=== PATIENT | male | born 1950 | race Caucasian/White ===

== ENCOUNTER 2018-05-16 15:40 | Observation (INO) | payer MEDICARE, OTHER ==
[~2018-05-16] VITALS: Ht 182.9 cm; Wt 114.8 kg
[~2018-05-16 15:40] MED LIST: ASP81CT PO; ATEN50TA PO; ATOR40TA70 PO; BENA1TAB3; BNZ20T; CARV12.53 PO; CLOP75TA69 PO; FENO145T2 PO; GLIP10TA13 PO; IBP200T; INSU100V6 SQ; LOSA100T7 PO; MTF500T; POTA10TA36 PO; PRV20T PO; SILD50TA PO; TADA2.5T PO; TAMS0.4C98 PO; TORS20TA3 PO
[2018-05-16] MEDS ORDERED: DILTIAZEM 25 MG/5 ML INJ (CARDIZEM) VIAL ONE (15:54)
[2018-05-16] MEDS ORDERED: DILTIAZEM 25 MG/5 ML INJ (CARDIZEM) VIAL IVP ONE (16:00)
[2018-05-16] MEDS ORDERED: meTOprolol 5 MG/5 ML (LOPRESSOR) VIAL ONE (16:03)
--- NOTE | 2018-05-16 16:35 | NUR ---
DR HALL HERE TO SEE PT
--- NOTE | 2018-05-16 16:39 | ED Cardiac General ---
History of Present Illness General Chief Complaint: Cardiac/General Problems Stated Complaint: ABNORMAL HEART RHYTHM Source: patient Exam Limitations: no limitations History of Present Illness Date Seen by Provider: May 16, 2018 Time Seen by Provider: 15:30 Initial Comments The patient is a 68-year-old white male who reports that when he awakened this morning he had the sense of pounding in his chest. He thought he would wait it out. After a bit he decided that he needed to go fever [facility]. This did not go well. He then confided in his friend Curry Bardales as to what was going on and Curry brought him here. 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er.prt, 10 MEQ PO DAILY, (Reported) Sildenafil Citrate 50 Mg Tablet, 50 MG PO PRN, (Reported) Tamsulosin HCl 0.4 Mg Cap, 0.4 MG PO DAILY, (Reported) Torsemide 20 Mg Tablet, 20 MG PO BID, (Reported) Patient Home Medication List Home Medication List Reviewed: Yes Review of Systems Review of Systems Constitutional: see HPI EENTM: No Symptoms Reported Respiratory: SOA With Exertion Cardiovascular: Irregular Heart Rate, Palpitations Gastrointestinal: No Symptoms Reported Genitourinary: No Symptoms Reported Musculoskeletal: no symptoms reported Skin: no symptoms reported Psychiatric/Neurological: No Symptoms Reported Endocrine: No Symptoms Reported Hematologic/Lymphatic: No Symptoms Reported Past Knbxfcj-Flwktc-Fcagzb Hx Patient Social History Recent Foreign Travel: No Contact w/Someone Who Travel: No Past Medical History Reproductive Disorders: No Physical Exam Vital Signs Capillary Refill : Height, Weight, BMI Height: 6'0.00" Weight: 265lbs. 0.0oz. 120.267277rh; 35.9 BMI Method: General Appearance: No Apparent Distress, WD/WN HEENT: Normal ENT Inspection Neck: Full Range of Motion, Normal Inspection, Non Tender Respiratory: Chest Non Tender, Lungs Clear, Normal Breath Sounds, No Accessory Muscle Use, No Respiratory Distress Cardiovascular: Irregularly Irregular Gastrointestinal: Normal Bowel Sounds, No Organomegaly, No Pulsatile Mass, Non Tender Extremity: Normal Capillary Refill, Normal Inspection Neurologic/Psychiatric: Alert, Oriented x3, Normal Mood/Affect Skin: Normal Color Progress/Results/Core Measures Results/Orders My Orders Orders - LONDON GORDILLO MD Diltiazem Injection (Cardizem Injection) (05/16/18 16:00) Diltiazem Injection (Cardizem Injection) (05/16/18 15:54) Metoprolol Tartrate Injection (Lopressor (05/16/18 16:03) Medications Given in ED Current Medications Medications Dose Ordered Sig/Eriberto Route Start Time Stop Time Status Last Admin Dose Admin Diltiazem HCl 10 mg ONCE ONCE IVP 05/16/18 16:00 05/16/18 16:01 DC 05/16/18 16:02 10 MG Metoprolol Tartrate 5 mg STK-MED ONCE .ROUTE 05/16/18 16:03 05/16/18 16:08 DC 05/16/18 16:10 5 MG Departure Communication (Admissions) The patient was seen by Dr. Medina in the ER at approximately 1630. The patient will be admitted to stepdown Impression Primary Impression: atrial fibrillation with rapid ventricular response Disposition: ADMITTED INPATIENT Condition: Stable/Unchanged Admissions Decision to Admit Reason: Admit from ER (General) Decision to Admit/Date: May 16, 2018 Time/Decision to Admit Time: 16:40 Departure-Patient Inst. Referrals: LISA GAITAN MD FACP FAC CCDS (PCP/Family) Primary Care Physician LONDON GORDILLO MD May 16, 2018 16:38
--- NOTE | 2018-05-16 16:43 | NUR ---
SEE LIST FOR CURRENT MEDS
--- NOTE | 2018-05-16 16:44 | Consultation-Cardiology ---
HPI-Cardiology Cardiology Consultation Date of Consultation 05/16/18 Date of Admission Time Seen by Provider: 16:38 Indication: atrial flutter HPI 68 years old gentleman with history of coronary artery disease, hypertension and hyperlipidemia. Woke up this morning feeling tired, did not feel himself. Had some irregular heartbeat. Came into the emergency room for evaluation noted to be in atrial flutter with borderline tachycardia. Denied any chest pain. Denied any syncope or near syncopal episode, is complaining of generalized fatigue and loss of energy. Given IV Lopressor with appropriate improvement of his heart rate, currently his heart rate is in the 70s. Feeling better. Still in flutter. Home Medications & Allergies Allergies: Coded Allergies: VIV Inhibitors (Verified Allergy, Unknown, 09/11/17) Home Medication List Reviewed: Yes [facility]-[place] Hx Patient Social History Marital Status: Employed/Student: employed Alcohol Use: Rarely Uses Recreational Drug Use: No Smoking Status: Never a Smoker Recent Foreign Travel: No Recent Hopitalizations: No Past Medical History Past medical history as described below Family Medical History Family Medical Hx Noncontributory. His current condition Review of Systems Constitutional: see HPI, malaise, weakness EENTM: see HPI, no symptoms reported Respiratory: see HPI; No cough, No dyspnea on exertion, No hemoptysis, No orthopnea, No phlegm, No short of breath, No stridor, No wheezing, No other Cardiovascular: see HPI; No chest pain, No edema, No Hx of Intervention; palpitations; No syncope, No vascular heart diseas, No other Gastrointestinal: no symptoms reported, see HPI Genitourinary: no symptoms reported, see HPI Musculoskeletal: no symptoms reported, see HPI Skin: no symptoms reported, see HPI Psychiatric/Neurological: No Symptoms Reported, See HPI Reviewed Test Results Reviewed Test Results Lab Labs are pending Physical Exam Vital Signs Capillary Refill : Less Than 3 Seconds Height, Weight, BMI Height: 6'0.00" Weight: 265lbs. 0.0oz. 120.721233xm; 35.9 BMI Method: General Appearance: No Apparent Distress, WD/WN Eyes: Bilateral Eye Normal Inspection, Bilateral Eye PERRL, Bilateral Eye EOMI HEENT: PERRL/EOMI, TMs Normal, Normal ENT Inspection, Pharynx Normal Neck: Full Range of Motion, Normal Inspection, Non Tender, Supple, Carotid Bruit Respiratory: Chest Non Tender, Lungs Clear, Normal Breath Sounds, No Accessory Muscle Use, No Respiratory Distress Cardiovascular: No Edema, No Gallop, No JVD, No Murmur, Normal Peripheral Pulses, Irregularly Irregular Gastrointestinal: Normal Bowel Sounds, No Organomegaly, No Pulsatile Mass, Non Tender, Soft Back: Normal Inspection, No CVA Tenderness, No Vertebral Tenderness Extremity: Normal Capillary Refill, Normal Inspection, Normal Range of Motion, Non Tender, No Calf Tenderness, No Pedal Edema Neurologic/Psychiatric: Alert, Oriented x3, No Motor/Sensory Deficits, Normal Mood/Affect Skin: Normal Color, Warm/Dry Lymphatic: No Adenopathy A/P-Cardiology Admission Diagnosis Atrial flutter Palpitation Coronary artery disease Hypertension Hyperlipidemia Assessment/Plan Atrial flutter, new onset, palpitation, I will start her on IV Lopressor and monitor tolerance and response, may consider electrical cardioversion if he does not convert on his own. Increased risk of stroke, was started on Eliquis today. Coronary artery disease, last cardiac catheterization done by Dr. Huston in September 2017 showing moderate disease, had a patent stent noted to have bare-metal stent in the proximal and mid left circumflex artery, ejection fraction was normal. History of sick sinus syndrome with bradycardia after the use of beta blockers. Improved after reducing the dose of beta blockers Hypertension, monitor blood pressure Hyperlipidemia, hypertriglyceridemia, followed by Dr. Fox Diabetes mellitus, followed and managed by primary care physician History of chronic venous insufficiency with lower extremity swelling Peripheral neuropathy probably secondary to diabetes. Normal NICK in February 2015 Mild carotid stenosis by ultrasound in September 2014 History of intolerance to VIV inhibitor due to cough Increased risk of sleep apnea, consider sleep study as an outpatient Obesity, discussed weight loss. CUAUHTEMOC HALL MD May 16, 2018 16:44
[2018-05-16] MEDS ORDERED: APIXABAN 5 MG (ELIQUIS) TABLET PO ONE (16:45)
--- OUTSIDE RECORDS SUMMARY | 2018-05-16 17:04 | XMS REPORT | Continuity of Care Document ---
Author Author [facility] Organization [facility] Address Unknown Phone Unavailable Allergies Active Description Code Type Severity Reaction Onset Reported/Identified Relationship to Patient Clinical Status Yes NO KNOWN DRUG ALLERGIES UNKNOWN NO KNOWN DRUG ALLERG Yes No Known Drug Allergies [id number] Drug Allergy Unknown N/A 08/12/2009 Yes VIV Inhibitors [id number] Drug Allergy Unknown N/A 09/11/2017 Medications There is no data. Problems Date Dx Coded Attending Type Code Diagnosis Diagnosed By 08/13/2009 Ot 250.00 08/13/2009 Ot 272.0 08/13/2009 Ot 272.1 08/13/2009 Ot 401.9 08/13/2009 Ot 413.9 08/13/2009 Ot 414.01 08/13/2009 Ot V15.82 09/19/2011 Ot 250.00 09/19/2011 Ot 272.4 09/19/2011 Ot 401.9 09/19/2011 Ot 414.01 09/19/2011 Ot 607.84 09/19/2011 Ot 785.1 09/19/2011 Ot 786.09 09/19/2011 Ot V45.82 09/19/2011 Ot V58.66 09/19/2011 Ot V58.69 09/07/2014 ARNIE HAMEED FACC, LISA FACP CCDS Ot 250.00 09/07/2014 ARNIE HAMEED FACC, LISA FACP CCDS Ot 272.4 09/07/2014 ARNIE HAMEED FACC, LISA FACP CCDS Ot 401.9 09/07/2014 ARNIE HAMEED FACC, LISA FACP CCDS Ot 414.00 09/07/2014 ARNIE HAMEED FACC, LISA FACP CCDS Ot 427.89 02/23/2015 ARNIE HAMEED FACC, ALI FACP CCDS Ot 250.00 02/23/2015 ARNIE HAMEED FACC, LISA FACP CCDS Ot 272.4 02/23/2015 ARNIE HAMEED FACC, LISA FACP CCDS Ot 401.9 02/23/2015 ARNIE MD FACC, ALI FACP CCDS Ot 414.00 02/23/2015 ARNIE HAMEED FACC, ALI FACP CCDS Ot 427.89 03/11/2015 ARNIE HAMEED FACC, ALI FACP CCDS Ot E11.9 03/11/2015 [facility] FACC, ALI FACP CCDS Ot E66.9 03/11/2015 ARNIE FACC, ALI FACP CCDS Ot E78.5 03/11/2015 ARNIE MD FACC, ALI FACP CCDS Ot I10 03/11/2015 [facility] FACC, ALI FACP CCDS Ot I25.10 03/11/2015 ARNIE MD FAC, ALI FACP CCDS Ot I65.29 03/11/2015 ARNIE MD FAC, ALI FACP CCDS Ot M79.604 03/11/2015 [facility] FAC, ALI FACP CCDS Ot N52.9 05/05/2015 ARNIE HAMEED FAC, ALI FACP CCDS Ot E11.9 05/05/2015 ARNIE HAMEED FAC, ALI FACP CCDS Ot E66.9 05/05/2015 ARNIE MD [facility], ALI FACP CCDS Ot E78.5 05/05/2015 ARNIE HAMEED [facility], ALI FACP CCDS Ot I10 05/05/2015 ARNIE HAMEED FAC, ALI FACP CCDS Ot I25.10 05/05/2015 [facility] FAC, ALI FACP CCDS Ot M79.604 05/05/2015 RANIE HAMEED FACC, ALI FACP CCDS Ot N52.9 05/26/2015 ARNIE HAMEED FAC, ALI FACP CCDS Ot E11.9 05/26/2015 ARNIE MD FACC, ALI FACP CCDS Ot E66.9 05/26/2015 ARNIE HAMEED FAC, ALI FACP CCDS Ot E78.5 05/26/2015 ARNIE HAMEED FAC, ALI FACP CCDS Ot I10 05/26/2015 ARNIE HAMEED FACC, ALI FACP CCDS Ot I25.10 05/26/2015 ARNIE HAMEED FACC, ALI FACP CCDS Ot M79.604 05/26/2015 ARNIE HAMEED FACC, ALI FACP CCDS Ot N52.9 08/07/2017 Fox, [place] W 250.80 DIABETES MELLITUS WITH OTHER SPECIFIED MANIFESTATIONS, TYPE II OR UNSPECIFIED TYPE, NOT STATED UNCONTROLLED 08/07/2017 Fox, [place] W 428.0 CONGESTIVE HEART FAILURE, UNSPECIFIED 08/07/2017 Fox, [place] W 709.2 SCAR CONDITIONS AND FIBROSIS OF SKIN 08/07/2017 Fox, [place] W E11.65 TYPE 2 DIABETES MELLITUS WITH HYPERGLYCEMIA 08/07/2017 Fox, [place] W I50.9 HEART FAILURE, UNSPECIFIED 08/07/2017 Fox, [place] W L90.5 SCAR CONDITIONS AND FIBROSIS OF SKIN 08/07/2017 Fox, [place] W 250.80 DIABETES MELLITUS WITH OTHER SPECIFIED MANIFESTATIONS, TYPE II OR UNSPECIFIED TYPE, NOT STATED UNCONTROLLED 08/07/2017 Fox, [place] W 428.0 CONGESTIVE HEART FAILURE, UNSPECIFIED 08/07/2017 Fox, [place] W 709.2 SCAR CONDITIONS AND FIBROSIS OF SKIN 08/07/2017 Fox, [place] W E11.65 TYPE 2 DIABETES MELLITUS WITH HYPERGLYCEMIA 08/07/2017 Fox, [place] W I50.9 HEART FAILURE, UNSPECIFIED 08/07/2017 Fox, [place] W L90.5 SCAR CONDITIONS AND FIBROSIS OF SKIN 08/07/2017 Fox, [place] W 250.80 DIABETES MELLITUS WITH OTHER SPECIFIED MANIFESTATIONS, TYPE II OR UNSPECIFIED TYPE, NOT STATED UNCONTROLLED 08/07/2017 Fox, [place] W 428.0 CONGESTIVE HEART FAILURE, UNSPECIFIED 08/07/2017 Fox, [place] W 709.2 SCAR CONDITIONS AND FIBROSIS OF SKIN 08/07/2017 Fox, [place] W E11.65 TYPE 2 DIABETES MELLITUS WITH HYPERGLYCEMIA 08/07/2017 Fox, [place] W I50.9 HEART FAILURE, UNSPECIFIED 08/07/2017 Fox, [place] W L90.5 SCAR CONDITIONS AND FIBROSIS OF SKIN 08/14/2017 Fox, [place] A 250.80 DIABETES MELLITUS WITH OTHER SPECIFIED MANIFESTATIONS, TYPE II OR UNSPECIFIED TYPE, NOT STATED UNCONTROLLED 08/14/2017 Ruddy, [place] A E11.65 TYPE 2 DIABETES MELLITUS WITH HYPERGLYCEMIA 08/14/2017 Fox, [place] A 250.80 DIABETES MELLITUS WITH OTHER SPECIFIED MANIFESTATIONS, TYPE II OR UNSPECIFIED TYPE, NOT STATED UNCONTROLLED 08/14/2017 Fox, [place] W 272.4 OTHER AND UNSPECIFIED HYPERLIPIDEMIA 08/14/2017 Fox, [place] W 401.9 UNSPECIFIED ESSENTIAL HYPERTENSION 08/14/2017 Fox, [place] A E11.65 TYPE 2 DIABETES MELLITUS WITH HYPERGLYCEMIA 08/14/2017 Fox, [place] W E78.5 HYPERLIPIDEMIA, UNSPECIFIED 08/14/2017 Fox, [place] W I10 ESSENTIAL (PRIMARY) HYPERTENSION 08/14/2017 Fox, [place] W 250.80 DIABETES MELLITUS WITH OTHER SPECIFIED MANIFESTATIONS, TYPE II OR UNSPECIFIED TYPE, NOT STATED UNCONTROLLED 08/14/2017 Fox, [place] W 272.4 OTHER AND UNSPECIFIED HYPERLIPIDEMIA 08/14/2017 Fox, [place] W 401.9 UNSPECIFIED ESSENTIAL HYPERTENSION 08/14/2017 Fox, [place] W 428.0 CONGESTIVE HEART FAILURE, UNSPECIFIED 08/14/2017 Fox, [place] W E11.65 TYPE 2 DIABETES MELLITUS WITH HYPERGLYCEMIA 08/14/2017 Fox, [place] W E78.5 HYPERLIPIDEMIA, UNSPECIFIED 08/14/2017 Fox, [place] W I10 ESSENTIAL (PRIMARY) HYPERTENSION 08/14/2017 Fox, [place] W I50.9 HEART FAILURE, UNSPECIFIED 08/14/2017 Fox, [place] W 250.80 DIABETES MELLITUS WITH OTHER SPECIFIED MANIFESTATIONS, TYPE II OR UNSPECIFIED TYPE, NOT STATED UNCONTROLLED 08/14/2017 Fox, [place] W 272.4 OTHER AND UNSPECIFIED HYPERLIPIDEMIA 08/14/2017 Fox, [place] W 401.9 UNSPECIFIED ESSENTIAL HYPERTENSION 08/14/2017 Fox, [place] W 428.0 CONGESTIVE HEART FAILURE, UNSPECIFIED 08/14/2017 Fox, [place] W E11.65 TYPE 2 DIABETES MELLITUS WITH HYPERGLYCEMIA 08/14/2017 Fox, [place] W E78.5 HYPERLIPIDEMIA, UNSPECIFIED 08/14/2017 Fox, [place] W I10 ESSENTIAL (PRIMARY) HYPERTENSION 08/14/2017 Fox, [place] W I50.9 HEART FAILURE, UNSPECIFIED 09/06/2017 ARNIE HAMEED FACC, ALI FACP CCDS Ot 250.00 DIAB MEGAN WO COMPL, TYPE II OR UNSPEC TY 09/06/2017 ARNIE BEACHC, ALI FACP CCDS Ot 272.4 HYPERLIPIDEMIA NEC/NOS 09/06/2017 ARNIE HAMEED FACC, ALI FACP CCDS Ot 401.9 HYPERTENSION NOS 09/06/2017 ARNIE HAMEED FACC, ALI FACP CCDS Ot 414.00 CORON ATHEROSCLER NOS TYPE VESSEL, NATIV 09/06/2017 ARNIE HAMEED FACC, ALI FACP CCDS Ot 427.89 CARDIAC DYSRHYTHMIAS NEC 09/06/2017 ARNIE HAMEED FACC, ALI FACP CCDS Ot E11.9 TYPE 2 DIABETES MELLITUS WITHOUT COMPLIC 09/06/2017 ARNIE BEACHC, ALI FACP CCDS Ot E66.9 OBESITY, UNSPECIFIED 09/06/2017 ARNIE BEACHC, ALI FACP CCDS Ot E78.5 HYPERLIPIDEMIA, UNSPECIFIED 09/06/2017 ARNIE HAMEED FACC, ALI FACP CCDS Ot I10 ESSENTIAL (PRIMARY) HYPERTENSION 09/06/2017 ARNIE BEACHC, ALI FACP CCDS Ot I25.10 ATHSCL HEART DISEASE OF [place] CORONARY 09/06/2017 ARNIE BEACHC, ALI FACP CCDS Ot M79.604 PAIN IN RIGHT LEG 09/06/2017 ARNIE HAMEED FACC, ALI FACP CCDS Ot N52.9 MALE ERECTILE DYSFUNCTION, UNSPECIFIED 09/06/2017 ARNIE HAMEED FACC, ALI FACP CCDS Ot E11.9 TYPE 2 DIABETES MELLITUS WITHOUT COMPLIC 09/06/2017 ARNIE HAMEED FACC, ALI FACP CCDS Ot E66.9 OBESITY, UNSPECIFIED 09/06/2017 ARNIE BEACHC, ALI FACP CCDS Ot E78.5 HYPERLIPIDEMIA, UNSPECIFIED 09/06/2017 ARNIE BEACHC, ALI FACP CCDS Ot I10 ESSENTIAL (PRIMARY) HYPERTENSION 09/06/2017 ARNIE BEACHC, ALI FACP CCDS Ot I25.10 ATHSCL HEART DISEASE OF [place] CORONARY 09/06/2017 ARNIE BEACHC, ALI FACP CCDS Ot M79.604 PAIN IN RIGHT LEG 09/06/2017 ARNIE BEACHC, ALI FACP CCDS Ot N52.9 MALE ERECTILE DYSFUNCTION, UNSPECIFIED 09/10/2017 ARNIE BEACHC, ALI FACP CCDS Ot 250.00 DIAB MEGAN WO COMPL, TYPE II OR UNSPEC TY 09/10/2017 ARNIE HAMEED FACC, ALI FACP CCDS Ot 272.4 HYPERLIPIDEMIA NEC/NOS 09/10/2017 ARNIE HAMEED FACC, ALI FACP CCDS Ot 401.9 HYPERTENSION NOS 09/10/2017 ARNIE HAMEED FACC, ALI FACP CCDS Ot 414.00 CORON ATHEROSCLER NOS TYPE VESSEL, NATIV 09/10/2017 ARNIE HAMEED FACC, ALI FACP CCDS Ot 427.89 CARDIAC DYSRHYTHMIAS NEC 09/10/2017 ARNIE HAMEED FACC, ALI FACP CCDS Ot E11.9 TYPE 2 DIABETES MELLITUS WITHOUT COMPLIC 09/10/2017 ARNIE HAMEED FACC, ALI FACP CCDS Ot E66.9 OBESITY, UNSPECIFIED 09/10/2017 ARNIE HAMEED FACC, ALI FACP CCDS Ot E78.5 HYPERLIPIDEMIA, UNSPECIFIED 09/10/2017 ARNIE HAMEED FACC, ALI FACP CCDS Ot I10 ESSENTIAL (PRIMARY) HYPERTENSION 09/10/2017 ARNIE BEACHC, ALI FACP CCDS Ot I25.10 ATHSCL HEART DISEASE OF [place] CORONARY 09/10/2017 ARNIE BEACHC, ALI FACP CCDS Ot M79.604 PAIN IN RIGHT LEG 09/10/2017 ARNIE HAMEED FACC, ALI FACP CCDS Ot N52.9 MALE ERECTILE DYSFUNCTION, UNSPECIFIED 09/10/2017 ARNIE HAMEED FACC, ALI FACP CCDS Ot E11.9 TYPE 2 DIABETES MELLITUS WITHOUT COMPLIC 09/10/2017 ARNIE BEACHC, ALI FACP CCDS Ot E66.9 OBESITY, UNSPECIFIED 09/10/2017 ARNIE BEACHC, ALI FACP CCDS Ot E78.5 HYPERLIPIDEMIA, UNSPECIFIED 09/10/2017 ARNIE BEACHC, ALI FACP CCDS Ot I10 ESSENTIAL (PRIMARY) HYPERTENSION 09/10/2017 ARNIE BEACHC, ALI FACP CCDS Ot I25.10 ATHSCL HEART DISEASE OF [place] CORONARY 09/10/2017 ARNIE BEACHC, ALI FACP CCDS Ot M79.604 PAIN IN RIGHT LEG 09/10/2017 ARNIE BEACHC, ALI FACP CCDS Ot N52.9 MALE ERECTILE DYSFUNCTION, UNSPECIFIED 09/11/2017 ARNIE BEACHC, ALI FACP CCDS Ot E11.42 TYPE 2 DIABETES MELLITUS WITH DIABETIC P 09/11/2017 ARNIE HAMEED FACC, ALI FACP CCDS Ot E66.9 OBESITY, UNSPECIFIED 09/11/2017 ARNIE HAMEED FACC, ALI FACP CCDS Ot E78.5 HYPERLIPIDEMIA, UNSPECIFIED 09/11/2017 ARNIE HAMEED FACC, ALI FACP CCDS Ot I10 ESSENTIAL (PRIMARY) HYPERTENSION 09/11/2017 ARNIE HAMEED FACC, ALI FACP CCDS Ot I25.10 ATHSCL HEART DISEASE OF [place] CORONARY 09/11/2017 ARNIE HAMEED FACC, ALI FACP CCDS Ot Z68.35 BODY MASS INDEX (BMI) 35.0-35.9, ADULT 09/11/2017 ARNIE HAMEED FACC, ALI FACP CCDS Ot Z79.4 RESIDENTIAL (CURRENT) USE OF INSULIN 09/11/2017 ARNIE HAMEED FACC, ALI FACP CCDS Ot Z79.82 RESIDENTIAL (CURRENT) USE OF ASPIRIN 09/11/2017 ARNIE HAMEED FACC, ALI FACP CCDS Ot Z79.899 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 (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 THERAPY 09/11/2017 ARNIE HAMEED FACC, ALI FACP CCDS Ot Z95.5 PRESENCE OF CORONARY ANGIOPLASTY IMPLANT 09/12/2017 ARNIE BEACHC, ALI FACP CCDS Ot E11.42 TYPE 2 DIABETES MELLITUS WITH DIABETIC P 09/12/2017 ARNIE HAMEED FACC, ALI FACP CCDS Ot E66.9 OBESITY, UNSPECIFIED 09/12/2017 ARNIE HAMEED FACC, ALI FACP CCDS Ot E78.5 HYPERLIPIDEMIA, UNSPECIFIED 09/12/2017 ARNIE HAMEED FACC, ALI FACP CCDS Ot I10 ESSENTIAL (PRIMARY) HYPERTENSION 09/12/2017 ARNIE HAMEED FACC, ALI FACP CCDS Ot I25.10 ATHSCL HEART DISEASE OF [place] CORONARY 09/12/2017 ARNIE HAMEED FACC, ALI FACP CCDS Ot Z68.35 BODY MASS INDEX (BMI) 35.0-35.9, ADULT 09/12/2017 ARNIE HAMEED FACC, ALI FACP CCDS Ot Z79.4 RESIDENTIAL (CURRENT) USE OF INSULIN 09/12/2017 ARNIE HAMEED FACC, ALI FACP CCDS Ot Z79.82 RESIDENTIAL (CURRENT) USE OF ASPIRIN 09/12/2017 ARNIE HAMEED FACC, ALI FACP CCDS Ot Z79.899 OTHER RESIDENTIAL (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 THERAPY 09/12/2017 ARNIE HAMEED [facility], [facility] CCDS Ot Z95.5 PRESENCE OF CORONARY ANGIOPLASTY IMPLANT 01/10/2018 Ruddy, [place] W 250.00 DIABETES MELLITUS WITHOUT MENTION OF COMPLICATION, TYPE II OR UNSPECIFIED TYPE, NOT STATED UNCONTROLLED 01/10/2018 Fox, [place] W E11.9 TYPE 2 DIABETES MELLITUS WITHOUT COMPLICATIONS 01/10/2018 Fox, [place] W 250.00 DIABETES MELLITUS WITHOUT MENTION OF COMPLICATION, TYPE II OR UNSPECIFIED TYPE, NOT STATED UNCONTROLLED 01/10/2018 Fox, [place] W E11.9 TYPE 2 DIABETES MELLITUS WITHOUT COMPLICATIONS 01/10/2018 Fox, [place] W 250.00 DIABETES MELLITUS WITHOUT MENTION OF COMPLICATION, TYPE II OR UNSPECIFIED TYPE, NOT STATED UNCONTROLLED 01/10/2018 Fox, [place] W E11.9 TYPE 2 DIABETES MELLITUS WITHOUT COMPLICATIONS 04/30/2018 Fox, [place] W 250.00 DIABETES MELLITUS WITHOUT MENTION OF COMPLICATION, TYPE II OR UNSPECIFIED TYPE, NOT STATED UNCONTROLLED 04/30/2018 Fox, [place] W E11.9 TYPE 2 DIABETES MELLITUS WITHOUT COMPLICATIONS 04/30/2018 Fox, [place] W 250.00 DIABETES MELLITUS WITHOUT MENTION OF COMPLICATION, TYPE II OR UNSPECIFIED TYPE, NOT STATED UNCONTROLLED 04/30/2018 Fox, [place] W E11.9 TYPE 2 DIABETES MELLITUS WITHOUT COMPLICATIONS Procedures There is no data. Results Test Result Range Lipid Panel - 04/12/16 15:05 C/HDL 3.6 3.7-6.7 Cholesterol 127 mg/dL 100-240 HDL 35 mg/dL 30-85 LDL-Calculated 69 mg/dL 0-100 Trig 113 mg/dL 35-160 VLDL 23 mg/dL 0-42 Hemoglobin A1C - 08/09/16 11:00 % A1C 7.40 % 5.40-6.60 AvGlu 185 mg/dL 70-110 Microalb/Creat - 01/17/17 08:55 Microalb >500.0 mg/L 0.0-20.0 UMicroalb/UCreat 318.19 mg/g 0.00-100.00 Urine Creatinine 157.1 mg/dl 0.0-50.0 BNP - 04/13/17 13:26 BNP 97.60 pg/ml 0.00-100.00 BNP - 08/07/17 16:49 BNP 122.90 pg/ml 0.00-100.00 Hemoglobin A1C - 08/14/17 14:30 Lipid Panel - 08/14/17 14:30 Automated blood complete blood count (hemogram) panel - 09/11/17 07:22 Blood leukocytes automated count (number/volume) 9.3 10*3/uL 4.3-11.0 Blood erythrocytes automated count (number/volume) 5.01 10*6/uL 4.35-5.85 Venous blood hemoglobin measurement (mass/volume) 14.5 g/dL 13.3-17.7 Blood hematocrit (volume fraction) 43 % 40-54 Automated erythrocyte mean corpuscular volume 86 [foz_us] 80-99 Automated erythrocyte mean corpuscular hemoglobin (mass per erythrocyte) 29 pg 25-34 Automated erythrocyte mean corpuscular hemoglobin concentration measurement ( mass/volume) 34 g/dL 32-36 Automated erythrocyte distribution width ratio 13.4 % 10.0-14.5 Automated blood platelet count (count/volume) 139 10*3/uL 130-400 Automated blood platelet mean volume measurement 12.9 [foz_us] 7.4-10.4 PT panel in platelet poor plasma by coagulation assay - 09/11/17 07:22 Prothrombin time (PT) in platelet poor plasma by coagulation assay 13.5 s 12.2-14.7 INR in platelet poor plasma or blood by coagulation assay 1.0 0.8-1.4 Activated partial thromboplastin time (aPTT) in platelet poor plasma bycoagulation assay - 09/11/17 07:22 Activated partial thromboplastin time (aPTT) in platelet poor plasma bycoagulation assay 34 s 24-35 Comprehensive metabolic panel - 09/11/17 07:22 Serum or plasma sodium measurement (moles/volume) 140 mmol/L 135-145 Serum or plasma potassium measurement (moles/volume) 4.5 mmol/L 3.6-5.0 Serum or plasma chloride measurement (moles/volume) 106 mmol/L 98-107 Carbon dioxide 23 mmol/L 21-32 Serum or plasma anion gap determination (moles/volume) 11 mmol/L 5-14 Serum or plasma urea nitrogen measurement (mass/volume) 24 mg/dL 7-18 Serum or plasma creatinine measurement (mass/volume) 1.15 mg/dL 0.60-1.30 Serum or plasma urea nitrogen/creatinine mass ratio 21 NRG Serum or plasma creatinine measurement with calculation of estimated glomerular filtration rate > NRG Serum or plasma glucose measurement (mass/volume) 207 mg/dL 70-105 Serum or plasma calcium measurement (mass/volume) 9.3 mg/dL 8.5-10.1 Serum or plasma total bilirubin measurement (mass/volume) 0.5 mg/dL 0.1-1.0 Serum or plasma alkaline phosphatase measurement (enzymatic activity/volume) 69 U/L 40-136 Serum or plasma aspartate aminotransferase measurement (enzymatic activity/ volume) 19 U/L 5-34 Serum or plasma alanine aminotransferase measurement (enzymatic activity/volume ) 17 U/L 0-55 Serum or plasma protein measurement (mass/volume) 6.9 g/dL 6.4-8.2 Serum or plasma albumin measurement (mass/volume) 3.8 g/dL 3.2-4.5 Lipid 1996 panel - 09/11/17 07:22 Serum or plasma triglyceride measurement (mass/volume) 305 mg/dL <150 Serum or plasma cholesterol measurement (mass/volume) 148 mg/dL < 200 Serum or plasma cholesterol in HDL measurement (mass/volume) 29 mg/ dL 40-60 Cholesterol in LDL [mass/volume] in serum or plasma by direct assay 61 mg/dL 1-129 Serum or plasma cholesterol in VLDL measurement (mass/volume) 61 mg/ dL 5-40 Methicillin resistant Staphylococcus aureus (MRSA) screening culture - 07:22 Methicillin resistant Staphylococcus aureus (MRSA) screening culture NEG NRG BMP - 01/10/18 08:00 Anion Gap 17 6-14 BUN 25 mg/dL 5-25 Calcium 9.4 mg/dL 8.3-10.4 Chloride 105 mmol/L 95-114 CO2 23 mEq/L 22-33 Creat 1.22 mg/dL 0.50-1.50 eGFR 59 mL/min/1.73m2 >59 Glucose 198 mg/dL 70-110 Osmo 298 280-295 Potassium 4.7 mmol/L 3.5-5.3 Sodium 140 mmol/L 134-148 Hemoglobin A1C - 04/30/18 14:30 % A1C 10.70 % 5.40-6.60 AvGlu 305 mg/dL 70-110 Encounters ACCT No. Visit Date/Time Discharge Status Pt. Type Provider Facility Loc./Unit Complaint [id number] 09/11/2017 07:07:00 09/11/2017 12:10:00 DIS Outpatient ARNIE HAMEED FACC, ALI FACP CCDS [facility] CATH CHF,CAD,HTN [id number] 03/09/2015 07:15:00 03/09/2015 23:59:59 CLS Outpatient ARNIE HAMEED FACC, ALI FACP CCDS [facility] CARD CAD [id number] 02/23/2015 08:53:00 02/23/2015 23:59:59 CLS Outpatient ARNIE HAMEED FACC, ALI FACP CCDS [facility] RAD CAD,CAROTID ARTERY NARROWING,BILATERAL LEG PAIN [id number] 08/19/2014 09:37:00 08/19/2014 23:59:59 CLS Outpatient ARNIE HAMEED FACC, ALI FACP CCDS [facility] RAD CAD,HTN, BRADYCARDIA [id number] 05/16/2018 16:59:00 ACT Inpatient MARIXA HAMEED, AMARJIT Curry [facility] ICU AFIB WITH RVR/DIABETES [id number] 08/19/2014 09:35:00 Document Registration [id number] 08/12/2009 09:26:00 Document Registration [id number] 04/30/2018 21:38:00 04/30/2018 23:59:00 DIS Outpatient Serena Fox [id number] 01/10/2018 09:47:00 01/10/2018 23:59:00 DIS Outpatient Serena Fox [id number] 08/14/2017 14:30:00 08/14/2017 23:59:00 DIS Outpatient Serena Fox [id number] 08/07/2017 19:22:00 08/07/2017 23:59:00 DIS Outpatient Serena Fox [id number] 05/02/2017 00:00:00 05/02/2017 23:59:00 DIS Outpatient Serena Fox [id number] 04/17/2017 12:57:00 04/17/2017 23:59:00 DIS Outpatient Serena Fox [id number] 04/13/2017 13:25:00 04/13/2017 23:59:00 DIS Outpatient Serena Fox [id number] 01/17/2017 09:06:00 01/17/2017 23:59:00 DIS Outpatient Serena Fox [id number] 08/09/2016 12:37:00 08/09/2016 23:59:00 DIS Outpatient Serena Fox [id number] 04/12/2016 14:58:00 04/12/2016 23:59:00 DIS Outpatient Serena Fox
[2018-05-16] MEDS ORDERED: inSUlin DETERMIR 1 UNIT/0.01 ML (LEVEMIR) CHARGE PER UNIT SQ SCH (17:15)
[2018-05-16] MEDS ORDERED: CATHETER FLUSH 10 ML SYR IV PRN (17:30)
[2018-05-16 17:37] VITALS: BP 155/98
[2018-05-16 17:45] VITALS: BP 146/94
[2018-05-16 18:00] VITALS: BP 135/75
[2018-05-16] MEDS ORDERED: FLU QUADRIvalent (5+ YOA) 2018-2019 (AFLURIA) 0.5 ML IM ONE (18:00)
[2018-05-16] MEDS: meTOprolol 5 MG/5 ML (LOPRESSOR) VIAL IV SCH ×2 (18:47→22:01)
[2018-05-16 21:00] VITALS: BP 160/97
[2018-05-16] MEDS: inSUlin ASPART (NovoLOG) 1 UNIT/0.01 ML (CHARGE PER UNIT) SC SCH (21:44)
[2018-05-16] MEDS: APIXABAN 5 MG (ELIQUIS) TABLET PO SCH (21:44)
[2018-05-16 22:00] VITALS: BP 134/100
[2018-05-16] MEDS: CATHETER FLUSH 10 ML SYR IV SCH (22:01)
[2018-05-17] VITALS: BP 168/97
--- NOTE | 2018-05-17 00:30 | NUR ---
PT HAS CONVERTED TO SR
[2018-05-17 04:00] VITALS: BP 136/74
[2018-05-17 04:31] LABS: HEMOGLOBIN 13.8 G/DL (13.3-17.7); MEAN PLATELET VOLUME 12.8 FL (7.4-10.4); RED BLOOD COUNT 4.89 10^6/uL (4.35-5.85); RED CELL DISTRIBUTION WIDTH 14.4 % (10.0-14.5); WHITE BLOOD COUNT 9.6 10^3/uL (4.3-11.0)
[2018-05-17 05:14] LABS: ALBUMIN 3.3 GM/DL (3.2-4.5); BILIRUBIN,TOTAL 0.4 MG/DL (0.1-1.0); CALCIUM 8.6 MG/DL (8.5-10.1); CREATININE SERUM 1.23 MG/DL (0.60-1.30); POTASSIUM 3.7 MMOL/L (3.6-5.0); TOTAL PROTEIN 5.9 GM/DL (6.4-8.2)
[2018-05-17] MEDS: meTOprolol 5 MG/5 ML (LOPRESSOR) VIAL IV SCH (05:57)
[2018-05-17] MEDS: CATHETER FLUSH 10 ML SYR IV SCH (05:57)
[2018-05-17] MEDS: inSUlin ASPART (NovoLOG) 1 UNIT/0.01 ML (CHARGE PER UNIT) SC SCH ×2 (05:58→10:57)
[2018-05-17] MEDS: APIXABAN 5 MG (ELIQUIS) TABLET PO SCH (07:28)
--- NOTE | 2018-05-17 07:55 | Short Stay Summary-Hospitalist ---
History of Present Illness HPI/Chief Complaint Pt is a 68yoCM with a PMH of CAD s/p stenting, IDDMII, HTN who presented to the ER due to elevated heart rate. He states he woke up yesterday and was dizzy and sluggish and didn't feel like doing anything which is abnormal. He called a friend who recommended he be seen in by his doctor so he saw his PCP Dr Fox at 230pm yesterday where he was found to have a heart rate in the 140s that was irregular. He was sent to the ER for evaluation. On arrival in the ER he was found to be in a-fib with RVR. He was given IV cardizem which slowed his rate significantly to the 70s. Around 0020 this morning he converted to sinus rhythm. He has no complaints today and states that he feels well. Source: patient Exam Limitations: no limitations Date Seen 05/17/18 Time Seen by a Provider: 07:50 Attending Physician Amarjit Menezes MD PCP Serena Fox MD Referring Physician Date of Admission May 16, 2018 at 16:59 Home Medications & Allergies Home Medications Reviewed patient Home Medication Reconciliation performed by pharmacy medication reconciliations technician plant and maintenance and/or nursing. Patients Allergies have been reviewed. Allergies Allergies Coded Allergies VIV Inhibitors (Verified Allergy, Unknown, 09/11/17) Past Ovruyco-Vplehg-Udpqif Hx Past Med/Social Hx: Reviewed Nursing Past Med/Soc Hx Patient Social History Marrital Status: Employed/Student: employed Alcohol Use: Rarely Uses Recreational Drug Use: No Smoking Status: Never a Smoker Recent Foreign Travel: No Contact w/other who traveled: No Recent Hopitalizations: No Recent Infectious Disease Expo: No Past Medical History Surgeries: Coronary Stent Cardiac: Coronary Artery Disease, Hypertension Reproductive: No Endocrine: Diabetes, Insulin dep History of Blood Disorders: No Family History Reviewed Nursing Family Hx No Pertinent Family Hx Review of Systems Constitutional: see HPI, malaise EENTM: No blurred vision, No double vision, No nose congestion, No throat pain Respiratory: No cough, No dyspnea on exertion, No short of breath Cardiovascular: No chest pain, No edema; palpitations Gastrointestinal: No abdominal pain, No constipation, No diarrhea, No nausea, No vomiting Genitourinary: No dysuria, No frequency Musculoskeletal: No joint pain, No muscle pain Skin: No lesions, No rash Psychiatric/Neurological: Denies Headache, Denies Numbness, Denies Tingling Physical Exam Physical Exam Vital Signs Vital Signs - First Documented 05/16/18 05/16/18 15:45 17:26 Temp 97.9 Pulse 147 Resp 20 B/P (MAP) 137/87 (104) Pulse Ox 98 O2 Delivery Room Air Capillary Refill : Less Than 3 Seconds Height, Weight, BMI Height: 6'0" Weight: 253lbs. 0.0oz. 114.199163fw; 35.9 BMI Method:Stated General Appearance: No Apparent Distress, WD/WN, Obese HEENT: PERRL/EOMI, Moist Mucous Membranes; No Scleral Icterus (L), No Scleral Icterus (R) Neck: Non Tender, Supple Respiratory: Lungs Clear, No Respiratory Distress Cardiovascular: Regular Rate, Rhythm, No Murmur Gastrointestinal: Normal Bowel Sounds, Non Tender, Soft Extremity: Normal Capillary Refill, No Calf Tenderness; No Pedal Edema, No Swelling Neurologic/Psychiatric: Alert, Oriented x3, Normal Mood/Affect Skin: Normal Color, Warm/Dry Results Results/Procedures Labs Patient resulted labs reviewed. Short Stay Diagnosis Discharge Diagnosis-Short Stay Admission Diagnosis Atrial fibrillation with RVR Final Discharge Diagnosis New onset atrial fibrillation with RVR Conclusion Plan a fib with RVR New onset Cardiology consulted, appreciate recs Converted on his own at 0020 this AM Will start on Eliquis- coupon provided Continue home BP meds for rate control Will need to follow up with Dr Huston and Dr Portillo as an outpatient as previously was intolerant to beta blockers due to bradycardia Clinical Quality Measures AMI/AHF: ASA po Prior to arrival: No DVT/VTE Risk/Contraindication: Risk Factor Score Per Nursin RFS Level Per Nursing on Admit: 3=High AMARJIT MENEZES MD May 17, 2018 07:55
[2018-05-17 08:00] VITALS: BP 153/93
--- NOTE | 2018-05-17 08:01 | Discharge Inst-Simple/Standard ---
Discharge Inst-Standard Discharge Medications New, Converted or Re-Newed RX: Transmitted to Pharmacy Patient Instructions/Follow Up Plan of Care/Instructions/FU: Please continue to take your medication as written. Please follow up with Dr Huston in [address] Fox in 1 week to follow up this hospital stay. Activity as Tolerated: Yes Discharge Diet: Cardiac Diet Return to The Hospital For: Chest pain, shortness of breath, heart racing, if you feel you are getting worse. Planned Outpatient Orders/Ref. Pneu Vac Indicated: Yes AMARJIT CALVIN MD May 17, 2018 08:01
[2018-05-17] MEDS ORDERED: APIX5TAB PO (08:10)
--- NOTE | 2018-05-17 08:12 | Cardiology Progress Note ---
Subjective Date Seen by Provider: May 17, 2018 Time Seen by Provider: 08:10 Subjective/Events-last exam patient is back to sinus rhythm, has been doing well. Denied any chest pain. Review of Systems General: No Chills, No Night Sweats, No Fatigue, No Malaise, No Appetite, No Other HEENT: No Head Aches, No Visual Changes, No Eye Pain, No Ear Pain, No Dysphasia , No Sinus Congestion, No Post Nasal Drip, No Sore Throat, No Other Pulmonary: No Dyspnea, No Cough, No Pleuritic Chest Pain, No Other Cardiovascular: No: Chest Pain, Palpitations, Orthopnea, Paroxysmal Noc. Dyspnea, Edema, Lt Headedness, Other Objective-Cardiology Exam Last Set of Vital Signs Vital Signs 05/17/18 05/17/18 04:00 07:08 Temp 98.2 Pulse 67 Resp 25 B/P (MAP) 136/74 (94) Pulse Ox 96 O2 Delivery Room Air Capillary Refill : Less Than 3 Seconds I&O Intake and Output 05/17/18 00:00 Intake Total 500 ml Balance 500 ml Intake Oral 500 ml # Voids 2 Daily Weight Change No General: Alert, Oriented X3, Cooperative HEENT: Atraumatic, PERRLA Neck: Supple, No JVD, No Thyromegaly Lungs: Clear to Auscultation, Normal Air Movement Heart: Regular Rate, Normal S1, Normal S2, No Murmurs Abdomen: Normal Bowel Sounds, Soft, No Tenderness, No Hepatosplenomegaly, No Masses Extremities: No Clubbing, No Cyanosis, No Edema, Normal Pulses, No Tenderness/ Swelling Skin: No Rashes, No Breakdown, No Significant Lesion Neuro: Normal Gait, Normal Speech, Strength at 5/5 X4 Ext, Normal Tone, Sensation Intact Psych/Mental Status: Mental Status NL, Mood NL Results Lab Laboratory Tests 05/17/18 04:01 A/P-Cardiology Admission Diagnosis Atrial flutter Palpitation Coronary artery disease Hypertension Hyperlipidemia Assessment/Plan Paroxysmal atrial flutter, back to sinus rhythm. Maintained on Eliquis, I recommend evaluation by Dr. Portillo as an outpatient. Coronary artery disease, last cardiac catheterization done by Dr. Huston in September 2017 showing moderate disease, had a patent stent noted to have bare-metal stent in the proximal and mid left circumflex artery, ejection fraction was normal. History of sick sinus syndrome with bradycardia after the use of beta blockers. Improved after reducing the dose of beta blockers Hypertension, monitor blood pressure Hyperlipidemia, hypertriglyceridemia, followed by Dr. Fox Diabetes mellitus, followed and managed by primary care physician History of chronic venous insufficiency with lower extremity swelling Peripheral neuropathy probably secondary to diabetes. Normal NICK in February 2015 Mild carotid stenosis by ultrasound in September 2014 History of intolerance to VIV inhibitor due to cough Increased risk of sleep apnea, consider sleep study as an outpatient Obesity, discussed weight loss. Discussed with patient in length management plan recommended stopping Plavix and starting Eliquis, continue on aspirin, recommended EP evaluation with Dr. Portillo, may benefit from flutter ablation, need sleep study as an outpatient Clinical Quality Measures AMI/AHF: ASA po Prior to arrival: No DVT/VTE Risk/Contraindication: Risk Factor Score Per Nursin RFS Level Per Nursing on Admit: 3=High CUAUHTEMOC HALL MD May 17, 2018 08:12
== END 2018-05-17 10:17 | disposition home or self-care (01) ==
LOC: EDUNIT# 15:40 → ER 15:42 → UNDOADMOB 16:59 → ICU 16:59 → UNDODISOB 05-17 11:25
PROVIDERS: ADMIT Family Medicine; ATTEND Family Medicine
DX: I48.91 Unspecified atrial fibrillation (principal); I48.92 Unspecified atrial flutter; I25.10 Atherosclerotic heart disease of native coronary artery without angina pectoris; Z95.5 Presence of coronary angioplasty implant and graft; I49.5 Sick sinus syndrome; I10 Essential (primary) hypertension; E78.5 Hyperlipidemia, unspecified; E78.1 Pure hyperglyceridemia; E11.9 Type 2 diabetes mellitus without complications; G62.9 Polyneuropathy, unspecified; I65.29 Occlusion and stenosis of unspecified carotid artery; E66.9 Obesity, unspecified; Z79.01 Long term (current) use of anticoagulants; Z79.4 Long term (current) use of insulin; Z79.899 Other long term (current) drug therapy; Z88.8 Allergy status to other drugs, medicaments and biological substances; Z68.34 Body mass index [BMI] 34.0-34.9, adult
CPT/HCPCS: 36415; 80053; 80061; 82962; 84443; 85027; 93005; 96374; 96375

== ENCOUNTER 2018-07-16 19:30 | Outpatient (CLI) | payer MEDICARE, OTHER ==
[~2018-07-16 19:30] MED LIST changes: +APIX5TAB PO
== END 2018-07-17 05:06 | disposition home or self-care (01) ==
LOC: SLEEP 19:30
PROVIDERS: ATTEND Nurse Practitioner Family
DX: G47.10 Hypersomnia, unspecified (principal); G47.50 Parasomnia, unspecified; I48.0 Paroxysmal atrial fibrillation
CPT/HCPCS: 95811

== ENCOUNTER 2018-12-19 15:59 | Emergency (ER) | payer MEDICARE, OTHER ==
[~2018-12-19] VITALS: Ht 182.9 cm; Wt 113.4 kg
--- NOTE | 2018-12-19 17:16 | Diagnostic Imaging Report ---
INDICATION: Diabetic foot ulcer on the third toe. COMPARISON: None available. TECHNIQUE: 3 views of the left third toe were obtained. FINDINGS: There appears to be a dermal ulcer on the dorsal aspect of the third toe at the level of the PIP joint. No underlying osseous erosions or cortical indistinctness. Increased density and disorganization within the midfoot is most compatible with neuropathic arthropathy. Moderate degenerative changes at the first MTP. IMPRESSION: 1. No radiographic confirmation of osteomyelitis in the third toe. 2. 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 Dictated by: Dictated on workstation # [id number]
[2018-12-19 17:36] LABS: BASOPHILS % (AUTO) 0 % (0-10); EOSINOPHILS % (AUTO) 4 % (0-10); HEMATOCRIT 45 % (40-54); LYMPHOCYTES % (AUTO) 15 % (12-44); MEAN CORPUSCULAR HEMOGLOBIN 28 PG (25-34); MEAN CORPUSCULAR HGB CONC 33 G/DL (32-36); MEAN CORPUSCULAR VOLUME 86 FL (80-99); MEAN PLATELET VOLUME 12.8 FL (7.4-10.4); MONOCYTES % (AUTO) 9 % (0-12); NEUTROPHILS # (AUTO) 6.5 X 10^3 (1.8-7.8); NEUTROPHILS % (AUTO) 73 % (42-75); PLATELET COUNT 126 10^3/uL (130-400); RED CELL DISTRIBUTION WIDTH 14.1 % (10.0-14.5); WHITE BLOOD COUNT 8.9 10^3/uL (4.3-11.0)
[2018-12-19 17:37] LABS: EOSINOPHILS # (AUTO) 0.3 10^3/uL (0.0-0.3); LYMPHOCYTES # (AUTO) 1.3 X 10^3 (1.0-4.0); MONOCYTES # (AUTO) 0.8 X 10^3 (0.0-1.0)
[2018-12-19 17:53] LABS: INR 1.1 (0.8-1.4); PROTHROMBIN TIME PATIENT 14.3 SEC (12.2-14.7)
[2018-12-19 17:59] LABS: ALANINE AMINOTRANSFERASE 18 U/L (0-55); ALBUMIN 3.4 GM/DL (3.2-4.5); ALKALINE PHOSPHATASE 81 U/L (40-136); BILIRUBIN,TOTAL 0.4 MG/DL (0.1-1.0); BUN/CREATININE RATIO 12; CALCIUM 9.4 MG/DL (8.5-10.1); CARBON DIOXIDE 26 MMOL/L (21-32); CHLORIDE 104 MMOL/L (98-107); CREATININE SERUM 1.15 MG/DL (0.60-1.30); GFR ESTIMATED > 60; GLUCOSE 225 MG/DL (70-105); POTASSIUM 4.1 MMOL/L (3.6-5.0); SODIUM 139 MMOL/L (135-145); TOTAL PROTEIN 6.7 GM/DL (6.4-8.2)
[2018-12-19] MEDS ORDERED: cloNIDine 0.2 MG (CATAPRES) TAB PO ONE (18:30)
--- NOTE | 2018-12-19 19:00 | NUR ---
ASSUMED CARE OF THIS PATIENT FROM DAMON RN AT THIS TIME. INTRODUCTIONS MADE TO PATIENT. NEED DENIED AT THIS TIME, CALL LIGHT IN REACH, WILL CONTINUE TO MONITOR.
[2018-12-19] MEDS ORDERED: FUROSEMIDE 20 MG (LASIX) TAB ONE (19:13)
[2018-12-19] MEDS ORDERED: FUROSEMIDE 40 MG (LASIX) TAB PO ONE (19:15)
[2018-12-19] MEDS ORDERED: LEVOFLOXACIN 750 MG TAB (LEVAQUIN) PO ONE (20:00)
[2018-12-19] MEDS ORDERED: LEVO750T9 PO (20:27)
--- NOTE | 2018-12-19 20:28 | ED Lower Extremity ---
General Chief Complaint: Lower Extremity Stated Complaint: SWOLLEN FOOT Nursing Triage Note: PT VERBALIZED DIABETIC WOUND TO FOOT. STATES CUT TOES NAILS TOO SHORT. SWELLING AND REDNESS NOTED ON LEFT FOOT. Nursing Sepsis Screen: No Definite Risk Source: patient Exam Limitations: no limitations History of Present Illness Date Seen by Provider: Dec 19, 2018 Time Seen by Provider: 16:22 Allergies and Home Medications Allergies Coded Allergies: VIV Inhibitors (Verified Allergy, Unknown, 09/11/17) Home Medications Apixaban 5 Mg Tablet, 5 MG PO BID Prescribed by: AMARJIT CALVIN on 05/17/18 0810 Aspirin 81 Mg Chew, 81 MG PO DAILY, (Reported) Atorvastatin Calcium 40 Mg Tablet, 40 MG PO DAILY, (Reported) Carvedilol 12.5 Mg Tablet, 12.5 MG PO BID, (Reported) Glipizide 10 Mg Tablet, 10 MG PO DAILY, (Reported) Insulin Glargine,Hum.rec.anlog 100 Unit/1 Ml Vial, 70 UNIT SQ DAILY @ 1700 , (Reported) Potassium Chloride 10 Meq Tab.er.prt, 10 MEQ PO DAILY, (Reported) Sildenafil Citrate 50 Mg Tablet, 50 MG PO PRN, (Reported) Tamsulosin HCl 0.4 Mg Cap, 0.4 MG PO DAILY, (Reported) Torsemide 20 Mg Tablet, 20 MG PO BID, (Reported) Past Jkfznme-Eqjjyi-Vskgad Hx Patient Social History Recent Foreign Travel: No Contact w/Someone Who Travel: No Recent Infectious Disease Expo: No Recent Hopitalizations: No Past Medical History Surgeries: Yes (REMOVAL OF UVULA) Coronary Stent Respiratory: No Cardiac: Yes Coronary Artery Disease, Hypertension Neurological: No Reproductive Disorders: No Gastrointestinal: No Musculoskeletal: No Diabetes, Insulin dep Cancer: No Psychosocial: No Blood Disorders: No Family Medical History No Pertinent Family Hx Physical Exam Vital Signs Vital Signs - First Documented 12/19/18 17:00 Temp 96.2 Pulse 64 Resp 18 B/P (MAP) 218/11 (79) Pulse Ox 95 O2 Delivery Room Air Capillary Refill : Less Than 3 Seconds Height, Weight, BMI Height: 6'0" Weight: 250lbs. 0.0oz. [id number]; 35.9 BMI Method:Stated Progress/Results/Core Measures Results/Orders Lab Results Laboratory Tests Test 12/19/18 17:25 Range/Units White Blood Count 8.9 4.3-11.0 10^3/uL Red Blood Count 5.28 4.35-5.85 10^6/uL Hemoglobin 15.0 13.3-17.7 G/DL Hematocrit 45 40-54 % Mean Corpuscular Volume 86 80-99 FL Mean Corpuscular Hemoglobin 28 25-34 PG Mean Corpuscular Hemoglobin Concent 33 32-36 G/DL Red Cell Distribution Width 14.1 10.0-14.5 % Platelet Count 126 L 130-400 10^3/uL Mean Platelet Volume 12.8 H 7.4-10.4 FL Neutrophils (%) (Auto) 73 42-75 % Lymphocytes (%) (Auto) 15 12-44 % Monocytes (%) (Auto) 9 0-12 % Eosinophils (%) (Auto) 4 0-10 % Basophils (%) (Auto) 0 0-10 % Neutrophils # (Auto) 6.5 1.8-7.8 X 10^3 Lymphocytes # (Auto) 1.3 1.0-4.0 X 10^3 Monocytes # (Auto) 0.8 0.0-1.0 X 10^3 Eosinophils # (Auto) 0.3 0.0-0.3 10^3/uL Basophils # (Auto) 0.0 0.0-0.1 10^3/uL Prothrombin Time 14.3 12.2-14.7 SEC INR Comment 1.1 0.8-1.4 Activated Partial Thromboplast Time 38 H 24-35 SEC Sodium Level 139 135-145 MMOL/L Potassium Level 4.1 3.6-5.0 MMOL/L Chloride Level 104 98-107 MMOL/L Carbon Dioxide Level 26 21-32 MMOL/L Anion Gap 9 5-14 MMOL/L Blood Urea Nitrogen 14 7-18 MG/DL Creatinine 1.15 0.60-1.30 MG/DL Estimat Glomerular Filtration Rate > 60 BUN/Creatinine Ratio 12 Glucose Level 225 H 70-105 MG/DL Lactic Acid Level 1.39 0.50-2.00 MMOL/L Calcium Level 9.4 8.5-10.1 MG/DL Corrected Calcium 9.9 8.5-10.1 MG/DL Total Bilirubin 0.4 0.1-1.0 MG/DL Aspartate Amino Transf (AST/SGOT) 14 5-34 U/L Alanine Aminotransferase (ALT/SGPT) 18 0-55 U/L Alkaline Phosphatase 81 40-136 U/L B-Type Natriuretic Peptide 229.7 H <100.0 PG/ML Total Protein 6.7 6.4-8.2 GM/DL Albumin 3.4 3.2-4.5 GM/DL My Orders Orders - HEIDE PIÑA Cbc With Automated Diff (12/19/18 16:20) Comprehensive Metabolic Panel (12/19/18 16:20) Blood Culture (12/19/18 16:20) Protime With Inr (12/19/18 16:20) Partial Thromboplastin Time (12/19/18 16:20) Ed Iv/Invasive Line Start (12/19/18 16:20) Vital Signs Adult Sepsis Patie Q15M (12/19/18 16:20) O2 (12/19/18 16:20) Remove Rings In Anticipation O (12/19/18 16:20) Wound Culture (12/19/18 16:20) Lactic Acid Analyzer (12/19/18 16:20) Toe(S) (12/19/18 16:21) BNP (12/19/18 18:26) Clonidine Tablet (Catapres Tablet) (12/19/18 18:30) Furosemide Tablet (Lasix Tablet) (12/19/18 19:15) Furosemide Tablet (Lasix Tablet) (12/19/18 19:13) General/Regular (12/19/18 Dinner) Levofloxacin Tablet (Levaquin Tablet) (12/19/18 20:00) Medications Given in ED Current Medications Medications Dose Ordered Sig/Eriberto Route Start Time Stop Time Status Last Admin Dose Admin Clonidine HCl 0.2 mg ONCE ONCE PO 12/19/18 18:30 12/19/18 18:31 DC 12/19/18 18:38 0.2 MG Furosemide 40 mg ONCE ONCE PO 12/19/18 19:15 12/19/18 19:16 DC 12/19/18 19:21 40 MG Vital Signs/I&O 12/19/18 17:00 Temp 96.2 Pulse 64 Resp 18 B/P (MAP) 218/11 (79) Pulse Ox 95 O2 Delivery Room Air Blood Pressure Mean: 79 Departure Impression Primary Impression: Diabetic ulcer of toe Additional Impressions: Labile hypertension Mild congestive heart failure Disposition: 01 HOME, SELF-CARE Condition: Stable/Unchanged Departure-Patient Inst. Decision time for Depature: 20:26 Referrals: CHELSY SMITH MD, WEN-CHOU MD (PCP/Family) Primary Care Physician Patient Instructions: Diabetic Foot Ulcer (DC), High Blood Pressure (DC) Add. Discharge Instructions: Call tomorrow morning to schedule an appointment with Dr. Smith wound care. Take antibiotics as directed. Keep an eye on your blood pressure and follow-up with your primary care provider within 1 week for recheck. Return back to the emergency room for worsening symptoms, worsening signs of infection such as increased redness, swelling, drainage, pain. Resume your home medications as previously prescribed. All discharge instructions reviewed with patient and/or family. Voiced understanding. Scripts Levofloxacin (Levaquin) 750 Mg Tablet 750 MG PO DAILY for 6 Days, #6 TAB Prov: HEIDE PIÑA 12/19/18 HEIDE PIÑA Dec 19, 2018 20:28
[2018-12-19 20:38] VITALS: BP 125/81
== END 2018-12-19 20:38 | disposition home or self-care (01) ==
LOC: EDUNIT# 15:59 → ER 16:00
DX: E11.621 Type 2 diabetes mellitus with foot ulcer (principal); L97.529 Non-pressure chronic ulcer of other part of left foot with unspecified severity; I11.0 Hypertensive heart disease with heart failure; I50.9 Heart failure, unspecified; I25.10 Atherosclerotic heart disease of native coronary artery without angina pectoris; Z88.8 Allergy status to other drugs, medicaments and biological substances; Z79.82 Long term (current) use of aspirin; Z79.4 Long term (current) use of insulin; Z95.5 Presence of coronary angioplasty implant and graft
CPT/HCPCS: 36415; 73660; 80053; 83605; 83880; 85025; 85610; 85730; 87040; 87070; 87205

== ENCOUNTER → 2018-12-25 | Outpatient (CLI) | payer MEDICARE, OTHER ==
[~2018-12-25] MED LIST changes: +LEVO750T9 PO
[2018-12-25 08:53] LABS: HEMOGLOBIN 15.1 G/DL (13.3-17.7); MEAN PLATELET VOLUME 12.5 FL (7.4-10.4); RED CELL DISTRIBUTION WIDTH 13.6 % (10.0-14.5); WHITE BLOOD COUNT 8.7 10^3/uL (4.3-11.0)
[2018-12-25 09:10] LABS: ALBUMIN 3.4 GM/DL (3.2-4.5); BILIRUBIN,TOTAL 0.5 MG/DL (0.1-1.0); CALCIUM 8.9 MG/DL (8.5-10.1); CREATININE SERUM 1.38 MG/DL (0.60-1.30); POTASSIUM 4.1 MMOL/L (3.6-5.0); TOTAL PROTEIN 6.6 GM/DL (6.4-8.2)
== END ==
LOC: LAB 08:37
PROVIDERS: ATTEND Family Medicine
DX: I50.9 Heart failure, unspecified (principal); L03.032 Cellulitis of left toe
CPT/HCPCS: 36415; 80053; 83880; 85027

== ENCOUNTER → 2018-12-26 | Outpatient (CLI) | payer MEDICARE, OTHER ==
--- NOTE | 2018-12-26 11:03 | Diagnostic Imaging Report ---
PROCEDURE: MR imaging left lower extremity without contrast. TECHNIQUE: Multiplanar, multisequence non contrast enhanced MR imaging of the left lower extremity was accomplished. INDICATION: Dermal ulcers on the dorsal aspect of the second and third toes. COMPARISON: Left toe radiographs from 12/19/2018. FINDINGS: Ulceration is present on the distal aspect of the third toe. There is underlying T1 hypointense marrow replacement and edema throughout the entire third distal phalanx confirming osteomyelitis. The middle pharynx of the third toe does not have features of osteomyelitis. No osteomyelitis is present within the second toe. The remainder of the digits are also free of osteomyelitis. No changes of osteomyelitis within the visualized metatarsals. Mild degenerative arthritis of the first MTP. No loculated fluid collection to indicate drainable abscess. Mild fatty atrophy of the intrinsic musculature of the foot is compatible with denervation injury associated with long-standing diabetes. Subcutaneous edema and/or cellulitis is present in the dorsal aspect of the foot. IMPRESSION: 1. MRI confirms osteomyelitis of the third distal phalanx. 2. No osteomyelitis within the second toe or elsewhere within the visualized forefoot. Dictated by: Dictated on workstation # [id number]
== END ==
LOC: RAD 08:15
PROVIDERS: ATTEND Family Medicine
DX: M86.8X7 Other osteomyelitis, ankle and foot (principal)

== ENCOUNTER → 2018-12-30 | Outpatient (CLI) | payer MEDICARE | LOC: LAB 09:00 → EDSTATUS 01-02 11:10 | PROVIDERS: ATTEND Surgery | DX: E11.621 Type 2 diabetes mellitus with foot ulcer (principal); E11.42 Type 2 diabetes mellitus with diabetic polyneuropathy; L97.522 Non-pressure chronic ulcer of other part of left foot with fat layer exposed; I50.9 Heart failure, unspecified; I89.0 Lymphedema, not elsewhere classified | CPT/HCPCS: 36415; 83036 ==

== ENCOUNTER → 2018-12-30 | Outpatient (CLI) | payer MEDICARE, OTHER | LOC: WOUNDCARE 08:02 | PROVIDERS: ATTEND Surgery | DX: L97.522 Non-pressure chronic ulcer of other part of left foot with fat layer exposed (principal); E11.621 Type 2 diabetes mellitus with foot ulcer; E11.42 Type 2 diabetes mellitus with diabetic polyneuropathy; I89.0 Lymphedema, not elsewhere classified; I25.10 Atherosclerotic heart disease of native coronary artery without angina pectoris; I11.0 Hypertensive heart disease with heart failure | CPT/HCPCS: 11042; 87070; 87077; 87205 ==

== ENCOUNTER → 2019-01-06 | Outpatient (CLI) | payer MEDICARE | LOC: WOUNDCARE 09:26 | PROVIDERS: ATTEND Surgery | DX: L97.524 Non-pressure chronic ulcer of other part of left foot with necrosis of bone (principal); M86.472 Chronic osteomyelitis with draining sinus, left ankle and foot; E11.621 Type 2 diabetes mellitus with foot ulcer; E11.42 Type 2 diabetes mellitus with diabetic polyneuropathy; I50.9 Heart failure, unspecified; I89.0 Lymphedema, not elsewhere classified; E11.52 Type 2 diabetes mellitus with diabetic peripheral angiopathy with gangrene; I96 Gangrene, not elsewhere classified | CPT/HCPCS: 11044 ==

== ENCOUNTER → 2019-01-14 | Outpatient (CLI) | payer MEDICARE | LOC: WOUNDCARE 13:16 | PROVIDERS: ATTEND Surgery | DX: E11.621 Type 2 diabetes mellitus with foot ulcer (principal); E11.42 Type 2 diabetes mellitus with diabetic polyneuropathy; E11.52 Type 2 diabetes mellitus with diabetic peripheral angiopathy with gangrene; I50.9 Heart failure, unspecified; I89.0 Lymphedema, not elsewhere classified; M86.472 Chronic osteomyelitis with draining sinus, left ankle and foot; L97.524 Non-pressure chronic ulcer of other part of left foot with necrosis of bone; I96 Gangrene, not elsewhere classified | CPT/HCPCS: 11042 ==

== ENCOUNTER → 2019-01-20 | Outpatient (CLI) | payer MEDICARE | LOC: WOUNDCARE 09:20 | PROVIDERS: ATTEND Surgery | DX: M86.472 Chronic osteomyelitis with draining sinus, left ankle and foot (principal); E11.621 Type 2 diabetes mellitus with foot ulcer; E11.42 Type 2 diabetes mellitus with diabetic polyneuropathy; L97.522 Non-pressure chronic ulcer of other part of left foot with fat layer exposed; I50.9 Heart failure, unspecified; I89.0 Lymphedema, not elsewhere classified; E11.52 Type 2 diabetes mellitus with diabetic peripheral angiopathy with gangrene; I96 Gangrene, not elsewhere classified | CPT/HCPCS: 11042 ==

== ENCOUNTER → 2019-01-27 | Outpatient (CLI) | payer MEDICARE | LOC: WOUNDCARE 09:15 | PROVIDERS: ATTEND Surgery | DX: E11.621 Type 2 diabetes mellitus with foot ulcer (principal); E11.42 Type 2 diabetes mellitus with diabetic polyneuropathy; E11.52 Type 2 diabetes mellitus with diabetic peripheral angiopathy with gangrene; L97.522 Non-pressure chronic ulcer of other part of left foot with fat layer exposed; I96 Gangrene, not elsewhere classified; I89.0 Lymphedema, not elsewhere classified; M86.472 Chronic osteomyelitis with draining sinus, left ankle and foot; I50.9 Heart failure, unspecified | CPT/HCPCS: 11042 ==

== ENCOUNTER → 2019-02-03 | Outpatient (CLI) | payer MEDICARE | LOC: WOUNDCARE 09:24 | PROVIDERS: ATTEND Surgery | DX: M86.472 Chronic osteomyelitis with draining sinus, left ankle and foot (principal); E11.621 Type 2 diabetes mellitus with foot ulcer; E11.42 Type 2 diabetes mellitus with diabetic polyneuropathy; L97.522 Non-pressure chronic ulcer of other part of left foot with fat layer exposed; I50.9 Heart failure, unspecified; E11.52 Type 2 diabetes mellitus with diabetic peripheral angiopathy with gangrene | CPT/HCPCS: 11042 ==

== ENCOUNTER → 2019-02-10 | Outpatient (CLI) | payer MEDICARE | LOC: WOUNDCARE 09:20 | PROVIDERS: ATTEND Surgery | DX: E11.621 Type 2 diabetes mellitus with foot ulcer (principal); E11.42 Type 2 diabetes mellitus with diabetic polyneuropathy; E11.52 Type 2 diabetes mellitus with diabetic peripheral angiopathy with gangrene; L97.522 Non-pressure chronic ulcer of other part of left foot with fat layer exposed; M86.472 Chronic osteomyelitis with draining sinus, left ankle and foot; I50.9 Heart failure, unspecified; I96 Gangrene, not elsewhere classified | CPT/HCPCS: 11042 ==

== ENCOUNTER → 2019-02-17 | Outpatient (CLI) | payer MEDICARE | LOC: WOUNDCARE 09:08 | PROVIDERS: ATTEND Surgery | DX: E11.621 Type 2 diabetes mellitus with foot ulcer (principal); E11.42 Type 2 diabetes mellitus with diabetic polyneuropathy; E11.52 Type 2 diabetes mellitus with diabetic peripheral angiopathy with gangrene; I96 Gangrene, not elsewhere classified; L97.522 Non-pressure chronic ulcer of other part of left foot with fat layer exposed; I50.9 Heart failure, unspecified; M86.472 Chronic osteomyelitis with draining sinus, left ankle and foot | CPT/HCPCS: 11042 ==

== ENCOUNTER → 2019-02-24 | Outpatient (CLI) | payer MEDICARE | LOC: WOUNDCARE 09:17 | PROVIDERS: ATTEND Surgery | DX: E11.621 Type 2 diabetes mellitus with foot ulcer (principal); E11.52 Type 2 diabetes mellitus with diabetic peripheral angiopathy with gangrene; E11.42 Type 2 diabetes mellitus with diabetic polyneuropathy; L97.522 Non-pressure chronic ulcer of other part of left foot with fat layer exposed; M86.472 Chronic osteomyelitis with draining sinus, left ankle and foot; I50.9 Heart failure, unspecified; I96 Gangrene, not elsewhere classified | CPT/HCPCS: 11042 ==

== ENCOUNTER → 2019-03-03 | Outpatient (CLI) | payer MEDICARE | LOC: WOUNDCARE 09:10 | PROVIDERS: ATTEND Surgery | DX: E11.621 Type 2 diabetes mellitus with foot ulcer (principal); E11.52 Type 2 diabetes mellitus with diabetic peripheral angiopathy with gangrene; E11.42 Type 2 diabetes mellitus with diabetic polyneuropathy; I50.9 Heart failure, unspecified; L97.522 Non-pressure chronic ulcer of other part of left foot with fat layer exposed; I96 Gangrene, not elsewhere classified; M86.472 Chronic osteomyelitis with draining sinus, left ankle and foot | CPT/HCPCS: 11042 ==

== ENCOUNTER → 2019-03-10 | Outpatient (CLI) | payer MEDICARE ==
--- NOTE | 2019-03-10 18:24 | Diagnostic Imaging Report ---
INDICATION: Chronic infection and draining sinus tract. COMPARISON: 12/19/2018. FINDINGS: Degenerative changes across the tarsometatarsal joints, stable. Plantar calcaneal spurring, stable. No radiopaque foreign body. There appears to be a lucency and destructive changes to the distal phalanx of the 3rd toe as well as some overlying soft tissue irregularity. IMPRESSION: Suspicion for destructive changes owing to osteomyelitis distal phalanx 3rd toe, chronic midfoot degenerative changes, no radiopaque foreign body. Dictated by: Dictated on workstation # [id number]
== END ==
LOC: RAD 10:45
PROVIDERS: ATTEND Surgery
DX: M19.072 Primary osteoarthritis, left ankle and foot (principal); M86.472 Chronic osteomyelitis with draining sinus, left ankle and foot; E11.621 Type 2 diabetes mellitus with foot ulcer; E11.42 Type 2 diabetes mellitus with diabetic polyneuropathy; L97.522 Non-pressure chronic ulcer of other part of left foot with fat layer exposed
CPT/HCPCS: 73630

== ENCOUNTER → 2019-03-10 | Outpatient (CLI) | payer MEDICARE ==
[~2019-03-10] MED LIST changes: +ASPI-983 PO; +DOXY100C42 PO; +DULA1.5P2 SQ; +FURO20TA4 PO; +INSU100I34 SQ; +LINE600T15 PO; +METR-145 PO
== END ==
LOC: WOUNDCARE 09:10
PROVIDERS: ATTEND Surgery
DX: E11.621 Type 2 diabetes mellitus with foot ulcer (principal); E11.42 Type 2 diabetes mellitus with diabetic polyneuropathy; E11.52 Type 2 diabetes mellitus with diabetic peripheral angiopathy with gangrene; I96 Gangrene, not elsewhere classified; L97.522 Non-pressure chronic ulcer of other part of left foot with fat layer exposed; M86.472 Chronic osteomyelitis with draining sinus, left ankle and foot
CPT/HCPCS: 11042

== ENCOUNTER → 2019-03-17 | Outpatient (CLI) | payer MEDICARE ==
[~2019-03-17] MED LIST changes: -ASPI-983 PO; -DOXY100C42 PO; -DULA1.5P2 SQ; -FURO20TA4 PO; -INSU100I34 SQ; -LINE600T15 PO; -METR-145 PO
== END ==
LOC: WOUNDCARE 09:20
PROVIDERS: ATTEND Surgery
DX: L97.524 Non-pressure chronic ulcer of other part of left foot with necrosis of bone (principal); M86.472 Chronic osteomyelitis with draining sinus, left ankle and foot; E11.621 Type 2 diabetes mellitus with foot ulcer; E11.42 Type 2 diabetes mellitus with diabetic polyneuropathy; E11.52 Type 2 diabetes mellitus with diabetic peripheral angiopathy with gangrene
CPT/HCPCS: 11044

== ENCOUNTER → 2019-03-24 | Outpatient (CLI) | payer MEDICARE ==
[~2019-03-24] MED LIST changes: +ASPI-983 PO; +DOXY100C42 PO; +DULA1.5P2 SQ; +FURO20TA4 PO; +INSU100I34 SQ; +LINE600T15 PO; +METR-145 PO
== END ==
LOC: WOUNDCARE 09:21
PROVIDERS: ATTEND Surgery
DX: E11.621 Type 2 diabetes mellitus with foot ulcer (principal); E11.42 Type 2 diabetes mellitus with diabetic polyneuropathy; E11.52 Type 2 diabetes mellitus with diabetic peripheral angiopathy with gangrene; I96 Gangrene, not elsewhere classified; L97.524 Non-pressure chronic ulcer of other part of left foot with necrosis of bone; M86.472 Chronic osteomyelitis with draining sinus, left ankle and foot
CPT/HCPCS: 11044; 87070; 87077; 87186; 87205

== ENCOUNTER 2019-11-18 06:34 | Outpatient (RCR) | payer MEDICARE ==
[~2019-11-18] VITALS: Ht 182 cm; Wt 118.0 kg
[~2019-11-18 06:34] MED LIST changes: +ACHD5005 PO; +INSU100I14 SQ; +LINE600T12 PO; -LINE600T15 PO; +LNZ600T PO; -TAMS0.4C98 PO; +TMSL.4C PO
[2019-11-19] MEDS ORDERED: WARF-48 PO (13:52)
[2019-11-19] MEDS ORDERED: GLIP10TA13 PO (13:52)
== END 2019-11-19 14:58 | disposition home or self-care (01) ==
LOC: PREOP 06:34
PROVIDERS: ATTEND Specialist
DX: Z01.812 Encounter for preprocedural laboratory examination (principal); H26.9 Unspecified cataract; Z20.828 Contact with and (suspected) exposure to other viral communicable diseases
CPT/HCPCS: 87635

== ENCOUNTER 2019-11-21 08:16 | Day surgery (SDC) | payer MEDICARE, OTHER ==
[~2019-11-21] VITALS: Ht 182 cm; Wt 118.0 kg
[~2019-11-21 08:16] MED LIST changes: +WARF-48 PO
[2019-11-21] MEDS ORDERED: TETRACAINE 0.5% OPHTH SOLN 4 ML BTL (SINGLE DOSE ONLY) OU PRN (08:45)
[2019-11-21] MEDS ORDERED: TIMOLOL MALEATE 0.5% 5 ML (TIMOPTIC) BTL OU PRN (08:45)
[2019-11-21] MEDS ORDERED: POVIDONE (BETADINE) OPHTH SOLN 5% 30 ML OP ONE (08:45)
[2019-11-21] MEDS ORDERED: LIDOCAINE PF 1% 2 ML VIAL IR PRN (08:45)
[2019-11-21] MEDS ORDERED: MOXIFLOXACIN OPHTH SOLN 5 MG/ML 0.3 ML SYRINGE OP ONE (08:45)
[2019-11-21] MEDS ORDERED: CYCLOPENTOLATE 1% (CYCLOGYL) 2 ML DROPS OP SCH (08:45)
[2019-11-21] MEDS ORDERED: PHENYLEPHRINE 10% OPHTH (NEO-SYN) 5 ML BTL OU SCH (08:45)
[2019-11-21 09:10] VITALS: BP 122/88
--- NOTE | 2019-11-21 09:10 | NUR ---
CATARACT SURGERY CANCELED DUE TO PATIENT EATING A DONUT AT APPROX 0700 AND BLOOD SUGAR 488.
[2019-11-21] MEDS ORDERED: acetaZOLAMIDE ER 500 MG CAP (DIAMOX SEQUELS) PO ONE (10:00)
--- OUTSIDE RECORDS SUMMARY | 2019-11-21 12:26 | XMS REPORT | Encounter Summary ---
Author Author [facility] Organization [facility] Address Unknown Phone Unavailable Care Team Providers Care Business Development Specialist Name Role Phone PCP Unavailable Encounter Details Care Team Description Date Type Department Aileen Rosenberg RN 07/02/2015 Telephone [facility] [address] [place] [address] Social History Date Tobacco Use Types Packs/Day Years Used Former Smoker Smokeless Tobacco: Never Used Drinks/Week oz/Week Comments Alcohol Use social Yes Sex Assigned at Date Recorded Not on file Industry Job Start Date Occupation Not on file Not on file Not on file Travel End Travel History Travel Start No recent travel history available. documented as of this encounter Miscellaneous Notes * Telephone Encounter - Aileen Rosenberg RN - 07/02/2015 2:45 PM [employer] Reached pt - confirmed that Dr Hallman did want him to take the 70 units of Lant us in the morning, pt confirmed that is what he has been doing and will continue . [employer] documented in this encounter Plan of Treatment Not on filedocumented as of this encounter Visit Diagnoses Not on filedocumented in this encounter
--- OUTSIDE RECORDS SUMMARY | 2019-11-21 12:26 | XMS REPORT | Encounter Summary ---
Author Author [facility] Organization [facility] Address Unknown Phone Unavailable Care Team Providers Care Special Education Math Teacher Name Role Phone Serena Fox PCP Reason for Visit * Reason Comments Other Encounter Details Care Team Description Date [place] [address] [place] [address] Other 01/03/2016 [facility] [address] [place], [place] [id number] Social History Date Tobacco Use Types Packs/Day Years Used Former Smoker Smokeless Tobacco: Never Used Drinks/Week oz/Week Comments Alcohol Use social Yes Sex Assigned at Date Recorded Not on file Industry Job Start Date Occupation Not on file Not on file Not on file Travel End Travel History Travel Start No recent travel history available. documented as of this encounter Plan of Treatment Not on filedocumented as of this encounter Visit Diagnoses Diagnosis Type 2 diabetes mellitus, uncontrolled (HCC) Type II or unspecified type diabetes me llitus without mention of complication, uncontrolled documented in this encounter
--- OUTSIDE RECORDS SUMMARY | 2019-11-21 12:26 | XMS REPORT | Encounter Summary ---
Author Author [facility] Organization [facility] Address Unknown Phone Unavailable Care Team Providers Care Option Trader Name Role Phone Serena Fox PCP Encounter Details Care Team Description Date Type Department Aileen Rosenberg RN 07/09/2015 Orders Only [facility] [address] [place] [address] Social History Date Tobacco Use Types Packs/Day [...]
--- OUTSIDE RECORDS SUMMARY | 2019-11-21 12:26 | XMS REPORT | Encounter Summary ---
Author Author [facility] Organization [facility] Address Unknown Phone Unavailable Care Team Providers Care Assistant Professor Surgical Technology Name Role Phone Serena Fox PCP Reason for Visit * Reason Comments Diabetes Mellitus Encounter Details Care Team Description Date [place] [address] [place] [address] Type 2 diabetes mellitus, uncontrolled ( HCC) (Primary Dx); Diabetic peripheral neuropathy (HCC); Background diabetic retinopathy (HCC); Dyslipidemia; Essential hypertension 09/03/2015 [facility] Visit [facility] [address] [place], [place] [id number] Social History Date Tobacco Use Types Packs/Day Years Used Former Smoker Smokeless Tobacco: Never Used Drinks/Week oz/Week Comments Alcohol Use social Yes Sex Assigned at Date Recorded Not on file Industry Job Start Date Occupation Not on file Not on file Not on file Travel End Travel History Travel Start No recent travel history available. documented as of this encounter Last Filed Vital Signs Reading Time Taken Comments Vital Sign 126/60 09/03/2015 3:47 PM CDT Blood Pressure 72 09/03/2015 3:47 PM CDT Pulse - - Temperature - - Respiratory Rate - - Oxygen Saturation - - Inhaled Oxygen Concentration 115.2 kg (254 lb) 09/03/2015 3:47 PM CDT Weight 182.9 cm (6') 09/03/2015 3:47 PM CDT Height 34.45 09/03/2015 3:47 PM CDT Body Mass Index documented in this encounter Progress Notes * Nacho Hallman MD - 09/03/2015 6:25 PM CDT DM Follow-up Note: Assessment/Plan: Problem List Items Addressed This Visit Background diabetic retinopathy Relevant Medications NOVOLOG FLEXPEN 100 unit/mL pen Diabetic peripheral neuropathy Relevant Medications NOVOLOG FLEXPEN 100 unit/mL pen Other Relevant Orders POCT glycosylated hemoglobin (Hb A1C) Type 2 diabetes mellitus, uncontrolled - Primary Relevant Medications metFORMIN (GLUCOPHAGE) tablet NOVOLOG FLEXPEN 100 unit/mL pen ULTICARE 32 gauge x " Ndle Other Relevant Orders POCT glycosylated hemoglobin (Hb A1C) type 2 diabetes with sugars that show no change compared with the previous visit . Unfortunately, even with the very specific instructions I gave him, his sugar s do not seem to be any better and I'm still confused on exactly what he is massiel messer. To simplify matters, I want him to stop all of his oral medications except metfo rmin, which I will increase to 1000 mg twice daily. I will have him continue Lantus 70 units every morning. I will have him start NovoLog 15 units before each meal. I gave him written dir ections that he should increase the dose by 3 units every 2-3 days until his blo od sugars were generally between 75 and 150 mg/dL. I again encouraged him to check blood sugars before meals and at bedtime 7 days weekly. He is reminded of the 4 major variables that affect glucose levels (food , stress, activity, meds) and is encouraged to reflect on how these factors have affected their sugars. He can then use that knowledge to modify diet, activity and meds to improve suga rs in the future. After explaining all that, I reminded him that his NovoLog dose ultimately will need to be adjusted based on his meal size but also in the amount of upcoming ac tivity he anticipates. He understands this. Continue Lyrica for treatment of neuropathy. I just recall that he is now also taking amitriptyline for testicular painthi s is being prescribed by his primary care physician. He should continue his atorvastatin for treatment of dyslipidemia. This also be ing followed by his primary care physician. Fortunately his blood pressure is well-controlledcontinue losartan as is. Follow up appointment in 3 months. HISTORY: Chris Hoffman is here for follow-up of type 2 diabetes. His last appointment w as 2 months ago. At that time he was taking a massive medications including met formin, FARXIGA and Xigduo, among other things. I gave him specific instruction s on how to make sure that he wasn't getting too much FARXIGA or metformin. He did bring his glucose meter/log for review. The data shows that sugars are ge nerally ranged between 445949 mg/dL with no hypoglycemia. He's been frustrat ed as he had a good glucose meter but his insurance was not paying for the strip s. He then got a cheap [employer] glucose meter and since then his blood sugars of been running much higher, as just mentioned above. He is not sure exactly what medicines he is taking but he indicates that he is d oing my told him to do last time. He really can't annunciate what that is, ruano sharath. He continues to have neuropathy in the lower legs although it's involving his th ighs less in his lower legs more. Lantus 70 AM Compliance with diet has been fair. Compliance with regular activity has been fair. Last eye exam was: 07/2015 and this revealed mild background diabetic retinopathy . Dental exams: 6mo Active Ambulatory Problems Diagnosis Date Noted Type 2 diabetes mellitus, uncontrolled 06/29/2015 Diabetic peripheral neuropathy 06/29/2015 Essential hypertension 06/29/2015 Dyslipidemia 06/29/2015 Coronary artery disease without angina pectoris 06/29/2015 Overactive bladder 06/29/2015 Erectile dysfunction 06/29/2015 Background diabetic retinopathy 09/03/2015 Resolved Ambulatory Problems Diagnosis Date Noted No Resolved Ambulatory Problems No Additional Past Medical History Current Outpatient Prescriptions Medication Sig Dispense Refill amitriptyline (ELAVIL) 25 MG tablet 0 amLODIPine (NORVASC) 10 MG tablet Take 10 mg by mouth daily. aspirin 81 MG EC tablet Take 81 mg by mouth daily. atorvastatin (LIPITOR) 40 MG tablet Take 40 mg by mouth daily. insulin glargine (LANTUS) 100 unit/mL (3 mL) pen inject 70 units under the s kin every morning as directed 1 mL 0 losartan (COZAAR) 100 MG tablet Take 100 mg by mouth daily. metFORMIN (GLUCOPHAGE) 1000 MG tablet Take 1 tablet (1,000 mg total) by mout h 2 (two) times a day with meals. 180 tablet 1 MICROLET LANCET 11 pregabalin (LYRICA) 50 MG capsule Take 1 capsule 2 x per day for a week. If leg pain not improved then increase to 3 x per day 90 capsule 5 tamsulosin (FLOMAX) 0.4 mg Cp24 Take 0.4 mg by mouth daily. [DISCONTINUED] metFORMIN (GLUCOPHAGE) 500 MG tablet Take 500 mg by mouth 2 ( two) times a day with meals. NOVOLOG FLEXPEN 100 unit/mL pen Inject 25 Units under the skin 3 (three) rupal es a day with meals. 23 Pre-filled Pen Syringe 1 ULTICARE 32 gauge x 5/32" Ndle by Miscellaneous route 4 (four) times a day. 400 each 3 No current facility-administered medications for this visit. Family History Problem Relation Age of Onset Diabetes Mother History Social History Marital Status: Spouse Name: N/A Number of Children: N/A Years of Education: N/A Occupational History Not on file. Social History Main Topics Smoking status: Former Smoker Smokeless tobacco: Never Used Alcohol Use: Yes Comment: social Drug Use: No Sexual Activity: Not on file Other Topics Concern Not on file Social History Narrative ROS: I completed a 10 point ROS and could find nothing remarkable except as note d here or above. Filed Vitals: 09/03/15 1547 BP: 126/60 Pulse: 72 Body mass index is 34.44 kg/(m^2)., Filed Vitals: 09/03/15 1547 Weight: 115.214 kg (254 lb) HEENT: Pupils round and symmetrical; hearing intact; voice unremarkable; thyoid normal and without palpable nodules. No palpable adenopathy in the anterior neck . CV: RRR, no murmers; ankle edema- 0+. Lungs: CTA bilat Extremities: no clubbing or cyanosis. Feet show no calluses, lesions or deformi ties. Neuro: cranial nerves intact; no tremor of hands; Diabetic Foot Exam: Detailed exam visual inspection no visual defects, sensory testing monofilament 8/8 sites intact and pulse assessment dorsalis pedis pulses diminished 1+ and po sterior tibialis pulse diminished 1+ Lab Results Component Value Date HGBA1C 8.1 09/03/2015 Lab Results Component Value Date MICROALBUR 18.10 06/29/2015 No results found for: CREATININE Lab Results Component Value Date CALCIUM 9.2 06/29/2015 No results found for: CHOL No results found for: HDL No results found for: LDLCHOL No results found for: TRIG Lab Results Component Value Date TSH 3.38 06/29/2015 Office Visit on 09/03/2015 Component Date Value Hemoglobin A1C 09/03/2015 8.1 Appointment on 06/29/2015 Component Date Value WBC 06/29/2015 10.75 RBC 06/29/2015 5.58 Hemoglobin 06/29/2015 16.1 Hematocrit 06/29/2015 47 MCV 06/29/2015 85 MCH 06/29/2015 29 MCHC 06/29/2015 34 RDW 06/29/2015 13.3 Platelet Count 06/29/2015 158 MPV 06/29/2015 13.3* Nucleated RBCs 06/29/2015 0 Sodium 06/29/2015 141 Potassium 06/29/2015 4.5 Chloride 06/29/2015 106 Carbon Dioxide 06/29/2015 24 Anion Gap 06/29/2015 11 Calcium 06/29/2015 9.2 Glucose 06/29/2015 184* Protein Total Serum 06/29/2015 6.9 Albumin 06/29/2015 4.2 Alkaline Phosphatase 06/29/2015 63 Alanine Aminotransferase 06/29/2015 32 Aspartate Aminotransfera* 06/29/2015 25 Bilirubin Total 06/29/2015 0.5 Blood Urea Nitrogen 06/29/2015 23 Creatinine 06/29/2015 1.2 GFR Male AA 06/29/2015 74 GFR Male Non-AA 06/29/2015 61 Thyroid Stimulating Horm* 06/29/2015 3.38 T4 Free 06/29/2015 0.8 Creatinine Urine Random 06/29/2015 106.8 Microalbumin mg/dl 06/29/2015 18.10 Microalbumin/Creatinine * 06/29/2015 169.48* VITAMIN B12 06/29/2015 420 Nacho Hallman MD 09/03/2015 6:25 PM documented in this encounter Plan of Treatment Not on filedocumented as of this encounter Procedures Comments Procedure Name Priority Date/Time Associated Diag nosis POCT GLYCOSYLATED Routine 09/03/2015 Type 2 diabe meryl mellitus, HEMOGLOBIN (HGB A1C) 3:55 PM CDT uncontrolled (HC C) Diabetic peripheral neuropathy (HCC) documented in this encounter Results * POCT glycosylated hemoglobin (Hb A1C) (09/03/2015 3:55 PM CDT) Hemoglobin A1C 8.1 % Specimen Blood documented in this encounter Visit Diagnoses Diagnosis Type 2 diabetes mellitus, uncontrolled (HCC) Type II or unspecified type diabetes me llitus without mention of complication, uncontrolled Diabetic peripheral neuropathy (HCC) Type II or unspecified type diabetes me llitus with neurological manifestations, not stated as uncontrolled Background diabetic retinopathy (HCC) Dyslipidemia Other and unspecified hyperlipidemia Essential hypertension Unspecified essential hypertension documented in this encounter
--- OUTSIDE RECORDS SUMMARY | 2019-11-21 12:26 | XMS REPORT | Clinical Summary ---
Author Author [facility] Organization [facility] Address Unknown Phone Unavailable Care Team Providers Care Portable Sawyer Name Role Phone Ruddy Gómezu PCP Allergies No Known Allergies Medications End Date Status Medication Sig Dispensed Refills Start Date Active aspirin 81 MG EC tablet Take 81 mg by 0 mouth daily. Active amLODIPine (NORVASC) 10 Take 10 mg by 0 MG tablet mouth daily. Active atorvastatin (LIPITOR) 40 Take 40 mg by 0 MG tablet mouth daily. Active losartan (COZAAR) 100 MG Take 100 mg 0 tablet by mouth daily. Active tamsulosin (FLOMAX) 0.4 Take 0.4 mg 0 mg Cp24 by mouth daily. Active pregabalin (LYRICA) 50 MG Take 1 90 capsule 5 capsuleIndications: capsule 2 x 6 diabetic peripheral per day for a neuropathy week. If leg pain not improved then increase to 3 x per day Active insulin glargine (LANTUS) inject 70 1 mL 0 100 unit/mL (3 mL) pen units under 6 the skin every morning as directed Active MICROLET LANCET 11 6 Active amitriptyline (ELAVIL) 25 0 MG tablet 6 Active metFORMIN (GLUCOPHAGE) Take 1 tablet 180 tablet 1 0 1000 MG (1,000 mg 6 tabletIndications: Type 2 total) by diabetes mellitus, mouth 2 (two) uncontrolled (HCC) times a day with meals. Active NOVOLOG FLEXPEN 100 Inject 25 23 1 unit/mL penIndications: Units under Pre-filled 6 Type 2 diabetes mellitus, the skin 3 Pen Syringe uncontrolled (HCC) (three) times a day with meals. Active Problems Problem Noted Date Background diabetic retinopathy 09/03/2015 Type 2 diabetes mellitus, uncontrolled 06/29/2015 Overview: Dx 2010 Diabetic peripheral neuropathy 06/29/2015 Essential hypertension 06/29/2015 Dyslipidemia 06/29/2015 Coronary artery disease without angina pectoris 06/14 Overactive bladder 06/29/2015 Erectile dysfunction 06/29/2015 Family History Medical History Relation Name Comments Diabetes Mother Relation Name Status Comments Father Mother Alive Social History Date Tobacco Use Types Packs/Day Years Used Former Smoker Smokeless Tobacco: Never Used Drinks/Week oz/Week Comments Alcohol Use social Yes Sex Assigned at Date Recorded Not on file Industry Job Start Date Occupation Not on file Not on file Not on file Travel End Travel History Travel Start No recent travel history available. Last Filed Vital Signs Reading Time Taken [...] 09/03/2015 3:47 PM CDT Body Mass Index Plan of Treatment Health Maintenance Due Date Last Done Comments Td # 1950 Zoster Vaccine# (1 of 2) 2001 AAA 2016 Fall Risk Assessment # 2016 Influenza Vaccine (#1) 2020 Results Not on filefrom Last 3 Months Insurance Type Payer Benefit Subscriber ID Effective Phone Address Plan / Dates Group BLUE [employer]OSS BLUE [facility] OUT OF xxxxxxxxxxxx [id number] AREA [facility] BLUE PPO Chris Hoffman Personal/F Self 1950 [id number] [place] (Home) [place] [id number] Advance Directives For more information, please contact: [phone] 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
--- OUTSIDE RECORDS SUMMARY | 2019-11-21 12:26 | XMS REPORT | Encounter Summary ---
Author Author [facility] Organization [facility] Address Unknown Phone Unavailable Care Team Providers Care Chief Enterprise Architect Name Role Phone Darci FoxnDanitza PCP Reason for Visit * Reason Comments Medication Refill Encounter Details Care Team Description Date Type Department Maribel Patricia explosives mixer operator Refill 09/21/2015 Refill [facility] [address] [place] [address] Social History Date Tobacco Use Types Packs/Day [...] encounter Miscellaneous Notes * Telephone Encounter - Maribel Patricia RN - 09/21/2015 9:05 AM CDT Called, said his BG has been high since taking novolog (in the lower 200s), said he thinks the novolog is causing BG to be high and would like to stop taking it. Explained to him purpose of novolog vs. long acting insulin. Reviewed instru ctions for dosing Lantus and novolog from 09/06 office visit. Encouraged him to continue with this plan, check BG before meals and in the evening and send BG lo g to us at the end of the week. He expressed understanding. documented in this encounter Plan of Treatment Not on filedocumented as of this encounter Visit Diagnoses Not on filedocumented in this encounter
--- OUTSIDE RECORDS SUMMARY | 2019-11-21 12:26 | XMS REPORT | Encounter Summary ---
Author Author [facility] Organization [facility] Address Unknown Phone Unavailable Care Team Providers Care Cable Machine Operator Name Role Phone Serena Fox PCP Reason for Visit * Reason Comments Other Encounter Details Care Team Description Date [place] [address] [place] [address] Other 01/31/2016 [facility] [address] [place], [place] [phone] Social History Date Tobacco Use Types Packs/Day [...] as of this encounter Visit Diagnoses Diagnosis Diabetic peripheral neuropathy (HCC) Type II or unspecified type diabetes me llitus with neurological manifestations, not stated as uncontrolled documented in this encounter
--- OUTSIDE RECORDS SUMMARY | 2019-11-21 12:26 | XMS REPORT | Encounter Summary ---
Author Author [facility] Organization [facility] Address Unknown Phone Unavailable Care Team Providers Care Ceramics Instructor Name Role Phone Serena Fox PCP Encounter Details Care Team Description Date [place] [address] [place] [address] 07/07/2015 Documentation [facility] [address] [place], [place] [id number] Social History Date Tobacco Use Types Packs/Day [...]
--- OUTSIDE RECORDS SUMMARY | 2019-11-21 12:27 | XMS REPORT | Encounter Summary ---
Author Author [facility] Organization [facility] Address Unknown Phone Unavailable Care Team Providers Care Header Setup Operator Name Role Phone PCP Unavailable Encounter Details Care Team Description Date [place] [address] [place], [place] [address] Type 2 diabetes mellitus, uncontrolled ( HCC) (Primary Dx) 06/29/2015 Lab [facility] [address] [place] [address] Social History Date Tobacco Use Types Packs/Day [...] Procedure Name Priority Date/Time Associated Diag nosis MICROALBUMIN RANDOM Routine 06/29/2015 Type 2 moon betes mellitus, 2:15 PM MOLDER FEEDER uncontrolled (HCC) VITAMIN B12 Routine 06/29/2015 Type 2 diabetes mellitus, 2:15 PM MOLDER FEEDER uncontrolled (HCC) THYROID STIMULATING Routine 06/29/2015 Type 2 moon betes mellitus, HORMONE 2:15 PM MOLDER FEEDER uncontrolled (HCC) T4 FREE Routine 06/29/2015 Type 2 diabetes mellitus, 2:15 PM MOLDER FEEDER uncontrolled (HCC) COMPREHENSIVE METABOLIC Routine 06/29/2015 Type 2 diabetes mellitus, PANEL 2:15 PM MOLDER FEEDER uncontrolled (HCC) COMPLETE BLOOD COUNT Routine 06/29/2015 Type 2 di abetes mellitus, 2:15 PM MOLDER FEEDER uncontrolled (HCC) documented in this encounter Results * Vitamin B12 (06/29/2015 2:15 PM MOLDER FEEDER) VITAMIN B12 420 239 - 931 pg/mL [facility] Specimen Blood Performing Organization Address [facility] one Number [address] [address] LABORATORIES * Microalbumin Random (06/29/2015 2:15 PM MOLDER FEEDER) Creatinine 106.8 mg/dL [facility] Urine Random [facility] Microalbumin 18.10 mg/dL [facility] mg/dl [facility] Microalbumin/Cr 169.48 (H) 0.00 - 30.00 ug/mg [facility] eatinine Ratio [facility] Specimen Urine Performing Organization Address [facility] one Number [address] [address] LABORATORIES * T4 Free (06/29/2015 2:15 PM MOLDER FEEDER) T4 Free 0.8 0.8 - 2.2 ng/dL [facility] Specimen Performing Organization Address [facility] one Number [address] [address] LABORATORIES * Thyroid Stimulating Hormone (06/29/2015 2:15 PM MOLDER FEEDER) Pathologist [facility] Thyroid 3.38 0.47 - 4.68 uIU/mL [facility] Stimulating [facility] Hormone [facility] Specimen Blood Performing Organization Address [facility] one Number [address] [address] LABORATORIES * Comprehensive Metabolic Panel (06/29/2015 2:15 PM MOLDER FEEDER) Pathologist [facility] Sodium 141 133 - 147 MEQ/L [facility] Potassium 4.5 3.5 - 5.3 MEQ/L [facility] Chloride 106 96 - 112 MEQ/L [facility] Carbon Dioxide 24 20 - 32 MEQ/L [facility] Anion Gap 11 5 - 17 [facility] Calcium 9.2 8.4 - 10.5 mg/dL [facility] Glucose 184 (H) 70 - 100 mg/dL [facility] Protein Total 6.9 6.0 - 8.2 g/dL [facility] Serum [facility] Albumin 4.2 3.5 - 5.0 g/dL [facility] Alkaline 63 42 - 140 IU/L [facility] Phosphatase [facility] Alanine 32 13 - 69 IU/L [facility] Aminotransferas [facility] e LABORATORIES Aspartate 25 15 - 46 IU/L [facility] Bilirubin Total 0.5 0.2 - 1.3 mg/dL [facility] Blood Urea 23 7 - 26 mg/dL [facility] Nitrogen [facility] Creatinine 1.2 0.6 - 1.3 mg/dL [facility] eGFR Male AA 74 60 - 200 [facility] Comment: REGIONAL Chronic Kidney Disease less LABORATORIES than 60 mL/min/1.73 sq.m Kidney failure less than 15 mL/min/1.73 sq.m eGFR Male 61 60 - 200 [facility] Non-AA Comment: REGIONAL Chronic Kidney Disease less LABORATORIES than 60 mL/min/1.73 sq.m Kidney failure less than 15 mL/min/1.73 sq.m Specimen Blood Performing Organization Address City/State/Zipcode Ph one Number [place] [id number] [place] [address] LABORATORIES * Complete Blood Count (06/29/2015 2:15 PM MOLDER FEEDER) WBC 10.75 4.00 - 11.00 TH/uL [facility] RBC 5.58 4.31 - 5.84 MIL/uL [facility] Hemoglobin 16.1 13.0 - 17.0 g/dL [facility] Hematocrit 47 40 - 50 % [facility] MCV 85 80 - 99 fL [facility] MCH 29 27 - 34 pg [facility] MCHC 34 32 - 36 % [facility] RDW 13.3 9.0 - 14.5 % [facility] LAB[facility]IES Platelet Count 158 140 - 400 TH/uL [facility] MPV 13.3 (H) 9.4 - 12.[address] [facility] Nucleated RBCs 0 0 - 0 /100 [facility] Specimen Blood Performing Organization Address City/State/Zipcode Ph one Number [place] [phone] [place] [address] LABORATORIES documented in this encounter Visit Diagnoses Diagnosis Type 2 diabetes mellitus, uncontrolled (HCC) Type II or unspecified type diabetes me llitus without mention of complication, uncontrolled documented in this encounter
--- OUTSIDE RECORDS SUMMARY | 2019-11-21 12:27 | XMS REPORT | Encounter Summary ---
Author Author [facility] Organization [facility] Address Unknown Phone Unavailable Care Team Providers Care Staff Development Educator Name Role Phone PCP Unavailable Reason for Visit * Reason Comments Diabetes Mellitus Establish Care Encounter Details Care Team Description [place] [address] [place], [place] [id number] Type 2 diabetes mellitus, uncontrolled ( HCC) (Primary Dx); Diabetic peripheral neuropathy (HCC); Essential hypertension; Dyslipidemia; Coronary artery disease involving [place] coronary artery without angina pectoris; Overactive bladder; Erectile dysfunction, unspecified erectile dysfunction type 06/29/2015 Initial consult [facility] [address] [place], [place] [id number] Social History Date Tobacco Use Types Packs/Day [...] Signs Reading Time Taken Comments Vital Sign 150/80 06/29/2015 1:07 PM SOLE TRIMMER Blood Pressure 80 06/29/2015 1:07 PM SOLE TRIMMER Pulse - - Temperature - - Respiratory Rate - - Oxygen Saturation - - Inhaled Oxygen Concentration 114.8 kg (253 lb) 06/29/2015 1:07 PM SOLE TRIMMER Weight 182.9 cm (6') 06/29/2015 1:07 PM SOLE TRIMMER Height 34.31 06/29/2015 1:07 PM SOLE TRIMMER Body Mass Index documented in this encounter Progress Notes * Nacho Hallman MD - 06/29/2015 5:29 PM SOLE TRIMMER DM consultation: Assessment/Plan: Problem List Items Addressed This Visit Coronary artery disease without angina pectoris Relevant Medications glipiZIDE (GLUCOTROL) 10 MG tablet Diabetic peripheral neuropathy Relevant Medications insulin glargine (LANTUS) 100 unit/mL (3 mL) pen glipiZIDE (GLUCOTROL) 10 MG tablet Dyslipidemia Erectile dysfunction Essential hypertension Overactive bladder Type 2 diabetes mellitus, uncontrolled - Primary Relevant Orders Complete Blood Count Comprehensive Metabolic Panel Thyroid Stimulating Hormone T4 Free Microalbumin Random Vitamin B12 Type 2 diabetes mellitus with suboptimal control despite very high-dose insulin and multiple oral medications. Because of his high A1c values over the past yea r, he clearly has significant insulin deficiency and resistance. I had a long discussion with him about the numerous potential complications robi caldwell can occur when blood sugars are chronically elevated. I also explained that t he risk of these complications can be greatly minimize by keeping blood sugars a s close to normal as possible. He clearly has huge knowledge gaps and would luis efit tremendously from diabetes education. Unfortunately, he is not interested in education as he is not willing to change his dietary practices much. Further more, [place] and so he is not very interested in SimuForm 3 times for education. I did have a long discussion with him explaining the basic concepts of insulin d eficiency and insulin resistance. I explained how chronic hyperglycemia is detr imental and can cause innumerable consequences. Both dietary prudence and regular exercise/activity are the cornerstones of good diabetes management. He is encouraged to minimize restaurant and processed food s, and is also encouraged to increase activity as much as possible. I recommended that he check blood sugars before meals and at bedtime daily, at l east 2 days every week. He is encouraged to reflect on each blood sugar reading to learn how his previous diet, activity and medication(s) have affected blood sugars. He can then use this knowledge to improve glucose control in the future . Therapeutically, his situation is kind of a mess as he is taking Farxiga, Xigduo and metformin, along with glipizide and Lantus. I wrote down directions that I want him to take no more than 10 mg of Farxiga da sheela. At the same time his metformin dose should be thousand milligrams twice da sheela. He will use his current prescriptions to work out the math and make sure candice mathews is getting appropriate doses of both of these medicines. I want him to discontinue glipizide as this is almost certainly ineffective. I want him to change his Lantus to 70 units nightly although he should divide dose into 235 unit injections. I prefer that he is injecting his abdomen rath er than his legs as the former site will offer more stable insulin absorption da y in and day out. I warned him of potential and unknown side effects of SGLT inhibitors. For now I will have him continue with this medication until I get more glucose data and can make a better decision on how to improve his control. He is reminded to sheri messer his meter with him to all subsequent appointments. His neuropathy is not well-controlled so I recommend that he increase Lyrica to 50 mg twice a day for a week. If he still having pain in his legs he can then i ncrease the dose to 50 mg 3 times daily. I do not have a good sense for why he is having pain in his legs but not in his feet. At his next appointment we need to reassess whether or not he needs neurological consultation. I will have him get baseline labs today to assess her renal function, thyroid an d urine microalbumin. We will need to check his lipids when he is fasting in future. He is reminded of the importance of a dilated eye exam annually in order to chec k for diabetic retinal damage. Follow up appointment in 2-3 months. An hour was spent with the patient and more than half the time was spent educati ng him in counseling him on how to improve blood sugars. HISTORY: Chris Hoffman is here for consultation regarding type 2 diabetes mellitus. He got my name from a friend of a friend. He has been managed by his primary care physician in [facility]. He estimates that he's had diabetes for roughly 5 years. Over the past 3-4 months he has developed moderate pain from his waist down to his ankles bilaterally. He tried gabapentin but it caused some type of neurological side effect. Since he stopped gabapentin he has been taking Lyrica 50 mg once daily and has not noticed any benefit. He still has moderate pain in his legs but not in his feet. He also went through a brief period of time where he had significant tenderness in his genitals although that has subsided. Aside from peripheral neuropathy, he also has erectile dysfunction. He has not had an eye exam in years. His A1c measured 11% last July at which point he sta rted taking Lantus. In December his A1c was down to 8.7%. His diet then deterior ated considerably so his A1c was back to 10% in March. At that point his doc tor had him add both Farxiga and Xigduo, along with metformin and glipizide and Lantus. As of 2 weeks ago, his A1c was down to 8%. He has also noticed that he has lost weight over the last few months for reasons he cannot explain. He kno ws that his diet is not healthy. He is not interested in diabetic education. Candice mathews recalls that he was treated with Actos in the past and does not recall why conrado t medication was stopped. His not recall having any adverse effects from that m edicine. He did not bring his glucose meter/log for review. He only checks blood sugars in the mornings and lately he is seen nothing but blood sugars between 80 and 12 0 mg/dL. He was surprised that he ate a cinnamon roll last night and this morni ng his blood sugar was still only 110 mg/dL. About 5 months ago his doctor had him add Lantus 40 units twice daily. Recently he cut the evening dose down to 3 0 units as he started feeling like his sugars were getting too low, although he never really checked them when he was symptomatic. He has been compliant with his medication regimen. He has not been having any side effects from his medications. Lantus 40-0-0-30 Compliance with diet has been poor. Compliance with regular activity has been fair. Last eye exam was: yrs ago Dental exams: 6mo Active Ambulatory Problems Diagnosis Date Noted Type 2 diabetes mellitus, uncontrolled 06/29/2015 Diabetic peripheral neuropathy 06/29/2015 Essential hypertension 06/29/2015 Dyslipidemia 06/29/2015 Coronary artery disease without angina pectoris 06/29/2015 Overactive bladder 06/29/2015 Erectile dysfunction 06/29/2015 Resolved Ambulatory Problems Diagnosis Date Noted No Resolved Ambulatory Problems No Additional Past Medical History Current Outpatient Prescriptions Medication Sig Dispense Refill amLODIPine (NORVASC) 10 MG tablet Take 10 mg by mouth daily. aspirin 81 MG EC tablet Take 81 mg by mouth daily. atorvastatin (LIPITOR) 40 MG tablet Take 40 mg by mouth daily. dapagliflozin 5 mg Tab Take 5 mg by mouth daily. dapagliflozin-metformin 10-1,000 mg TBph Take by mouth daily. glipiZIDE (GLUCOTROL) 10 MG tablet Take 10 mg by mouth 2 (two) times a day b efore breakfast and dinner. insulin glargine (LANTUS) 100 unit/mL (3 mL) pen Inject under the skin daily . losartan (COZAAR) 100 MG tablet Take 100 mg by mouth daily. metFORMIN (GLUCOPHAGE) 500 MG tablet Take 500 mg by mouth 2 (two) times a da y with meals. pregabalin (LYRICA) 50 MG capsule Take 50 mg by mouth 3 (three) times a day. tamsulosin (FLOMAX) 0.4 mg Cp24 Take 0.4 mg by mouth daily. No current facility-administered medications for this visit. [...] Concern Not on file Social History Narrative No narrative on file ROS: I completed a 10 point ROS and could find nothing remarkable except as note d here or above. Filed Vitals: 06/29/15 1307 BP: 150/80 Pulse: 80 Body mass index is 34.31 kg/(m^2)., Filed Vitals: 06/29/15 1307 Weight: 114.76 kg (253 lb) HEENT: Pupils round and symmetrical; hearing intact; voice unremarkable; thyoid normal and without palpable nodules. No palpable adenopathy in the anterior neck . CV: RRR, no murmers; pedal pulses diminished; ankle edema- 0+. Lungs: CTA bilat Extremities: no clubbing or cyanosis. Feet show no calluses, lesions or deformi ties. Neuro: cranial nerves intact; no tremor of hands; monofilament sense in the toes is normal Nacho Hallman MD 06/29/2015 5:29 PM TRIMMER documented in this encounter Plan of Treatment Not on filedocumented as of this encounter Results * Vitamin B12 (06/29/2015 2:15 PM SOLE TRIMMER) VITAMIN B12 420 239 - 931 pg/mL [facility] Specimen Blood Performing Organization Address [facility] one Number [address] [address] LABORATORIES * Microalbumin Random (06/29/2015 2:15 PM SOLE TRIMMER) Creatinine 106.8 mg/dL [facility] Urine Random [facility] Microalbumin 18.10 mg/dL [facility] mg/dl [facility] Microalbumin/Cr 169.48 (H) 0.00 - 30.00 ug/mg [facility] eatinine Ratio [facility] Specimen Urine Performing Organization Address [facility] one Number [address] [address] LABORATORIES * T4 Free (06/29/2015 2:15 PM SOLE TRIMMER) T4 Free 0.8 0.8 - 2.2 ng/dL [facility] Specimen Performing Organization Address [facility] one Number [address] [address] LABORATORIES * Thyroid Stimulating Hormone (06/29/2015 2:15 PM SOLE TRIMMER) Thyroid 3.38 0.47 - 4.68 uIU/mL [facility] Stimulating [facility] Hormone [facility] Specimen Blood Performing Organization Address [facility] one Number [address] [address] LABORATORIES * Comprehensive Metabolic Panel (06/29/2015 2:15 PM SOLE TRIMMER) Sodium 141 133 - 147 MEQ/L [facility] Potassium 4.5 3.5 - 5.3 MEQ/L [facility] Chloride 106 96 - 112 MEQ/L [facility] Carbon Dioxide 24 20 - 32 MEQ/L [facility] Anion Gap 11 5 - 17 [facility] Calcium 9.2 8.4 - 10.5 mg/dL [facility] Glucose 184 (H) 70 - 100 mg/dL [facility] Protein Total 6.9 6.0 - 8.2 g/dL [facility] Serum [facility] Albumin 4.2 3.5 - 5.0 g/dL [facility] Alkaline 63 42 - 140 IU/L [facility] Phosphatase [facility] Alanine 32 13 - 69 IU/L [facility] Aminotransferas [facility] e LABORATORIES Aspartate 25 15 - 46 IU/L [facility] Aminotransferas [facility] e [facility] Bilirubin Total 0.5 0.2 - 1.3 mg/dL [facility] Blood Urea 23 7 - 26 mg/dL [facility] Nitrogen [facility] Creatinine 1.2 0.6 - 1.3 mg/dL [facility] eGFR Male AA 74 60 - 200 [facility] Comment: REGIONAL Chronic Kidney Disease less LABORATORIES than 60 mL/min/1.73 sq.m Kidney failure less than 15 mL/min/1.73 sq.m eGFR Male 61 60 - 200 [facility] Non-AA Comment: REGIONAL Chronic Kidney Disease less LABORATORIES than 60 mL/min/1.73 sq.m Kidney failure less than 15 mL/min/1.73 sq.m Specimen Blood Performing Organization Address City/State/Zipcode Ph one Number [address] [address] LABORATORIES * Complete Blood Count (06/29/2015 2:15 PM SOLE TRIMMER) WBC 10.75 4.00 - 11.00 TH/uL [facility] RBC 5.58 4.31 - 5.84 MIL/uL [facility] Hemoglobin 16.1 13.0 - 17.0 g/dL [facility] Hematocrit 47 40 - 50 % [facility] MCV 85 80 - 99 fL [facility] MCH 29 27 - 34 pg [facility] MCHC 34 32 - 36 % [facility] RDW 13.3 9.0 - 14.5 % [facility] Platelet Count 158 140 - 400 TH/uL [facility] MPV 13.3 (H) 9.4 - 12.3 fL [facility] Nucleated RBCs 0 0 - 0 /100 [facility] Specimen Blood Performing Organization Address City/State/Zipcode Ph one Number [place] [id number] [place] [address] LABORATORIES documented in this encounter Visit Diagnoses Diagnosis Type 2 diabetes mellitus, uncontrolled (HCC) Type II or unspecified type diabetes me llitus without mention of complication, uncontrolled Diabetic peripheral neuropathy (HCC) Type II or unspecified type diabetes me llitus with neurological manifestations, not stated as uncontrolled Essential hypertension Unspecified essential hypertension Dyslipidemia Other and unspecified hyperlipidemia Coronary artery disease involving nativ e coronary artery without angina pectoris Overactive bladder Hypertonicity of bladder Erectile dysfunction, unspecified erect ile dysfunction type documented in this encounter
--- OUTSIDE RECORDS SUMMARY | 2019-11-21 12:27 | XMS REPORT | Encounter Summary ---
Author Author [facility] Organization [facility] Address Unknown Phone Unavailable Care Team Providers Care Cutter Grind Tool Technician Name Role Phone PCP Unavailable Reason for Visit * Reason Comments Medication Refill Encounter Details Care Team Description Date Type Department Aileen Rosenberg RN Medication Refill 06/30/2015 Refill [facility] [address] [facility] [address] [place], [place] [address] Social History Date Tobacco Use Types Packs/Day [...] Telephone Encounter - Aileen Rosenberg RN - 06/30/2015 10:42 AM MEDICAL DOCTOR MD Pt confused about Lantus. He thought you told him to take 70 units all at once i n the morning. (your notes mentioned taking 35 units BID) Please advise CAL DOCTOR MD documented in this encounter Plan of Treatment Not on filedocumented as of this encounter Visit Diagnoses Diagnosis Diabetic peripheral neuropathy (HCC) Type II or unspecified type diabetes me llitus with neurological manifestations, not stated as uncontrolled documented in this encounter
--- OUTSIDE RECORDS SUMMARY | 2019-11-21 12:29 | XMS REPORT | Continuity of Care Document ---
Author Organization Unknown Address Unknown Phone Unavailable Allergies Active Description Code Type Severity Reaction Onset Reported/Identified Relationship to Patient Clinical Status Yes NO KNOWN DRUG ALLERGIES UNKNOWN NO KNOWN DRUG ALLERG Yes NO KNOWN DRUG ALLERGIES UNKNOWN UNKNOWN Yes VIV Inhibitors [id number] Dr ava Allergy Unknown N/A 09/11/2017 Yes No Known Drug Allergies [id number] Drug Allergy Unknown N/A 11/19/2019 Medications There is no data. Problems Date [...] 09/19/2011 Ot V58.66 09/19/2011 Ot V58.69 09/07/2014 LISA GAITAN MD, FACC FACP CCDS Ot 250.00 09/07/2014 ARNIE HAMEED FACC, LISA FACP CCDS Ot 272.4 09/07/2014 ARNIE HAMEED FACC, LISA FACP CCDS Ot 401.9 09/07/2014 ARNIE HAMEED FACC, LISA FACP CCDS Ot 414.00 09/07/2014 ARNIE HAMEED FACC, LISA FACP CCDS Ot 427.89 02/23/2015 ARNIE HAMEED FACC, LISA FACP CCDS Ot 250.00 02/23/2015 ARNIE HAMEED FACC, LISA FACP CCDS Ot 272.4 02/23/2015 LISA GAITAN MD, FACC FACP CCDS Ot 401.9 02/23/2015 ARNIE MD FACC, ALI FACP CCDS Ot 414.00 02/23/2015 ARNIE HAMEED FACC, ALI FACP CCDS Ot 427.89 03/11/2015 ARNIE HAMEED FACC, ALI FACP CCDS Ot E11.9 03/11/2015 ARNIE HAMEED FACC, ALI FACP CCDS Ot E66.9 03/11/2015 ARNIE HAMEED FACC, ALI FACP CCDS Ot E78.5 03/11/2015 ARNIE HAMEED FACC, ALI FACP CCDS Ot I10 03/11/2015 ARNIE HAMEED FACC, ALI FACP CCDS Ot I25.10 03/11/2015 ARNIE HAMEED FACC, ALI FACP CCDS Ot I65.29 03/11/2015 ARNIE HAMEED FACC, ALI FACP CCDS Ot M79.604 03/11/2015 ARNIE HAMEED FACC, ALI FACP CCDS Ot N52.9 05/05/2015 ARNIE HAMEED FACC, ALI FACP CCDS Ot E11.9 05/05/2015 ARNIE HAMEED FACC, ALI FACP CCDS Ot E66.9 05/05/2015 ARNIE HAMEED FACC, ALI FACP CCDS Ot E78.5 05/05/2015 ARNIE HAMEED FACC, ALI FACP CCDS Ot I10 05/05/2015 ARNIE HAMEED FACC, ALI FACP CCDS Ot I25.10 05/05/2015 ARNIE HAMEED FACC, ALI FACP CCDS Ot M79.604 05/05/2015 ARNIE HAMEED FACC, ALI FACP CCDS Ot N52.9 05/26/2015 ARNIE HAMEED FACC, ALI FACP CCDS Ot E11.9 05/26/2015 ARNIE HAMEED FACC, ALI FACP CCDS Ot E66.9 05/26/2015 ARNIE HAMEED FACC, ALI FACP CCDS Ot E78.5 05/26/2015 ARNIE HAMEED FACC, ALI FACP CCDS Ot I10 05/26/2015 ARNIE HAMEED FACC, ALI FACP CCDS Ot I25.10 05/26/2015 ARNIE HAMEED FACC, ALI FACP CCDS Ot M79.604 05/26/2015 ARNIE HAMEED FACC, ALI FACP CCDS Ot N52.9 01/23/2017 A 250.80 ZELDA BETES MELLITUS WITH OTHER SPECIFIED MANIFESTATIONS, TYPE II OR UNSPECIFIED TYPE, NOT STATED UNCONTROLLED 01/23/2017 W 272.4 OTHE R AND UNSPECIFIED HYPERLIPIDEMIA 01/23/2017 W 401.9 UNSP ECIFIED ESSENTIAL HYPERTENSION 01/23/2017 A E11.65 TYP E 2 DIABETES MELLITUS WITH HYPERGLYCEMIA 01/23/2017 W E78.5 HYPE RLIPIDEMIA, UNSPECIFIED 01/23/2017 W I10 ESSENT IAL (PRIMARY) HYPERTENSION 04/13/2017 W 401.9 UNSP ECIFIED ESSENTIAL HYPERTENSION 04/13/2017 W 428.0 RUDDY ESTIVE HEART FAILURE, UNSPECIFIED 04/13/2017 W 782.3 EDEMA 04/13/2017 W I10 ESSENT IAL (PRIMARY) HYPERTENSION 04/13/2017 W I50.9 HEAR T FAILURE, UNSPECIFIED 04/13/2017 W R60.0 LOCA LIZED EDEMA 04/19/2017 W 250.00 ZELDA BETES MELLITUS WITHOUT MENTION OF COMPLICATION, TYPE II OR UNSPECIFIED TYPE, NOT STATED UNCONTROLLED 04/19/2017 W 401.9 UNSP ECIFIED ESSENTIAL HYPERTENSION 04/19/2017 W 428.0 RUDDY ESTIVE HEART FAILURE, UNSPECIFIED 04/19/2017 W E11.9 TYPE 2 DIABETES MELLITUS WITHOUT COMPLICATIONS 04/19/2017 W I10 ESSENT IAL (PRIMARY) HYPERTENSION 04/19/2017 W I50.9 HEAR T FAILURE, UNSPECIFIED 08/07/2017 Kennedy, ShawneeCallieCheri W 250.80 DIABETES MELLITUS WITH OTHER SPECIFIED MANIFESTATIONS, TYPE II OR UNSPECIFIED TYPE, NOT STATED UNCONTROLLED 08/07/2017 Kennedy, Dominic W 428.0 CONGESTIVE HEART FAILURE, UNSPECIFIED 08/07/2017 Kennedy, Shawnee-Cheri W 709.2 SCAR CONDITIONS AND FIBROSIS OF SKIN 08/07/2017 Kennedy, Gómezu W E11.65 TYPE 2 DIABETES MELLITUS WITH HYPERGLYCEMIA 08/07/2017 Marcia, Dominic W I50.9 HEART FAILURE, UNSPECIFIED 08/07/2017 Kennedy, Gómezu W L90.5 SCAR CONDITIONS AND FIBROSIS OF SKIN 08/07/2017 Kennedy, Shawnee-Cheri W 250.80 DIABETES MELLITUS WITH OTHER SPECIFIED MANIFESTATIONS, TYPE II OR UNSPECIFIED TYPE, NOT STATED UNCONTROLLED 08/07/2017 Marcia, Shawnee-Cheri W 428.0 CONGESTIVE HEART FAILURE, UNSPECIFIED 08/07/2017 Kennedy, BriseidaCheri W 709.2 SCAR CONDITIONS AND FIBROSIS OF SKIN 08/07/2017, Dominic W E11.65 TYPE 2 DIABETES MELLITUS WITH HYPERGLYCEMIA 08/07/2017 Kennedy, BriseidaCheri W I50.9 HEART FAILURE, UNSPECIFIED 08/07/2017 Kennedy, Shawnee-Cheri W L90.5 SCAR CONDITIONS AND FIBROSIS OF SKIN 08/07/2017 W 250.80 ZELDA BETES MELLITUS WITH OTHER SPECIFIED MANIFESTATIONS, TYPE II OR UNSPECIFIED TYPE, NOT STATED UNCONTROLLED 08/07/2017 W 428.0 RUDDY ESTIVE HEART FAILURE, UNSPECIFIED 08/07/2017 W 709.2 SCAR CONDITIONS AND FIBROSIS OF SKIN 08/07/2017 W E11.65 TYP E 2 DIABETES MELLITUS WITH HYPERGLYCEMIA 08/07/2017 W I50.9 HEAR T FAILURE, UNSPECIFIED 08/07/2017 W L90.5 SCAR CONDITIONS AND FIBROSIS OF SKIN 08/07/2017 Kennedy, Dominic W 250.80 DIABETES MELLITUS WITH OTHER SPECIFIED MANIFESTATIONS, TYPE II OR UNSPECIFIED TYPE, NOT STATED UNCONTROLLED 08/07/2017 Kennedy, Dominic W 428.0 CONGESTIVE HEART FAILURE, UNSPECIFIED 08/07/2017 Kennedy, BriseiadCheri W 709.2 SCAR CONDITIONS AND FIBROSIS OF SKIN 08/07/2017 Kennedy, Dominic W E11.65 TYPE 2 DIABETES MELLITUS WITH HYPERGLYCEMIA 08/07/2017 Kennedy, Dominic W I50.9 HEART FAILURE, UNSPECIFIED 08/07/2017 Kennedy, Dominic W L90.5 SCAR CONDITIONS AND FIBROSIS OF SKIN 08/14/2017 Shawnee Kennedy-Cheri A 250.80 DIABETES MELLITUS WITH OTHER SPECIFIED MANIFESTATIONS, TYPE II OR UNSPECIFIED TYPE, NOT STATED UNCONTROLLED 08/14/2017 Marcia, Shawnee-Cheri A E11.65 TYPE 2 DIABETES MELLITUS WITH HYPERGLYCEMIA 08/14/2017 Kennedy, Shawnee-Cheri A 250.80 DIABETES MELLITUS WITH OTHER SPECIFIED MANIFESTATIONS, TYPE II OR UNSPECIFIED TYPE, NOT STATED UNCONTROLLED 08/14/2017 Dominic Kennedy W 272.4 OTHER AND UNSPECIFIED HYPERLIPIDEMIA 08/14/2017 Marcia, Shawnee-Cheri W 401.9 UNSPECIFIED ESSENTIAL HYPERTENSION 08/14/2017 Kennedy, Shawnee-Cheri A E11.65 TYPE 2 DIABETES MELLITUS WITH HYPERGLYCEMIA 08/14/2017 Kennedy, Shawnee-Cheri W E78.5 HYPERLIPIDEMIA, UNSPECIFIED 08/14/2017 Kennedy, Shawnee-Cheri W I10 ESSENTIAL (PRIMARY) HYPERTENSION 08/14/2017 Kennedy, Shawnee-Cheri W 250.80 DIABETES MELLITUS WITH OTHER SPECIFIED MANIFESTATIONS, TYPE II OR UNSPECIFIED TYPE, NOT STATED UNCONTROLLED 08/14/2017 Kennedy, Shawnee-Cheri W 272.4 OTHER AND UNSPECIFIED HYPERLIPIDEMIA 08/14/2017 Kennedy, Shawnee-Cheri W 401.9 UNSPECIFIED ESSENTIAL HYPERTENSION 08/14/2017 Kennedy, Shawnee-Cheri W 428.0 CONGESTIVE HEART FAILURE, UNSPECIFIED 08/14/2017 Kennedy, Shawnee-Cheri W E11.65 TYPE 2 DIABETES MELLITUS WITH HYPERGLYCEMIA 08/14/2017 Kennedy, Shawnee-Cheri W E78.5 HYPERLIPIDEMIA, UNSPECIFIED 08/14/2017 Kennedy, Shawnee-Cheri W I10 ESSENTIAL (PRIMARY) HYPERTENSION 08/14/2017 Kennedy, Shawnee-Cheri W I50.9 HEART FAILURE, UNSPECIFIED 08/14/2017 W 250.80 ZELDA BETES MELLITUS WITH OTHER SPECIFIED MANIFESTATIONS, TYPE II OR UNSPECIFIED TYPE, NOT STATED UNCONTROLLED 08/14/2017 W 428.0 RUDDY ESTIVE HEART FAILURE, UNSPECIFIED 08/14/2017 W E11.65 TYP E 2 DIABETES MELLITUS WITH HYPERGLYCEMIA 08/14/2017 W I50.9 HEAR T FAILURE, UNSPECIFIED 08/14/2017 Kennedy, Shawnee-Cheri W 250.80 DIABETES MELLITUS WITH OTHER SPECIFIED MANIFESTATIONS, TYPE II OR UNSPECIFIED TYPE, NOT STATED UNCONTROLLED 08/14/2017 Kennedy, Shawnee-Cheri W 272.4 OTHER AND UNSPECIFIED HYPERLIPIDEMIA 08/14/2017 Kennedy, Shawnee-Cheri W 401.9 UNSPECIFIED ESSENTIAL HYPERTENSION 08/14/2017 Kennedy, Shawnee-Cheri W 428.0 CONGESTIVE HEART FAILURE, UNSPECIFIED 08/14/2017 Kennedy, Shawnee-Cheri W E11.65 TYPE 2 DIABETES MELLITUS WITH HYPERGLYCEMIA 08/14/2017 Kennedy, Shawnee-Cheri W E78.5 HYPERLIPIDEMIA, UNSPECIFIED 08/14/2017 Kennedy, Shawnee-Cheri W I10 ESSENTIAL (PRIMARY) HYPERTENSION 08/14/2017 Kennedy, Shawnee-Cheri W I50.9 HEART FAILURE, UNSPECIFIED 09/06/2017 ARNIE HAMEED FACC, ALI FACP CCDS Ot 250.00 DIAB MEGAN WO COMPL, TYPE II OR UNSPEC TY 09/06/2017 ARNIE HAMEED FACC, ALI FACP CCDS [...] CCDS Ot E66.9 OBESITY, UNSPECIFIED 09/06/2017 ARNIE HAMEED FACC, ALI FACP CCDS Ot E78.5 HYPERLIPIDEMIA, UNSPECIFIED 09/06/2017 ARNIE HAMEED FACC, ALI FACP CCDS Ot I10 ESSENTIAL (PRIMARY) HYPERTENSION 09/06/2017 ARNIE BEACHC, ALI FACP CCDS Ot I25.10 ATHSCL HEART DISEASE OF [place] CORONARY 09/06/2017 ARNIE HAMEED FACC, ALI FACP CCDS Ot M79.604 PAIN IN [...] Ot I10 ESSENTIAL (PRIMARY) HYPERTENSION 09/06/2017 ARNIE HAMEED FACC, ALI FACP CCDS Ot I25.10 ATHSCL HEART DISEASE OF [place] CORONARY 09/06/2017 ARNIE HAMEED FACC, ALI FACP CCDS Ot M79.604 PAIN IN [...] CCDS Ot I25.10 ATHSCL HEART DISEASE OF [place] CORONARY 09/10/2017 ARNIE HAMEED FACC, ALI FACP CCDS Ot M79.604 PAIN IN [...] Ot I10 ESSENTIAL (PRIMARY) HYPERTENSION 09/10/2017 ARNIE HAMEED FACC, ALI FACP CCDS Ot I25.10 ATHSCL HEART DISEASE OF [place] CORONARY 09/10/2017 ARNIE HAMEED FACC, ALI FACP CCDS Ot M79.604 PAIN IN [...] CCDS Ot I25.10 ATHSCL HEART DISEASE OF [place] CORONARY 09/11/2017 ARNIE HAMEED FACC, ALI FACP CCDS Ot Z68.35 BODY MASS INDEX (BMI) 35.0-35.9, ADULT 09/11/2017 ARNIE HAMEED FACC, ALI FACP CCDS Ot Z79.4 CENTERLESS GRINDER (CURRENT) USE OF INSULIN 09/11/2017 ARNIE HAMEED FACC, ALI FACP CCDS Ot Z79.82 CARE HOME (CURRENT) USE OF ASPIRIN 09/11/2017 ARNIE HAMEED FACC, ALI FACP CCDS Ot Z79.899 OTHER CARE HOME (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 THERAPY 09/11/2017 ARNIE HAMEED FACC, ALI FACP CCDS Ot Z95.5 PRESENCE OF CORONARY ANGIOPLASTY IMPLANT 09/12/2017 ARNIE HAMEED FACC, ALI FACP CCDS Ot E11.42 TYPE 2 DIABETES MELLITUS WITH DIABETIC P 09/12/2017 ARNIE BEACHC, ALI FACP CCDS Ot E66.9 OBESITY, UNSPECIFIED 09/12/2017 ARNIE HAMEED FACC, ALI FACP CCDS Ot E78.5 HYPERLIPIDEMIA, UNSPECIFIED 09/12/2017 ARNIE BEACHC, ALI FACP CCDS Ot I10 ESSENTIAL (PRIMARY) HYPERTENSION 09/12/2017 ARNIE BEACHC, ALI FACP CCDS Ot I25.10 ATHSCL HEART DISEASE OF [place] CORONARY 09/12/2017 ARNIE HAMEED FACC, ALI FACP CCDS Ot Z68.35 BODY MASS INDEX (BMI) 35.0-35.9, ADULT 09/12/2017 ARNIE BEACHC, ALI FACP CCDS Ot Z79.4 CENTERLESS GRINDER (CURRENT) USE OF INSULIN 09/12/2017 ARNIE BEACHC, ALI FACP CCDS Ot Z79.82 CARE HOME (CURRENT) USE OF ASPIRIN 09/12/2017 ARNIE BEACHC, ALI FACP CCDS Ot Z79.899 OTHER CENTERLESS GRINDER (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 THERAPY 09/12/2017 ARNIE HAMEED FACC, LISA NEWTON CCDS Ot Z95.5 PRESENCE OF CORONARY ANGIOPLASTY IMPLANT 09/25/2017 W 893.0 OPEN WOUND OF TOE(S), WITHOUT MENTION OF COMPLICATION 09/25/2017 W S91.204A U NSP OPN WND RIGHT LESSER TOE(S) W DAMAGE TO NAIL, INIT 10/24/2017 W 486 PNEUMO ALEXI, ORGANISM UNSPECIFIED 10/24/2017 W J18.9 PNEU MONIA, UNSPECIFIED ORGANISM 11/06/2017 W 112.0 CAND IDIASIS OF MOUTH 11/06/2017 W 462 ACUTE PHARYNGITIS 11/06/2017 W B37.0 CAND IDAL STOMATITIS 11/06/2017 W J02.9 ACUT E PHARYNGITIS, UNSPECIFIED 01/10/2018 Marcia Dominic W 250.00 DIABETES MELLITUS WITHOUT MENTION OF COMPLICATION, TYPE II OR UNSPECIFIED TYPE, NOT STATED UNCONTROLLED 01/10/2018 Marcia BriseidaCheri W E11.9 TYPE 2 DIABETES MELLITUS WITHOUT COMPLICATIONS 01/10/2018 Marcia BriseidaCheri W 250.00 DIABETES MELLITUS WITHOUT MENTION OF COMPLICATION, TYPE II OR UNSPECIFIED TYPE, NOT STATED UNCONTROLLED 01/10/2018 Marcia BriseidaCheri W E11.9 TYPE 2 DIABETES MELLITUS WITHOUT COMPLICATIONS 01/10/2018 W 250.00 ZELDA BETES MELLITUS WITHOUT MENTION OF COMPLICATION, TYPE II OR UNSPECIFIED TYPE, NOT STATED UNCONTROLLED 01/10/2018 W E11.9 TYPE 2 DIABETES MELLITUS WITHOUT COMPLICATIONS 01/10/2018 Marcia BriseidaCheri W 250.00 DIABETES MELLITUS WITHOUT MENTION OF COMPLICATION, TYPE II OR UNSPECIFIED TYPE, NOT STATED UNCONTROLLED 01/10/2018 Marcia BriseidaCheri W E11.9 TYPE 2 DIABETES MELLITUS WITHOUT COMPLICATIONS 01/18/2018 W 250.80 ZELDA BETES MELLITUS WITH OTHER SPECIFIED MANIFESTATIONS, TYPE II OR UNSPECIFIED TYPE, NOT STATED UNCONTROLLED 01/18/2018 W 728.87 MUS LAM WEAKNESS (GENERALIZED) 01/18/2018 W E11.65 TYP E 2 DIABETES MELLITUS WITH HYPERGLYCEMIA 01/18/2018 W M62.81 MUS LAM WEAKNESS (GENERALIZED) 04/30/2018 Marcia Gómezu W 250.00 DIABETES MELLITUS WITHOUT MENTION OF COMPLICATION, TYPE II OR UNSPECIFIED TYPE, NOT STATED UNCONTROLLED 04/30/2018 Dominic Kennedy W E11.9 TYPE 2 DIABETES MELLITUS WITHOUT COMPLICATIONS 04/30/2018 W 250.00 ZELDA BETES MELLITUS WITHOUT MENTION OF COMPLICATION, TYPE II OR UNSPECIFIED TYPE, NOT STATED UNCONTROLLED 04/30/2018 W E11.9 TYPE 2 DIABETES MELLITUS WITHOUT COMPLICATIONS 04/30/2018 Dominic Kennedy W 250.00 DIABETES MELLITUS WITHOUT MENTION OF COMPLICATION, TYPE II OR UNSPECIFIED TYPE, NOT STATED UNCONTROLLED 04/30/2018 Dominic Kennedy W E11.9 TYPE 2 DIABETES MELLITUS WITHOUT COMPLICATIONS 05/16/2018 A 427.31 ATR IAL FIBRILLATION 05/16/2018 A I48.91 UNS PECIFIED ATRIAL FIBRILLATION 05/17/2018 AMARJIT CALVIN MD, Ot E11. 9 TYPE 2 DIABETES MELLITUS WITHOUT COMPLIC 05/17/2018 AMARJIT CALVIN MD, Ot E66. 9 OBESITY, UNSPECIFIED 05/17/2018 AMARJIT CALVIN MD, Ot E78. 1 PURE HYPERGLYCERIDEMIA 05/17/2018 AMARJIT CALVIN MD, Ot E78. 5 HYPERLIPIDEMIA, UNSPECIFIED 05/17/2018 AMARJIT CALVIN MD, Ot G62. 9 POLYNEUROPATHY, UNSPECIFIED 05/17/2018 AMARJIT CALVIN MD, Ot I10 ESSENTIAL (PRIMARY) HYPERTENSION 05/17/2018 AMARJIT CALVIN MD, Ot I25. 10 ATHSCL HEART DISEASE OF [place] CORONARY 05/17/2018 AMARJIT CALVIN MD, Ot I48. 91 UNSPECIFIED ATRIAL FIBRILLATION 05/17/2018 AMARJIT CALVIN MD, Ot I48. 92 UNSPECIFIED ATRIAL FLUTTER 05/17/2018 AMARJIT CALVIN MD, Ot I49. 5 SICK SINUS SYNDROME 05/17/2018 AMARJIT CALVIN MD, Ot I65. 29 OCCLUSION AND STENOSIS OF UNSPECIFIED CA 05/17/2018 AMARJIT CALVIN MD, Ot Z68. 34 BODY MASS INDEX (BMI) 34.0-34.9, ADULT 05/17/2018 AMARJIT CALVIN MD, Ot Z79. 01 CENTERLESS GRINDER (CURRENT) USE OF ANTICOAGULANT 05/17/2018 AMARJIT CALVIN MD, Ot Z79. 4 CARE HOME (CURRENT) USE OF INSULIN 05/17/2018 AMARJIT CALVIN MD, Ot Z79.899 OTHER CARE HOME (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 THERAPY 05/17/2018 AMARJIT CALVIN MD Ot Z88. 8 ALLERGY STATUS TO [facility] DRUG/MEDS/BIOL SUB 05/17/2018 AMARJIT CALVIN MD Ot Z95. 5 PRESENCE OF CORONARY ANGIOPLASTY IMPLANT 05/24/2018 A 427.31 ATR IAL FIBRILLATION 05/24/2018 A I48.0 PARO XYSMAL ATRIAL FIBRILLATION 06/14/2018 CHERY LINDER APRN Ot G47.10 HYPERSOMNIA, UNSPECIFIED 07/12/2018 CHERY LINDER APRN Ot G47.10 HYPERSOMNIA, UNSPECIFIED 07/12/2018 ARNIE HAMEED FACC, LISA FACP CCDS Ot 250.00 DIAB MEGAN WO COMPL, TYPE II OR UNSPEC TY 07/12/2018 ARNIE HAMEED FACC, ALI FACP CCDS Ot 272.4 HYPERLIPIDEMIA NEC/NOS 07/12/2018 ARNIE HAMEED FACC, ALI FACP CCDS Ot 401.9 HYPERTENSION NOS 07/12/2018 ARNIE HAMEED FACC, ALI FACP CCDS Ot 414.00 CORON ATHEROSCLER NOS TYPE VESSEL, NATIV 07/12/2018 ARNIE HAMEED FACC, ALI FACP CCDS Ot 427.89 CARDIAC DYSRHYTHMIAS NEC 07/12/2018 ARNIE HAMEED FACC, LISA FACP CCDS Ot E11.9 TYPE 2 DIABETES MELLITUS WITHOUT COMPLIC 07/12/2018 ARNIE HAMEED FACC, ALI FACP CCDS Ot E66.9 OBESITY, UNSPECIFIED 07/12/2018 ARNIE HAMEED FACC, ALI FACP CCDS Ot E78.5 HYPERLIPIDEMIA, UNSPECIFIED 07/12/2018 ARNIE HAMEED FACC, ALI FACP CCDS Ot I10 ESSENTIAL (PRIMARY) HYPERTENSION 07/12/2018 ARNIE HAMEED FACC, ALI FACP CCDS Ot I25.10 ATHSCL HEART DISEASE OF [place] CORONARY 07/12/2018 ARNIE HAMEED FACC, ALI FACP CCDS Ot M79.604 PAIN IN RIGHT LEG 07/12/2018 ARNIE HAMEED FACC, ALI FACP CCDS Ot N52.9 MALE ERECTILE DYSFUNCTION, UNSPECIFIED 07/12/2018 ARNIE HAMEED FACC, ALI FACP CCDS Ot E11.9 TYPE 2 DIABETES MELLITUS WITHOUT COMPLIC 07/12/2018 ARNIE HAMEED FACC, ALI FACP CCDS Ot E66.9 OBESITY, UNSPECIFIED 07/12/[address] [facility] CCDS Ot E78.5 HYPERLIPIDEMIA, UNSPECIFIED 07/12/[address] [facility], [facility] FACP CCDS Ot I10 ESSENTIAL (PRIMARY) HYPERTENSION 07/12/[address] [facility], [facility] CCDS Ot I25.10 ATHSCL HEART DISEASE OF [place] CORONARY 07/12/[address] [facility], [facility] FACP CCDS Ot M79.604 PAIN IN RIGHT LEG 07/12/[address] [facility], [facility] FACP CCDS Ot N52.9 MALE ERECTILE DYSFUNCTION, UNSPECIFIED 07/12/2018 KAILASH, CHERY E VIRTUAL OFFICE ASSISTANT Ot G47.10 HYPERSOMNIA, UNSPECIFIED 07/16/2018 KAILASH, CHERY E VIRTUAL OFFICE ASSISTANT Ot G47.10 HYPERSOMNIA, UNSPECIFIED 07/16/2018 KAILASH, CHERY E VIRTUAL OFFICE ASSISTANT Ot G47.10 HYPERSOMNIA, UNSPECIFIED 07/16/2018 KAILASH, CHERY E VIRTUAL OFFICE ASSISTANT Ot G47.10 HYPERSOMNIA, UNSPECIFIED 07/17/2018 KAILASH, CHERY E VIRTUAL OFFICE ASSISTANT Ot G47.10 HYPERSOMNIA, UNSPECIFIED 07/17/2018 KAILASH, CHERY E VIRTUAL OFFICE ASSISTANT Ot G47.50 PARASOMNIA, UNSPECIFIED 07/17/2018 KAILASH, CHERY E VIRTUAL OFFICE ASSISTANT Ot I48.0 PAROXYSMAL ATRIAL FIBRILLATION 08/06/2018 Marcia ShawneeDalton W 250.00 DIABETES MELLITUS WITHOUT MENTION OF COMPLICATION, TYPE II OR UNSPECIFIED TYPE, NOT STATED UNCONTROLLED 08/06/2018 Dominic Kennedy W 272.4 OTHER AND UNSPECIFIED HYPERLIPIDEMIA 08/06/2018 Dominic Kennedy W E11.9 TYPE 2 DIABETES MELLITUS WITHOUT COMPLICATIONS 08/06/2018 Dominic Kennedy W E78.5 HYPERLIPIDEMIA, UNSPECIFIED 08/06/2018 W 250.00 ZELDA BETES MELLITUS WITHOUT MENTION OF COMPLICATION, TYPE II OR UNSPECIFIED TYPE, NOT STATED UNCONTROLLED 08/06/2018 W 272.4 OTHE R AND UNSPECIFIED HYPERLIPIDEMIA 08/06/2018 W E11.9 TYPE 2 DIABETES MELLITUS WITHOUT COMPLICATIONS 08/06/2018 W E78.5 HYPE RLIPIDEMIA, UNSPECIFIED 08/06/2018 Dominic Kennedy W 250.00 DIABETES MELLITUS WITHOUT MENTION OF COMPLICATION, TYPE II OR UNSPECIFIED TYPE, NOT STATED UNCONTROLLED 08/06/2018 Dominic Kennedy W 272.4 OTHER AND UNSPECIFIED HYPERLIPIDEMIA 08/06/2018 Dominic Kennedy W E11.9 TYPE 2 DIABETES MELLITUS WITHOUT COMPLICATIONS 08/06/2018 Dominic Kennedy W E78.5 HYPERLIPIDEMIA, UNSPECIFIED 11/08/2018 W 250.00 ZELDA BETES MELLITUS WITHOUT MENTION OF COMPLICATION, TYPE II OR UNSPECIFIED TYPE, NOT STATED UNCONTROLLED 11/08/2018 W 272.4 OTHE R AND UNSPECIFIED HYPERLIPIDEMIA 11/08/2018 W E11.9 TYPE 2 DIABETES MELLITUS WITHOUT COMPLICATIONS 11/08/2018 W E78.5 HYPE RLIPIDEMIA, UNSPECIFIED 11/13/2018 W 250.80 ZELDA BETES MELLITUS WITH OTHER SPECIFIED MANIFESTATIONS, TYPE II OR UNSPECIFIED TYPE, NOT STATED UNCONTROLLED 11/13/2018 W E11.65 TYP E 2 DIABETES MELLITUS WITH HYPERGLYCEMIA 11/13/2018 W V15.81 PER ARABELLA HISTORY OF NONCOMPLIANCE WITH MEDICAL TREATMENT, PRESENTING HAZARDS TO HEALTH 11/13/2018 W Z91.19 PAT IENT'S NONCOMPLIANCE WITH OTHER MEDICAL TREATMENT AND REGIMEN 12/19/2018 ARNIE HAMEED FACC, LISA FACP CCDS Ot 250.00 DIAB MEGAN WO COMPL, TYPE II OR UNSPEC TY 12/19/2018 ARNIE HAMEED FACC, ALI FACP CCDS Ot 272.4 HYPERLIPIDEMIA NEC/NOS 12/19/2018 ARNIE HAMEED FACC, ALI FACP CCDS Ot 401.9 HYPERTENSION NOS 12/19/2018 ARNIE HAMEED FACC, ALI FACP CCDS Ot 414.00 CORON ATHEROSCLER NOS TYPE VESSEL, NATIV 12/19/2018 ARNIE HAMEED FACC, ALI FACP CCDS Ot 427.89 CARDIAC DYSRHYTHMIAS NEC 12/19/2018 ARNIE HAMEED FACC, ALI FACP CCDS Ot E11.9 TYPE 2 DIABETES MELLITUS WITHOUT COMPLIC 12/19/2018 ARNIE HAMEED FACC, ALI FACP CCDS Ot E66.9 OBESITY, UNSPECIFIED 12/19/2018 ARNIE HAMEED FACC, ALI FACP CCDS Ot E78.5 HYPERLIPIDEMIA, UNSPECIFIED 12/19/2018 ARNIE HAMEED FACC, ALI FACP CCDS Ot I10 ESSENTIAL (PRIMARY) HYPERTENSION 12/19/2018 ARNIE HAMEED FACC, ALI FACP CCDS Ot I25.10 ATHSCL HEART DISEASE OF [place] CORONARY 12/19/[address] [facility], ALI FACP CCDS Ot M79.604 PAIN IN RIGHT LEG 12/19/2018 ARNIE HAMEED FAC, ALI FACP CCDS Ot N52.9 MALE ERECTILE DYSFUNCTION, UNSPECIFIED 12/19/2018 ARNEI HAMEED FACC, ALI FACP CCDS Ot E11.9 TYPE 2 DIABETES MELLITUS WITHOUT COMPLIC 12/19/2018 ARNIE HAMEED FAC, ALI FACP CCDS Ot E66.9 OBESITY, UNSPECIFIED 12/19/2018 ARNIE MD FACC, ALI FACP CCDS Ot E78.5 HYPERLIPIDEMIA, UNSPECIFIED 12/19/2018 ARNIE MD FAC, ALI FACP CCDS Ot I10 ESSENTIAL (PRIMARY) HYPERTENSION 12/19/[address] [facility], ALI FACP CCDS Ot I25.10 ATHSCL HEART DISEASE OF [place] CORONARY 12/19/[address] [facility], ALI FACP CCDS Ot M79.604 PAIN IN RIGHT LEG 12/19/[address] [facility], ALI FACP CCDS Ot N52.9 MALE ERECTILE DYSFUNCTION, UNSPECIFIED 12/23/2018 HEIDE PIÑA Ot E11.621 TYPE 2 DIABETES MELLITUS WITH FOOT ULCER 12/23/2018 HEIDE PIÑA Ot I11.0 HYPERTENSIVE HEART DISEASE WITH HEART FA 12/23/2018 HEIDE [place]ÑA Ot I25.10 ATHSCL HEART DISEASE OF [place] CORONARY 12/23/2018 HEIDE [place]ÑA Ot I50.9 HEART FAILURE, UNSPECIFIED 12/23/2018 HEIDE [place]ÑA Ot L97.529 NON-PRESSURE CHRONIC ULCER OTH PRT LEFT 12/23/2018 HEIDE PIÑA Ot Z79.4 CENTERLESS GRINDER (CURRENT) USE OF INSULIN 12/23/2018 MAHIN PIÑAIS Ot Z79.82 CARE HOME (CURRENT) USE OF ASPIRIN 12/23/2018 HEIDE PIÑA Ot Z88.8 ALLERGY STATUS TO OT DRUG/MEDS/BIOL SUB 12/23/2018 HEIDE PIÑA Ot Z95.5 PRESENCE OF CORONARY ANGIOPLASTY IMPLANT 12/24/2018 Dominic Kennedy W 681.10 CELLULITIS AND ABSCESS OF TOE, UNSPECIFIED 12/24/2018 Dominic Kennedy W L03.032 CELLULITIS OF LEFT TOE 12/24/2018, [place] W 681.10 CELLULITIS AND ABSCESS OF TOE, UNSPECIFIED 12/24/2018, [place] W L03.032 CELLULITIS OF LEFT TOE 12/24/2018, [place] W 681.10 CELLULITIS AND ABSCESS OF TOE, UNSPECIFIED 12/24/2018, [place] W L03.032 CELLULITIS OF LEFT TOE 12/24/2018, [place] W 250.60 DIABETES MELLITUS WITH NEUROLOGICAL MANIFESTATIONS, TYPE II OR UNSPECIFIED TYPE, NOT STATED UNCONTROLLED 12/24/2018, [place] W 681.10 CELLULITIS AND ABSCESS OF TOE, UNSPECIFIED 12/24/2018, [place] W E11.40 TYPE 2 DIABETES MELLITUS WITH DIABETIC NEUROPATHY, UNSPECIFIED 12/24/2018, [place] W L03.032 CELLULITIS OF LEFT TOE 12/24/2018, [place] W 250.60 DIABETES MELLITUS WITH NEUROLOGICAL MANIFESTATIONS, TYPE II OR UNSPECIFIED TYPE, NOT STATED UNCONTROLLED 12/24/2018, [place] W 681.10 CELLULITIS AND ABSCESS OF TOE, UNSPECIFIED 12/24/2018, [place] W E11.40 TYPE 2 DIABETES MELLITUS WITH DIABETIC NEUROPATHY, UNSPECIFIED 12/24/2018, [place] W L03.032 CELLULITIS OF LEFT TOE 12/24/2018, [place] W 250.60 DIABETES MELLITUS WITH NEUROLOGICAL MANIFESTATIONS, TYPE II OR UNSPECIFIED TYPE, NOT STATED UNCONTROLLED 12/24/2018, Dominic W 681.10 CELLULITIS AND ABSCESS OF TOE, UNSPECIFIED 12/24/2018, [place] W E11.40 TYPE 2 DIABETES MELLITUS WITH DIABETIC NEUROPATHY, UNSPECIFIED 12/24/2018 Kennedy, Dominic W L03.032 CELLULITIS OF LEFT TOE 12/27/2018 DOMINIC KENNEDY MD Ot I50.9 HEART FAILURE, UNSPECIFIED 12/27/2018 DOMINIC KENNEDY MD Ot L03.0 32 CELLULITIS OF LEFT TOE 01/02/2019 Marcia, Dominic W 730.07 ACUTE OSTEOMYELITIS INVOLVING ANKLE AND FOOT 01/02/2019 Marcia, [place] W M86.172 OTHER ACUTE OSTEOMYELITIS, LEFT ANKLE AND FOOT 01/02/2019 Kennedy, [place] W 730.07 ACUTE OSTEOMYELITIS INVOLVING ANKLE AND FOOT 01/02/2019 Kennedy, [place] W M86.172 OTHER ACUTE OSTEOMYELITIS, LEFT ANKLE AND FOOT 01/02/2019, [place] W 730.07 ACUTE OSTEOMYELITIS INVOLVING ANKLE AND FOOT 01/02/2019 Kennedy, [place] W M86.172 OTHER ACUTE OSTEOMYELITIS, LEFT ANKLE AND FOOT 01/02/2019 Kennedy, [place] W 250.80 DIABETES MELLITUS WITH OTHER SPECIFIED MANIFESTATIONS, TYPE II OR UNSPECIFIED TYPE, NOT STATED UNCONTROLLED 01/02/2019 Kennedy, [place] W 730.07 ACUTE OSTEOMYELITIS INVOLVING ANKLE AND FOOT 01/02/2019 Kennedy, [place] W E11.65 TYPE 2 DIABETES MELLITUS WITH HYPERGLYCEMIA 01/02/2019 Kennedy, [place] W M86.172 OTHER ACUTE OSTEOMYELITIS, LEFT ANKLE AND FOOT 01/02/2019 Kennedy, [place] W 250.80 DIABETES MELLITUS WITH OTHER SPECIFIED MANIFESTATIONS, TYPE II OR UNSPECIFIED TYPE, NOT STATED UNCONTROLLED 01/02/2019 Kennedy, [place] W 730.07 ACUTE OSTEOMYELITIS INVOLVING ANKLE AND FOOT 01/02/2019 Kennedy, [place] W E11.65 TYPE 2 DIABETES MELLITUS WITH HYPERGLYCEMIA 01/02/2019 Kennedy, [place] W M86.172 OTHER ACUTE OSTEOMYELITIS, LEFT ANKLE AND FOOT 01/02/2019 Kennedy, [place] W 250.80 DIABETES MELLITUS WITH OTHER SPECIFIED MANIFESTATIONS, TYPE II OR UNSPECIFIED TYPE, NOT STATED UNCONTROLLED 01/02/2019 Kennedy, [place] W 730.07 ACUTE OSTEOMYELITIS INVOLVING ANKLE AND FOOT 01/02/2019 Kennedy, [place] W E11.65 TYPE 2 DIABETES MELLITUS WITH HYPERGLYCEMIA 01/02/2019 [facility], [place] W M86.172 OTHER ACUTE OSTEOMYELITIS, LEFT ANKLE AND FOOT 01/05/2019 CHELSY SELBY MD, Ot E11.42 TYPE 2 DIABETES MELLITUS WITH DIABETIC P 01/05/2019 CHELSY SELBY MD, Ot E11.621 TYPE 2 DIABETES MELLITUS WITH FOOT ULCER 01/05/2019 CHELSY SELBY MD, Ot I11 .0 HYPERTENSIVE HEART DISEASE WITH HEART FA 01/05/2019 CHELSY SELBY MD, Ot I25.10 ATHSCL HEART DISEASE OF [place] CORONARY 01/05/2019 CHELSY SELBY MD, Ot I89 .0 LYMPHEDEMA, NOT ELSEWHERE CLASSIFIED 01/05/2019 CHELSY SELBY MD, Ot L97.522 NON-PRS CHRONIC ULCER OTH PRT LEFT FOOT 01/06/2019 CHELSY SELBY MD, Ot E11.42 TYPE 2 DIABETES MELLITUS WITH DIABETIC P 01/06/2019 CHELSY SELBY MD, Ot E11.621 TYPE 2 DIABETES MELLITUS WITH FOOT ULCER 01/06/2019 CHELSY SELBY MD, Ot I50 .9 HEART FAILURE, UNSPECIFIED 01/06/2019 CHELSY SELBY MD, Ot I89 .0 LYMPHEDEMA, NOT ELSEWHERE CLASSIFIED 01/06/2019 CHELSY SELBY MD, Ot L97.522 NON-PRS CHRONIC ULCER OTH PRT LEFT FOOT 01/08/2019 CHELSY SELBY MD, Ot E11.42 TYPE 2 DIABETES MELLITUS WITH DIABETIC P 01/08/2019 CHELSY SELBY MD, Ot 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 PERIPHERAL AN 01/08/2019 CHELSY SELBY MD, Ot E11.621 TYPE 2 DIABETES MELLITUS WITH FOOT ULCER 01/08/2019 CHELSY SELBY MD, Ot I50 .9 HEART FAILURE, UNSPECIFIED 01/08/2019 CHELSY SELBY MD, Ot I89 .0 LYMPHEDEMA, NOT ELSEWHERE CLASSIFIED 01/08/2019 CHELSY SELBY MD, Ot I96 GANGRENE, NOT ELSEWHERE CLASSIFIED 01/08/2019 CHELSY SELBY MD, Ot L97.524 NON-PRS CHRONIC ULCER OTH PRT LEFT FOOT 01/08/2019 CHELSY SELBY MD Ot M86.472 CHRONIC OSTEOMYELITIS W DRAINING SINUS, 01/16/2019 DOMINIC KENNEDY MD Ot I50.9 HEART FAILURE, UNSPECIFIED 01/16/2019 DOMINIC KENNEDY MD Ot L03.0 32 CELLULITIS OF LEFT TOE 01/16/2019 DOMINIC KENNEDY MD Ot M86.8 X7 OTHER OSTEOMYELITIS, ANKLE AND FOOT 01/22/2019 CHELSY SELBY MD, Ot E11.42 TYPE 2 DIABETES MELLITUS WITH DIABETIC P 01/22/2019 CHELSY SELBY MD Ot 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 PERIPHERAL AN 01/22/2019 CHELSY SELBY MD, Ot E11.621 TYPE 2 DIABETES MELLITUS WITH FOOT ULCER 01/22/2019 CHELSY SELBY MD Ot I50 .9 HEART FAILURE, UNSPECIFIED 01/22/2019 CHELSY SELBY MD Ot I89 .0 LYMPHEDEMA, NOT ELSEWHERE CLASSIFIED 01/22/2019 CHELSY SELBY MD Ot I96 GANGRENE, NOT ELSEWHERE CLASSIFIED 01/22/2019 CHELSY SELBY MD, Ot L97.522 NON-PRS CHRONIC ULCER OTH PRT LEFT FOOT 01/22/2019 CHELSY SELBY MD, Ot M86.472 CHRONIC OSTEOMYELITIS W DRAINING SINUS, 01/29/2019 CHELSY SELBY MD Ot E11.42 TYPE 2 DIABETES MELLITUS WITH DIABETIC P 01/29/2019 CHELSY SELBY MD Ot 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 PERIPHERAL AN 01/29/2019 CHELSY SELBY MD, Ot E11.621 TYPE 2 DIABETES MELLITUS WITH FOOT ULCER 01/29/2019 CHELSY SELBY MD, Ot I50 .9 HEART FAILURE, UNSPECIFIED 01/29/2019 CHELYS SELBY MD Ot I89 .0 LYMPHEDEMA, NOT ELSEWHERE CLASSIFIED 01/29/2019 CHELSY SELBY MD Ot I96 GANGRENE, NOT ELSEWHERE CLASSIFIED 01/29/2019 CHELSY SELBY MD, Ot L97.522 NON-PRS CHRONIC ULCER OTH PRT LEFT FOOT 01/29/2019 CHELSY SELBY MD, Ot M86.472 CHRONIC OSTEOMYELITIS W DRAINING SINUS, 01/29/2019 CHELSY SELBY MD Ot E11.42 TYPE 2 DIABETES MELLITUS WITH DIABETIC P 01/29/2019 CHELSY SELBY MD Ot E11.621 TYPE 2 DIABETES MELLITUS WITH FOOT ULCER 01/29/2019 CHELSY SELBY MD Ot I11 .0 HYPERTENSIVE HEART DISEASE WITH HEART FA 01/29/2019 CHELSY SELBY MD Ot I25.10 ATHSCL HEART DISEASE OF [place] CORONARY 01/29/2019 CHELSY SELBY MD Ot I89 .0 LYMPHEDEMA, NOT ELSEWHERE CLASSIFIED 01/29/2019 CHELSY SELBY MD, Ot L97.522 NON-PRS CHRONIC ULCER OTH PRT LEFT FOOT 01/30/2019 CHELSY SELBY MD Ot E11.42 TYPE 2 DIABETES MELLITUS WITH DIABETIC P 01/30/2019 CHELSY SELBY MD Ot 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 PERIPHERAL AN 01/30/2019 CHELSY SELBY MD Ot E11.621 TYPE 2 DIABETES MELLITUS WITH FOOT ULCER 01/30/2019 CHELSY SELBY MD Ot I50 .9 HEART FAILURE, UNSPECIFIED 01/30/2019 CHELSY SELBY MD Ot I89 .0 LYMPHEDEMA, NOT ELSEWHERE CLASSIFIED 01/30/2019 CHELSY SELBY MD Ot I96 [place]ANGR[place], NOT ELSEWHERE CLASSIFIED 01/30/2019 CHELSY SELBY MD Ot L97.524 NON-PRS CHRONIC ULCER OTH PRT LEFT FOOT 01/30/2019 CHELSY SELBY MD, Ot M86.472 CHRONIC OSTEOMYELITIS W DRAINING SINUS, 02/03/2019 CHELSY SELBY MD Ot E11.42 TYPE 2 DIABETES MELLITUS WITH DIABETIC P 02/03/2019 CHELSY SELBY MD Ot E11.621 TYPE 2 DIABETES MELLITUS WITH FOOT ULCER 02/03/2019 CHELSY SELYB MD Ot I11 .0 HYPERTENSIVE HEART DISEASE WITH HEART FA 02/03/2019 CHELSY SELBY MD Ot I25.10 ATHSCL HEART DISEASE OF [place] CORONARY 02/03/2019 CHELSY SELBY MD Ot I89 .0 LYMPHEDEMA, NOT ELSEWHERE CLASSIFIED 02/03/2019 CHELSY SELBY MD Ot L97.522 NON-PRS CHRONIC ULCER OTH PRT LEFT FOOT 02/06/2019 CHELSY SELBY MD Ot E11.42 TYPE 2 DIABETES MELLITUS WITH DIABETIC P 02/06/2019 CHELSY SELBY MD Ot 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 PERIPHERAL AN 02/06/2019 CHELSY SELBY MD Ot E11.621 TYPE 2 DIABETES MELLITUS WITH FOOT ULCER 02/06/2019 CHELSY SELBY MD Ot I50 .9 HEART FAILURE, UNSPECIFIED 02/06/2019 CHELSY SELBY MD Ot I89 .0 LYMPHEDEMA, NOT ELSEWHERE CLASSIFIED 02/06/2019 CHELSY SELBY MD Ot I96 [place]GR[place], NOT ELSEWHERE CLASSIFIED 02/06/2019 CHELSY SELBY MD Ot L97.524 NON-PRS CHRONIC ULCER OTH PRT LEFT FOOT 02/06/2019 CHELSY SELBY MD Ot M86.472 CHRONIC OSTEOMYELITIS W DRAINING SINUS, 02/09/2019 CHELSY SELBY MD Ot E11.42 TYPE 2 DIABETES MELLITUS WITH DIABETIC P 02/09/2019 CHELSY SELBY MD Ot 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 PERIPHERAL AN 02/09/2019 CHELSY SELBY MD Ot E11.621 TYPE 2 DIABETES MELLITUS WITH FOOT ULCER 02/09/2019 CHELSY SELBY MD Ot I50 .9 HEART FAILURE, UNSPECIFIED 02/09/2019 CHELSY SELBY MD Ot L97.522 NON-PRS CHRONIC ULCER OTH PRT LEFT FOOT 02/09/2019 CHELSY SELBY MD, Ot M86.472 CHRONIC OSTEOMYELITIS W DRAINING SINUS, 02/12/2019 CHELSY SELBY MD Ot E11.42 TYPE 2 DIABETES MELLITUS WITH DIABETIC P 02/12/2019 CHELSY SELBY MD Ot 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 PERIPHERAL AN 02/12/2019 CHELSY SELBY MD, Ot E11.621 TYPE 2 DIABETES MELLITUS WITH FOOT ULCER 02/12/2019 CHELSY SELBY MD, Ot I50 .9 HEART FAILURE, UNSPECIFIED 02/12/2019 CHELSY SELBY MD Ot I96 [place], NOT ELSEWHERE CLASSIFIED 02/12/2019 CHELSY SELBY MD Ot L97.522 NON-PRS CHRONIC ULCER OTH PRT LEFT FOOT 02/12/2019 CHELSY SELBY MD, Ot M86.472 CHRONIC OSTEOMYELITIS W DRAINING SINUS, 02/13/2019 CHELSY SELBY MD Ot E11.42 TYPE 2 DIABETES MELLITUS WITH DIABETIC P 02/13/2019 CHELSY SELBY MD Ot 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 PERIPHERAL AN 02/13/2019 CHELSY SELBY MD Ot E11.621 TYPE 2 DIABETES MELLITUS WITH FOOT ULCER 02/13/2019 CHELSY SELBY MD Ot I50 .9 HEART FAILURE, UNSPECIFIED 02/13/2019 CHELSY SELBY MD Ot I89 .0 LYMPHEDEMA, NOT ELSEWHERE CLASSIFIED 02/13/2019 CHELSY SELBY MD Ot I96 [place], NOT ELSEWHERE CLASSIFIED 02/13/2019 CHELSY SELBY MD Ot L97.522 NON-PRS CHRONIC ULCER OTH PRT LEFT FOOT 02/13/2019 CHELSY SELBY MD, Ot M86.472 CHRONIC OSTEOMYELITIS W DRAINING SINUS, 02/14/2019 CHELSY SELBY MD Ot E11.42 TYPE 2 DIABETES MELLITUS WITH DIABETIC P 02/14/2019 CHELSY SELBY MD Ot 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 PERIPHERAL AN 02/14/2019 CHELSY SELBY MD Ot E11.621 TYPE 2 DIABETES MELLITUS WITH FOOT ULCER 02/14/2019 CHELSY SELBY MD Ot I50 .9 HEART FAILURE, UNSPECIFIED 02/14/2019 CHELSY SELBY MD Ot I89 .0 LYMPHEDEMA, NOT ELSEWHERE CLASSIFIED 02/14/2019 CHELSY SELBY MD Ot I96 [place], NOT ELSEWHERE CLASSIFIED 02/14/2019 CHELSY SELBY MD Ot L97.524 NON-PRS CHRONIC ULCER OTH PRT LEFT FOOT 02/14/2019 CHELSY SELBY MD Ot M86.472 CHRONIC OSTEOMYELITIS W DRAINING SINUS, 02/21/2019 CHELSY SELBY MD Ot E11.42 TYPE 2 DIABETES MELLITUS WITH DIABETIC P 02/21/2019 CHELSY SELBY MD Ot 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 PERIPHERAL AN 02/21/2019 CHELSY SELBY MD, Ot E11.621 TYPE 2 DIABETES MELLITUS WITH FOOT ULCER 02/21/2019 CHELSY SELBY MD, Ot I50 .9 HEART FAILURE, UNSPECIFIED 02/21/2019 CHELSY SELBY MD Ot I96 [place], NOT ELSEWHERE CLASSIFIED 02/21/2019 CHELSY SELBY MD Ot L97.522 NON-PRS CHRONIC ULCER OTH PRT LEFT FOOT 02/21/2019 CHELSY SELBY MD Ot M86.472 CHRONIC OSTEOMYELITIS W DRAINING SINUS, 02/21/2019 CHELSY SELBY MD Ot E11.42 TYPE 2 DIABETES MELLITUS WITH DIABETIC P 02/21/2019 CHELSY SELBY MD Ot 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 PERIPHERAL AN 02/21/2019 CHELSY SELBY MD Ot E11.621 TYPE 2 DIABETES MELLITUS WITH FOOT ULCER 02/21/2019 CHELSY SELBY MD Ot I50 .9 HEART FAILURE, UNSPECIFIED 02/21/2019 CHELSY SELBY MD Ot I89 .0 LYMPHEDEMA, NOT ELSEWHERE CLASSIFIED 02/21/2019 CHELSY SELBY MD Ot I96 [place], NOT ELSEWHERE CLASSIFIED 02/21/2019 CHELSY SELBY MD Ot L97.522 NON-PRS CHRONIC ULCER OTH PRT LEFT FOOT 02/21/2019 CHELSY SELBY MD, Ot M86.472 CHRONIC OSTEOMYELITIS W DRAINING SINUS, 02/26/2019 CHELSY SELBY MD Ot E11.42 TYPE 2 DIABETES MELLITUS WITH DIABETIC P 02/26/2019 CHELSY SELBY MD Ot 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 PERIPHERAL AN 02/26/2019 CHELSY SELBY MD Ot E11.621 TYPE 2 DIABETES MELLITUS WITH FOOT ULCER 02/26/2019 CHELSY SELBY MD Ot I50 .9 HEART FAILURE, UNSPECIFIED 02/26/2019 CHELSY SELBY MD Ot I96 [place], NOT ELSEWHERE CLASSIFIED 02/26/2019 CHELSY SELBY MD Ot L97.522 NON-PRS CHRONIC ULCER OTH PRT LEFT FOOT 02/26/2019 CHELSY SELBY MD Ot M86.472 CHRONIC OSTEOMYELITIS W DRAINING SINUS, 03/05/2019 CHELSY SELBY MD Ot E11.42 TYPE 2 DIABETES MELLITUS WITH DIABETIC P 03/05/2019 CHELSY SELBY MD Ot 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 PERIPHERAL AN 03/05/2019 CHELSY SELBY MD, Ot E11.621 TYPE 2 DIABETES MELLITUS WITH FOOT ULCER 03/05/2019 CHELSY SELBY MD, Ot I50 .9 HEART FAILURE, UNSPECIFIED 03/05/2019 CHELSY SELBY MD Ot I96 [place], NOT ELSEWHERE CLASSIFIED 03/05/2019 CHELSY SELBY MD Ot L97.522 NON-PRS CHRONIC ULCER OTH PRT LEFT FOOT 03/05/2019 CHELSY SELBY MD, Ot M86.472 CHRONIC OSTEOMYELITIS W DRAINING SINUS, 03/10/2019 CHELSY SELBY MD Ot E11.42 TYPE 2 DIABETES MELLITUS WITH DIABETIC P 03/10/2019 CHELSY SELBY MD Ot 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 PERIPHERAL AN 03/10/2019 CHELSY SELBY MD Ot E11.621 TYPE 2 DIABETES MELLITUS WITH FOOT ULCER 03/10/2019 CHELSY SELBY MD Ot I50 .9 HEART FAILURE, UNSPECIFIED 03/10/2019 CHELSY SELBY MD Ot I96 [place], NOT ELSEWHERE CLASSIFIED 03/10/2019 CHELSY SELBY MD Ot L97.522 NON-PRS CHRONIC ULCER OTH PRT LEFT FOOT 03/10/2019 CHELSY SELBY MD Ot M86.472 CHRONIC OSTEOMYELITIS W DRAINING SINUS, 03/11/2019 CHELSY SELBY MD Ot E11.42 TYPE 2 DIABETES MELLITUS WITH DIABETIC P 03/11/2019 CHELSY SELBY MD Ot 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 PERIPHERAL AN 03/11/2019 CHELSY SELBY MD Ot E11.621 TYPE 2 DIABETES MELLITUS WITH FOOT ULCER 03/11/2019 CHELSY SELBY MD, Ot I50 .9 HEART FAILURE, UNSPECIFIED 03/11/2019 CHELSY SELBY MD Ot I96 [place], NOT ELSEWHERE CLASSIFIED 03/11/2019 CHELSY SELBY MD Ot L97.522 NON-PRS CHRONIC ULCER OTH PRT LEFT FOOT 03/11/2019 CHELSY SELBY MD, Ot M86.472 CHRONIC OSTEOMYELITIS W DRAINING SINUS, 03/12/2019 CHELSY SELBY MD Ot E11.42 TYPE 2 DIABETES MELLITUS WITH DIABETIC P 03/12/2019 CHELSY SELBY MD, Ot E11.621 TYPE 2 DIABETES MELLITUS WITH FOOT ULCER 03/12/2019 CHELSY SELBY MD, Ot L97.522 NON-PRS CHRONIC ULCER OTH PRT LEFT FOOT 03/12/2019 CHELSY SELBY MD, Ot M19.072 PRIMARY OSTEOARTHRITIS, LEFT ANKLE AND F 03/12/2019 CHELSY SELBY MD, Ot M86.472 CHRONIC OSTEOMYELITIS W DRAINING SINUS, 03/18/2019 CHELSY SELBY MD Ot E11.42 TYPE 2 DIABETES MELLITUS WITH DIABETIC P 03/18/2019 CHELSY SELBY MD Ot 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 PERIPHERAL AN 03/18/2019 CHELSY SELBY MD, Ot E11.621 TYPE 2 DIABETES MELLITUS WITH FOOT ULCER 03/18/2019 CHELSY SELBY MD, Ot I50 .9 HEART FAILURE, UNSPECIFIED 03/18/2019 CHELSY SELBY MD, Ot I96 [place], NOT ELSEWHERE CLASSIFIED 03/18/2019 CHELSY SELBY MD Ot L97.522 NON-PRS CHRONIC ULCER OTH PRT LEFT FOOT 03/18/2019 CHELSY SELBY MD, Ot M86.472 CHRONIC OSTEOMYELITIS W DRAINING SINUS, 03/19/2019 CHELSY SELBY MD Ot E11.42 TYPE 2 DIABETES MELLITUS WITH DIABETIC P 03/19/2019 CHELSY SELBY MD Ot 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 PERIPHERAL AN 03/19/2019 CHELSY SELBY MD, Ot E11.621 TYPE 2 DIABETES MELLITUS WITH FOOT ULCER 03/19/2019 CHELSY SELBY MD, Ot L97.524 NON-PRS CHRONIC ULCER OTH PRT LEFT FOOT 03/19/2019 CHELSY SELBY MD, Ot M86.472 CHRONIC OSTEOMYELITIS W DRAINING SINUS, 03/26/2019 CHELSY SELBY MD Ot E11.42 TYPE 2 DIABETES MELLITUS WITH DIABETIC P 03/26/2019 CHELSY SELBY MD, Ot 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 PERIPHERAL AN 03/26/2019 CHELSY SELBY MD, Ot E11.621 TYPE 2 DIABETES MELLITUS WITH FOOT ULCER 03/26/2019 CHELSY SELBY MD, Ot I50 .9 HEART FAILURE, UNSPECIFIED 03/26/2019 CHELSY SELBY MD Ot I96 [place], NOT ELSEWHERE CLASSIFIED 03/26/2019 CHELSY SELBY MD, Ot L97.522 NON-PRS CHRONIC ULCER OTH PRT LEFT FOOT 03/26/2019 CHELSY SELBY MD, Ot M86.472 CHRONIC OSTEOMYELITIS W DRAINING SINUS, 03/27/2019 LEOLA BENAVIDES MD, Ot 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 69 TYPE 2 DIABETES MELLITUS WITH OTHER SPEC 03/27/2019 LEOLA BENAVIDES MD, Ot E66. 9 OBESITY, UNSPECIFIED 03/27/2019 LEOLA BENAVIDES MD Ot I10 ESSENTIAL (PRIMARY) HYPERTENSION 03/27/2019 LEOLA BENAVIDES MD, Ot I25. 10 ATHSCL HEART DISEASE OF [place] CORONARY 03/27/2019 LEOLA BENAVIDES MD, Ot L97.526 NON-PRS CHR ULC OTH PRT L FOOT WITH BNE 03/27/2019 LEOLA BENAVIDES MD, Ot M86. 9 OSTEOMYELITIS, UNSPECIFIED 03/27/2019 LEOLA BENAVIDES MD Ot Z68. 36 BODY MASS INDEX (BMI) 36.0-36.9, ADULT 03/27/2019 LEOLA BENAVIDES MD, Ot Z79. 01 CARE HOME (CURRENT) USE OF ANTICOAGULANT 03/27/2019 LEOLA BENAVIDES MD, Ot Z79. 4 CENTERLESS GRINDER (CURRENT) USE OF INSULIN 03/27/2019 LEOLA BENAVIDES MD, Ot Z95. 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 69 TYPE 2 DIABETES MELLITUS WITH OTHER SPEC 03/27/2019 LEOLA BENAVIDES MD Ot E66. 9 OBESITY, UNSPECIFIED 03/27/2019 LEOLA BENAVIDES MD Ot I10 ESSENTIAL (PRIMARY) HYPERTENSION 03/27/2019 LEOLA BENAVIDES MD Ot I25. 10 ATHSCL HEART DISEASE OF [place] CORONARY 03/27/2019 LEOLA BENAVIDES MD, Ot L97.526 NON-PRS [facility] OT PRT L FOOT WITH BNE 03/27/2019 LEOLA BENAVIDES MD, Ot M86. 9 OSTEOMYELITIS, UNSPECIFIED 03/27/2019 LEOLA BENAVIDES MD, Ot Z68. 36 BODY MASS INDEX (BMI) 36.0-36.9, ADULT 03/27/2019 LEOLA BENAVIDES MD, Ot Z79. 01 CENTERLESS GRINDER (CURRENT) USE OF ANTICOAGULANT 03/27/2019 LEOLA BENAVIDES MD, Ot Z79. 4 CARE HOME (CURRENT) USE OF INSULIN 03/27/2019 LEOLA BENAVIDES MD Ot Z95. 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 69 TYPE 2 DIABETES MELLITUS WITH OTHER SPEC 03/28/2019 LEOLA BENAVIDES MD, Ot E66. 9 OBESITY, UNSPECIFIED 03/28/2019 LEOLA BENAVIDES MD Ot I10 ESSENTIAL (PRIMARY) HYPERTENSION 03/28/2019 LEOLA BENAVIDES MD, Ot I25. 10 ATHSCL HEART DISEASE OF [place] CORONARY 03/28/2019 LEOLA BENAVIDES MD, Ot L97.526 NON-PRS [facility] OT PRT L FOOT WITH BNE 03/28/2019 LEOLA BENAVIDES MD, Ot M86. 9 OSTEOMYELITIS, UNSPECIFIED 03/28/2019 LEOLA BENAVIDES MD, Ot Z68. 36 BODY MASS INDEX (BMI) 36.0-36.9, ADULT 03/28/2019 LEOLA BENAVIDES MD, Ot Z79. 01 CENTERLESS GRINDER (CURRENT) USE OF ANTICOAGULANT 03/28/2019 LEOLA BENAVIDES MD, Ot Z79. 4 CARE HOME (CURRENT) USE OF INSULIN 03/28/2019 LEOLA BENAVIDES MD Ot Z95. 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 69 TYPE 2 DIABETES MELLITUS WITH OTHER SPEC 03/29/2019 LEOLA BENAVIDES MD, Ot E66. 9 OBESITY, UNSPECIFIED 03/29/2019 LEOLA BENAVIDES MD, Ot I10 ESSENTIAL (PRIMARY) HYPERTENSION 03/29/2019 LEOLA BENAVIDES MD, Ot I25. 10 ATHSCL HEART DISEASE OF [place] CORONARY 03/29/2019 LEOLA BENAVIDES MD, Ot L97.526 NON-PRS [facility] OT PRT L FOOT WITH BNE 03/29/2019 LEOLA BENAVIDES MD, Ot M86. 9 OSTEOMYELITIS, UNSPECIFIED 03/29/2019 LEOLA BENAVIDES MD Ot Z68. 36 BODY MASS INDEX (BMI) 36.0-36.9, ADULT 03/29/2019 LEOLA BENAVIDES MD Ot Z79. 01 CENTERLESS GRINDER (CURRENT) USE OF ANTICOAGULANT 03/29/2019 LEOLA BENAVIDES MD Ot Z79. 4 CARE HOME (CURRENT) USE OF INSULIN 03/29/2019 LEOLA BENAVIDES MD Ot Z95. 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 40 TYPE 2 DIABETES MELLITUS WITH DIABETIC N 03/29/2019 LEOLA BENAVIDES MD, Ot E11.621 TYPE 2 DIABETES MELLITUS WITH FOOT ULCER 03/29/2019 LEOLA BENAVIDES MD, Ot E11. 69 TYPE 2 DIABETES MELLITUS WITH OTHER SPEC 03/29/2019 LEOLA BENAVIDES MD, Ot E66. 9 OBESITY, UNSPECIFIED 03/29/2019 LEOLA BENAVIDES MD Ot E78. 5 HYPERLIPIDEMIA, UNSPECIFIED 03/29/2019 LEOLA BENAVIDES MD Ot I10 ESSENTIAL (PRIMARY) HYPERTENSION 03/29/2019 LEOLA BENAVIDES MD, Ot I25. 10 ATHSCL HEART DISEASE OF [place] CORONARY 03/29/2019 LEOLA BENAVIDES MD, Ot I48. 0 PAROXYSMAL ATRIAL FIBRILLATION 03/29/2019 LEOLA BENAVIDES MD, Ot L03.116 CELLULITIS OF LEFT LOWER LIMB 03/29/2019 LEOLA BENAVIDES MD, Ot L97.526 NON-PRS [facility] OTH PRT L FOOT WITH BNE 03/29/2019 LEOLA BENAVIDES MD, Ot M86. 9 OSTEOMYELITIS, UNSPECIFIED 03/29/2019 LEOLA BENAVIDES MD, Ot N40. 0 BENIGN PROSTATIC HYPERPLASIA WITHOUT LOW 03/29/2019 LEOLA BENAVIDES MD, Ot Z68. 36 BODY MASS INDEX (BMI) 36.0-36.9, ADULT 03/29/2019 LEOLA BENAVIDES MD, Ot Z79. 01 CENTERLESS GRINDER (CURRENT) USE OF ANTICOAGULANT 03/29/2019 LEOLA BENAVIDES MD, Ot Z79. 4 CENTERLESS GRINDER (CURRENT) USE OF INSULIN 03/29/2019 LEOLA BENAVIDES MD, Ot Z95. 5 PRESENCE OF CORONARY ANGIOPLASTY IMPLANT 04/03/2019 CHELSY SELBY MD, Ot E11.42 TYPE 2 DIABETES MELLITUS WITH DIABETIC P 04/03/2019 CHELSY SELBY MD, Ot E11.621 TYPE 2 DIABETES MELLITUS WITH FOOT ULCER 04/03/2019 CHELSY SELBY MD, Ot L97.522 NON-PRS CHRONIC ULCER OTH PRT LEFT FOOT 04/03/2019 CHELSY SELBY MD, Ot M19.072 PRIMARY OSTEOARTHRITIS, LEFT ANKLE AND F 04/03/2019 CHELSY SELBY MD, Ot M86.472 CHRONIC OSTEOMYELITIS W DRAINING SINUS, 04/03/2019 CHELSY SELBY MD, Ot E11.42 TYPE 2 DIABETES MELLITUS WITH DIABETIC P 04/03/2019 HCELSY SELBY MD, Ot 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 PERIPHERAL AN 04/03/2019 CHELSY SELBY MD, Ot E11.621 TYPE 2 DIABETES MELLITUS WITH FOOT ULCER 04/03/2019 CHELSY SELBY MD, Ot I96 GANGR[place], NOT ELSEWHERE CLASSIFIED 04/03/2019 CHELSY SELBY MD, Ot L97.522 NON-PRS CHRONIC ULCER OTH PRT LEFT FOOT 04/03/2019 CHELSY SELBY MD, Ot M86.472 CHRONIC OSTEOMYELITIS W DRAINING SINUS, 04/08/2019 CHELSY SELBY MD, Ot E11.42 TYPE 2 DIABETES MELLITUS WITH DIABETIC P 04/08/2019 CHELSY SELBY MD, Ot 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 PERIPHERAL AN 04/08/2019 CHELSY SELBY MD, Ot E11.621 TYPE 2 DIABETES MELLITUS WITH FOOT ULCER 04/08/2019 CHELSY SELBY MD, Ot L97.524 NON-PRS CHRONIC ULCER OTH PRT LEFT FOOT 04/08/2019 CHELSY SELBY MD, Ot M86.472 CHRONIC OSTEOMYELITIS W DRAINING SINUS, Procedures Code Description Performed By Per formed On [id number] DE TACHMENT AT LEFT 3RD TOE, COMPLETE, OP 03/28/2019 Results Test Result Range Lipid Panel - [...] 08/14/17 14:30 Automated blood complete blood count (he mogram) panel - 09/11/17 07:22 Blood leukocytes automated count (number/volume) 9.3 10*3/uL 4.3-11.0 Blood erythrocytes automated count (number/volume) 5.01 10*6/uL 4.35-5.85 Venous blood hemoglobin measurement (mass/volume) 14.5 g/dL 13.3-17.7 Blood hematocrit (volume fraction) 43 % 40-54 Automated erythrocyte mean corpuscular volume 86 [ foz_us] 80-99 Automated erythrocyte mean corpuscular h emoglobin (mass per erythrocyte) 29 pg 25-34 Automated erythrocyte mean corpuscular h emoglobin concentration measurement (mass/volume) 34 g/dL 32-36 Automated erythrocyte distribution width ratio 13. 4 % 10.0- 14.5 Automated blood platelet count (count/volume) 139 10*3/uL 130-400 Automated blood platelet mean volume measurement 12.9 [foz_us] 7.4-10.4 PT panel in platelet poor plasma by coag ulation assay - 09/11/17 07:22 Prothrombin time (PT) in platelet poor plasma by coagu lation assay 13.5 s 12.2-14.7 INR in platelet poor plasma or blood by coagulation as say 1.0 0.8-1.4 Activated partial thromboplastin time (a PTT) in platelet poor plasma bycoagulation assay - 09/11/17 07:22 Activated partial thromboplastin time (a PTT) in platelet poor plasma bycoagulation assay 34 s 24-35 Comprehensive metabolic panel - 09/11/17 07:22 Serum or plasma sodium measurement (moles/volume) 140 mmol/L 135-145 Serum or plasma potassium measurement (moles/volume) 4.5 mmol/L 3.6-5.0 Serum or plasma chloride measurement (moles/volume) 106 mmol/L 98-107 Carbon dioxide 23 mmol/L 21-32 Serum or plasma anion gap determination (moles/volume) 11 mmol/L 5-14 Serum or plasma urea nitrogen measurement (mass/volume ) 24 mg/dL 7-18 Serum or plasma creatinine measurement (mass/volume) 1.15 mg/dL 0.60-1.30 Serum or plasma urea nitrogen/creatinine mass ratio 21 NRG Serum or plasma creatinine measurement w ith calculation of estimated glomerular filtration rate > NRG Serum or plasma glucose measurement (mass/volume) 207 mg/dL 70-105 Serum or plasma calcium measurement (mass/volume) 9.3 mg/dL 8.5-10.1 Serum or plasma total bilirubin measurement (mass/volu me) 0.5 mg/dL 0.1-1.0 Serum or plasma alkaline phosphatase nicole surement (enzymatic activity/volume) 69 U/L 40-136 Serum or plasma aspartate aminotransfera se measurement (enzymatic activity/volume) 19 U/L 5-34 Serum or plasma alanine aminotransferase measurement (enzymatic activity/volume) 17 U/L 0-55 Serum or plasma protein measurement (mass/volume) 6.9 g/dL 6.4-8.2 Serum or plasma albumin measurement (mass/volume) 3.8 g/dL 3.2-4.5 Lipid 1996 panel - 09/11/17 07:22 Serum or plasma triglyceride measurement (mass/volume) 305 mg/dL <150 Serum or plasma cholesterol measurement (mass/volume) 148 mg/dL < 200 Serum or plasma cholesterol in HDL measurement (mass/v olume) 29 mg/dL 40-60 Cholesterol in LDL [mass/volume] in serum or plasma by direct assay 61 mg/dL 1-129 Serum or plasma cholesterol in VLDL measurement (mass/ volume) 61 mg/dL 5-40 Methicillin resistant Staphylococcus aur eus (MRSA) screening culture - 09/11/17 07:22 Methicillin resistant Staphylococcus aureus (MRSA) scr eening culture NEG NRG BMP - 01/10/18 08:00 [...] 10.70 % 5.40-6.60 AvGlu 305 mg/dL 70-110 Capillary blood glucose measurement by g lucometer (mass/volume) - 05/16/18 21:42 Capillary blood glucose measurement by glucometer (mas s/volume) 171 mg/dL 70-110 Automated blood complete blood count (he mogram) panel - 05/17/18 04:01 Blood leukocytes automated count (number/volume) 9.6 10*3/uL 4.3-11.0 Blood erythrocytes automated count (number/volume) 4.89 10*6/uL 4.35-5.85 Venous blood hemoglobin measurement (mass/volume) 13.8 g/dL 13.3-17.7 Blood hematocrit (volume fraction) 42 % 40-54 Automated erythrocyte mean corpuscular volume 86 [ foz_us] 80-99 Automated erythrocyte mean corpuscular h emoglobin (mass per erythrocyte) 28 pg 25-34 Automated erythrocyte mean corpuscular h emoglobin concentration measurement (mass/volume) 33 g/dL 32-36 Automated erythrocyte distribution width ratio 14. 4 % 10.0- 14.5 Automated blood platelet count (count/volume) 129 10*3/uL 130-400 Automated blood platelet mean volume measurement 12.8 [foz_us] 7.4-10.4 Comprehensive metabolic panel - 05/17/18 04:01 Serum or plasma sodium measurement (moles/volume) 140 mmol/L 135-145 Serum or plasma potassium measurement (moles/volume) 3.7 mmol/L 3.6-5.0 Serum or plasma chloride measurement (moles/volume) 109 mmol/L 98-107 Carbon dioxide 22 mmol/L 21-32 Serum or plasma anion gap determination (moles/volume) 9 mmol/L 5-14 Serum or plasma urea nitrogen measurement (mass/volume ) 26 mg/dL 7-18 Serum or plasma creatinine measurement (mass/volume) 1.23 mg/dL 0.60-1.30 Serum or plasma urea nitrogen/creatinine mass ratio 21 NRG Serum or plasma creatinine measurement w ith calculation of estimated glomerular filtration rate 59 NRG Serum or plasma glucose measurement (mass/volume) 137 mg/dL 70-105 Serum or plasma calcium measurement (mass/volume) 8.6 mg/dL 8.5-10.1 Serum or plasma total bilirubin measurement (mass/volu me) 0.4 mg/dL 0.1-1.0 Serum or plasma alkaline phosphatase nicole surement (enzymatic activity/volume) 59 U/L 40-136 Serum or plasma aspartate aminotransfera se measurement (enzymatic activity/volume) 18 U/L 5-34 Serum or plasma alanine aminotransferase measurement (enzymatic activity/volume) 15 U/L 0-55 Serum or plasma protein measurement (mass/volume) 5.9 g/dL 6.4-8.2 Serum or plasma albumin measurement (mass/volume) 3.3 g/dL 3.2-4.5 CALCIUM CORRECTED 9.2 mg/dL 8.5-10.1 Lipid 1996 panel - 05/17/18 04:01 Serum or plasma triglyceride measurement (mass/volume) 215 mg/dL <150 Serum or plasma cholesterol measurement (mass/volume) 139 mg/dL < 200 Serum or plasma cholesterol in HDL measurement (mass/v olume) 26 mg/dL 40-60 Cholesterol in LDL [mass/volume] in serum or plasma by direct assay 75 mg/dL 1-129 Serum or plasma cholesterol in VLDL measurement (mass/ volume) 43 mg/dL 5-40 THYROID STIMULATING HORMONE - 05/17/18 0 4:01 THYROID STIMULATING HORMONE 2.39 u[iU]/mL 0.35-4.94 Lipid Panel - 08/06/18 08:40 C/HDL 4.4 3.7-6.7 Cholesterol 158 mg/dL 100-240 HDL 36 mg/dL 30-85 LDL-Calculated 93 mg/dL 0-100 Trig 146 mg/dL 35-160 VLDL 29 mg/dL 0-42 Hemoglobin A1C - 11/08/18 08:30 % A1C 11.20 % 5.40-6.60 AvGlu 322 mg/dL 70-110 Complete blood count (CBC) with automate d white blood cell (WBC) differential - 12/19/18 17:25 Blood leukocytes automated count (number/volume) 8.9 10*3/uL 4.3-11.0 Blood erythrocytes automated count (number/volume) 5.28 10*6/uL 4.35-5.85 Venous blood hemoglobin measurement (mass/volume) 15.0 g/dL 13.3-17.7 Blood hematocrit (volume fraction) 45 % 40-54 Automated erythrocyte mean corpuscular volume 86 [ foz_us] 80-99 Automated erythrocyte mean corpuscular h emoglobin (mass per erythrocyte) 28 pg 25-34 Automated erythrocyte mean corpuscular h emoglobin concentration measurement (mass/volume) 33 g/dL 32-36 Automated erythrocyte distribution width ratio 14. 1 % 10.0- 14.5 Automated blood platelet count (count/volume) 126 10*3/uL 130-400 Automated blood platelet mean volume measurement 12.8 [foz_us] 7.4-10.4 Automated blood neutrophils/100 leukocytes 73 % 42-75 Automated blood lymphocytes/100 leukocytes 15 % 12-44 Blood monocytes/100 leukocytes 9 % 0-12 Automated blood eosinophils/100 leukocytes 4 % 0-10 Automated blood basophils/100 leukocytes 0 % 0-10 Blood neutrophils automated count (number/volume) 6.5 10*3 1.8-7.8 Blood lymphocytes automated count (number/volume) 1.3 10*3 1.0-4.0 Blood monocytes automated count (number/volume) 0. 8 10*3 0.0-1.0 Automated eosinophil count 0.3 10*3/uL 0 .0-0.3 Automated blood basophil count (count/volume) 0.0 10*3/uL 0.0-0.1 Blood lactic acid measurement (moles/vol ume) - 12/19/18 17:25 Blood lactic acid measurement (moles/volume) 1.39 mmol/L 0.50-2.00 PT panel in platelet poor plasma by coag ulation assay - 12/19/18 17:25 Prothrombin time (PT) in platelet poor plasma by coagu lation assay 14.3 s 12.2-14.7 INR in platelet poor plasma or blood by coagulation as say 1.1 0.8-1.4 Activated partial thromboplastin time (a PTT) in platelet poor plasma bycoagulation assay - 12/19/18 17:25 Activated partial thromboplastin time (a PTT) in platelet poor plasma bycoagulation assay 38 s 24-35 Comprehensive metabolic panel - 12/19/18 17:25 Serum or plasma sodium measurement (moles/volume) 139 mmol/L 135-145 Serum or plasma potassium measurement (moles/volume) 4.1 mmol/L 3.6-5.0 Serum or plasma chloride measurement (moles/volume) 104 mmol/L 98-107 Carbon dioxide 26 mmol/L 21-32 Serum or plasma anion gap determination (moles/volume) 9 mmol/L 5-14 Serum or plasma urea nitrogen measurement (mass/volume ) 14 mg/dL 7-18 Serum or plasma creatinine measurement (mass/volume) 1.15 mg/dL 0.60-1.30 Serum or plasma urea nitrogen/creatinine mass ratio 12 NRG Serum or plasma creatinine measurement w ith calculation of estimated glomerular filtration rate > NRG Serum or plasma glucose measurement (mass/volume) 225 mg/dL 70-105 Serum or plasma calcium measurement (mass/volume) 9.4 mg/dL 8.5-10.1 Serum or plasma total bilirubin measurement (mass/volu me) 0.4 mg/dL 0.1-1.0 Serum or plasma alkaline phosphatase nicole surement (enzymatic activity/volume) 81 U/L 40-136 Serum or plasma aspartate aminotransfera se measurement (enzymatic activity/volume) 14 U/L 5-34 Serum or plasma alanine aminotransferase measurement (enzymatic activity/volume) 18 U/L 0-55 Serum or plasma protein measurement (mass/volume) 6.7 g/dL 6.4-8.2 Serum or plasma albumin measurement (mass/volume) 3.4 g/dL 3.2-4.5 CALCIUM CORRECTED 9.9 mg/dL 8.5-10.1 Serum or plasma lithium measurement (mol es/volume) - 12/19/18 17:25 BNP PT 229.7 pg/mL <100.0 Bacterial blood culture - 12/19/18 17:25 Bacterial blood culture NG NRG Gram stain microscopy - 12/19/18 17:46 Gram stain microscopy NO BACTERIA SEEN NRG Bacteria identification in wound by cult ure - 12/19/18 17:46 Bacteria identification in wound by culture [id number] NRG FREE TEXT EXTERNAL NO BETA STREP, STAPH AUREUS, OR NRG QUANTITY OF GROWTH SMALL AMOUNT NRG FREE TEXT ENTRY 2 PSEUDOMONAS ISOLATED NRG FREE TEXT ENTRY 3 NO SUSCEPTIBILITY PERFORMED NRG Bacterial blood culture - 12/19/18 17:50 Bacterial blood culture NG NRG Automated blood complete blood count (he mogram) panel - 12/25/18 08:50 Blood leukocytes automated count (number/volume) 8.7 10*3/uL 4.3-11.0 Blood erythrocytes automated count (number/volume) 5.28 10*6/uL 4.35-5.85 Venous blood hemoglobin measurement (mass/volume) 15.1 g/dL 13.3-17.7 Blood hematocrit (volume fraction) 45 % 40-54 Automated erythrocyte mean corpuscular volume 86 [ foz_us] 80-99 Automated erythrocyte mean corpuscular h emoglobin (mass per erythrocyte) 29 pg 25-34 Automated erythrocyte mean corpuscular h emoglobin concentration measurement (mass/volume) 33 g/dL 32-36 Automated erythrocyte distribution width ratio 13. 6 % 10.0- 14.5 Automated blood platelet count (count/volume) 131 10*3/uL 130-400 Automated blood platelet mean volume measurement 12.5 [foz_us] 7.4-10.4 Comprehensive metabolic panel - 12/25/18 08:50 Serum or plasma sodium measurement (moles/volume) 137 mmol/L 135-145 Serum or plasma potassium measurement (moles/volume) 4.1 mmol/L 3.6-5.0 Serum or plasma chloride measurement (moles/volume) 102 mmol/L 98-107 Carbon dioxide 26 mmol/L 21-32 Serum or plasma anion gap determination (moles/volume) 9 mmol/L 5-14 Serum or plasma urea nitrogen measurement (mass/volume ) 24 mg/dL 7-18 Serum or plasma creatinine measurement (mass/volume) 1.38 mg/dL 0.60-1.30 Serum or plasma urea nitrogen/creatinine mass ratio 17 NRG Serum or plasma creatinine measurement w ith calculation of estimated glomerular filtration rate 51 NRG Serum or plasma glucose measurement (mass/volume) 266 mg/dL 70-105 Serum or plasma calcium measurement (mass/volume) 8.9 mg/dL 8.5-10.1 Serum or plasma total bilirubin measurement (mass/volu me) 0.5 mg/dL 0.1-1.0 Serum or plasma alkaline phosphatase nicole surement (enzymatic activity/volume) 73 U/L 40-136 Serum or plasma aspartate aminotransfera se measurement (enzymatic activity/volume) 14 U/L 5-34 Serum or plasma alanine aminotransferase measurement (enzymatic activity/volume) 12 U/L 0-55 Serum or plasma protein measurement (mass/volume) 6.6 g/dL 6.4-8.2 Serum or plasma albumin measurement (mass/volume) 3.4 g/dL 3.2-4.5 CALCIUM CORRECTED 9.4 mg/dL 8.5-10.1 Serum or plasma lithium measurement (mol es/volume) - 12/25/18 08:50 BNP PT 198.0 pg/mL <100.0 Gram stain microscopy - 12/30/18 09:31 Gram stain microscopy Few Gram positive cocci NRG Bacteria identification in wound by cult ure - 12/30/18 09:31 Bacteria identification in wound by culture [id number] NRG FREE TEXT EXTERNAL SUSCEPTIBILITIES REPORTED 13:05 NRG QUANTITY OF GROWTH FEW NRG FREE TEXT ENTRY 2 NO BETA STREP, STAPH AUREUS, OR NRG FREE TEXT ENTRY 3 PSEUDOMONAS ISOLATED NRG Dirithromycin susceptibility test by dis k diffusion - 12/30/18 09:31 Oxacillin susceptibility test by minimum inhibitory co ncentration <= NRG Clindamycin susceptibility test by minimum inhibitory concentration <= NRG Erythromycin susceptibility test by minimum inhibitory concentration <= NRG Vancomycin susceptibility test by minimum inhibitory c oncentration 1 NRG Levofloxacin susceptibility test by minimum inhibitory concentration <= NRG Rifampin susceptibility test by minimum inhibitory con centration <= NRG Cefazolin susceptibility test by minimum inhibitory co ncentration <= NRG Linezolid susceptibility test by minimum inhibitory co ncentration <= NRG Moxifloxacin susceptibility test by minimum inhibitory concentration S NRG Minocycline susc EZIO <= NRG Dirithromycin susceptibility test by dis k diffusion - 12/30/18 09:31 Oxacillin susceptibility test by minimum inhibitory co ncentration <= NRG Clindamycin susceptibility test by minimum inhibitory concentration R NRG Erythromycin susceptibility test by minimum inhibitory concentration > NRG Vancomycin susceptibility test by minimum inhibitory c oncentration 1 NRG Levofloxacin susceptibility test by minimum inhibitory concentration > NRG Rifampin susceptibility test by minimum inhibitory con centration <= NRG Cefazolin susceptibility test by minimum inhibitory co ncentration <= NRG Linezolid susceptibility test by minimum inhibitory co ncentration 2 NRG Moxifloxacin susceptibility test by minimum inhibitory concentration 2 NRG Minocycline susc EZIO <= NRG Hemoglobin A1c measurement - 12/30/18 10 :15 Blood hemoglobin A1C measurement (mass/volume) 10. 7 % 4.0- 5.6 MEAN BLOOD GLUCOSE 260 % <=126 Gram stain microscopy - 03/24/19 10:31 Gram stain microscopy No bacteria seen NRG Bacteria identification in wound by cult ure - 03/24/19 10:31 Bacteria identification in wound by culture [id number] NRG FREE TEXT EXTERNAL METHICILLIN-RESISTANT STAPH AUR EUS NRG QUANTITY OF GROWTH Moderate NRG MRSA AGAR SUSCEPTIBILITY REPORTED 03/26/19 12:15 NRG FREE TEXT ENTRY 2 CLINDAMYICN RESISTANT WITHOUT IN DUCTION NRG CALL POSITIVES (F1 HELP) CALLED TO [facility]/WOUND CARE 03/26/19 12:[address] NRG PBP2 RESISTANT ORGANISM/CONTACT PRECAUTIONS NRG Dirithromycin susceptibility test by dis k diffusion - 03/24/19 10:31 Oxacillin susceptibility test by minimum inhibitory co ncentration > NRG Clindamycin susceptibility test by minimum inhibitory concentration > NRG Erythromycin susceptibility test by minimum inhibitory concentration > NRG Trimethoprim/sulfamethoxazole susceptibi lity test by minimum inhibitoryconcentration > NRG Vancomycin susceptibility test by minimum inhibitory c oncentration 1 NRG Levofloxacin susceptibility test by minimum inhibitory concentration > NRG Rifampin susceptibility test by minimum inhibitory con centration <= NRG Cefazolin susceptibility test by minimum inhibitory co ncentration > NRG Linezolid susceptibility test by minimum inhibitory co ncentration 2 NRG Penicillin G susceptibility test by minimum inhibitory concentration > NRG Moxifloxacin susceptibility test by minimum inhibitory concentration 2 NRG Minocycline susc EZIO > NRG Complete blood count (CBC) with automate d white blood cell (WBC) differential - 03/26/19 14:30 Blood leukocytes automated count (number/volume) 12.7 10*3/uL 4.3-11.0 Blood erythrocytes automated count (number/volume) 5.24 10*6/uL 4.35-5.85 Venous blood hemoglobin measurement (mass/volume) 14.7 g/dL 13.3-17.7 Blood hematocrit (volume fraction) 45 % 40-54 Automated erythrocyte mean corpuscular volume 85 [ foz_us] 80-99 Automated erythrocyte mean corpuscular h emoglobin (mass per erythrocyte) 28 pg 25-34 Automated erythrocyte mean corpuscular h emoglobin concentration measurement (mass/volume) 33 g/dL 32-36 Automated erythrocyte distribution width ratio 14. 1 % 10.0- 14.5 Automated blood platelet count (count/volume) 151 10*3/uL 130-400 Automated blood platelet mean volume measurement 12.3 [foz_us] 7.4-10.4 Automated blood neutrophils/100 leukocytes 82 % 42-75 Automated blood lymphocytes/100 leukocytes 8 % 12-44 Blood monocytes/100 leukocytes 9 % 0-12 Automated blood eosinophils/100 leukocytes 0 % 0-10 Automated blood basophils/100 leukocytes 0 % 0-10 Blood neutrophils automated count (number/volume) 10.5 10*3 1.8-7.8 Blood lymphocytes automated count (number/volume) 1.1 10*3 1.0-4.0 Blood monocytes automated count (number/volume) 1. 1 10*3 0.0-1.0 Automated eosinophil count 0.0 10*3/uL 0 .0-0.3 Automated blood basophil count (count/volume) 0.0 10*3/uL 0.0-0.1 Comprehensive metabolic panel - 03/26/19 14:30 Serum or plasma sodium measurement (moles/volume) 133 mmol/L 135-145 Serum or plasma potassium measurement (moles/volume) 4.2 mmol/L 3.6-5.0 Serum or plasma chloride measurement (moles/volume) 100 mmol/L 98-107 Carbon dioxide 26 mmol/L 21-32 Serum or plasma anion gap determination (moles/volume) 7 mmol/L 5-14 Serum or plasma urea nitrogen measurement (mass/volume ) 16 mg/dL 7-18 Serum or plasma creatinine measurement (mass/volume) 1.40 mg/dL 0.60-1.30 Serum or plasma urea nitrogen/creatinine mass ratio 11 NRG Serum or plasma creatinine measurement w ith calculation of estimated glomerular filtration rate 51 NRG Serum or plasma glucose measurement (mass/volume) 276 mg/dL 70-105 Serum or plasma calcium measurement (mass/volume) 8.7 mg/dL 8.5-10.1 Serum or plasma total bilirubin measurement (mass/volu me) 0.7 mg/dL 0.1-1.0 Serum or plasma alkaline phosphatase nicole surement (enzymatic activity/volume) 59 U/L 40-136 Serum or plasma aspartate aminotransfera se measurement (enzymatic activity/volume) 15 U/L 5-34 Serum or plasma alanine aminotransferase measurement (enzymatic activity/volume) 14 U/L 0-55 Serum or plasma protein measurement (mass/volume) 6.5 g/dL 6.4-8.2 Serum or plasma albumin measurement (mass/volume) 3.2 g/dL 3.2-4.5 CALCIUM CORRECTED 9.3 mg/dL 8.5-10.1 Serum or plasma C reactive protein measu rement (mass/volume) - 03/26/19 14:30 Serum or plasma C reactive protein measurement (mass/v olume) 5.71 mg/dL 0.00-0.50 PT panel in platelet poor plasma by coag ulation assay - 03/26/19 14:30 Prothrombin time (PT) in platelet poor plasma by coagu lation assay 16.7 s 12.2-14.7 INR in platelet poor plasma or blood by coagulation as say 1.3 0.8-1.4 Activated partial thromboplastin time (a PTT) in platelet poor plasma bycoagulation assay - 03/26/19 14:30 Activated partial thromboplastin time (a PTT) in platelet poor plasma bycoagulation assay 38 s 24-35 Blood lactic acid measurement (moles/vol ume) - 03/26/19 14:30 Blood lactic acid measurement (moles/volume) 1.18 mmol/L 0.50-2.00 Bacterial blood culture - 03/26/19 14:30 Bacterial blood culture NG NRG Bacterial blood culture - 03/26/19 15:13 Bacterial blood culture NG NRG Capillary blood glucose measurement by g lucometer (mass/volume) - 03/26/19 18:57 Capillary blood glucose measurement by glucometer (mas s/volume) 234 mg/dL 70-110 Capillary blood glucose measurement by g lucometer (mass/volume) - 03/26/19 20:26 Capillary blood glucose measurement by glucometer (mas s/volume) 269 mg/dL 70-110 Complete blood count (CBC) with automate d white blood cell (WBC) differential - 03/27/19 05:26 Blood leukocytes automated count (number/volume) 13.3 10*3/uL 4.3-11.0 Blood erythrocytes automated count (number/volume) 4.64 10*6/uL 4.35-5.85 Venous blood hemoglobin measurement (mass/volume) 13.2 g/dL 13.3-17.7 Blood hematocrit (volume fraction) 40 % 40-54 Automated erythrocyte mean corpuscular volume 86 [ foz_us] 80-99 Automated erythrocyte mean corpuscular h emoglobin (mass per erythrocyte) 28 pg 25-34 Automated erythrocyte mean corpuscular h emoglobin concentration measurement (mass/volume) 33 g/dL 32-36 Automated erythrocyte distribution width ratio 14. 7 % 10.0- 14.5 Automated blood platelet count (count/volume) 134 10*3/uL 130-400 Automated blood platelet mean volume measurement 12.8 [foz_us] 7.4-10.4 Automated blood neutrophils/100 leukocytes 80 % 42-75 Automated blood lymphocytes/100 leukocytes 9 % 12-44 Blood monocytes/100 leukocytes 11 % 0-12 Automated blood eosinophils/100 leukocytes 1 % 0-10 Automated blood basophils/100 leukocytes 0 % 0-10 Blood neutrophils automated count (number/volume) 10.7 10*3 1.8-7.8 Blood lymphocytes automated count (number/volume) 1.1 10*3 1.0-4.0 Blood monocytes automated count (number/volume) 1. 4 10*3 0.0-1.0 Automated eosinophil count 0.1 10*3/uL 0 .0-0.3 Automated blood basophil count (count/volume) 0.0 10*3/uL 0.0-0.1 Whole blood basic metabolic panel - 03/14 08/30 05:26 Serum or plasma sodium measurement (moles/volume) 138 mmol/L 135-145 Serum or plasma potassium measurement (moles/volume) 3.7 mmol/L 3.6-5.0 Serum or plasma chloride measurement (moles/volume) 107 mmol/L 98-107 Carbon dioxide 22 mmol/L 21-32 Serum or plasma anion gap determination (moles/volume) 9 mmol/L 5-14 Serum or plasma urea nitrogen measurement (mass/volume ) 17 mg/dL 7-18 Serum or plasma creatinine measurement (mass/volume) 1.20 mg/dL 0.60-1.30 Serum or plasma urea nitrogen/creatinine mass ratio 14 NRG Serum or plasma creatinine measurement w ith calculation of estimated glomerular filtration rate 60 NRG Serum or plasma glucose measurement (mass/volume) 152 mg/dL 70-105 Serum or plasma calcium measurement (mass/volume) 8.2 mg/dL 8.5-10.1 Magnesium - 03/27/19 05:26 Magnesium 1.8 mg/dL 1.6-2.4 Capillary blood glucose measurement by g lucometer (mass/volume) - 03/27/19 06:05 Capillary blood glucose measurement by glucometer (mas s/volume) 130 mg/dL 70-110 Capillary blood glucose measurement by g lucometer (mass/volume) - 03/27/19 11:39 Capillary blood glucose measurement by glucometer (mas s/volume) 175 mg/dL 70-110 Vancomycin trough - 03/27/19 13:59 Vancomycin trough 13.4 ug/mL 10.0-20.0 Capillary blood glucose measurement by g lucometer (mass/volume) - 03/27/19 16:06 Capillary blood glucose measurement by glucometer (mas s/volume) 205 mg/dL 70-110 Capillary blood glucose measurement by g lucometer (mass/volume) - 03/27/19 20:52 Capillary blood glucose measurement by glucometer (mas s/volume) 184 mg/dL 70-110 Capillary blood glucose measurement by g lucometer (mass/volume) - 03/28/19 06:07 Capillary blood glucose measurement by glucometer (mas s/volume) 80 mg/dL 70-110 Complete blood count (CBC) with automate d white blood cell (WBC) differential - 03/28/19 06:52 Blood leukocytes automated count (number/volume) 12.2 10*3/uL 4.3-11.0 Blood erythrocytes automated count (number/volume) 4.69 10*6/uL 4.35-5.85 Venous blood hemoglobin measurement (mass/volume) 13.2 g/dL 13.3-17.7 Blood hematocrit (volume fraction) 41 % 40-54 Automated erythrocyte mean corpuscular volume 87 [ foz_us] 80-99 Automated erythrocyte mean corpuscular h emoglobin (mass per erythrocyte) 28 pg 25-34 Automated erythrocyte mean corpuscular h emoglobin concentration measurement (mass/volume) 32 g/dL 32-36 Automated erythrocyte distribution width ratio 14. 6 % 10.0- 14.5 Automated blood platelet count (count/volume) 135 10*3/uL 130-400 Automated blood platelet mean volume measurement 12.8 [foz_us] 7.4-10.4 Automated blood neutrophils/100 leukocytes 77 % 42-75 Automated blood lymphocytes/100 leukocytes 10 % 12-44 Blood monocytes/100 leukocytes 11 % 0-12 Automated blood eosinophils/100 leukocytes 1 % 0-10 Automated blood basophils/100 leukocytes 0 % 0-10 Blood neutrophils automated count (number/volume) 9.4 10*3 1.8-7.8 Blood lymphocytes automated count (number/volume) 1.3 10*3 1.0-4.0 Blood monocytes automated count (number/volume) 1. 3 10*3 0.0-1.0 Automated eosinophil count 0.2 10*3/uL 0 .0-0.3 Automated blood basophil count (count/volume) 0.0 10*3/uL 0.0-0.1 Whole blood basic metabolic panel - 03/14 09/29 06:52 Serum or plasma sodium measurement (moles/volume) 140 mmol/L 135-145 Serum or plasma potassium measurement (moles/volume) 3.5 mmol/L 3.6-5.0 Serum or plasma chloride measurement (moles/volume) 107 mmol/L 98-107 Carbon dioxide 24 mmol/L 21-32 Serum or plasma anion gap determination (moles/volume) 9 mmol/L 5-14 Serum or plasma urea nitrogen measurement (mass/volume ) 14 mg/dL 7-18 Serum or plasma creatinine measurement (mass/volume) 1.24 mg/dL 0.60-1.30 Serum or plasma urea nitrogen/creatinine mass ratio 11 NRG Serum or plasma creatinine measurement w ith calculation of estimated glomerular filtration rate 58 NRG Serum or plasma glucose measurement (mass/volume) 81 mg/dL 70-105 Serum or plasma calcium measurement (mass/volume) 8.3 mg/dL 8.5-10.1 Methicillin resistant Staphylococcus aur eus (MRSA) screening culture - 03/28/19 10:45 MRSA SCREEN RESULT MRSA ISOLATED NRG Bacteria identification in isolate by an aerobe culture - 03/28/19 11:30 Bacteria identification in isolate by anaerobe culture NOANA NRG Gram stain microscopy - 03/28/19 11:30 Gram stain microscopy MODERATE GRAM POSITIVE COCCI IN CLUSTERS NRG Bacteria identification in wound by cult ure - 03/28/19 11:30 Bacteria identification in wound by culture [id number] NRG FREE TEXT EXTERNAL SUSCEPTIBILITY REPORTED 9, 1418 NRG QUANTITY OF GROWTH Moderate Growth NRG MRSA AGAR CLINDAMYCIN RESISTANT WITH OUT INDUCTION NRG CALL POSITIVES (F1 HELP) MRSA PREVIOUSLY REP ORTED 03-29-19,KD NRG PBP2 RESISTANT ORGANISM/CONTACT PRECAUTIONS NRG Dirithromycin susceptibility test by dis k diffusion - 03/28/19 11:30 Oxacillin susceptibility test by minimum inhibitory co ncentration > NRG Clindamycin susceptibility test by minimum inhibitory concentration > NRG Erythromycin susceptibility test by minimum inhibitory concentration > NRG Trimethoprim/sulfamethoxazole susceptibi lity test by minimum inhibitoryconcentration > NRG Vancomycin susceptibility test by minimum inhibitory c oncentration 1 NRG Levofloxacin susceptibility test by minimum inhibitory concentration 4 NRG Rifampin susceptibility test by minimum inhibitory con centration <= NRG Cefazolin susceptibility test by minimum inhibitory co ncentration > NRG Linezolid susceptibility test by minimum inhibitory co ncentration <= NRG Penicillin G susceptibility test by minimum inhibitory concentration > NRG Moxifloxacin susceptibility test by minimum inhibitory concentration 2 NRG [place]cline [facility] [place] > NRG Capillary blood glucose measurement by g lucometer (mass/volume) - 03/28/19 15:41 Capillary blood glucose measurement by glucometer (mas s/volume) 202 mg/dL 70-110 Capillary blood glucose measurement by g lucometer (mass/volume) - 03/28/19 20:46 Capillary blood glucose measurement by glucometer (mas s/volume) 213 mg/dL 70-110 Complete blood count (CBC) with automate d white blood cell (WBC) differential - 03/29/19 05:40 Blood leukocytes automated count (number/volume) 9.3 10*3/uL 4.3-11.0 Blood erythrocytes automated count (number/volume) 4.50 10*6/uL 4.35-5.85 Venous blood hemoglobin measurement (mass/volume) 12.5 g/dL 13.3-17.7 Blood hematocrit (volume fraction) 39 % 40-54 Automated erythrocyte mean corpuscular volume 86 [ foz_us] 80-99 Automated erythrocyte mean corpuscular h emoglobin (mass per erythrocyte) 28 pg 25-34 Automated erythrocyte mean corpuscular h emoglobin concentration measurement (mass/volume) 32 g/dL 32-36 Automated erythrocyte distribution width ratio 14. 7 % 10.0- 14.5 Automated blood platelet count (count/volume) 149 10*3/uL 130-400 Automated blood platelet mean volume measurement 12.3 [foz_us] 7.4-10.4 Automated blood neutrophils/100 leukocytes 68 % 42-75 Automated blood lymphocytes/100 leukocytes 16 % 12-44 Blood monocytes/100 leukocytes 12 % 0-12 Automated blood eosinophils/100 leukocytes 3 % 0-10 Automated blood basophils/100 leukocytes 0 % 0-10 Blood neutrophils automated count (number/volume) 6.3 10*3 1.8-7.8 Blood lymphocytes automated count (number/volume) 1.5 10*3 1.0-4.0 Blood monocytes automated count (number/volume) 1. 1 10*3 0.0-1.0 Automated eosinophil count 0.3 10*3/uL 0 .0-0.3 Automated blood basophil count (count/volume) 0.0 10*3/uL 0.0-0.1 Whole blood basic metabolic panel - 03/14 10/30 05:40 Serum or plasma sodium measurement (moles/volume) 139 mmol/L 135-145 Serum or plasma potassium measurement (moles/volume) 3.5 mmol/L 3.6-5.0 Serum or plasma chloride measurement (moles/volume) 107 mmol/L 98-107 Carbon dioxide 22 mmol/L 21-32 Serum or plasma anion gap determination (moles/volume) 10 mmol/L 5-14 Serum or plasma urea nitrogen measurement (mass/volume ) 12 mg/dL 7-18 Serum or plasma creatinine measurement (mass/volume) 1.03 mg/dL 0.60-1.30 Serum or plasma urea nitrogen/creatinine mass ratio 12 NRG Serum or plasma creatinine measurement w ith calculation of estimated glomerular filtration rate > NRG Serum or plasma glucose measurement (mass/volume) 83 mg/dL 70-105 Serum or plasma calcium measurement (mass/volume) 8.1 mg/dL 8.5-10.1 Capillary blood glucose measurement by g lucometer (mass/volume) - 03/29/19 05:41 Capillary blood glucose measurement by glucometer (mas s/volume) 81 mg/dL 70-110 Capillary blood glucose measurement by g lucometer (mass/volume) - 03/29/19 11:12 Capillary blood glucose measurement by glucometer (mas s/volume) 162 mg/dL 70-110 Lipid Panel - 04/15/19 10:10 C/HDL 5.0 3.7-6.7 Cholesterol 154 mg/dL 100-240 HDL 31 mg/dL 30-85 LDL-Calculated 79 mg/dL 0-100 Trig 222 mg/dL 35-160 VLDL 44 mg/dL 0-42 PSA Yearly Screen - 08/19/19 08:52 PSA TOTAL 1.7 ng/mL 0.0-4.0 Coronavirus SARS-CoV-2 SO 2019 - 0 08:20 Coronavirus Ab [Units/volume] in Serum Negative Negative Capillary blood glucose measurement by g lucometer (mass/volume) - 11/21/19 08:55 Capillary blood glucose measurement by glucometer (mas s/volume) 488 mg/dL 70-110 Encounters ACCT No. Visit Date/Time Discharge Status Pt. Type Provider Facility Loc./Unit Complaint [id number] 09/16/2019 15:03:00 09/16/2019 23:59 :00 DIS Outpatient BLU MILLAN [id number] 08/19/2019 13:09:00 08/19/2019 23:59 :00 DIS Outpatient BLU MILLAN [id number] 08/19/2019 10:04:00 08/19/2019 23:59 :00 DIS Outpatient BLU MILLAN [id number] 04/22/2019 14:35:00 04/22/2019 23:59 :00 DIS Outpatient BLU MILLAN [id number] 04/15/2019 14:37:00 04/15/2019 23:59: 00 DIS Outpatient BLU MILLAN [id number] 04/15/2019 11:48:00 04/15/2019 23:59: 00 DIS Outpatient BLU MILLAN [id number] 03/17/2019 12:51:00 03/17/2019 23:59: 00 DIS Outpatient BLU MILLAN [id number] 01/02/2019 08:14:00 01/02/2019 23:59: 00 DIS Outpatient Shawnee KennedyDanitza [id number] 12/24/2018 08:27:00 12/24/2018 23:59: 00 DIS Outpatient KennedyShawneeDanitza [id number] 11/08/2018 11:58:00 11/08/2018 23:59: 00 DIS Outpatient Kennedy, ShawneeDanitza [id number] 08/06/2018 11:49:00 08/06/2018 23:59: 00 DIS Outpatient Kennedy, ShawneeDanitza [id number] 04/30/2018 21:38:00 04/30/2018 23:59: 00 DIS Outpatient Kennedy, ShawneeDanitza [id number] 01/10/2018 09:47:00 01/10/2018 23:59: 00 DIS Outpatient Kennedy, ShawneeDanitza [id number] 08/14/2017 14:30:00 08/14/2017 23:59: 00 DIS Outpatient Kennedy, ShawneeDanitza [id number] 08/07/2017 19:22:00 08/07/2017 23:59: 00 DIS Outpatient Kennedy, ShawneeDanitza [id number] 05/02/2017 00:00:00 05/02/2017 23:59: 00 DIS Outpatient Kennedy, ShawneeDanitza [id number] 04/17/2017 12:57:00 04/17/2017 23:59: 00 DIS Outpatient Kennedy, Dominic [id number] 04/13/2017 13:25:00 04/13/2017 23:59: 00 DIS Outpatient Dominic Kennedy [id number] 01/17/2017 09:06:00 01/17/2017 23:59: 00 DIS Outpatient Dominic Kennedy [id number] 08/09/2016 12:37:00 08/09/2016 23:59: 00 DIS Outpatient Dominic Kennedy [id number] 04/12/2016 14:58:00 04/12/2016 23:59: 00 DIS Outpatient Dominic Kennedy [id number] 11/13/2018 08:04:00 Document Registration [id number] 11/08/2018 08:08:00 Document Registration [id number] 08/06/2018 08:16:00 Document Registration [id number] 05/24/2018 10:30:00 Document Registration [id number] 05/16/2018 14:54:00 Document Registration [id number] 04/30/2018 14:07:00 Document Registration [id number] 01/18/2018 09:43:00 Document Registration [id number] 01/10/2018 08:08:00 Document Registration [id number] 11/06/2017 11:11:00 Document Registration [id number] 10/24/2017 14:41:00 Document Registration [id number] 09/25/2017 14:51:00 Document Registration [id number] 08/14/2017 09:34:00 Document Registration [id number] 08/07/2017 16:01:00 Document Registration [id number] 04/19/2017 08:56:00 Document Registration [id number] 04/13/2017 08:48:00 Document Registration [id number] 01/23/2017 08:21:00 Document Registration [id number] 11/18/2019 06:34:00 14:58:00 DIS Outpatient BON HAMEED, ANJANA Kang [facility] PREOP CATARACT LEFT EYE [id number] 03/26/2019 16:16:00 13:45:00 DIS Outpatient MAKAYLA HAMEED, LEOLA Lee [facility] 4TH OSTEOMYELITIS L FOOT, C ELLULITIS L FOOT [id number] 03/24/2019 09:21:00 019 23:59:59 CLS Outpatient CHELSY SELBY MD [facility] WOUNDCARE [id number] 03/17/2019 09:20:00 23:59:59 CLS Outpatient CHELSY SELBY MD [facility] WOUNDCARE [id number] 03/10/2019 10:45:00 23:59:59 CLS Outpatient CHELSY SELBY MD [facility] RAD CHRONIC OSTEOMYELITIS [id number] 03/10/2019 09:10:00 23:59:59 CLS Outpatient CHELSY SELBY MD [facility] WOUNDCARE [id number] 03/03/2019 09:10:00 23:59:59 CLS Outpatient CHELSY SELBY MD [facility] WOUNDCARE [id number] 02/24/2019 09:17:00 23:59:59 CLS Outpatient CHELSY SELBY MD [facility] WOUNDCARE [id number] 02/17/2019 09:08:00 23:59:59 CLS Outpatient CHELSY SELBY MD [facility] WOUNDCARE [id number] 02/10/2019 09:20:00 23:59:59 CLS Outpatient CHELSY SELBY MD [facility] WOUNDCARE [id number] 02/03/2019 09:24:00 23:59:59 CLS Outpatient CHELSY SELBY MD [facility] WOUNDCARE [id number] 02/03/2019 08:57:00 23:59:59 CLS Preadmit MARCIA HAMEED, DOMINIC so[facility]t [facility] DSME TYPE 2 DIABETES [id number] 01/27/2019 09:15:00 23:59:59 CLS Outpatient CHELSY SELBY MD [facility] WOUNDCARE [id number] 01/20/2019 09:20:00 23:59:59 CLS Outpatient CHELSY SELBY MD [facility] WOUNDCARE [id number] 01/14/2019 13:16:00 23:59:59 CLS Outpatient CHELSY SELBY MD [facility] WOUNDCARE [id number] 01/06/2019 09:26:00 23:59:59 CLS Outpatient CHELSY SELBY MD [facility] WOUNDCARE [id number] 12/30/2018 09:00:00 23:59:59 CLS Outpatient CHELSY SELBY MD [facility] LAB [id number] 12/30/2018 08:02:00 23:59:59 CLS Outpatient CHELSY SELBY MD [facility] WOUNDCARE [id number] 12/26/2018 08:15:00 23:59:59 CLS Outpatient DOMINIC KENNEDY MD [facility] RAD OSTEOMYELITIS [id number] 12/25/2018 08:37:00 23:59:59 CLS Outpatient DOMINIC KENNEDY MD [facility] LAB ROUTINE LABS [id number] 12/19/2018 16:00:00 20:38:00 DIS Outpatient HEIDE PIÑA a [facility] ER SWOLLEN FOOT [id number] 07/16/2018 19:30:00 05:06:00 DIS Outpatient CHERY LINDER APRN [facility] SLEEP HYPERSOMNIA,PAF,PARASOMNIA,SUSPECTED SLEEP APNEA [id number] 05/16/2018 16:59:00 11:25:00 DIS Inpatient AMARJIT CALVIN MD [facility] ICU AFIB WITH RVR/DIABETES [id number] 09/11/2017 07:07:00 12:10:00 DIS Outpatient ARNIE HAMEED FACC, LISA [place]P CC DS [facility] CATH CHF,CAD,HTN [id number] 03/09/2015 07:15:00 23:59:59 CLS Outpatient ARNIE HAMEED FACC, LISA [place] CC DS [facility] CARD CAD [id number] 02/23/2015 08:53:00 23:59:59 CLS Outpatient ARNIE HAMEED FACC, LISA [place]P CC DS [facility] RAD CAD,CAROTID ARTERY NARROWING,BILATERAL LEG PAIN [id number] 08/19/2014 09:37:00 23:59:59 CLS Outpatient ARNIE HAMEED FACC, LISA [place] CC DS [facility] RAD CAD,HTN,BRA DYCARDIA [id number] 11/28/2019 11:15:00 P EN Preadmit ANJANA CROCKETT MD [facility] CATARACT RIGHT EYE [id number] 11/21/2019 11:00:00 P EN PreadANJANA Lemus MD [facility] CATARACT LEFT EYE [id number] 08/19/2014 09:35:00 Document Registration [id number] 08/12/2009 09:26:00 Document Registration
== END 2019-11-21 09:10 | disposition home or self-care (01) ==
LOC: SDC 08:16
PROVIDERS: ATTEND Specialist
DX: H25.12 Age-related nuclear cataract, left eye (principal); E11.9 Type 2 diabetes mellitus without complications; Z95.5 Presence of coronary angioplasty implant and graft; Z79.82 Long term (current) use of aspirin; Z79.84 Long term (current) use of oral hypoglycemic drugs; Z79.01 Long term (current) use of anticoagulants; Z79.899 Other long term (current) drug therapy; Z53.09 Procedure and treatment not carried out because of other contraindication
CPT/HCPCS: 82962

== ENCOUNTER 2019-11-25 05:47 | Outpatient (CLI) | payer MEDICARE, OTHER | END 2019-11-25 11:05 | disposition home or self-care (01) | LOC: PREOP 05:47 | PROVIDERS: ATTEND Specialist | DX: Z01.812 Encounter for preprocedural laboratory examination (principal); H26.9 Unspecified cataract; Z20.828 Contact with and (suspected) exposure to other viral communicable diseases | CPT/HCPCS: 87635 ==

== ENCOUNTER 2019-11-28 08:40 | Day surgery (SDC) | payer MEDICARE, OTHER ==
[~2019-11-28] VITALS: Ht 182.9 cm; Wt 118.2 kg
[2019-11-28] MEDS: TETRACAINE 0.5% OPHTH SOLN 4 ML BTL (SINGLE DOSE ONLY) OU PRN ×4 (08:57→09:15)
[2019-11-28] MEDS ORDERED: MOXIFLOXACIN OPHTH SOLN 5 MG/ML 0.3 ML SYRINGE OP ONE (09:00)
[2019-11-28] MEDS ORDERED: TIMOLOL MALEATE 0.5% 5 ML (TIMOPTIC) BTL OU PRN (09:00)
[2019-11-28] MEDS ORDERED: LIDOCAINE PF 1% 2 ML VIAL IR PRN (09:00)
[2019-11-28] MEDS ORDERED: POVIDONE (BETADINE) OPHTH SOLN 5% 30 ML OP ONE (09:00)
[2019-11-28] MEDS: PHENYLEPHRINE 10% OPHTH (NEO-SYN) 5 ML BTL OU SCH ×3 (09:05→09:15)
[2019-11-28] MEDS: CYCLOPENTOLATE 1% (CYCLOGYL) 2 ML DROPS OP SCH ×3 (09:05→09:15)
[2019-11-28 09:07] VITALS: BP 153/91
[2019-11-28] MEDS ORDERED: MIDAZOLAM 2 MG/2 ML (VERSED) VIAL ONE (09:37)
--- NOTE | 2019-11-28 09:54 | Ophthalmologist Pre-Op Note ---
Pre-Operative Progress Note H&P Reviewed The H&P was reviewed, patient examined and no changes noted. Date H&P Reviewed: Nov 28, 2019 Time H&P Reviewed: 09:53 Pre-Op Dx Cataract, Left Eye ANJANA CROCKETT MD Nov 28, 2019 09:54
--- NOTE | 2019-11-28 10:23 | Ophthalmology Operative Report ---
Cataract removal/placement IOL PREOPERATIVE DIAGNOSIS: Cataract Left Eye POSTOPERATIVE DIAGNOSIS: Cataract Left Eye PROCEDURE: Cataract removal and placement of posterior chamber implant, left eye SURGEON: Aníbal Crockett ANESTHESIA: Topical with sedation COMPLICATIONS: None ESTIMATED BLOOD LOSS: Minimal DESCRIPTION OF PROCEDURE: After proper informed consent was obtained, the patient, a 69 male, was taken to the Operating Room and the left eye was anesthetized with tetracaine. The left eye was then prepped and draped in the usual manner. A wire lid speculum was placed. A paracentesis was made at the left hand position. Preservative free lidocaine was injected into the anterior chamber followed by viscoelastic. A clear corneal incision was made in the temporal position. A capsulorrhexis was preformed and the central nuclear and cortical material were removed. The posterior capsule was polished and an Roque 22.0 AU00T0 was placed into the capsular bag. The residual viscoelastic was aspirated and balanced saline solution was injected into the anterior chamber. Moxifloxacin was injected into the anterior chamber. The wound was checked and found to be water tight. The patient tolerated the procedure well without complications. ANÍBAL CROCKETT MD Nov 28, 2019 10:22
[2019-11-28 10:27] VITALS: BP 113/97
[2019-11-28] MEDS ORDERED: acetaZOLAMIDE ER 500 MG CAP (DIAMOX SEQUELS) PO ONE (10:30)
== END 2019-11-28 10:28 | disposition home or self-care (01) ==
LOC: SDC 08:40
PROVIDERS: ATTEND Specialist
DX: E11.36 Type 2 diabetes mellitus with diabetic cataract (principal); H25.12 Age-related nuclear cataract, left eye; Z95.5 Presence of coronary angioplasty implant and graft; Z79.82 Long term (current) use of aspirin; Z79.899 Other long term (current) drug therapy; Z79.84 Long term (current) use of oral hypoglycemic drugs; Z79.01 Long term (current) use of anticoagulants
CPT/HCPCS: 66984; V2632

== ENCOUNTER 2019-12-02 05:45 | Outpatient (RCR) | payer MEDICARE, OTHER ==
--- NOTE | 2019-12-02 07:16 | Anesthesia-General Post-Op ---
MAC Significant Intra-Op Events Notes addendum 11-28-19 1030 Patient Condition Mental Status/LOC: Same as Preop Cardiovascular: Satisfactory Nausea/Vomiting: Absent Respiratory: Satisfactory Pain: Controlled Complications: Absent Post Op Complications Complications None Follow Up Care/Instructions Patient Instructions None needed. Anesthesiology Discharge Order Discharge Order Patient is doing well, no complaints, stable vital signs, no apparent adverse anesthesia problems. No complications reported per nursing. TARIK MASSEY CRNA Dec 02, 2019 07:16
== END 2019-12-02 13:35 | disposition home or self-care (01) ==
LOC: PREOP 05:45
PROVIDERS: ATTEND Specialist
DX: Z01.818 Encounter for other preprocedural examination (principal); Z01.812 Encounter for preprocedural laboratory examination; Z20.828 Contact with and (suspected) exposure to other viral communicable diseases
CPT/HCPCS: 87635

== ENCOUNTER 2019-12-05 08:30 | Day surgery (SDC) | payer MEDICARE, OTHER ==
[~2019-12-05] VITALS: Ht 182.9 cm; Wt 118.2 kg
[2019-12-05 09:15] VITALS: BP 183/93
[2019-12-05] MEDS: TETRACAINE 0.5% OPHTH SOLN 4 ML BTL (SINGLE DOSE ONLY) OU PRN ×4 (09:26→09:53)
[2019-12-05] MEDS ORDERED: MOXIFLOXACIN OPHTH SOLN 5 MG/ML 0.3 ML SYRINGE OP ONE (09:30)
[2019-12-05] MEDS ORDERED: POVIDONE (BETADINE) OPHTH SOLN 5% 30 ML OP ONE (09:30)
[2019-12-05] MEDS ORDERED: TIMOLOL MALEATE 0.5% 5 ML (TIMOPTIC) BTL OU PRN (09:30)
[2019-12-05] MEDS ORDERED: LIDOCAINE PF 1% 2 ML VIAL IR PRN (09:30)
[2019-12-05] MEDS: CYCLOPENTOLATE 1% (CYCLOGYL) 2 ML DROPS OP SCH ×3 (09:37→09:53)
[2019-12-05] MEDS: PHENYLEPHRINE 10% OPHTH (NEO-SYN) 5 ML BTL OU SCH ×3 (09:37→09:53)
[2019-12-05] MEDS ORDERED: MIDAZOLAM 2 MG/2 ML (VERSED) VIAL ONE (10:15)
--- NOTE | 2019-12-05 10:15 | Ophthalmologist Pre-Op Note ---
Pre-Operative Progress Note H&P Reviewed The H&P was reviewed, patient examined and no changes noted. Date H&P Reviewed: Dec 05, 2019 Time H&P Reviewed: 10:11 Pre-Op Dx Cataract, Right Eye ANJANA CROCKETT MD Dec 05, 2019 10:15
--- NOTE | 2019-12-05 10:38 | Ophthalmology Operative Report ---
Cataract removal/placement IOL PREOPERATIVE DIAGNOSIS: Cataract Right Eye POSTOPERATIVE DIAGNOSIS: Cataract Right Eye PROCEDURE: Cataract removal and placement of posterior chamber implant, right eye SURGEON: Aníbal Crockett ANESTHESIA: Topical with sedation COMPLICATIONS: None ESTIMATED BLOOD LOSS: Minimal DESCRIPTION OF PROCEDURE: After proper informed consent was obtained, the patient, a 69 male, was taken to the Operating Room and the right eye was anesthetized with tetracaine. The right eye was then prepped and draped in the usual manner. A wire lid speculum was placed. A paracentesis was made at the left hand position. Preservative free lidocaine was injected into the anterior chamber followed by viscoelastic. A clear corneal incision was made in the temporal position. A capsulorrhexis was preformed and the central nuclear and cortical material were removed. The posterior capsule was polished and Roque 21.0 AU00T0 IOL was placed into the capsular bag. The residual viscoelastic was aspirated and balanced saline solution was injected into the anterior chamber. Moxifloxacin was injected into the anterior chamber. The wound was checked and found to be water tight. The patient tolerated the procedure well without complications. ANÍBAL CROCKETT MD Dec 05, 2019 10:38
[2019-12-05 10:45] VITALS: BP 140/55
--- OUTSIDE RECORDS SUMMARY | 2019-12-05 10:55 | XMS REPORT | Encounter Summary ---
Author Author [facility] Organization [facility] Address Unknown Phone Unavailable Care Team Providers Care Water Quality Control Engineer Name Role Phone PCP Unavailable Reason for Visit * Reason Comments Medication Refill Encounter Details Care Team Description Date Type Department Aileen Rosenberg RN Medication Refill 06/30/2015 Refill [facility] [address] [place], [place] [address] Social History Date Tobacco Use Types Packs/Day [...] Aileen Rosenberg RN - 06/30/2015 10:42 AM MANAGER PHOTO Pt confused about Lantus. He thought you told him to take 70 units all at once i n the morning. (your notes mentioned taking 35 units BID) Please advise GER PHOTO documented in this encounter Plan of Treatment Not on filedocumented as of this encounter Visit Diagnoses Diagnosis Diabetic peripheral neuropathy (HCC) Type II or unspecified type diabetes me llitus with neurological manifestations, not stated as uncontrolled documented in this encounter
--- OUTSIDE RECORDS SUMMARY | 2019-12-05 10:55 | XMS REPORT | Encounter Summary ---
Author Author [facility] Organization [facility] Address Unknown Phone Unavailable Care Team Providers Care Speech Therapy Teacher Name Role Phone PCP Unavailable Encounter Details Care Team Description Date [place] [address] [place], [place] [address] Type 2 diabetes mellitus, uncontrolled ( HCC) (Primary Dx) 06/29/2015 Lab [facility] [address] [place] [address] Social History Date Tobacco Use Types Packs/Day [...] Type 2 moon betes mellitus, 2:15 PM INDUSTRIAL TRUCK OPERATOR uncontrolled (HCC) VITAMIN B12 Routine 06/29/2015 Type 2 diabetes mellitus, 2:15 PM INDUSTRIAL TRUCK OPERATOR uncontrolled (HCC) THYROID STIMULATING Routine 06/29/2015 Type 2 moon betes mellitus, HORMONE 2:15 PM INDUSTRIAL TRUCK OPERATOR uncontrolled (HCC) T4 FREE Routine 06/29/2015 Type 2 diabetes mellitus, 2:15 PM INDUSTRIAL TRUCK OPERATOR uncontrolled (HCC) COMPREHENSIVE METABOLIC Routine 06/29/2015 Type 2 diabetes mellitus, PANEL 2:15 PM INDUSTRIAL TRUCK OPERATOR uncontrolled (HCC) COMPLETE BLOOD COUNT Routine 06/29/2015 Type 2 di abetes mellitus, 2:15 PM INDUSTRIAL TRUCK OPERATOR uncontrolled (HCC) documented in this encounter Results * Vitamin B12 (06/29/2015 2:15 PM INDUSTRIAL TRUCK OPERATOR) VITAMIN B12 420 239 - 931 pg/mL [facility] Specimen Blood Performing Organization Address [facility] one Number [address] [address] LABORATORIES * Microalbumin Random (06/29/2015 2:15 PM INDUSTRIAL TRUCK OPERATOR) Creatinine 106.8 mg/dL [facility] Urine Random [facility] Microalbumin 18.10 mg/dL [facility] mg/dl [facility] Microalbumin/Cr 169.48 (H) 0.00 - 30.00 ug/mg [facility] eatinine Ratio [facility] Specimen Urine Performing Organization Address [facility] one Number [address] [address] LABORATORIES * T4 Free (06/29/2015 2:15 PM INDUSTRIAL TRUCK OPERATOR) T4 Free 0.8 0.8 - 2.2 ng/dL [facility] Specimen Performing Organization Address [facility] one Number [address] [address] LABORATORIES * Thyroid Stimulating Hormone (06/29/2015 2:15 PM INDUSTRIAL TRUCK OPERATOR) Pathologist [facility] Thyroid 3.38 0.47 - 4.68 uIU/mL [facility] Stimulating [facility] Hormone LABORATORIES Specimen Blood Performing Organization Address [facility] one Number [address] [address] LABORATORIES * Comprehensive Metabolic Panel (06/29/2015 2:15 PM INDUSTRIAL TRUCK OPERATOR) Pathologist [facility] Sodium 141 133 - 147 MEQ/L [facility] Potassium 4.5 3.5 - 5.3 MEQ/L [facility] Chloride 106 96 - 112 MEQ/L [facility] Carbon Dioxide 24 20 - 32 MEQ/L [facility] Anion Gap 11 5 - 17 [facility] Calcium 9.2 8.4 - 10.5 mg/dL [facility] Glucose 184 (H) 70 - 100 mg/dL [facility] Protein Total 6.9 6.0 - 8.2 g/dL [facility] Serum [facility] Albumin 4.2 3.5 - 5.0 g/dL [facility] Alkaline 63 42 - 140 IU/L [facility] Phosphatase [facility] Alanine 32 13 - 69 IU/L [facility] Aminotransferas [facility] e LABORATORIES Aspartate 25 15 - 46 IU/L [facility] Bilirubin Total 0.5 0.2 - 1.3 mg/dL [facility] Blood Urea 23 7 - 26 mg/dL [facility] Nitrogen [facility] Creatinine 1.2 0.6 - 1.3 mg/dL [facility] eGFR Male AA 74 60 - 200 [facility] Comment: REGIONAL Chronic Kidney Disease less LABORATORIES than 60 mL/min/1.73 sq.m Kidney failure less than 15 mL/min/1.73 sq.m eGFR Male 61 60 - 200 [facility] Non-AA Comment: REGIONAL Chronic Kidney Disease less LABORATORIES than 60 mL/min/1.73 sq.m Kidney failure less than 15 mL/min/1.73 sq.m Specimen Blood Performing Organization Address City/State/Zipcode Ph one Number [place] [address] [place] [address] LABORATORIES * Complete Blood Count (06/29/2015 2:15 PM INDUSTRIAL TRUCK OPERATOR) WBC 10.75 4.00 - 11.00 TH/uL [facility] RBC 5.58 4.31 - 5.84 MIL/uL [facility] Hemoglobin 16.1 13.0 - 17.0 g/dL [facility] Hematocrit 47 40 - 50 % [facility] MCV 85 80 - 99 fL [facility] MCH 29 27 - 34 pg [facility] MCHC 34 32 - 36 % [facility] RDW 13.3 9.0 - 14.5 % [facility] LAB[facility]IES Platelet Count 158 140 - 400 TH/uL [facility] MPV 13.3 (H) 9.4 - 12.3 fL [facility] LAB[facility]IES Nucleated RBCs 0 0 - 0 /100 [facility] Specimen Blood Performing Organization Address City/State/Zipcode Ph one Number [place] [address] [place] [address] LABORATORIES documented in this encounter Visit Diagnoses Diagnosis Type 2 diabetes mellitus, uncontrolled (HCC) Type II or unspecified type diabetes me llitus without mention of complication, uncontrolled documented in this encounter
--- OUTSIDE RECORDS SUMMARY | 2019-12-05 10:55 | XMS REPORT | Encounter Summary ---
Author Author [facility] Organization [facility] Address Unknown Phone Unavailable Care Team Providers Care Cigar Brander Name Role Phone Darci FoxnDanitza PCP Reason for Visit * Reason Comments Medication Refill Encounter Details Care Team Description Date Type Department Maribel Patricia last waxer Refill 09/21/2015 Refill [facility] [address] [place] [address] Social History Date Tobacco Use Types Packs/Day [...]
--- OUTSIDE RECORDS SUMMARY | 2019-12-05 10:55 | XMS REPORT | Encounter Summary ---
Author Author [facility] Organization [facility] Address Unknown Phone Unavailable Care Team Providers Care Lidar Scientist Name Role Phone PCP Unavailable Reason for Visit * Reason Comments Diabetes Mellitus Establish Care Encounter Details Care Team Description Date [place] [address] [place], [place] [id number] Type 2 diabetes mellitus, uncontrolled ( HCC) (Primary Dx); Diabetic peripheral neuropathy (HCC); Essential hypertension; Dyslipidemia; Coronary artery disease involving ruby coronary artery without angina pectoris; Overactive bladder; Erectile dysfunction, unspecified erectile dysfunction type 06/29/2015 Initial consult [facility] [address] [place], [place] [address] Social History Date Tobacco Use Types Packs/Day [...] Comments Vital Sign 150/80 06/29/2015 1:07 PM ASSOCIATE TEAM PHYSICIAN Blood Pressure 80 06/29/2015 1:07 PM ASSOCIATE TEAM PHYSICIAN Pulse - - Temperature - - Respiratory Rate - - Oxygen Saturation - - Inhaled Oxygen Concentration 114.8 kg (253 lb) 06/29/2015 1:07 PM ASSOCIATE TEAM PHYSICIAN Weight 182.9 cm (6') 06/29/2015 1:07 PM ASSOCIATE TEAM PHYSICIAN Height 34.31 06/29/2015 1:07 PM ASSOCIATE TEAM PHYSICIAN Body Mass Index documented in this encounter Progress Notes * Nacho Hallman MD - 06/29/2015 5:29 PM ASSOCIATE TEAM PHYSICIAN DM consultation: Assessment/Plan: Problem List Items Addressed [...] so he is not very interested in [employer] 3 times for education. I did have [...] managed by his primary care physician in [facility]. He estimates that he's had diabetes for [...] normal Nacho Hallman MD 06/29/2015 5:29 PM CIATE TEAM PHYSICIAN documented in this encounter Plan of Treatment Not on filedocumented as of this encounter Results * Vitamin B12 (06/29/2015 2:15 PM ASSOCIATE TEAM PHYSICIAN) VITAMIN B12 420 239 - 931 pg/mL [facility] Specimen Blood Performing Organization Address [facility] one Number [address] [address] LABORATORIES * Microalbumin Random (06/29/2015 2:15 PM ASSOCIATE TEAM PHYSICIAN) Creatinine 106.8 mg/dL [facility] Urine Random [facility] Microalbumin 18.10 mg/dL [facility] mg/dl [facility] Microalbumin/Cr 169.48 (H) 0.00 - 30.00 ug/mg [facility] eatinine Ratio [facility] Specimen Urine Performing Organization Address [facility] one Number [address] [address] LABORATORIES * T4 Free (06/29/2015 2:15 PM ASSOCIATE TEAM PHYSICIAN) T4 Free 0.8 0.8 - 2.2 ng/dL [facility] Specimen Performing Organization Address [facility] one Number [address] [address] LABORATORIES * Thyroid Stimulating Hormone (06/29/2015 2:15 PM ASSOCIATE TEAM PHYSICIAN) Thyroid 3.38 0.47 - 4.68 uIU/mL [facility] Stimulating [facility] Hormone LABORATORIES Specimen Blood Performing Organization Address [facility] one Number [address] [address] LABORATORIES * Comprehensive Metabolic Panel (06/29/2015 2:15 PM ASSOCIATE TEAM PHYSICIAN) Sodium 141 133 - 147 MEQ/L [facility] Potassium 4.5 3.5 - 5.3 MEQ/L [facility] Chloride 106 96 - 112 MEQ/L [facility] Carbon Dioxide 24 20 - 32 MEQ/L [facility] Anion Gap 11 5 - 17 [facility] Calcium 9.2 8.4 - 10.5 mg/dL [facility] Glucose 184 (H) 70 - 100 mg/dL [facility] Protein Total 6.9 6.0 - 8.2 g/dL [facility] Serum [facility] Albumin 4.2 3.5 - 5.0 g/dL [facility] Alkaline 63 42 - 140 IU/L [facility] Phosphatase [facility] Alanine 32 13 - 69 IU/L [facility] Aminotransferas [facility] e LABORATORIES Aspartate 25 15 - 46 IU/L [facility] Aminotransferas [facility] e [facility] Bilirubin Total 0.5 0.2 - 1.3 mg/dL [facility] Blood Urea 23 7 - 26 mg/dL [facility] Nitrogen [facility] Creatinine 1.2 0.6 - 1.3 mg/dL [facility] eGFR Male AA 74 60 - 200 [facility] Comment: REG[facility]AL Chronic Kidney Disease less LABORATORIES than 60 mL/min/1.73 sq.m Kidney failure less than 15 mL/min/1.73 sq.m eGFR Male 61 60 - 200 [facility] Non-AA Comment: REGIONAL Chronic Kidney Disease less LABORATORIES than 60 mL/min/1.73 sq.m Kidney failure less than 15 mL/min/1.73 sq.m Specimen Blood Performing Organization Address City/State/Zipcode Ph one Number [address] [address] LABORATORIES * Complete Blood Count (06/29/2015 2:15 PM ASSOCIATE TEAM PHYSICIAN) WBC 10.75 4.00 - 11.00 TH/uL [facility] RBC 5.58 4.31 - 5.84 MIL/uL [facility] Hemoglobin 16.1 13.0 - 17.0 g/dL [facility] Hematocrit 47 40 - 50 % [facility] MCV 85 80 - 99 fL [facility] MCH 29 27 - 34 pg [facility] MCHC 34 32 - 36 % [facility] RDW 13.3 9.0 - 14.5 % [facility] Platelet Count 158 140 - 400 TH/uL [facility] MPV 13.3 (H) 9.4 - 12.3 fL [facility] Nucleated RBCs 0 0 - 0 /100 [facility] Specimen Blood Performing Organization Address City/State/Zipcode Ph one Number [place] [id number] [place] [address] LABORATORIES documented in this encounter Visit Diagnoses [...]
--- OUTSIDE RECORDS SUMMARY | 2019-12-05 10:55 | XMS REPORT | Encounter Summary ---
Author Author [facility] Organization [facility] Address Unknown Phone Unavailable Care Team Providers Care Corporate Claims Examiner Name Role Phone Serena Fox PCP Reason for Visit * Reason Comments Other Encounter Details Care Team Description Date [place] [address] [place] [address] Other 01/03/2016 [facility] [address] [place], [place] [phone] Social History Date Tobacco Use Types Packs/Day [...]
--- OUTSIDE RECORDS SUMMARY | 2019-12-05 10:55 | XMS REPORT | Clinical Summary ---
Author Author [facility] Organization [facility] Address Unknown Phone Unavailable Care Team Providers Care Heavy Equipment Service Technician Name Role Phone Ruddy Gómezu PCP Allergies [...] Plan / Dates Group BLUE CROSS BLUE [facility] OUT OF xxxxxxxxxxxx 6-P AREA [facility] BLUE PPO Chris Hoffman Personal/F Self 1950 [address] [place] (Home) [place] [address] Advance Directives For more information, please contact: [phone] Patient Naval Science Teacher Explanation Type Date Recorded Advance Directives and Living Will Power of Engineering Design Manager
--- OUTSIDE RECORDS SUMMARY | 2019-12-05 10:55 | XMS REPORT | Encounter Summary ---
Author Author [facility] Organization [facility] Address Unknown Phone Unavailable Care Team Providers Care Round Cutter Operator Name Role Phone PCP Unavailable Encounter Details Care Team Description Date Type Department Aileen Rosenberg RN 07/02/2015 Telephone [facility] [address] [place] [address] Social History Date Tobacco Use Types Packs/Day [...] Aileen Rosenberg RN - 07/02/2015 2:45 PM MIRROR PAINTER Reached pt - confirmed that Dr Hallman did want him to take the 70 units of Lant us in the morning, pt confirmed that is what he has been doing and will continue . OR PAINTER documented in this encounter Plan of Treatment Not on filedocumented as of this encounter Visit Diagnoses Not on filedocumented in this encounter
--- OUTSIDE RECORDS SUMMARY | 2019-12-05 10:55 | XMS REPORT | Encounter Summary ---
Author Author [facility] Organization [facility] Address Unknown Phone Unavailable Care Team Providers Care House Coordinator Name Role Phone Serena Fox PCP Reason for Visit * Reason Comments Diabetes Mellitus Encounter Details Care Team Description Date [place] [address] [place] [address] Type 2 diabetes mellitus, uncontrolled ( HCC) (Primary Dx); Diabetic peripheral neuropathy (HCC); Background diabetic retinopathy (HCC); Dyslipidemia; Essential hypertension 09/03/2015 Office Visit [facility] [address] [place], [place] [phone] Social History Date Tobacco Use Types Packs/Day [...] that sugars are ge nerally ranged between 111126 mg/dL with no hypoglycemia. He's been frustrat [...]
--- OUTSIDE RECORDS SUMMARY | 2019-12-05 10:55 | XMS REPORT | Encounter Summary ---
Author Author [facility] Organization [facility] Address Unknown Phone Unavailable Care Team Providers Care Boat Fueler Name Role Phone Serena Fox PCP Encounter Details Care Team Description Date Type Department Aileen Rosenberg RN 07/09/2015 Orders Only [facility] [address] [facility] [address] [place] [address] Social History Date Tobacco Use [...]
--- OUTSIDE RECORDS SUMMARY | 2019-12-05 10:55 | XMS REPORT | Encounter Summary ---
Author Author [facility] Organization [facility] Address Unknown Phone Unavailable Care Team Providers Care Manager Of Broadcast Content Name Role Phone Serena Fox PCP Reason for Visit * Reason Comments Other Encounter Details Care Team Description Date [place] [address] [place] [address] Other 01/31/2016 [facility] [address] [place], [place] [phone] Social History Date Tobacco Use Types Packs/Day [...]
--- OUTSIDE RECORDS SUMMARY | 2019-12-05 10:55 | XMS REPORT | Encounter Summary ---
Author Author [facility] Organization [facility] Address Unknown Phone Unavailable Care Team Providers Care Paralegal Assistant Name Role Phone Serena Fox PCP Encounter Details Care Team Description Date [place] [address] [place] [address] 07/07/2015 Documentation [facility] [address] [place], [place] [phone] Social History Date Tobacco Use Types Packs/Day [...]
--- OUTSIDE RECORDS SUMMARY | 2019-12-05 10:56 | XMS REPORT | Continuity of Care Document ---
Author Organization Unknown Address Unknown Phone Unavailable Allergies Active Description Code Type Severity Reaction Onset Reported/Identified Relationship to Patient Clinical Status Yes NO KNOWN DRUG ALLERGIES UNKNOWN NO KNOWN DRUG ALLERG Yes NO KNOWN DRUG ALLERGIES UNKNOWN UNKNOWN Yes VIV Inhibitors [id number] Dr escalante Allergy Unknown N/A 09/11/2017 Yes No Known Drug Allergies [id number] Drug Allergy Unknown N/A 11/19/2019 Medications There is no data. Problems Date Dx Coded Attending Type Code Diagnosis Diagnosed By 04/12/1457 ANJANA CROCKETT MD, Ot H26 .9 UNSPECIFIED CATARACT 04/12/1457 ANJANA CROCKETT MD Ot Z01.812 ENCOUNTER FOR PREPROCEDURAL LABORATORY E 04/12/1457 ANJANA CROCKETT MD Ot Z20.828 CONTACT W AND EXPOSURE TO OTH VIRAL COMM 08/13/2009 Ot 250.00 08/13/2009 Ot 272.0 08/13/2009 Ot 272.1 08/13/2009 Ot 401.9 08/13/2009 Ot 413.9 08/13/2009 Ot 414.01 08/13/2009 Ot V15.82 09/19/2011 Ot 250.00 09/19/2011 Ot 272.4 09/19/2011 Ot 401.9 09/19/2011 Ot 414.01 09/19/2011 Ot 607.84 09/19/2011 Ot 785.1 09/19/2011 Ot 786.09 09/19/2011 Ot V45.82 09/19/2011 Ot V58.66 09/19/2011 Ot V58.69 09/07/2014 ARNIE HAMEED FACC, [place]ISA [place] CCDS Ot 250.00 09/07/2014 ARNIE HAMEED FACC, [place]ISA [place] CCDS Ot 272.4 09/07/2014 ARNIE HAMEED FACC, [place]ISA [place] CCDS Ot 401.9 09/07/2014 ARNIE HAMEED FACC, LISA [place] CCDS Ot 414.00 09/07/2014 ARNIE MD FACC, ALI FACP CCDS Ot 427.89 02/23/2015 ARNIE HAMEED FACC, ALI FACP CCDS Ot 250.00 02/23/2015 ARNIE HAMEED FACC, ALI FACP CCDS Ot 272.4 02/23/2015 ARNIE HAMEED FACC, ALI FACP CCDS Ot 401.9 02/23/2015 ARNIE HAMEED FACC, ALI FACP CCDS Ot 414.00 02/23/2015 [...] FACP CCDS Ot I10 05/26/2015 ARNIE HAMEED [facility], LISA [facility] CCDS Ot I25.10 05/26/2015 ARNIE HAMEED [facility], LISA [facility] CCDS Ot M79.604 05/26/2015 ARNIE [place], LISA [facility] CCDS Ot N52.9 01/23/2017 A 250.80 ZELDA [...] I50.9 HEAR T FAILURE, UNSPECIFIED 08/07/2017 Kennedy, [place] W 250.80 DIABETES MELLITUS WITH OTHER SPECIFIED MANIFESTATIONS, TYPE II OR UNSPECIFIED TYPE, NOT STATED UNCONTROLLED 08/07/2017 Kennedy, [place] W 428.0 CONGESTIVE HEART FAILURE, UNSPECIFIED 08/07/2017 Kennedy, [place] W 709.2 SCAR CONDITIONS AND FIBROSIS OF SKIN 08/07/2017 Kennedy, [place] W E11.65 TYPE 2 DIABETES MELLITUS WITH HYPERGLYCEMIA 08/07/2017 Kennedy, [place] W I50.9 HEART FAILURE, UNSPECIFIED 08/07/2017 Kennedy, Dominic W L90.5 SCAR CONDITIONS AND FIBROSIS OF SKIN 08/07/2017 Kennedy, [place] W 250.80 DIABETES MELLITUS WITH OTHER SPECIFIED MANIFESTATIONS, TYPE II OR UNSPECIFIED TYPE, NOT STATED UNCONTROLLED 08/07/2017 Kennedy, Juanu W 428.0 CONGESTIVE HEART FAILURE, UNSPECIFIED 08/07/2017 Kennedy, Juanu W 709.2 SCAR CONDITIONS AND FIBROSIS OF SKIN 08/07/2017 Kennedy, [place] W E11.65 TYPE 2 DIABETES MELLITUS WITH HYPERGLYCEMIA 08/07/2017 Kennedy, Dominic W I50.9 HEART FAILURE, UNSPECIFIED 08/07/2017 Kennedy, [place] W L90.5 SCAR CONDITIONS AND FIBROSIS OF [...] UNSPECIFIED TYPE, NOT STATED UNCONTROLLED 08/07/2017 Kennedy, Juanu W 428.0 CONGESTIVE HEART FAILURE, UNSPECIFIED 08/07/2017 Kennedy, Juanu W 709.2 SCAR CONDITIONS AND FIBROSIS OF SKIN 08/07/2017, Juanu W E11.65 TYPE 2 DIABETES MELLITUS WITH HYPERGLYCEMIA 08/07/2017 Kennedy, Juanu W I50.9 HEART FAILURE, UNSPECIFIED 08/07/2017, [place] W L90.5 SCAR CONDITIONS AND FIBROSIS OF SKIN 08/14/2017 Kennedy, [place] A 250.80 DIABETES MELLITUS WITH OTHER SPECIFIED MANIFESTATIONS, TYPE II OR UNSPECIFIED TYPE, NOT STATED UNCONTROLLED 08/14/2017 Kennedy, [place] A E11.65 TYPE 2 DIABETES MELLITUS WITH HYPERGLYCEMIA 08/14/2017, [place] A 250.80 DIABETES MELLITUS WITH OTHER SPECIFIED MANIFESTATIONS, TYPE II OR UNSPECIFIED TYPE, NOT STATED UNCONTROLLED 08/14/2017 Kennedy, [place] W 272.4 OTHER AND UNSPECIFIED HYPERLIPIDEMIA 08/14/2017 Kennedy, [place] W 401.9 UNSPECIFIED ESSENTIAL HYPERTENSION 08/14/2017 Kennedy, [place] A E11.65 TYPE 2 DIABETES MELLITUS WITH HYPERGLYCEMIA 08/14/2017 Kennedy, [place] W E78.5 HYPERLIPIDEMIA, UNSPECIFIED 08/14/2017 Kennedy, [place] W I10 ESSENTIAL (PRIMARY) HYPERTENSION 08/14/2017 Kennedy, [place] W 250.80 DIABETES MELLITUS WITH OTHER SPECIFIED MANIFESTATIONS, TYPE II OR UNSPECIFIED TYPE, NOT STATED UNCONTROLLED 08/14/2017 Kennedy, [place] W 272.4 OTHER AND UNSPECIFIED HYPERLIPIDEMIA 08/14/2017 Kennedy, [place] W 401.9 UNSPECIFIED ESSENTIAL HYPERTENSION 08/14/2017 Kennedy, [place] W 428.0 CONGESTIVE HEART FAILURE, UNSPECIFIED 08/14/2017 Kennedy, [place] W E11.65 TYPE 2 DIABETES MELLITUS WITH HYPERGLYCEMIA 08/14/2017 Kennedy, [place] W E78.5 HYPERLIPIDEMIA, UNSPECIFIED 08/14/2017 Kennedy, [place] W I10 ESSENTIAL (PRIMARY) HYPERTENSION 08/14/2017 Kennedy, [place] W I50.9 HEART FAILURE, UNSPECIFIED 08/14/2017 W 250.80 ZELDA BETES MELLITUS WITH OTHER SPECIFIED MANIFESTATIONS, TYPE II OR UNSPECIFIED TYPE, NOT STATED UNCONTROLLED 08/14/2017 W 428.0 RUDDY ESTIVE HEART FAILURE, UNSPECIFIED 08/14/2017 W E11.65 TYP E 2 DIABETES MELLITUS WITH HYPERGLYCEMIA 08/14/2017 W I50.9 HEAR T FAILURE, UNSPECIFIED 08/14/2017 Kennedy, [place] W 250.80 DIABETES MELLITUS WITH OTHER SPECIFIED MANIFESTATIONS, TYPE II OR UNSPECIFIED TYPE, NOT STATED UNCONTROLLED 08/14/2017 Kennedy, [place] W 272.4 OTHER AND UNSPECIFIED HYPERLIPIDEMIA 08/14/2017 Kennedy, [place] W 401.9 UNSPECIFIED ESSENTIAL HYPERTENSION 08/14/2017 Kennedy, [place] W 428.0 CONGESTIVE HEART FAILURE, UNSPECIFIED 08/14/2017 Kennedy, [place] W E11.65 TYPE 2 DIABETES MELLITUS WITH HYPERGLYCEMIA 08/14/2017 Briseida KennedyRonak W E78.5 HYPERLIPIDEMIA, UNSPECIFIED 08/14/2017 Juan Kennedyu W I10 ESSENTIAL (PRIMARY) HYPERTENSION 08/14/2017 Juan Kennedyu W I50.9 HEART FAILURE, UNSPECIFIED 09/06/2017 ARNIE [...] Ot 427.89 CARDIAC DYSRHYTHMIAS NEC 09/06/2017 ARNIE BEACHC, ALI FACP CCDS Ot E11.9 TYPE 2 DIABETES MELLITUS WITHOUT COMPLIC 09/06/2017 ARNIE HAMEED FACC, ALI FACP CCDS Ot E66.9 OBESITY, UNSPECIFIED 09/06/2017 ARNIE HAMEED FACC, ALI FACP CCDS Ot E78.5 HYPERLIPIDEMIA, UNSPECIFIED 09/06/2017 ARNIE HAMEED FACC, ALI FACP CCDS Ot I10 ESSENTIAL (PRIMARY) HYPERTENSION 09/06/2017 ARNIE HAMEED FACC, ALI FACP CCDS Ot I25.10 ATHSCL HEART DISEASE OF [place] CORONARY 09/06/2017 ARNIE HAMEED FACC, ALI FACP [...] CCDS Ot I25.10 ATHSCL HEART DISEASE OF [place] CORONARY 09/06/2017 ARNIE HAMEED FACC, ALI FACP [...] CCDS Ot I25.10 ATHSCL HEART DISEASE OF [place] CORONARY 09/10/2017 ARNIE BEACHC, ALI FACP CCDS [...] CCDS Ot I25.10 ATHSCL HEART DISEASE OF [place] CORONARY 09/10/2017 ARNIE HAMEED FACC, ALI FACP CCDS Ot M79.604 PAIN IN RIGHT LEG 09/10/2017 ARNIE HAMEED FACC, ALI FACP CCDS Ot N52.9 MALE ERECTILE DYSFUNCTION, UNSPECIFIED 09/11/2017 ARNIE HAMEED FACC, ALI FACP [...] CCDS Ot I25.10 ATHSCL HEART DISEASE OF [place] CORONARY 09/11/2017 ARNIE HAMEED FACC ALI FACP CCDS Ot Z68.35 BODY MASS INDEX (BMI) 35.0-35.9, ADULT 09/11/2017 ARNIE HAMEED FACC, ALI FACP CCDS Ot Z79.4 USP (CURRENT) USE OF INSULIN 09/11/2017 ARNIE HAMEED FACC, ALI FACP CCDS Ot Z79.82 UTILIZATION MANAGEMENT UM NURSE (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) USE OF ASPIRIN 09/11/2017 ARNIE HAMEED FACC, ALI FACP CCDS Ot Z79.899 OTHER USP (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 THERAPY 09/11/2017 ARNIE HAMEED FACC, ALI FACP CCDS Ot Z95.5 PRESENCE OF CORONARY ANGIOPLASTY IMPLANT 09/12/2017 ARNIE HAMEED FACC, LISA FACP CCDS Ot E11.42 TYPE 2 DIABETES MELLITUS WITH DIABETIC P 09/12/2017 ARNIE HAMEED FACC, ALI FACP CCDS Ot E66.9 OBESITY, UNSPECIFIED 09/12/2017 ARNIE HAMEED FACC, ALI FACP CCDS Ot E78.5 HYPERLIPIDEMIA, UNSPECIFIED 09/12/2017 ARNIE HAMEED FACC, ALI FACP CCDS Ot I10 ESSENTIAL (PRIMARY) HYPERTENSION 09/12/2017 ARNIE HAMEED FACC, ALI FACP CCDS Ot I25.10 ATHSCL HEART DISEASE OF [place] CORONARY 09/12/2017 ARNIE HAMEED FACC, ALI FACP CCDS Ot Z68.35 BODY MASS INDEX (BMI) 35.0-35.9, ADULT 09/12/2017 ARNIE HAMEED FACC, LISA FACP CCDS Ot Z79.4 UTILIZATION MANAGEMENT UM NURSE (CURRENT) USE OF INSULIN 09/12/2017 ARNIE HAMEED FACC, LISA FACP CCDS Ot Z79.82 USP (CURRENT) USE OF ASPIRIN 09/12/2017 ARNIE HAMEED FACC, ALI FACP CCDS Ot Z79.899 OTHER UTILIZATION MANAGEMENT UM NURSE (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 THERAPY 09/12/2017 ARNIE HAMEED FACC, LISA FACP CCDS Ot Z95.5 PRESENCE OF CORONARY [...] W J02.9 ACUT E PHARYNGITIS, UNSPECIFIED 01/10/2018 Dominic Kennedy W 250.00 DIABETES MELLITUS WITHOUT MENTION OF COMPLICATION, TYPE II OR UNSPECIFIED TYPE, NOT STATED UNCONTROLLED 01/10/2018 Dominic Kennedy W E11.9 TYPE 2 DIABETES MELLITUS WITHOUT COMPLICATIONS 01/10/2018 Briseida KennedyRonak W 250.00 DIABETES MELLITUS WITHOUT MENTION OF COMPLICATION, TYPE II OR UNSPECIFIED TYPE, NOT STATED UNCONTROLLED 01/10/2018 Dominic Kennedy W E11.9 TYPE 2 DIABETES MELLITUS WITHOUT COMPLICATIONS 01/10/2018 W 250.00 ZELDA BETES MELLITUS WITHOUT MENTION OF COMPLICATION, TYPE II OR UNSPECIFIED TYPE, NOT STATED UNCONTROLLED 01/10/2018 W E11.9 TYPE 2 DIABETES MELLITUS WITHOUT COMPLICATIONS 01/10/2018 Dominic Kennedy W 250.00 DIABETES MELLITUS WITHOUT MENTION OF COMPLICATION, TYPE II OR UNSPECIFIED TYPE, NOT STATED UNCONTROLLED 01/10/2018 Dominic Kennedy W E11.9 TYPE 2 DIABETES MELLITUS WITHOUT COMPLICATIONS 01/18/2018 W 250.80 ZELDA BETES MELLITUS WITH OTHER SPECIFIED MANIFESTATIONS, TYPE II OR UNSPECIFIED TYPE, NOT STATED UNCONTROLLED 01/18/2018 W 728.87 MUS LAM WEAKNESS (GENERALIZED) 01/18/2018 W E11.65 TYP E 2 DIABETES MELLITUS WITH HYPERGLYCEMIA 01/18/2018 W M62.81 MUS LAM WEAKNESS (GENERALIZED) 04/30/2018 Dominic Kennedy W 250.00 DIABETES MELLITUS [...] DIABETES MELLITUS WITHOUT COMPLIC 05/17/2018 AMARJIT CALVIN MD Ot E66. 9 OBESITY, UNSPECIFIED 05/17/2018 AMARJIT CALVIN MD Ot E78. 1 PURE HYPERGLYCERIDEMIA 05/17/2018 AMARJIT CALVIN MD, Ot E78. 5 HYPERLIPIDEMIA, UNSPECIFIED 05/17/2018 AMARJIT CALVIN MD Ot G62. 9 POLYNEUROPATHY, UNSPECIFIED 05/17/2018 AMARJIT CALVIN MD Ot I10 ESSENTIAL (PRIMARY) HYPERTENSION 05/17/2018 AMARJIT CALVIN MD, Ot I25. 10 ATHSCL HEART DISEASE OF [place] CORONARY 05/17/2018 AMARJIT CALVIN MD Ot I48. 91 UNSPECIFIED ATRIAL FIBRILLATION 05/17/2018 AMARJIT CALVIN MD, Ot I48. 92 UNSPECIFIED ATRIAL FLUTTER 05/17/2018 AMARJIT CALVIN MD, Ot I49. 5 SICK SINUS SYNDROME 05/17/2018 AMARJIT CALVIN MD, Ot I65. 29 OCCLUSION AND STENOSIS OF UNSPECIFIED CA 05/17/2018 AMARJIT CALVIN MD, Ot Z68. 34 BODY MASS INDEX (BMI) 34.0-34.9, ADULT 05/17/2018 AMARJIT CALVIN MD Ot Z79. 01 USP (CURRENT) USE OF ANTICOAGULANT 05/17/2018 AMARJIT CALVIN MD Ot Z79. 4 UTILIZATION MANAGEMENT UM NURSE (CURRENT) USE OF INSULIN 05/17/2018 AMARJIT CALVIN MD, Ot Z79.899 OTHER UTILIZATION MANAGEMENT UM NURSE (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 THERAPY 05/17/2018 AMARJIT CALVIN MD, Ot Z88. 8 ALLERGY STATUS TO [facility] DRUG/MEDS/BIOL SUB 05/17/2018 AMARJIT CALVIN MD Ot Z95. 5 PRESENCE OF CORONARY ANGIOPLASTY IMPLANT 05/24/2018 A 427.31 ATR IAL FIBRILLATION 05/24/2018 A I48.0 PARO XYSMAL ATRIAL FIBRILLATION 06/14/2018 CHERY LINDER APRN Ot G47.10 HYPERSOMNIA, UNSPECIFIED 07/12/2018 CHERY LINDER APRN Ot G47.10 HYPERSOMNIA, UNSPECIFIED 07/12/2018 ARNIE HAMEED FACC, ALI FACP [...] CARDIAC DYSRHYTHMIAS NEC 07/12/2018 ARNIE HAMEED FACC, ALI FACP CCDS Ot E11.9 TYPE 2 DIABETES MELLITUS WITHOUT COMPLIC 07/12/2018 ARNIE HAMEED FACC, ALI FACP CCDS Ot E66.9 OBESITY, UNSPECIFIED 07/12/2018 ARNIE HAMEED FACC, ALI FACP CCDS Ot E78.5 HYPERLIPIDEMIA, UNSPECIFIED 07/12/2018 ARNIE HAMEED FACC, ALI FACP CCDS Ot I10 ESSENTIAL (PRIMARY) HYPERTENSION 07/12/2018 ARNIE HAMEED FACC, ALI FACP CCDS Ot I25.10 ATHSCL HEART DISEASE OF [place] CORONARY 07/12/2018 ARNIE HAMEED FACC, ALI FACP CCDS Ot M79.604 PAIN IN RIGHT LEG 07/12/2018 ARNIE HAMEED [facility], ALI FACP CCDS Ot N52.9 MALE ERECTILE DYSFUNCTION, UNSPECIFIED 07/12/2018 ARNIE [place], ALI FACP CCDS Ot E11.9 TYPE 2 DIABETES MELLITUS WITHOUT COMPLIC 07/12/2018 ARNIE HAMEED FACC, ALI FACP CCDS Ot E66.9 OBESITY, UNSPECIFIED 07/12/2018 ARNIE HAMEED [facility], ALI FACP CCDS Ot E78.5 HYPERLIPIDEMIA, UNSPECIFIED 07/12/2018 ARNIE HAMEED [facility], ALI FACP CCDS Ot I10 ESSENTIAL (PRIMARY) HYPERTENSION 07/12/2018 ARNIE HAMEED [facility], ALI FACP CCDS Ot I25.10 ATHSCL HEART DISEASE OF [place] CORONARY 07/12/2018 ARNIE HAMEED [facility], ALI FACP CCDS Ot M79.604 PAIN IN RIGHT LEG 07/12/2018 ARNIE HAMEED [facility], ALI FACP CCDS Ot N52.9 MALE ERECTILE DYSFUNCTION, UNSPECIFIED 07/12/2018 KAILASH, CHERY E [employer]INCIPAL [employer]ARDWARE ARCHITECT Ot G47.10 HYPERSOMNIA, UNSPECIFIED 07/16/2018 KAILASH, CHERY E PRINCIPAL HARDWARE ARCHITECT Ot G47.10 HYPERSOMNIA, UNSPECIFIED 07/16/2018 KAILASH, CHERY E PRINCIPAL [employer]ARDWARE ARCHITECT Ot G47.10 HYPERSOMNIA, UNSPECIFIED 07/16/2018 KAILASH, CHERY E PRINCIPAL [employer]ARDWARE ARCHITECT Ot G47.10 HYPERSOMNIA, UNSPECIFIED 07/17/2018 KAILASH, CHERY E PRINCIPAL [employer]ARDWARE ARCHITECT Ot G47.10 HYPERSOMNIA, UNSPECIFIED 07/17/2018 KAILASH, CHERY E PRINCIPAL [employer]ARDWARE ARCHITECT Ot G47.50 PARASOMNIA, UNSPECIFIED 07/17/2018 KAILASH, CHERY E PRINCIPAL [employer]ARDWARE ARCHITECT Ot I48.0 PAROXYSMAL ATRIAL FIBRILLATION 08/06/2018 Juan Kennedyu W 250.00 DIABETES MELLITUS WITHOUT MENTION OF COMPLICATION, TYPE II OR UNSPECIFIED TYPE, NOT STATED UNCONTROLLED 08/06/2018 Juan Kennedyu W 272.4 OTHER AND UNSPECIFIED HYPERLIPIDEMIA 08/06/2018 Shawnee Kennedy-Ronak W E11.9 TYPE 2 DIABETES MELLITUS WITHOUT COMPLICATIONS 08/06/2018 Briseida KennedyRonak W E78.5 HYPERLIPIDEMIA, UNSPECIFIED 08/06/2018 W 250.00 [...] W 272.4 OTHER AND UNSPECIFIED HYPERLIPIDEMIA 08/06/2018 Kennedy, Juanu W E11.9 TYPE 2 DIABETES MELLITUS WITHOUT [...] OR UNSPEC TY 12/19/2018 ARNIE HAMEED FACC, LISA FACP CCDS Ot 272.4 HYPERLIPIDEMIA NEC/NOS 12/19/2018 ARNIE HAMEED FACC, LISA FACP CCDS Ot 401.9 HYPERTENSION NOS 12/19/2018 ARNIE HAMEED FACC, LISA FACP CCDS Ot 414.00 CORON ATHEROSCLER NOS TYPE VESSEL, NATIV 12/19/2018 ARNIE HAMEED FACC, ALI FACP CCDS Ot 427.89 CARDIAC DYSRHYTHMIAS NEC 12/19/2018 ARNIE HAMEED FACC, ALI FACP CCDS Ot E11.9 TYPE 2 DIABETES MELLITUS WITHOUT COMPLIC 12/19/2018 ARNIE HAMEED FACC, ALI FACP CCDS Ot E66.9 OBESITY, UNSPECIFIED 12/19/2018 ARNIE [facility], ALI FACP CCDS Ot E78.5 HYPERLIPIDEMIA, UNSPECIFIED 12/19/2018 ARNIE [facility], ALI FACP CCDS Ot I10 ESSENTIAL (PRIMARY) HYPERTENSION 12/19/2018 ARNIE [facility], ALI FACP CCDS Ot I25.10 ATHSCL HEART DISEASE OF [place] CORONARY 12/19/2018 ARNIE HAMEED [facility], ALI FACP CCDS Ot M79.604 PAIN IN RIGHT LEG 12/19/2018 ARNIE [facility], ALI FACP CCDS Ot N52.9 MALE ERECTILE DYSFUNCTION, UNSPECIFIED 12/19/2018 [facility], ALI FACP CCDS Ot E11.9 TYPE 2 DIABETES MELLITUS WITHOUT COMPLIC 12/19/2018 [facility], ALI FACP CCDS Ot E66.9 OBESITY, UNSPECIFIED 12/19/2018 [facility], ALI FACP CCDS Ot E78.5 HYPERLIPIDEMIA, UNSPECIFIED 12/19/2018 [facility], ALI FACP CCDS Ot I10 ESSENTIAL (PRIMARY) HYPERTENSION 12/19/2018 [facility], ALI FACP CCDS Ot I25.10 ATHSCL HEART DISEASE OF [place] CORONARY 12/19/2018 ARNIE HAMEED [facility], ALI FACP CCDS Ot M79.604 PAIN IN RIGHT LEG 12/19/2018 ARNIE HAMEED [facility], ALI FACP CCDS Ot N52.9 MALE ERECTILE DYSFUNCTION, UNSPECIFIED 12/23/2018 HEIDE PIÑA Ot E11.621 TYPE 2 DIABETES MELLITUS WITH FOOT ULCER 12/23/2018 AYANA HEIDE Ot I11.0 HYPERTENSIVE HEART DISEASE WITH HEART FA 12/23/2018 BERNARANZA HEIDE Ot I25.10 ATHSCL HEART DISEASE OF [place] CORONARY 12/23/2018 MAHIN PIÑAIS Ot I50.9 HEART FAILURE, UNSPECIFIED 12/23/2018 HEIDE PIÑA Ot L97.529 NON-PRESSURE CHRONIC ULCER OTH PRT LEFT 12/23/2018 MAHIN PIÑAIS Ot Z79.4 UTILIZATION MANAGEMENT UM NURSE (CURRENT) USE OF INSULIN 12/23/2018 MAHIN PIÑAIS Ot Z79.82 USP (CURRENT) USE OF ASPIRIN 12/23/2018 HEIDE PIÑA Ot Z88.8 ALLERGY STATUS TO OT DRUG/MEDS/BIOL SUB 12/23/2018 HEIDE PIÑA Ot Z95.5 PRESENCE OF CORONARY ANGIOPLASTY IMPLANT 12/24/2018 Marcia, Dominic W 681.10 CELLULITIS AND ABSCESS OF TOE, UNSPECIFIED 12/24/2018, [place] W L03.032 CELLULITIS OF LEFT TOE 12/24/2018, [place] W 681.10 CELLULITIS AND ABSCESS OF TOE, UNSPECIFIED 12/24/2018, [place] W L03.032 CELLULITIS OF LEFT TOE 12/24/2018, [place] W 681.10 CELLULITIS AND ABSCESS OF TOE, UNSPECIFIED 12/24/2018, [place] W L03.032 CELLULITIS OF LEFT TOE 12/24/2018, [place] W 250.60 DIABETES MELLITUS WITH NEUROLOGICAL MANIFESTATIONS, TYPE II OR UNSPECIFIED TYPE, NOT STATED UNCONTROLLED 12/24/2018 Marcia, Dominic W 681.10 CELLULITIS AND ABSCESS OF TOE, UNSPECIFIED 12/24/2018 Kennedy, [place] W E11.40 TYPE 2 DIABETES MELLITUS WITH DIABETIC NEUROPATHY, UNSPECIFIED 12/24/2018, [place] W L03.032 CELLULITIS OF LEFT TOE 12/24/2018 Kennedy, [place] W 250.60 DIABETES MELLITUS WITH NEUROLOGICAL MANIFESTATIONS, TYPE II OR UNSPECIFIED TYPE, NOT STATED UNCONTROLLED 12/24/2018 Marcia, Juanu W 681.10 CELLULITIS AND ABSCESS OF TOE, UNSPECIFIED 12/24/2018 Kennedy, [place] W E11.40 TYPE 2 DIABETES MELLITUS WITH DIABETIC NEUROPATHY, UNSPECIFIED 12/24/2018 Kennedy, [place] W L03.032 CELLULITIS OF LEFT TOE 12/24/2018 Kennedy, [place] W 250.60 DIABETES MELLITUS WITH NEUROLOGICAL MANIFESTATIONS, TYPE II OR UNSPECIFIED TYPE, NOT STATED UNCONTROLLED 12/24/2018 Marcia, Dominic W 681.10 CELLULITIS AND ABSCESS OF TOE, UNSPECIFIED 12/24/2018 Marcia, [place] W E11.40 TYPE 2 DIABETES MELLITUS WITH DIABETIC NEUROPATHY, UNSPECIFIED 12/24/2018 Marcia, [place] W L03.032 CELLULITIS OF LEFT TOE 12/27/2018 JUAN KENNEDY MDU Ot I50.9 HEART FAILURE, UNSPECIFIED 12/27/2018 MARCIA HAMEED, DOMINIC Ot L03.0 32 CELLULITIS OF LEFT TOE 01/02/2019, [place] W 730.07 ACUTE OSTEOMYELITIS INVOLVING ANKLE AND FOOT 01/02/2019, [place] W M86.172 OTHER ACUTE OSTEOMYELITIS, LEFT ANKLE AND FOOT 01/02/2019, [place] W 730.07 ACUTE OSTEOMYELITIS INVOLVING ANKLE AND FOOT 01/02/2019 Kennedy, [place] W M86.172 OTHER ACUTE OSTEOMYELITIS, LEFT ANKLE AND FOOT 01/02/2019, [place] W 730.07 ACUTE OSTEOMYELITIS INVOLVING ANKLE AND FOOT 01/02/2019, [place] W M86.172 OTHER ACUTE OSTEOMYELITIS, LEFT ANKLE AND FOOT 01/02/2019 Kennedy, [place] W 250.80 DIABETES MELLITUS WITH OTHER SPECIFIED MANIFESTATIONS, TYPE II OR UNSPECIFIED TYPE, NOT STATED UNCONTROLLED 01/02/2019, [place] W 730.07 ACUTE OSTEOMYELITIS INVOLVING ANKLE AND FOOT 01/02/2019 Kennedy, [place] W E11.65 TYPE 2 DIABETES MELLITUS WITH HYPERGLYCEMIA 01/02/2019 Kennedy, [place] W M86.172 OTHER ACUTE OSTEOMYELITIS, LEFT ANKLE AND FOOT 01/02/2019, [place] W 250.80 DIABETES MELLITUS WITH OTHER SPECIFIED MANIFESTATIONS, TYPE II OR UNSPECIFIED TYPE, NOT STATED UNCONTROLLED 01/02/2019, [place] W 730.07 ACUTE OSTEOMYELITIS INVOLVING ANKLE AND FOOT 01/02/2019, [place] W E11.65 TYPE 2 DIABETES MELLITUS WITH HYPERGLYCEMIA 01/02/2019 Kennedy, [place] W M86.172 OTHER ACUTE OSTEOMYELITIS, LEFT ANKLE AND FOOT 01/02/2019, [place] W 250.80 DIABETES MELLITUS WITH OTHER SPECIFIED MANIFESTATIONS, TYPE II OR UNSPECIFIED TYPE, NOT STATED UNCONTROLLED 01/02/2019, [place] W 730.07 ACUTE OSTEOMYELITIS INVOLVING ANKLE AND FOOT 01/02/2019, [place] W E11.65 TYPE 2 DIABETES MELLITUS WITH HYPERGLYCEMIA 01/02/2019 Kennedy, [place] W M86.172 OTHER ACUTE OSTEOMYELITIS, LEFT ANKLE AND FOOT 01/05/2019 CHELSY SELBY MD Ot E11.42 TYPE 2 DIABETES MELLITUS WITH DIABETIC P 01/05/2019 CHELSY SELBY MD, Ot E11.621 TYPE 2 DIABETES MELLITUS WITH FOOT ULCER 01/05/2019 CHELSY SELBY MD, Ot I11 .0 HYPERTENSIVE HEART DISEASE WITH HEART FA 01/05/2019 CHELSY SELBY MD, Ot I25.10 ATHSCL HEART DISEASE OF [place] CORONARY 01/05/2019 CHELSY SELBY MD, Ot I89 .0 LYMPHEDEMA, NOT ELSEWHERE CLASSIFIED 01/05/2019 CHELSY SELBY MD, Ot L97.522 NON-PRS CHRONIC ULCER OTH PRT LEFT FOOT 01/06/2019 CHELSY SELBY MD Ot E11.42 TYPE 2 [...] LEFT FOOT 01/08/2019 CHELSY SELBY MD Ot E11.42 TYPE 2 DIABETES MELLITUS WITH DIABETIC P 01/08/2019 CHELSY SELBY MD Ot 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 PERIPHERAL AN 01/08/2019 CHELSY SELBY MD, Ot E11.621 TYPE 2 DIABETES MELLITUS WITH FOOT ULCER 01/08/2019 CHELSY SELBY MD Ot I50 .9 HEART FAILURE, UNSPECIFIED 01/08/2019 CHELSY SELBY MD, Ot I89 .0 LYMPHEDEMA, NOT ELSEWHERE CLASSIFIED 01/08/2019 CHELSY SELBY MD Ot I96 [place], NOT ELSEWHERE CLASSIFIED 01/08/2019 [...] OSTEOMYELITIS, ANKLE AND FOOT 01/22/2019 CHELSY SELBY MD Ot E11.42 TYPE 2 DIABETES MELLITUS WITH DIABETIC P 01/22/2019 CHELSY SELBY MD, Ot 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 PERIPHERAL AN 01/22/2019 CHELSY SELBY MD Ot E11.621 TYPE 2 DIABETES MELLITUS WITH FOOT ULCER 01/22/2019 CHELSY SELBY MD Ot I50 .9 HEART FAILURE, UNSPECIFIED 01/22/2019 CHELSY SELBY MD Ot I89 .0 LYMPHEDEMA, NOT ELSEWHERE CLASSIFIED 01/22/2019 CHELSY SELBY MD Ot I96 [place], NOT ELSEWHERE CLASSIFIED 01/22/2019 CHELSY SELBY MD Ot L97.522 NON-PRS CHRONIC ULCER OTH PRT LEFT FOOT 01/22/2019 CHELSY SELBY MD, Ot M86.472 CHRONIC OSTEOMYELITIS W DRAINING SINUS, 01/29/2019 CHELSY SELBY MD Ot E11.42 TYPE 2 DIABETES MELLITUS WITH DIABETIC P 01/29/2019 CHELSY SELBY MD Ot 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 PERIPHERAL AN 01/29/2019 CHELSY SELBY MD Ot E11.621 TYPE 2 DIABETES MELLITUS WITH FOOT ULCER 01/29/2019 CHELSY SELBY MD Ot I50 .9 HEART FAILURE, UNSPECIFIED 01/29/2019 CHELSY SELBY MD Ot I89 .0 LYMPHEDEMA, NOT ELSEWHERE CLASSIFIED 01/29/2019 CHELSY SELBY MD Ot I96 [place], NOT ELSEWHERE CLASSIFIED 01/29/2019 CHELSY SELBY MD Ot L97.522 NON-PRS CHRONIC ULCER OTH PRT LEFT FOOT 01/29/2019 CHELSY SELBY MD Ot M86.472 CHRONIC OSTEOMYELITIS W DRAINING SINUS, 01/29/2019 CHELSY SELBY MD Ot E11.42 TYPE 2 DIABETES MELLITUS WITH DIABETIC P 01/29/2019 CHELSY SELBY MD Ot E11.621 TYPE 2 DIABETES MELLITUS WITH FOOT ULCER 01/29/2019 CHELSY SELBY MD Ot I11 .0 HYPERTENSIVE HEART DISEASE WITH HEART FA 01/29/2019 CHELSY SELBY MD Ot I25.10 ATHSCL HEART DISEASE OF [place] CORONARY 01/29/2019 CHELSY SELBY MD Ot I89 [...] LYMPHEDEMA, NOT ELSEWHERE CLASSIFIED 01/30/2019 CHELSY SELBY MD, Ot I96 [place], NOT ELSEWHERE CLASSIFIED 01/30/2019 CHELSY SELBY MD, Ot L97.524 NON-PRS CHRONIC ULCER OTH PRT LEFT FOOT 01/30/2019 CHELSY SELBY MD Ot M86.472 CHRONIC OSTEOMYELITIS W DRAINING SINUS, 02/03/2019 CHELSY SELBY MD Ot E11.42 TYPE 2 DIABETES MELLITUS WITH DIABETIC P 02/03/2019 CHELSY SELBY MD Ot E11.621 TYPE 2 DIABETES MELLITUS WITH FOOT ULCER 02/03/2019 CHELSY SELBY MD Ot I11 .0 HYPERTENSIVE HEART DISEASE WITH HEART FA 02/03/2019 CHELSY SELBY MD Ot I25.10 ATHSCL HEART DISEASE OF [place] CORONARY 02/03/2019 CHELSY SELBY MD, Ot I89 .0 LYMPHEDEMA, [...] MELLITUS WITH FOOT ULCER 02/06/2019 CHELSY SELBY MD, Ot I50 .9 HEART FAILURE, UNSPECIFIED 02/06/2019 CHELSY SELBY MD Ot I89 .0 LYMPHEDEMA, NOT ELSEWHERE CLASSIFIED 02/06/2019 CHELSY SELBY MD Ot I96 [place], NOT ELSEWHERE CLASSIFIED 02/06/2019 CHELSY SELBY MD, Ot L97.524 NON-PRS CHRONIC [...] .9 HEART FAILURE, UNSPECIFIED 02/09/2019 CHELSY SELBY MD, Ot L97.522 NON-PRS CHRONIC ULCER OTH PRT LEFT FOOT 02/09/2019 CHELSY SELBY MD, Ot M86.472 CHRONIC OSTEOMYELITIS W DRAINING SINUS, 02/12/2019 CHELSY SELBY MD Ot E11.42 TYPE 2 DIABETES MELLITUS WITH DIABETIC P 02/12/2019 CHELSY SELBY MD Ot 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 PERIPHERAL AN 02/12/2019 CHELSY SELBY MD Ot E11.621 TYPE 2 DIABETES MELLITUS WITH FOOT ULCER 02/12/2019 CHELSY SELBY MD Ot I50 .9 HEART FAILURE, UNSPECIFIED 02/12/2019 [...] W DIABETIC PERIPHERAL AN 02/14/2019 CHELSY SELBY MD, Ot E11.621 TYPE 2 DIABETES MELLITUS WITH FOOT ULCER 02/14/2019 CHELSY SELBY MD Ot I50 .9 HEART FAILURE, UNSPECIFIED 02/14/2019 CHELSY SELBY MD Ot I89 .0 LYMPHEDEMA, NOT ELSEWHERE CLASSIFIED 02/14/2019 CHELSY SELBY MD, Ot I96 [place], NOT ELSEWHERE CLASSIFIED 02/14/2019 [...] Ot I50 .9 HEART FAILURE, UNSPECIFIED 02/26/2019 CHELYS SELBY MD Ot I96 [place], NOT ELSEWHERE CLASSIFIED 02/26/2019 CHELSY SELBY MD Ot L97.522 NON-PRS CHRONIC ULCER OTH PRT LEFT FOOT 02/26/2019 CHELSY SELBY MD, Ot M86.472 CHRONIC OSTEOMYELITIS W DRAINING SINUS, 03/05/2019 CHELSY SELBY MD Ot E11.42 TYPE 2 DIABETES MELLITUS WITH DIABETIC P 03/05/2019 CHELSY SELBY MD Ot 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 PERIPHERAL AN 03/05/2019 CHELSY SELBY MD Ot E11.621 TYPE 2 DIABETES MELLITUS WITH FOOT ULCER 03/05/2019 CHELSY SELBY MD Ot I50 .9 HEART FAILURE, UNSPECIFIED 03/05/2019 CHELSY SELBY MD Ot I96 GANGRENE, NOT ELSEWHERE CLASSIFIED 03/05/2019 CHELSY SELBY MD Ot L97.522 NON-PRS CHRONIC ULCER OTH PRT LEFT FOOT 03/05/2019 CHELSY SELBY MD Ot M86.472 CHRONIC OSTEOMYELITIS [...] W DIABETIC PERIPHERAL AN 03/11/2019 CHELSY SELBY MD, Ot E11.621 TYPE 2 DIABETES MELLITUS WITH FOOT ULCER 03/11/2019 CHELSY SELBY MD Ot I50 .9 HEART FAILURE, UNSPECIFIED 03/11/2019 CHELSY SELBY MD Ot I96 [place]ANGR[place], NOT ELSEWHERE CLASSIFIED 03/11/2019 CHELSY SELBY MD Ot L97.522 NON-PRS CHRONIC ULCER OTH PRT LEFT FOOT 03/11/2019 CHELSY SELBY MD, Ot M86.472 CHRONIC OSTEOMYELITIS W DRAINING SINUS, 03/12/2019 CHELSY SELBY MD, Ot E11.42 TYPE 2 DIABETES MELLITUS WITH DIABETIC P 03/12/2019 CHELSY SELBY MD, Ot E11.621 TYPE 2 DIABETES MELLITUS WITH FOOT ULCER 03/12/2019 CHELSY SELBY MD Ot L97.522 NON-PRS CHRONIC ULCER OTH PRT LEFT FOOT 03/12/2019 CHELSY SELBY MD Ot M19.072 PRIMARY OSTEOARTHRITIS, LEFT ANKLE AND F 03/12/2019 CHELSY SELBY MD, Ot M86.472 CHRONIC OSTEOMYELITIS W DRAINING SINUS, 03/18/2019 CHELSY SELBY MD Ot E11.42 TYPE 2 DIABETES MELLITUS WITH DIABETIC P 03/18/2019 CHELSY SELBY MD Ot 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 PERIPHERAL AN 03/18/2019 CHELSY SELBY MD Ot E11.621 TYPE 2 DIABETES MELLITUS WITH FOOT ULCER 03/18/2019 CHELSY SELBY MD Ot I50 .9 HEART FAILURE, UNSPECIFIED 03/18/2019 CHELSY SELBY MD Ot I96 GANGRENE, NOT ELSEWHERE CLASSIFIED 03/18/2019 CHELSY SELBY MD Ot L97.522 NON-PRS CHRONIC ULCER OTH PRT LEFT FOOT 03/18/2019 CHELSY SELBY MD, Ot M86.472 CHRONIC OSTEOMYELITIS W DRAINING SINUS, 03/19/2019 CHELSY SELBY MD Ot E11.42 TYPE 2 DIABETES MELLITUS WITH DIABETIC P 03/19/2019 CHELSY SELBY MD Ot 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 PERIPHERAL AN 03/19/2019 CHELSY SELBY MD Ot E11.621 TYPE 2 [...] .9 HEART FAILURE, UNSPECIFIED 03/26/2019 CHELSY SELBY MD, Ot I96 [place]ANGR[place], NOT ELSEWHERE CLASSIFIED 03/26/2019 CHELSY SELBY MD, Ot L97.522 NON-PRS CHRONIC ULCER OTH PRT LEFT FOOT 03/26/2019 CHELSY SELBY MD, Ot M86.472 CHRONIC OSTEOMYELITIS W DRAINING SINUS, 03/27/2019 LEOLA BENAVIDES MD Ot B95. 62 METHICILLIN [...] Ot I25. 10 ATHSCL HEART DISEASE OF [place] CORONARY 03/27/2019 LEOLA BENAVIDES MD, Ot L97.526 NON-PRS [facility] OTH PRT L FOOT WITH BNE 03/27/2019 LEOLA BENAVIDES MD, Ot M86. 9 OSTEOMYELITIS, UNSPECIFIED 03/27/2019 LEOLA BENAVIDES MD, Ot Z68. 36 BODY MASS INDEX (BMI) 36.0-36.9, ADULT 03/27/2019 LEOLA BENAVIDES MD, Ot Z79. 01 USP (CURRENT) USE OF ANTICOAGULANT 03/27/2019 LEOLA BENAVIDES MD, Ot Z79. 4 USP (CURRENT) USE OF INSULIN 03/27/2019 LEOLA BENAVIDES [...] E66. 9 OBESITY, UNSPECIFIED 03/27/2019 LEOLA BENAVIDES MD, Ot I10 ESSENTIAL (PRIMARY) HYPERTENSION 03/27/2019 LEOLA BENAVIDES MD, Ot I25. 10 ATHSCL HEART DISEASE OF [place] CORONARY 03/27/2019 LEOLA BENAVIDES MD, Ot L97.526 NON-PRS [facility] OT PRT L FOOT WITH BNE 03/27/2019 LEOLA BENAVIDES MD, Ot M86. 9 OSTEOMYELITIS, UNSPECIFIED 03/27/2019 LEOLA BENAVIDES MD, Ot Z68. 36 BODY MASS INDEX (BMI) 36.0-36.9, ADULT 03/27/2019 LEOLA BENAVIDES MD, Ot Z79. 01 USP (CURRENT) USE OF ANTICOAGULANT 03/27/2019 LEOLA BENAVIDES MD, Ot Z79. 4 UTILIZATION MANAGEMENT UM NURSE (CURRENT) USE OF INSULIN 03/27/2019 LEOLA BENAVIDES MD, Ot Z95. 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 69 TYPE 2 DIABETES MELLITUS WITH OTHER SPEC 03/28/2019 LEOLA BENAVIDES MD, Ot E66. 9 OBESITY, UNSPECIFIED 03/28/2019 LEOLA BENAVIDES MD, Ot I10 ESSENTIAL (PRIMARY) HYPERTENSION 03/28/2019 LEOLA BENAVIDES MD Ot I25. 10 ATHSCL HEART DISEASE OF [place] CORONARY 03/28/2019 LEOLA BENAVIDES MD, Ot L97.526 NON-PRS [facility] OT PRT L FOOT WITH BNE 03/28/2019 LEOLA BENAVIDES MD, Ot M86. 9 OSTEOMYELITIS, UNSPECIFIED 03/28/2019 LEOLA BENAVIDES MD, Ot Z68. 36 BODY MASS INDEX (BMI) 36.0-36.9, ADULT 03/28/2019 LEOLA BENAVIDES MD, Ot Z79. 01 USP (CURRENT) USE OF ANTICOAGULANT 03/28/2019 LEOLA BENAVIDES MD, Ot Z79. 4 USP (CURRENT) USE OF INSULIN 03/28/2019 LEOLA BENAVIDES MD, Ot Z95. 5 PRESENCE [...] Ot I25. 10 ATHSCL HEART DISEASE OF [place] CORONARY 03/29/2019 LEOLA BENAVIDES MD, Ot L97.526 NON-PRS [facility] OTH PRT L FOOT WITH BNE 03/29/2019 LEOLA BENAVIDES MD, Ot M86. 9 OSTEOMYELITIS, UNSPECIFIED 03/29/2019 LEOLA BENAVIDES MD, Ot Z68. 36 BODY MASS INDEX (BMI) 36.0-36.9, ADULT 03/29/2019 LEOLA BENAVIDES MD, Ot Z79. 01 USP (CURRENT) USE OF ANTICOAGULANT 03/29/2019 LEOLA BENAVIDES MD, Ot Z79. 4 UTILIZATION MANAGEMENT UM NURSE (CURRENT) USE OF INSULIN 03/29/2019 LEOLA BENAVIDES MD, Ot Z95. 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 40 TYPE 2 DIABETES MELLITUS WITH DIABETIC N 03/29/2019 LEOLA BENAVIDES MD, Ot E11.621 TYPE 2 DIABETES MELLITUS WITH FOOT ULCER 03/29/2019 LEOLA BENAVIDES MD, Ot E11. 69 TYPE 2 DIABETES MELLITUS WITH OTHER SPEC 03/29/2019 LEOLA BENAVIDES MD, Ot E66. 9 OBESITY, UNSPECIFIED 03/29/2019 LEOLA BENAVIDES MD, Ot E78. 5 HYPERLIPIDEMIA, UNSPECIFIED 03/29/2019 LEOLA BENAVIDES MD, Ot I10 ESSENTIAL (PRIMARY) HYPERTENSION 03/29/2019 LEOLA BENAVIDES MD, Ot I25. 10 ATHSCL HEART DISEASE OF [place] CORONARY 03/29/2019 LEOLA BENAVIDES MD, Ot I48. 0 PAROXYSMAL ATRIAL FIBRILLATION 03/29/2019 LEOLA BENAVIDES MD, Ot L03.116 CELLULITIS OF LEFT LOWER LIMB 03/29/2019 LEOLA BENAVIDES MD, Ot L97.526 NON-PRS CHR ULC OTH PRT L FOOT WITH BNE 03/29/2019 LEOLA BENAVIDES MD, Ot M86. 9 OSTEOMYELITIS, UNSPECIFIED 03/29/2019 LEOLA BENAVIDES MD, Ot N40. 0 BENIGN PROSTATIC HYPERPLASIA WITHOUT LOW 03/29/2019 LEOLA BENAVIDES MD, Ot Z68. 36 BODY MASS INDEX (BMI) 36.0-36.9, ADULT 03/29/2019 LEOLA BENAVIDES MD, Ot Z79. 01 UTILIZATION MANAGEMENT UM NURSE (CURRENT) USE OF ANTICOAGULANT 03/29/2019 LEOLA BENAVIDES MD, Ot Z79. 4 USP (CURRENT) USE OF INSULIN 03/29/2019 LEOLA BENAVIDES [...] DIABETIC P 04/03/2019 CHELSY SELBY MD, Ot 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 PERIPHERAL AN 04/03/2019 CHELSY SELBY MD, Ot E11.621 TYPE 2 DIABETES MELLITUS WITH FOOT ULCER 04/03/2019 CHELSY SELBY MD Ot I96 [place]GR[place], NOT ELSEWHERE CLASSIFIED 04/03/2019 CHELSY SELBY MD, Ot L97.522 NON-PRS CHRONIC ULCER OTH PRT LEFT FOOT 04/03/2019 CHELSY SELBY MD, Ot M86.472 CHRONIC OSTEOMYELITIS W DRAINING SINUS, 04/08/2019 CHELSY SELBY MD Ot E11.42 TYPE 2 DIABETES MELLITUS WITH DIABETIC P 04/08/2019 CHELSY SELBY MD Ot 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 PERIPHERAL AN 04/08/2019 CHELSY SELBY MD, Ot E11.621 TYPE 2 DIABETES MELLITUS WITH FOOT ULCER 04/08/2019 CHELSY SELBY MD, Ot L97.524 NON-PRS CHRONIC ULCER OTH PRT LEFT FOOT 04/08/2019 CHELSY SELBY MD, Ot M86.472 CHRONIC OSTEOMYELITIS W DRAINING SINUS, 11/25/2019 ANJANA CROCKETT MD, Ot H26 .9 UNSPECIFIED CATARACT 11/25/2019 ANJANA CROCKETT MD, Ot Z01.812 ENCOUNTER FOR PREPROCEDURAL LABORATORY E 11/25/2019 ANJANA CROCKETT MD Ot Z20.828 CONTACT W AND EXPOSURE TO OTH VIRAL COMM 11/28/2019 ANJANA CROCKETT MD Ot E11 .9 TYPE 2 DIABETES MELLITUS WITHOUT COMPLIC 11/28/2019 ANJANA CROCKETT MD, Ot H25.12 AGE-RELATED NUCLEAR CATARACT, LEFT EYE 11/28/2019 ANJANA CROCKETT MD Ot Z79.01 USP (CURRENT) USE OF ANTICOAGULANT 11/28/2019 ANJANA CROCKETT MD Ot Z79.82 USP (CURRENT) USE OF ASPIRIN 11/28/2019 ANJANA CROCKETT MD Ot Z79.84 UTILIZATION MANAGEMENT UM NURSE (CURRENT) USE OF ORAL HYPOGLYC 11/28/2019 ANJANA CROCKETT MD, Ot Z79.899 OTHER USP (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 THERAPY 11/28/2019 ANJANA CROCKETT MD Ot Z95 .5 PRESENCE OF CORONARY ANGIOPLASTY IMPLANT 12/01/2019 ANJANA CROCKETT MD, Ot H26 .9 UNSPECIFIED CATARACT 12/01/2019 ANJANA CROCKETT MD Ot Z01.812 ENCOUNTER FOR PREPROCEDURAL LABORATORY E 12/01/2019 ANJANA CROCKETT MD Ot Z20.828 CONTACT W AND EXPOSURE TO OTH VIRAL COMM 12/01/2019 ANJANA CROCKETT MD Ot E11 .9 TYPE 2 DIABETES MELLITUS WITHOUT COMPLIC 12/01/2019 ANJANA CROCKETT MD Ot H25.12 AGE-RELATED NUCLEAR CATARACT, LEFT EYE 12/01/2019 ANJANA CROCKETT MD Ot Z79.01 UTILIZATION MANAGEMENT UM NURSE (CURRENT) USE OF ANTICOAGULANT 12/01/2019 ANJANA CROCKETT MD Ot Z79.82 UTILIZATION MANAGEMENT UM NURSE (CURRENT) USE OF ASPIRIN 12/01/2019 ANJANA CROCKETT MD Ot Z79.84 UTILIZATION MANAGEMENT UM NURSE (CURRENT) USE OF ORAL HYPOGLYC 12/01/2019 ANJANA CROCKETT MD Ot Z79.899 OTHER USP (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 THERAPY 12/01/2019 ANJANA CROCKETT MD Ot Z95 .5 PRESENCE OF CORONARY ANGIOPLASTY IMPLANT 12/01/2019 ANJANA CROCKETT MD Ot E11 .9 TYPE 2 DIABETES MELLITUS WITHOUT COMPLIC 12/01/2019 ANJANA CROCKETT MD Ot H25.12 AGE-RELATED NUCLEAR CATARACT, LEFT EYE 12/01/2019 ANJANA CROCKETT MD Ot Z79.01 UTILIZATION MANAGEMENT UM NURSE (CURRENT) USE OF ANTICOAGULANT 12/01/2019 ANJANA CROCKETT MD Ot Z79.82 USP (CURRENT) USE OF ASPIRIN 12/01/2019 ANJANA CROCKETT MD Ot Z79.84 USP (CURRENT) USE OF ORAL HYPOGLYC 12/01/2019 ANJANA CROCKETT MD Ot Z79.899 OTHER UTILIZATION MANAGEMENT UM NURSE (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 THERAPY 12/01/2019 ANJANA CROCKETT MD Ot Z95 .5 PRESENCE OF CORONARY ANGIOPLASTY IMPLANT 12/02/2019 ANJANA CROCKETT MD Ot E11 .9 TYPE 2 DIABETES MELLITUS WITHOUT COMPLIC 12/02/2019 ANJANA CROCKETT MD Ot H25.12 AGE-RELATED NUCLEAR CATARACT, LEFT EYE 12/02/2019 ANJANA CROCKETT MD Ot Z79.01 UTILIZATION MANAGEMENT UM NURSE (CURRENT) USE OF ANTICOAGULANT 12/02/2019 ANJANA CROCKETT MD Ot Z79.82 UTILIZATION MANAGEMENT UM NURSE (CURRENT) USE OF ASPIRIN 12/02/2019 ANJANA CROCKETT MD Ot Z79.84 USP (CURRENT) USE OF ORAL HYPOGLYC 12/02/2019 ANJANA CROCKETT MD Ot Z79.899 OTHER UTILIZATION MANAGEMENT UM NURSE (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 THERAPY 12/02/2019 ANJANA CROCKETT MD Ot Z95 .5 PRESENCE OF CORONARY ANGIOPLASTY IMPLANT 12/02/2019 ANJANA CROCKETT MD Ot E11.36 TYPE 2 DIABETES MELLITUS WITH DIABETIC C 12/02/2019 ANJANA CROCKETT MD Ot H25.12 AGE-RELATED NUCLEAR CATARACT, LEFT EYE 12/02/2019 ANJANA CROCKETT MD, Ot Z79.01 UTILIZATION MANAGEMENT UM NURSE (CURRENT) USE OF ANTICOAGULANT 12/02/2019 ANJANA CORCKETT MD Ot Z79.82 USP (CURRENT) USE OF ASPIRIN 12/02/2019 ANJANA CROCKETT MD, Ot Z79.84 UTILIZATION MANAGEMENT UM NURSE (CURRENT) USE OF ORAL HYPOGLYC 12/02/2019 ANJANA CROCKETT MD, Ot Z79.899 OTHER UTILIZATION MANAGEMENT UM NURSE (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 THERAPY 12/02/2019 ANJANA CROCKETT MD Ot Z95 .5 PRESENCE OF CORONARY ANGIOPLASTY IMPLANT Procedures Code Description Performed By [facility]i [place] On [id number] DE TACHMENT AT LEFT 3RD TOE, COMPLETE, [...] 17:46 Bacteria identification in wound by culture [id number] 003 NRG FREE TEXT EXTERNAL NO BETA [...] or plasma lithium measurement (mol es/volume) - 08/14/19 08:50 BNP PT 198.0 pg/mL <100.0 Gram stain microscopy - 12/30/18 09:31 Gram stain microscopy Few Gram positive cocci NRG Bacteria identification in wound by cult ure - 12/30/18 09:31 Bacteria identification in wound by culture 530515 002 NRG FREE TEXT EXTERNAL SUSCEPTIBILITIES REPORTED [...] 10:31 Bacteria identification in wound by culture 261534 8 NRG FREE TEXT EXTERNAL METHICILLIN-RESISTANT STAPH [...] 11:30 Bacteria identification in wound by culture 854847 8 NRG FREE TEXT EXTERNAL SUSCEPTIBILITY REPORTED [...] 2 NRG Minocycline susc EZIO > NRG Capillary blood glucose measurement [...] TOTAL 1.7 ng/mL 0.0-4.0 Coronavirus SARS-CoV-2 SO 2018 0 08:20 Coronavirus Ab [Units/volume] in Serum Negative Negative Capillary blood glucose measurement by g lucometer (mass/volume) - 11/21/19 08:55 Capillary blood glucose measurement by glucometer (mas s/volume) 488 mg/dL 70-110 Coronavirus SARS-CoV-2 SO 2018 0 08:11 Coronavirus Ab [Units/volume] in Serum Negative Negative Encounters ACCT No. Visit Date/Time Discharge Status Pt. Type Provider Facility Loc./Unit Complaint [id number] 11/24/2019 15:03:00 11/24/2019 23:59 :00 DIS BLU Valadez [id number] 09/16/2019 15:03:00 09/16/2019 23:59 :00 DIS BLU Valadez [id number] 08/19/2019 13:09:00 08/19/2019 23:59 :00 DIS BLU Valadez [id number] 08/19/2019 10:04:00 08/19/2019 23:59 :00 DIS Outpatient MONTY BLU [id number] 04/22/2019 14:35:00 04/22/2019 23:59 :00 DIS Outpatient MONTY BLU [id number] 04/15/2019 14:37:00 04/15/2019 23:59: 00 DIS Outpatient MONTY BLU [id number] 04/15/2019 11:48:00 04/15/2019 23:59: 00 DIS Outpatient MONTY BLU [id number] 03/17/2019 12:51:00 03/17/2019 23:59: 00 DIS Outpatient MONTY BLU [id number] 01/02/2019 08:14:00 01/02/2019 23:59: 00 DIS Outpatient Dominic Kennedy [id number] 12/24/2018 08:27:00 12/24/2018 23:59: 00 DIS Outpatient Dominic Kennedy [id number] 11/08/2018 11:58:00 11/08/2018 23:59: 00 DIS Outpatient Dominic Kennedy [id number] 08/06/2018 11:49:00 08/06/2018 23:59: 00 DIS Outpatient Dominic Kennedy [id number] 04/30/2018 21:38:00 04/30/2018 23:59: 00 DIS Outpatient Kennedy, Juanu [id number] 01/10/2018 09:47:00 01/10/2018 23:59: 00 DIS Outpatient Kennedy, Juanu [id number] 08/14/2017 14:30:00 08/14/2017 23:59: 00 DIS Outpatient Kennedy, Juanu [id number] 08/07/2017 19:22:00 08/07/2017 23:59: 00 DIS Outpatient Kennedy, Juanu [id number] 05/02/2017 00:00:00 05/02/2017 23:59: 00 DIS Outpatient Kennedy, Juanu [id number] 04/17/2017 12:57:00 04/17/2017 23:59: 00 DIS Outpatient Kennedy, Juanu [id number] 04/13/2017 13:25:00 04/13/2017 23:59: 00 DIS Outpatient Kennedy, Juanu [id number] 01/17/2017 09:06:00 01/17/2017 23:59: 00 DIS Outpatient Kennedy, Juanu [id number] 08/09/2016 12:37:00 08/09/2016 23:59: 00 DIS Outpatient Kennedy, Juanu [id number] 04/12/2016 14:58:00 04/12/2016 23:59: 00 DIS Outpatient Kennedy, Juanu [id number] 11/13/2018 08:04:00 Document Registration [id number] 11/08/2018 08:08:00 Document Registration [id number] 08/06/2018 08:16:00 Document Registration [id number] 05/24/2018 10:30:00 Document Registration [id number] 05/16/2018 14:54:00 Document Registration [id number] 04/30/2018 14:07:00 Document Registration [id number] 01/18/2018 09:43:00 Document Registration [id number] 01/10/2018 08:08:00 Document Registration [id number] 11/06/2017 11:11:00 Document Registration [id number] 10/24/2017 14:41:00 Document Registration [id number] 09/25/2017 14:51:00 Document Registration [id number] 08/14/2017 09:34:00 Document Registration [id number] 08/07/2017 16:01:00 Document Registration [id number] 04/19/2017 08:56:00 Document Registration [id number] 04/13/2017 08:48:00 Document Registration [id number] 01/23/2017 08:21:00 Document Registration [id number] 12/02/2019 05:45:00 13:35:00 DIS Outpatient ANJANA CROCKETT MD [facility] PREOP CATARACT RIGHT EYE [id number] 11/28/2019 08:40:00 10:28:00 DIS Outpatient ANJANA CROCKETT MD [facility] CATARACT LEFT EYE [id number] 11/25/2019 05:47:00 11:05:00 DIS Outpatient ANJANA CROCKETT MD [facility] PREOP CATARACT LEFT EYE [id number] 11/21/2019 08:16:00 09:10:00 DIS Outpatient ANJANA CROCKETT MD [facility] CATARACT LEFT EYE [id number] 11/18/2019 06:34:00 14:58:00 DIS Outpatient ANJANA CROCKETT MD [facility] PREOP CATARACT LEFT EYE [id number] 03/26/2019 16:16:00 13:45:00 DIS Outpatient LEOLA BENAVIDES MD [facility] 4TH OSTEOMYELITIS L FOOT, C ELLULITIS L FOOT [id number] 03/24/2019 09:21:00 23:59:59 CLS Outpatient CHELSY ESLBY MD [facility] [id number] 03/17/2019 09:20:00 23:59:59 CLS Outpatient CHELSY SELBY MD [facility] [id number] 03/10/2019 10:45:00 23:59:59 CLS Outpatient CHELSY SELBY MD [facility] RAD CHRONIC OSTEOMYELITIS [id number] 03/10/2019 09:10:00 23:59:59 CLS Outpatient CHELSY SELBY MD [facility] [id number] 03/03/2019 09:10:00 23:59:59 CLS Outpatient CHELSY SELBY MD [facility] [id number] 02/24/2019 09:17:00 23:59:59 CLS Outpatient CHELSY SELBY MD [facility] [id number] 02/17/2019 09:08:00 23:59:59 CLS Outpatient CHELSY SELBY MD [facility] [id number] 02/10/2019 09:20:00 23:59:59 CLS Outpatient CHELSY SELBY MD [facility] [id number] 02/03/2019 09:24:00 23:59:59 CLS Outpatient CHELSY SELBY MD [facility] [id number] 02/03/2019 08:57:00 23:59:59 CLS Preadmit MARCIA HAMEED, DOMINIC [facility] DSME TYPE 2 DIABETES [id number] 01/27/2019 09:15:00 23:59:59 CLS Outpatient CHELSY SELBY MD [facility] [id number] 01/20/2019 09:20:00 23:59:59 CLS Outpatient CHELSY SELBY MD [facility] [id number] 01/14/2019 13:16:00 23:59:59 CLS Outpatient CHELSY SELBY MD [facility] [id number] 01/06/2019 09:26:00 23:59:59 CLS Outpatient CHELSY SELBY MD [facility] [id number] 12/30/2018 09:00:00 23:59:59 CLS Outpatient CHELSY SELBY MD [facility] LAB E11.621 [id number] 12/30/2018 08:02:00 23:59:59 CLS Outpatient CHELSY SELBY MD [facility] [id number] 12/26/2018 08:15:00 23:59:59 CLS Outpatient DOMINIC KENNEDY MD [facility] RAD OSTEOMYELITIS [id number] 12/25/2018 08:37:00 23:59:59 CLS Outpatient DOMINIC KENNEDY MD [facility] LAB ROUTINE LABS [id number] 12/19/2018 16:00:00 20:38:00 DIS Outpatient HEIDE PIÑA [facility] ER SWOLLEN FOOT [id number] 07/16/2018 19:30:00 05:06:00 DIS Outpatient CHERY LINDER APRN [facility] SLEEP HYPERSOMNIA,PAF,PARASOMNIA,SUSPECTED SLEEP APNEA [id number] 05/16/2018 16:59:00 11:25:00 DIS Inpatient AMARJIT CALVIN MD [facility] ICU AFIB WITH RVR/DIABETES [id number] 09/11/2017 07:07:00 12:10:00 DIS Outpatient ARNIE HAMEED FACC, LISA [place]P CC DS [facility] CATH CHF,CAD,HTN [id number] 03/09/2015 07:15:00 23:59:59 CLS Outpatient LISA GAITAN MD, FACCP CC DS [facility] CARD CAD [id number] 02/23/2015 08:53:00 23:59:59 CLS Outpatient ARNIE HAMEED FACC, LISA [place]P CC DS [facility] RAD CAD,CAROTID ARTERY NARROWING,BILATERAL LEG PAIN [id number] 08/19/2014 09:37:00 23:59:59 CLS Outpatient LISA GAITAN MD, FACCP CC DS [facility] RAD CAD,HTN,BRA DYCARDIA [id number] 12/05/2019 11:45:00 P ALMA ROSA [facility]T [facility] [id number] 08/19/2014 09:35:00 Document Registration [id number] 08/12/2009 09:26:00 Document Registration
[2019-12-05] MEDS ORDERED: acetaZOLAMIDE ER 500 MG CAP (DIAMOX SEQUELS) PO ONE (11:00)
--- NOTE | 2019-12-05 12:22 | Anesthesia-General Post-Op ---
MAC Patient Condition Mental Status/LOC: Same as Preop Cardiovascular: Satisfactory Nausea/Vomiting: Absent Respiratory: Satisfactory Pain: Controlled Complications: Absent Post Op Complications Complications None Follow Up Care/Instructions Patient Instructions None needed. Anesthesiology Discharge Order Discharge Order Patient is doing well, no complaints, stable vital signs, no apparent adverse anesthesia problems. No complications reported per nursing. TARIK MASSEY CRNA Dec 05, 2019 12:22
== END 2019-12-05 10:50 | disposition home or self-care (01) ==
LOC: SDC 08:30
PROVIDERS: ATTEND Specialist
DX: H25.11 Age-related nuclear cataract, right eye (principal); I10 Essential (primary) hypertension; E11.36 Type 2 diabetes mellitus with diabetic cataract; Z79.899 Other long term (current) drug therapy
CPT/HCPCS: 66984; V2632

== ENCOUNTER 2019-12-13 20:34 | Emergency (ER) | payer MEDICARE, OTHER ==
[~2019-12-13] VITALS: Ht 182 cm; Wt 117.0 kg
--- NOTE | 2019-12-13 20:59 | NUR ---
Patient has +2 edema to bilateral lower extremities.
[2019-12-13] MEDS ORDERED: RX-HYDROCODONE/APAP 5/325 MG #4 TAB PK PO PRN (21:00)
--- NOTE | 2019-12-13 21:14 | Diagnostic Imaging Report ---
INDICATION: Sore on great toe. EXAMINATION: AP, oblique and lateral views of the right toes were obtained. FINDINGS: There are degenerative findings of the 1st MTP joint and interphalangeal joint. There are diffuse degenerative changes throughout the tarsometatarsal joints with chronic changes of the shafts of the 4th and 5th metatarsals which may be from old injury or neuropathic joint. There is no acute fracture or overt bony erosion. IMPRESSION: Extensive chronic findings, as described above, with no acute appearing abnormality. Dictated by: Dictated on workstation # [id number]
--- NOTE | 2019-12-13 21:22 | NUR ---
Right great toe irrigated with sterile saline and hibicleanse soap. Dressing placed with 2x2's and secured with xu. Patient states he never wears socks. Patient educated on importance of clean socks and appropriate shoes for diabetic feet.
--- NOTE | 2019-12-13 21:26 | ED Back Pain ---
General Chief Complaint: Back Problems Stated Complaint: POSSIBLE PINCHED NERVE Nursing Triage Note: Patient assisted out of car into wheelchair by RN. Patient states two days ago he began having pain to the left buttock area and today after mowing grass and swimming the pain became unbearable and he is having difficulty walking. Patient denies any recent injuries or falls. He is also complaining of the right great toe having an open wound present on it. Patient states he is a diabetic and is concerned for risk of infection. Nursing Sepsis Screen: No Definite Risk Source of Information: Patient, Old Records Exam Limitations: No Limitations History of Present Illness Date Seen by Provider: Dec 13, 2019 Time Seen by Provider: 20:37 Initial Comments This 69-year-old man presents to the emergency room with primary complaint of pain in the left buttock area which she presumes to be a pinched nerve. He denies any injury. He has had increasing pain after activities today including mowing. Pain does not extend into the leg. He also notes an open wound on the right great toe. He presumes this is from wearing his shoes without socks. 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 He reports his blood sugars generally run in the 200s. Allergies and Home Medications Allergies Coded Allergies: No Known Drug Allergies (Unverified , 11/19/19) Home Medications Aspirin 81 Mg Tablet.dr, 81 MG PO DAILY, (Reported) Atorvastatin Calcium 40 Mg Tablet, 40 MG PO DAILY, (Reported) Carvedilol 12.5 Mg Tablet, 12.5 MG PO BID, (Reported) Gabapentin 300 Mg Capsule, 300 MG PO TID PRN for PAIN-BREAKTHROUGH Prescribed by: DEVI THAKUR on 12/13/192142 Glipizide 10 Mg Tablet, 10 MG PO DAILY, (Reported) Tamsulosin HCl 0.4 Mg Cap, 0.4 MG PO DAILY, (Reported) Warfarin Sodium 5 Mg Tablet, 5 MG PO DAILY, (Reported) Patient Home Medication List Home Medication List Reviewed: Yes Review of Systems Constitutional: no symptoms reported EENTM: no symptoms reported Respiratory: no symptoms reported Cardiovascular: no symptoms reported Gastrointestinal: no symptoms reported Genitourinary: no symptoms reported Musculoskeletal: see HPI Skin: see HPI Psychiatric/Neurological: See HPI Past Yelflmg-Odqyxx-Fztuuj Hx Past Med/Social Hx: Reviewed Nursing Past Med/Soc Hx Patient Social History Alcohol Use: Denies Use Number of Drinks Today: AA Alcohol Beverage of Choice: Beer Recreational Drug Use: No Smoking Status: Never a Smoker Recent Foreign Travel: No Contact w/Someone Who Travel: No Recent Infectious Disease Expo: No Recent Hopitalizations: No Physical Abuse: No Sexual Abuse: No Mistreated: No Fear: No Immunizations Up To Date Tetanus Booster (TDap): Unknown PED Vaccines UTD: No Seasonal Allergies Seasonal Allergies: Yes Past Medical History Surgeries: Yes (stents, left 3rd toe removed ) Coronary Stent, Orthopedic Respiratory: No Currently Using CPAP: No Currently Using BIPAP: No Cardiac: Yes (stents placed) Coronary Artery Disease, Hypertension Neurological: No Reproductive Disorders: No Genitourinary: No Gastrointestinal: No Musculoskeletal: No Endocrine: Yes Diabetes, Insulin dep HEENT: No Cancer: No Psychosocial: No Integumentary: No Blood Disorders: Yes (On warfarin therapy) Adverse Reaction/Blood Tranf: No Family Medical History Cardiovascular disease 19 FATHER 19 MOTHER G8 BROTHER Diabetes mellitus 19 FATHER 19 MOTHER G8 BROTHER G8 BROTHER No Pertinent Family Hx Physical Exam Vital Signs Vital Signs - First Documented 12/13/19 20:38 Temp 36.6 Pulse 67 Resp 18 B/P (MAP) 213/113 (146) Pulse Ox 95 O2 Delivery Room Air Capillary Refill : Less Than 3 Seconds Height, Weight, BMI Height: 6'0" Weight: 250lbs. 0.0oz. 113.765074iv; 35.00 BMI Method:Stated General Appearance: No Apparent Distress, WD/WN, Obese HEENT: PERRL/EOMI, Normal ENT Inspection Neck: Normal Inspection Cardiovascular: Regular Rate, Rhythm, No Edema, No Murmur Respiratory: Lungs Clear, Normal Breath Sounds, No Accessory Muscle Use Gastrointestinal: Normal Bowel Sounds, Non Tender, Soft Back: No Vertebral Tenderness Extremity: Other (No significant tenderness in the left buttock. Minimal pain with rotation of the hip. Otherwise unremarkable musculoskeletal exam of the left lower extremity. There is either injury or cracked ulceration of the right great toe. Wound is open. There appears to be tissue necrosis surrounding the wound. No significant signs of infection.) Progress/Results/Core Measures Results/Orders My Orders Orders - DEVI RAVI MD Toe(S) (12/13/19 20:52) Rx-Hydrocodone/Apap 5-325 Mg (Rx-Vicodin (12/13/19 21:00) Tramadol Tablet (Ultram Tablet) (12/13/19 21:00) Morphine Injection (Morphine Injection (12/13/19 21:41) Gabapentin Capsule/Tablet (Neurontin Cap (12/13/19 22:00) Medications Given in ED Current Medications Medications Dose Ordered Sig/Eriberto Route Start Time Stop Time Status Last Admin Dose Admin Acetaminophen/ Hydrocodone Bitart 1 ea Q4H PRN PO 12/13/19 21:00 12/13/19 22:10 DC 12/13/19 21:29 1 EA Gabapentin 300 mg ONCE ONCE PO 12/13/19 22:00 12/13/19 22:01 DC 12/13/19 22:05 300 MG Tramadol HCl 50 mg ONCE ONCE PO 12/13/19 21:00 12/13/19 21:02 DC 12/13/19 21:06 50 MG Vital Signs/I&O 12/13/19 12/13/19 20:38 22:08 Temp 36.6 36.6 Pulse 67 62 Resp 18 16 B/P (MAP) 213/113 (146) 183/80 Pulse Ox 95 95 O2 Delivery Room Air Room Air Blood Pressure Mean: 146 Progress Progress Note : Time: 21:58 Progress Note Patient at first intended to drive home. Ultram was given initially for pain. NSAIDs were avoided due to his warfarin use. Opioids and gabapentin were avoided because he intended to drive home. However, since we could not treat his pain aggressively with him driving home, he decided to have his son-in-law pick him up. Morphine 5 mg IM and gabapentin 300 mg orally were then administered. He was sent home with a take-home bottle of hydrocodone as well. His wound was rinsed with saline and chlorhexidine and wrapped with gauze. He was strongly advised to follow-up with Dr. Smith who took care of the toe on his other foot prior to amputation. I also strongly advised him to get a good pair of diabetic shoes and control his blood sugars closely. Review of his chart notes the last year he had an A1c greater than 10 and severe hyperglycemia. X- ray was obtained of the toes which showed no bony destruction to suggest osteomyelitis. Diagnostic Imaging Diagonstic Imaging: Xray Plain Films/CT/US/NM/MRI: other (right foot) Comments X-ray of the right foot viewed by me and report reviewed. See report below: NAME: KATEY ALVAREZ MED REC#: [id number] PT STATUS: REG ER : 1950 PHYSICIAN: DEVI RAVI MD ADMIT DATE: 12/13/19/ER Signed Date of Exam:12/13/19 TOE(S) INDICATION: Sore on great toe. EXAMINATION: AP, oblique and lateral views of the right toes were obtained. FINDINGS: There are degenerative findings of the 1st MTP joint and interphalangeal joint. There are diffuse degenerative changes throughout the tarsometatarsal joints with chronic changes of the shafts of the 4th and 5th metatarsals which may be from old injury or neuropathic joint. There is no acute fracture or overt bony erosion. IMPRESSION: Extensive chronic findings, as described above, with no acute appearing abnormality. Dictated by: Dictated on workstation # [id number] Dict: 12/13/192109 Trans: 12/13/192125 [facility] [id number] Interpreted by: NAINA MORRISON MD Electronically signed by: NAINA MORRISON MD 12/13/192125 Departure Impression Primary Impression: Pain in left buttock Additional Impressions: Wound of foot Diabetes Qualified Codes: E11.628 - Type 2 diabetes mellitus with other skin complications; Z79.4 - custodial (current) use of insulin Disposition: HOME, SELF-CARE Condition: Improved Departure-Patient Inst. Decision time for Depature: 21:21 Referrals: BLU MILLAN MD (PCP) Primary Care Physician CHELSY SMITH MD, CORIN Q DPPatricio Patient Instructions: Sciatica, Foot Care for Diabetics Add. Discharge Instructions: The pain in your buttock may be related to sciatica or piriformis syndrome. Tonight you may use the hydrocodone dispensed from the ER. Tomorrow fill the gabapentin prescription and try that as a primary treatment. Follow-up with your primary care provider as soon as possible and discuss alternative treatment options such as physical therapy as well. It is imperative that you establish good diabetic foot care. I recommend referral to a funeral director and embalmer or wound care. In the meantime keep the wound on your toe dressed to keep it clean. Inspect it twice a day when you wake up in the morning and before you go to bed at night. Wear socks and appropriate shoes whenever up and walking. Invest in a good pair of diabetic shoes to protect your feet. Contact information for the wound care clinic (Dr. Smith) and a local funeral director and embalmer (Dr. Hadley) is listed below for your convenience. Work to tightly control your blood sugars as this will help your wound heal and reduce progression of neuropathy. All discharge instructions reviewed with patient and/or family. Voiced understanding. Scripts Gabapentin (Neurontin) 300 Mg Capsule 300 MG PO TID PRN for PAIN-BREAKTHROUGH, #10 CAP Prov: DEVI RAVI MD 12/13/19 DEVI RAVI MD Dec 13, 2019 21:26
[2019-12-13] MEDS ORDERED: morphine INJ 10 MG/ML 1ML (SYR OR VIAL) IM STA (21:41)
[2019-12-13] MEDS ORDERED: GABA300C PO (21:43)
[2019-12-13] MEDS ORDERED: GABAPENTIN 300 MG (NEURONTIN) CAP PO ONE (22:00)
[2019-12-13 22:08] VITALS: BP 183/80
--- NOTE | 2019-12-13 22:09 | NUR ---
Patient has a ride coming to pick him up. Patient assisted in wheelchair and placed in lobby until ride arrives.
== END 2019-12-13 22:09 | disposition home or self-care (01) ==
LOC: EDUNIT# 20:34 → ER 20:35
DX: M54.5 Low back pain (principal); E11.621 Type 2 diabetes mellitus with foot ulcer; L97.529 Non-pressure chronic ulcer of other part of left foot with unspecified severity; I25.10 Atherosclerotic heart disease of native coronary artery without angina pectoris; I10 Essential (primary) hypertension; Z95.5 Presence of coronary angioplasty implant and graft; Z79.01 Long term (current) use of anticoagulants; Z79.4 Long term (current) use of insulin; Z89.422 Acquired absence of other left toe(s); Z79.82 Long term (current) use of aspirin; Z79.899 Other long term (current) drug therapy
CPT/HCPCS: 73660

== ENCOUNTER → 2019-12-16 | Outpatient (CLI) | payer MEDICARE, OTHER ==
[~2019-12-16] MED LIST changes: +GABA300C PO
== END | disposition home or self-care (01) ==
LOC: PREOP 05:46 → EDSTATUS 15:30
PROVIDERS: ATTEND Specialist
DX: Z01.818 Encounter for other preprocedural examination (principal)

== ENCOUNTER → 2019-12-16 | Outpatient (CLI) | payer MEDICARE, OTHER | LOC: LAB 10:04 | PROVIDERS: ATTEND Surgery | DX: E11.621 Type 2 diabetes mellitus with foot ulcer (principal); E11.42 Type 2 diabetes mellitus with diabetic polyneuropathy; L97.512 Non-pressure chronic ulcer of other part of right foot with fat layer exposed; I70.235 Atherosclerosis of native arteries of right leg with ulceration of other part of foot | CPT/HCPCS: 36415; 83036 ==

== ENCOUNTER → 2019-12-16 | Outpatient (CLI) | payer MEDICARE, OTHER | LOC: WOUNDCARE 08:44 | PROVIDERS: ATTEND Surgery | DX: E11.621 Type 2 diabetes mellitus with foot ulcer (principal); L97.512 Non-pressure chronic ulcer of other part of right foot with fat layer exposed; E11.42 Type 2 diabetes mellitus with diabetic polyneuropathy; I70.235 Atherosclerosis of native arteries of right leg with ulceration of other part of foot | CPT/HCPCS: 11042; A6196; G0463 ==

== ENCOUNTER → 2019-12-18 | Outpatient (CLI) | payer MEDICARE, OTHER ==
[2019-12-18 16:19] LABS: INR 2.8 (0.8-1.4); PROTHROMBIN TIME PATIENT 29.5 SEC (12.2-14.7)
== END ==
LOC: LAB 15:45
PROVIDERS: ATTEND Surgery
DX: I70.235 Atherosclerosis of native arteries of right leg with ulceration of other part of foot (principal); E11.621 Type 2 diabetes mellitus with foot ulcer; E11.42 Type 2 diabetes mellitus with diabetic polyneuropathy; L97.512 Non-pressure chronic ulcer of other part of right foot with fat layer exposed
CPT/HCPCS: 36415; 85610

== ENCOUNTER → 2019-12-24 | Outpatient (CLI) | payer MEDICARE, OTHER | LOC: WOUNDCARE 08:08 | PROVIDERS: ATTEND Surgery | DX: E11.621 Type 2 diabetes mellitus with foot ulcer (principal); E11.42 Type 2 diabetes mellitus with diabetic polyneuropathy; L97.512 Non-pressure chronic ulcer of other part of right foot with fat layer exposed; E11.52 Type 2 diabetes mellitus with diabetic peripheral angiopathy with gangrene | CPT/HCPCS: 11042; A6196; G0463 ==

== ENCOUNTER → 2019-12-31 | Outpatient (CLI) | payer MEDICARE, OTHER | LOC: WOUNDCARE 08:15 | PROVIDERS: ATTEND Surgery | DX: E11.621 Type 2 diabetes mellitus with foot ulcer (principal); E11.42 Type 2 diabetes mellitus with diabetic polyneuropathy; E11.52 Type 2 diabetes mellitus with diabetic peripheral angiopathy with gangrene; L97.512 Non-pressure chronic ulcer of other part of right foot with fat layer exposed | CPT/HCPCS: 99213 ==

== ENCOUNTER 2022-03-19 10:45 | Emergency (ER) | payer MEDICARE, OTHER ==
[~2022-03-19] VITALS: Ht 182 cm; Wt 113.0 kg
[~2022-03-19 10:45] MED LIST changes: +ASPI-1238 PO; -ASPI-983 PO; +DOXY-311 PO; -DOXY100C42 PO; +POTA-177 PO; -POTA10TA36 PO
--- NOTE | 2022-03-19 11:40 | ED Neurological Problem ---
General Chief Complaint: Neurological Problems Stated Complaint: EYE/MOUTH DROOPING Nursing Triage Note: PT AMB TO RM 10 PT CO OF R SIDE MOUTH DROOPING AND R EYE NOT CLOSING AND WORKING RIGHT, DENIES ANY OTHER SX. STATES STARTED ON SUNDAY. DENIES WEAKNESS ANY WHERE ELSE. Source: patient, family (daughter) Exam Limitations: no limitations History of Present Illness Date Seen by Provider: Mar 19, 2022 Time Seen by Provider: 11:28 Initial Comments Patient is a 71-year-old male who presents to the emergency department with a chief complaint of drooping of the right side of his face. He woke up with symptoms 2 days ago. No reported headache or trauma. He has never had symptoms like this before. He denies any unilateral extremity numbness weakness or tingling. No vision complaints. He states that his right eye has been watering a lot and he attributes this to a previous injection by a diabetes doctor at . He denies any problems with his taste. He has been under increased stress related to his job recently. He is also had significant trouble sleeping in the last 4 days. A caregiver who lives with him gave him one of her own trazodone about 5 days ago which did not help him sleep. He denies chest pain, shortness of breath, URI symptoms. He does have a past medical history significant for diabetes, hypertension previous cardiac stents. All other review of systems reviewed and negative except as stated Timing/Duration: other (2d) Severity: moderate Associated Symptoms: other (facial droop) Allergies and Home Medications Allergies Coded Allergies: No Known Drug Allergies (Unverified , 11/19/19) Patient Home Medication List Home Medication List Reviewed: Yes Aspirin (Aspirin EC) 81 Mg Tablet.dr, 81 MG PO DAILY, (Reported) Entered as Reported by: YOLY MCLAUGHLIN on 03/27/19 1221 Atorvastatin Calcium (Atorvastatin Calcium) 40 Mg Tablet, 40 MG PO DAILY, ( Reported) Entered as Reported by: ADIS SAVAGE on 09/11/17 0738 Carvedilol (Carvedilol) 12.5 Mg Tablet, 12.5 MG PO BID, (Reported) Entered as Reported by: ADIS SAVAGE on 09/11/17 0738 Gabapentin (Neurontin) 300 Mg Capsule, 300 MG PO TID PRN for PAIN-BREAKTHROUGH Prescribed by: DEVI THAKUR on 12/13/19 214 Glipizide (Glipizide) 10 Mg Tablet, 10 MG PO DAILY, (Reported) Entered as Reported by: ERVA GUILLEN on 11/19/19 1352 Tamsulosin HCl (Flomax) 0.4 Mg Cap, 0.4 MG PO DAILY, (Reported) Entered as Reported by: ADIS SAVAGE on 09/11/17 0738 Warfarin Sodium (Warfarin Sodium) 5 Mg Tablet, 5 MG PO DAILY, (Reported) Entered as Reported by: REVA GUILLEN on 11/19/19 1352 Review of Systems Review of Systems Constitutional: see HPI Eyes: Other (right eye tearing; "eyelid doesnt work") Ears, Nose, Mouth, Throat: see HPI Respiratory: no symptoms reported Gastrointestinal: no symptoms reported Genitourinary: no symptoms reported Musculoskeletal: no symptoms reported Skin: no symptoms reported Psychiatric/Neurological: Other (facial droop right sided) All Other Systems Reviewed Negative Unless Noted: Yes Past Fjojuue-Tkqadu-Tijana Hx Patient Social History Tobacco Use?: No Substance use?: No Alcohol Use?: No Pt feels they are or have been: No Immunizations Up To Date Tetanus Booster (TDap): Unknown PED Vaccines UTD: No First/Initial COVID19 Vaccinat: 2020 Second COVID19 Vaccination Chuy: 2020 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 Seasonal Allergies Seasonal Allergies: Yes Past Medical History Surgery/Hospitalization HX: HEART STENTS, DIABETES, VISION Surgeries: Yes (stents, left 3rd toe removed ) Coronary Stent, Orthopedic Respiratory: No Currently Using CPAP: No Currently Using BIPAP: No Cardiac: Yes (stents placed) Coronary Artery Disease, Hypertension Neurological: No Reproductive Disorders: No Genitourinary: No Gastrointestinal: No Musculoskeletal: No Endocrine: Yes Diabetes, Insulin dep HEENT: No Cancer: No Psychosocial: No Integumentary: No Blood Disorders: Yes (On warfarin therapy) Adverse Reaction/Blood Tranf: No Family Medical History Cardiovascular disease 19 FATHER 19 MOTHER G8 BROTHER Diabetes mellitus 19 FATHER 19 MOTHER G8 BROTHER G8 BROTHER No Pertinent Family Hx Physical Exam Vital Signs Vital Signs - First Documented 03/19/22 10:45 Temp 36.3 Pulse 102 Resp 18 B/P (MAP) 184/104 (130) Pulse Ox 97 Capillary Refill : Less Than 3 Seconds Height, Weight, BMI Height: 6'0" Weight: 250lbs. 0.0oz. 113.595131aa; 34.00 BMI Method:Stated General Appearance: no apparent distress HEENT: PERRL/EOMI, normal ENT inspection, TMs normal, pharynx normal Neck: non-tender, full range of motion, supple, normal inspection Respiratory: lungs clear, normal breath sounds, no respiratory distress, no accessory muscle use Cardiovascular: regular rate, rhythm Gastrointestinal: non tender, soft Extremities: normal range of motion, non-tender, normal inspection, no pedal edema Neurologic/Psychiatric: alert, normal mood/affect, oriented x 3 Crainal Nerves: normal hearing, PERRL; No abnormal eye position, No abnormal gag reflex, No abnormal pupil position; other (slight slurred speech due to facial droop in the right) Coordination/Gait: normal finger to nose, normal gait Motor/Sensory: no motor deficit, no sensory deficit Skin: normal color, warm/dry, other (no skin lesions to the face) Stroke NIH Stroke Scale Assessment Level of Consciousness: 0=Alert (0), Level of Consciousness-Questions: 0=Answers both month/age (0), LOC Commands: 0=Performs both tasks (0), Visual Grimes: 0=No visual loss (0), Facial Movement (Facial Paresis): 1=Minor paralysis (1), Motor Function-Arms Right: 0=No drift (0), Motor Function-Arms Left: 0=No drift (0), Motor Function-Legs Right: 0=No drift (0), Motor Function-Legs Left: 0=No drift (0), Limb Ataxia: 0=Absent (0), Sensory: 0=Normal:no loss (0), Best Language: 0=No aphasia (0), Dysarthria: 0=Normal ( 0), Extinction & Inattention: 0=No abnormality (0), Total: Progress/Results/Core Measures Results/Orders Lab Results Laboratory Tests Test 03/19/22 10:52 Range/Units Sodium Level 139 135-145 MMOL/L Potassium Level 4.4 3.6-5.0 MMOL/L Chloride Level 104 98-107 MMOL/L Carbon Dioxide Level 25 21-32 MMOL/L Anion Gap 10 5-14 MMOL/L Blood Urea Nitrogen 17 7-18 MG/DL Creatinine 1.74 H 0.60-1.30 MG/DL Estimat Glomerular Filtration Rate 42 BUN/Creatinine Ratio 10 Glucose Level 190 H 70-105 MG/DL Calcium Level 8.7 8.5-10.1 MG/DL My Orders Orders - BHANU JARQUIN MD Ct Head Wo-R/O Stroke (03/19/22 10:59) Basic Metabolic Panel (03/19/22 11:36) Vital Signs/I&O 03/19/22 10:45 Temp 36.3 Pulse 102 Resp 18 B/P (MAP) 184/104 (130) Pulse Ox 97 Blood Pressure Mean: 130 Progress Progress Note : Time: 11:[address] head noncontrast unremarkable for any acute intracranial pathology, 2 days post symptom onset. Patient evaluation today includes physical exam, BMP and a CT head noncontrast. He is slightly hypertensive on arrival. No headache. Complete hemiparesis cranial nerve VII on the right. No extremity numbness, weakness or tingling. No cerebellar findings. Low clinical suspicion if any for acute cerebrovascular accident. He is not in atrial fibrillation. He is diabetic hypertensive. He endorses sleep disturbance for 4 days as well as 2 days of facial hemiparesis. No eye pain, blurry vision or visual acuity complaints. He has not been taping his eye shut at night. Strong index of suspicion for an acute Drew's palsy. As he is 48 to 72 hours into his symptoms he would be a candidate for prednisone and valacyclovir. I have explained to him that he needs to watch his blood sugars very carefully ove r the next week while on prednisone. I have explained that prednisone can greatly increase his blood sugars. I have instructed him to reach out to his health promotion educator in the next 24 hours to see if he needs to increase his insulin dosing. He is not on a sliding scale insulin. His daughter is at the bedside and verbalized understanding. He has taken trazodone from his in-home caregiver that is not prescribed to him. I have advised him not to do this in the future. Will advise him to take some aweq-xtq-qfkcded melatonin for sleep and in the event that that is not working he can add some Tylenol PM to that. He does drink an excessive amount of unsweetened tea. I have advised him to not drink any tea after about 2:00 in the afternoon. This will help with his sleep disturbance at night. I have advised him to follow-up with his primary care physician in the next week. He verbalized understanding. All questions are sought and answered. Diagnostic Imaging Diagonstic Imaging: CT Comments [facility]. [place], [place] NAME: KATEY ALVAREZ [facility] REC#: [id number] PT STATUS: REG ER : 1950 PHYSICIAN: BHANU JARQUIN MD ADMIT DATE: 03/19/22/ER Draft Date of Exam:03/19/22 CT HEAD WO-R/O STROKE CLINICAL INDICATIONS: Patient with right-sided facial droop. EXAM: Axial CT scan of the brain performed without IV contrast. Sagittal and coronal reformatted images are created. High-resolution axial sequence was obtained. Auto Exposure Controls were utilized during the CT exam to meet ALARA standards for radiation dose reduction. COMPARISON: None. FINDINGS: There is no evidence of acute cerebral infarct, intracranial hemorrhage, or gross mass effect. The brain parenchymal volume appears appropriate for patient's age. There is mild patchy areas of low-attenuation white matter changes involving both cerebral hemispheres, likely representing chronic small vessel ischemic disease. There is normal patino-white matter distinction. There is no significant midline shift or herniation. There is no evidence of hydrocephalus. The basal cisterns are unremarkable. The skull, extracranial soft tissue, and orbits are unremarkable. There is mild mucosal thickening involving both maxillary sinuses and ethmoid sinus. Temporal bones show no significant abnormality. IMPRESSION: There is no evidence of acute intracranial process. There is no dense vessel sign. Results of this report discussed with Dr. Bhanu Jarquin via the telephone on 03/19/2022 at 1120 hours. Dictated on workstation # [id number] Dict: 03/19/22 1115 Trans: 03/19/22 1137 [facility] [id number] Interpreted by: DAVID VIDALES MD Electronically signed by: Departure Impression Primary Impression: Drew's palsy Additional Impressions: High blood pressure Qualified Codes: I10 - Essential (primary) hypertension Insomnia Qualified Codes: G47.00 - Insomnia, unspecified Disposition: 01 HOME, SELF-CARE Condition: Stable Departure-Patient Inst. Decision time for Depature: 12:02 Referrals: BLU MILLAN MD (PCP/Family) Primary Care Physician Patient Instructions: Tips for Getting Better Sleep, Drew's Palsy Add. Discharge Instructions: Take the prednisone daily for the next 5 days, starting today. The prednisone will increase your blood sugar, watch your blood sugars carefully. Reach out to your diabetes doctor tomorrow for further instruction and management of your blood sugar while on prednisone. Valacyclovir 1000 mg 3 times a day for the next 7 days. This is to treat the Drew's palsy and help to improve symptoms and shorten the course of the palsy. Tape your right eye shut at night. Use kvhq-ims-rlczdci Lacri-Lube ointment to the right eye to help keep it moist. Qnxj-oqx-ekydbqm melatonin 5 mg tablets. You can take 1-2 at night to help with sleep. If after 2 or 3 days of trying this medication you are not having improvement you can add Tylenol PM. You can also take 1 to 2 tablets of this medication at night as needed for sleep. Decrease your unsweet tea intake. Stop drinking it after 2 PM. Caffeine is a stimulant and can cause problems sleeping. Please follow-up with your primary care physician in 1 week to 10 days. Return to the emergency department for any new, concerning or emergent complaints. Scripts Valacyclovir HCl (Valacyclovir) 1,000 Mg Tablet 1000 MG PO Q8H, #21 TAB Prov: BHANU JARQUIN MD 03/19/22 Prednisone (Prednisone) 50 Mg Tab 50 MG PO DAILY, #5 TAB Prov: BHANU JARQUIN MD 03/19/22 BHANU JARQUIN MD Mar 19, 2022 11:40
[2022-03-19 11:47] LABS: POTASSIUM 4.4 MMOL/L (3.6-5.0)
[2022-03-19 11:48] LABS: CALCIUM 8.7 MG/DL (8.5-10.1)
[2022-03-19 11:53] LABS: CREATININE SERUM 1.74 MG/DL (0.60-1.30)
[2022-03-19] MEDS ORDERED: PRD50T PO (12:06)
[2022-03-19] MEDS ORDERED: VALA10007 PO (12:06)
[2022-03-19 12:20] VITALS: BP 177/119
== END 2022-03-19 12:19 | disposition home or self-care (01) ==
LOC: EDUNIT# 10:45 → ER 10:47
DX: G51.0 Bell's palsy (principal); E11.9 Type 2 diabetes mellitus without complications; I10 Essential (primary) hypertension; G47.00 Insomnia, unspecified; Z79.4 Long term (current) use of insulin; Z79.01 Long term (current) use of anticoagulants
CPT/HCPCS: 36415; 70450; 80048

== ENCOUNTER 2022-11-05 09:22 | Inpatient (IN) | payer MEDICARE, OTHER ==
[~2022-11-05] VITALS: Ht 182 cm; Wt 114.1 kg
[~2022-11-05 09:22] MED LIST changes: +CLOP-31 PO; -CLOP75TA69 PO; -DOXY-311 PO; +DOXY-444 PO; +PRD50T PO; +VALA10007 PO
[2022-11-05 09:39] LABS: BASOPHILS # (AUTO) 0.1 10^3/uL (0.0-0.1); BASOPHILS % (AUTO) 1 % (0-10); HEMOGLOBIN 17.1 g/dL (13.3-17.7); LYMPHOCYTES % (AUTO) 16 % (12-44); MEAN CORPUSCULAR HEMOGLOBIN 29 pg (25-34); MEAN CORPUSCULAR VOLUME 89 fL (80-99); MONOCYTES % (AUTO) 8 % (0-12); NEUTROPHILS % (AUTO) 73 % (42-75)
[2022-11-05 09:40] LABS: EOSINOPHILS # (AUTO) 0.2 10^3/uL (0.0-0.3); EOSINOPHILS % (AUTO) 2 % (0-10); HEMATOCRIT 52 % (40-54); LYMPHOCYTES # (AUTO) 1.5 10^3/uL (1.0-4.0); MEAN CORPUSCULAR HGB CONC 33 g/dL (32-36); MONOCYTES # (AUTO) 0.8 10^3/uL (0.0-1.0); PLATELET COUNT 118 10^3/uL (130-400); WHITE BLOOD COUNT 9.6 10^3/uL (4.3-11.0)
[2022-11-05 09:47] LABS: ALBUMIN 3.5 GM/DL (3.2-4.5); POTASSIUM 4.4 MMOL/L (3.6-5.0)
[2022-11-05 09:48] LABS: CALCIUM 8.8 MG/DL (8.5-10.1)
[2022-11-05 09:49] LABS: INR 2.5 (0.8-1.4); TOTAL PROTEIN 6.3 GM/DL (6.4-8.2)
[2022-11-05 09:51] LABS: BILIRUBIN,TOTAL 1.1 MG/DL (0.1-1.0)
--- NOTE | 2022-11-05 09:51 | ED General ---
General Chief Complaint: Neuro-Stroke Like Symptoms Stated Complaint: POSS STROKE Nursing Triage Note: PT ARRIVED PER EMS, PT WAS AT KITCHEN TABLE W FAMILY. PT BECAME NONVERBAL AND UNABLE TO MOVE ANY EXT. PT HAS R SIDED FACIAL DROOPING. PT AWOKE FOR EMS STARTED TALKING UPON ARRIVAL. PT IS ALERT AND ORIENTED X 3. HAS R SIDED FACIAL DROOPING. PT HAS IV IN L AC#20. PT IS ABLE TO MOVE ALL EXT AND FOLLOW DIRECTIONS. PT BS UPON ARRIVAL 209. LAST KNOWN WELL TIME 824. PT UNABLE TO RECALL EPISODE Source of Information: Patient Exam Limitations: No Limitations History of Present Illness Date Seen by Provider: Nov 05, 2022 Time Seen by Provider: 09:38 Initial Comments 72-year-old male who is diabetic presents the emergency department today for possible stroke. He was reportedly sitting at the kitchen table and became n onverbal and unable to move any of his extremities. Symptoms onset was at about 825 this morning and abrupt. EMS arrived at about 830 3-8 35 and he was still unresponsive, diaphoretic. This then quickly resolved. 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 Denies any fevers chills. No headache or changes in vision. No upper or lower extremity weakness numbness or tingling currently. Blood sugar in route was 200 All other systems reviewed and negative except documented per HPI. Voice recognition software was used to help create this chart Allergies and Home Medications Allergies Coded Allergies: No Known Drug Allergies (Unverified , 11/19/19) Patient Home Medication List Home Medication List Reviewed: Yes Aspirin (Aspirin EC) 81 Mg Tablet.dr, 81 MG PO DAILY, (Reported) Entered as Reported by: YOLY MCLAUGHLIN on 03/27/19 1221 Atorvastatin Calcium (Atorvastatin Calcium) 40 Mg Tablet, 40 MG PO DAILY, (Reported) Entered as Reported by: ADIS SAVAGE on 09/11/17 0738 Carvedilol (Carvedilol) 12.5 Mg Tablet, 12.5 MG PO BID, (Reported) Entered as Reported by: ADIS SAVAGE on 09/11/17 0738 Gabapentin (Neurontin) 300 Mg Capsule, 300 MG PO TID PRN for PAIN-BREAKTHROUGH Prescribed by: DEVI THAKUR on 12/13/192142 Glipizide (Glipizide) 10 Mg Tablet, 10 MG PO DAILY, (Reported) Entered as Reported by: REVA GUILLEN on 11/19/19 1352 Prednisone (Prednisone) 50 Mg Tab, 50 MG PO DAILY Prescribed by: BHANU JARQUIN on 03/19/22 1206 Tamsulosin HCl (Flomax) 0.4 Mg Cap, 0.4 MG PO DAILY, (Reported) Entered as Reported by: ADIS SAVAGE on 09/11/17 0738 Valacyclovir HCl (Valacyclovir) 1,000 Mg Tablet, 1,000 MG PO Q8H Prescribed by: BHANU JARQUIN on 03/19/22 1206 Warfarin Sodium (Warfarin Sodium) 5 Mg Tablet, 5 MG PO DAILY, (Reported) Entered as Reported by: REVA GUILLEN on 11/19/19 1352 Review of Systems Review of Systems Constitutional: see HPI Past Igiafmr-Asweok-Xpjolp Hx Patient Social History Tobacco Use?: No Substance use?: No Alcohol Use?: No Pt feels they are or have been: No Immunizations Up To Date Tetanus Booster (TDap): Unknown PED Vaccines UTD: No First/Initial COVID19 Vaccinat: 2020 Second COVID19 Vaccination Chuy: 2020 Third COVID19 Vaccination Date: 2020 Seasonal Allergies Seasonal Allergies: Yes Past Medical History Surgery/Hospitalization HX: HEART STENTS, DIABETES, VISION Surgeries: Yes (stents, left 3rd toe removed ) Coronary Stent, Orthopedic Respiratory: No Currently Using CPAP: No Currently Using BIPAP: No Cardiac: Yes (stents placed) Coronary Artery Disease, Hypertension Neurological: No Reproductive Disorders: No Genitourinary: No Gastrointestinal: No Musculoskeletal: No Endocrine: Yes Diabetes, Insulin dep HEENT: No Cancer: No Psychosocial: No Integumentary: No Blood Disorders: Yes (On warfarin therapy) Adverse Reaction/Blood Tranf: No Family Medical History Cardiovascular disease 19 FATHER 19 MOTHER G8 BROTHER Diabetes mellitus 19 FATHER 19 MOTHER G8 BROTHER G8 BROTHER No Pertinent Family Hx Physical Exam Vital Signs Vital Signs - First Documented 11/05/22 11/05/22 09:22 10:05 Pulse 92 Resp 18 B/P (MAP) 156/100 (118) Pulse Ox 92 O2 Delivery Room Air FiO2 96 Capillary Refill : Less Than 3 Seconds Height, Weight, BMI Height: 6'0" Weight: 250lbs. 0.0oz. 113.544337xd; 34.00 BMI Method:Stated General Appearance: No Apparent Distress, WD/WN HEENT: TMs Normal, Normal ENT Inspection, Pharynx Normal, Other (Right-sided Drew's palsy) Neck: Full Range of Motion, Normal Inspection, Non Tender, Supple Respiratory: Chest Non Tender, Lungs Clear, Normal Breath Sounds, No Accessory Muscle Use, No Respiratory Distress Cardiovascular: Regular Rate, Rhythm, No Murmur, Normal Peripheral Pulses Gastrointestinal: Normal Bowel Sounds, No Organomegaly, Non Tender, Soft Extremity: Normal Capillary Refill, Normal Inspection, Normal Range of Motion, Non Tender, No Calf Tenderness Neurologic/Psychiatric: Alert, Oriented x3, Other (Right-sided facial paralysis including his forehead and eyelid. Normal rate, sensation bilateral upper and lower extremities.) Skin: Normal Color, Warm/Dry Progress/Results/Core Measures Suspected Sepsis SIRS Temperature: Pulse: 92 Respiratory Rate: 18 Laboratory Tests 11/05/22 09:30: White Blood Count 9.6 Blood Pressure 156 /100 Mean: 118 Laboratory Tests 11/05/22 09:30: Creatinine 1.91H, INR Comment 2.5H, Platelet Count 118L, Total Bilirubin 1.1H Results/Orders Lab Results Laboratory Tests Test 11/05/22 09:30 Range/Units White Blood Count 9.6 4.3-11.0 10^3/uL Red Blood Count 5.85 H 4.30-5.52 10^6/uL Hemoglobin 17.1 13.3-17.7 g/dL Hematocrit 52 40-54 % Mean Corpuscular Volume 89 80-99 fL Mean Corpuscular Hemoglobin 29 25-34 pg Mean Corpuscular Hemoglobin Concent 33 32-36 g/dL Red Cell Distribution Width 13.8 10.0-14.5 % Platelet Count 118 L 130-400 10^3/uL Mean Platelet Volume 13.0 H 9.0-12.2 fL Immature Granulocyte % (Auto) 0 % Neutrophils (%) (Auto) 73 42-75 % Lymphocytes (%) (Auto) 16 12-44 % Monocytes (%) (Auto) 8 0-12 % Eosinophils (%) (Auto) 2 0-10 % Basophils (%) (Auto) 1 0-10 % Neutrophils # (Auto) 7.0 1.8-7.8 10^3/uL Lymphocytes # (Auto) 1.5 1.0-4.0 10^3/uL Monocytes # (Auto) 0.8 0.0-1.0 10^3/uL Eosinophils # (Auto) 0.2 0.0-0.3 10^3/uL Basophils # (Auto) 0.1 0.0-0.1 10^3/uL Immature Granulocyte # (Auto) 0.0 0.0-0.1 10^3/uL Percent Immature Platelet Fraction 14.5 H 0.0-7.6 % Prothrombin Time 27.0 H 12.2-14.7 SEC INR Comment 2.5 H 0.8-1.4 Activated Partial Thromboplast Time 59 H 24-35 SEC D-Dimer 0.35 0.00-0.49 UG/ML Sodium Level 139 135-145 MMOL/L Potassium Level 4.4 3.6-5.0 MMOL/L Chloride Level 102 98-107 MMOL/L Carbon Dioxide Level 27 21-32 MMOL/L Anion Gap 10 5-14 MMOL/L Blood Urea Nitrogen 20 H 7-18 MG/DL Creatinine 1.91 H 0.60-1.30 MG/DL Estimat Glomerular Filtration Rate 37 BUN/Creatinine Ratio 10 Glucose Level 231 H 70-105 MG/DL Calcium Level 8.8 8.5-10.1 MG/DL Corrected Calcium 9.2 8.5-10.1 MG/DL Total Bilirubin 1.1 H 0.1-1.0 MG/DL Aspartate Amino Transf (AST/SGOT) 14 5-34 U/L Alanine Aminotransferase (ALT/SGPT) 11 0-55 U/L Alkaline Phosphatase 86 40-136 U/L Troponin I 0.029 H <0.028 NG/ML Total Protein 6.3 L 6.4-8.2 GM/DL Albumin 3.5 3.2-4.5 GM/DL Triglycerides Level 156 H <150 MG/DL Cholesterol Level 128 < 200 MG/DL LDL Cholesterol Direct 70 1-129 MG/DL VLDL Cholesterol 31 5-40 MG/DL HDL Cholesterol 31 L 40-60 MG/DL My Orders Orders - DONNA DREW DO Cbc With Automated Diff (11/05/22 09:28) Protime With Inr (11/05/22 09:28) Partial Thromboplastin Time (11/05/22:28) Comprehensive Metabolic Panel (11/05/22:) Fibrin Degradation Products (11/05/22:) Troponin I Julisa (11/05/22 09:28) Ua Culture If Indicated (11/05/22:28) Chest 1 View, Ap/Pa Only (11/05/22:28) Ekg Tracing (11/05/22:) Nothing By Mouth (11/05/22 Lunch) Accucheck Stat ONCE (11/05/22:28) Ed Iv/Invasive Line Start (11/05/22:28) Vital Signs Stroke Patient Q15M (11/05/22 09:28) Ct Head Wo-R/O Stroke (11/05/22 09:28) O2 (11/05/22 09:28) Ed Admission (Communication) (11/05/22 10:29) Vital Signs/I&O 11/05/22 11/05/22 09:22 10:05 Pulse 92 Resp 18 B/P (MAP) 156/100 (118) Pulse Ox 92 O2 Delivery Room Air Room Air FiO2 96 Capillary Refill : Less Than 3 Seconds Blood Pressure Mean: 118 Point of Care Testing Finger Stick Blood Glucose: 202 ECG Comment Atrial fibrillation rate of 86 bpm. Intervals. Left axis deviation. T wave inversions in leads I and aVL. No other ST or T wave abnormalities. No ectopy. No STEMI. Departure Communication (Admissions) Initial differential diagnosis includes TIA, electrolyte abnormality, hypoglycemia, dysrhythmia, seizure. The patient was still having symptoms when EMS arrived and he was in a sinus rhythm with a rate in the 80s which makes dysrhythmia unlikely. His electrolytes are unremarkable, no evidence for hypoglycemia. This could be a TIA or he could have had a seizure. CT scan of his brain is negative. His labs are otherwise unremarkable only elevated troponin. No chest pain or shortness of breath. EKG is nonischemic. I spoke with Dr. Rosas who accepts the patient admission. Request consult to cardiology given his slightly elevated troponin. I spoke with Dr. Mancilla who has no further recommendations. 1020: SPoke to Dr Rangel, accepts admission 1030: Spoke to Dr Khalild, no further recs. Impression Primary Impression: Transient alteration of awareness Additional Impression: Elevated troponin Disposition: ADMITTED INPATIENT Condition: Stable DONNA DREW DO Nov 05, 2022 09:51
[2022-11-05 09:52] LABS: FIBRIN DEGRADATION PRODUCTS 0.35 UG/ML (0.00-0.49)
[2022-11-05 09:53] LABS: CREATININE SERUM 1.91 MG/DL (0.60-1.30)
--- NOTE | 2022-11-05 09:57 | Diagnostic Imaging Report ---
PROCEDURE: CT head without r/o stroke. TECHNIQUE: Multiple contiguous axial images were obtained through the brain without the use of intravenous contrast. Auto Exposure Controls were utilized during the CT exam to meet ALARA standards for radiation dose reduction. INDICATION: Aphasia with right facial droop. COMPARISON: 03/19/2022. FINDINGS: The ventricles and sulci are stable. A small focal lucency is seen within the tello to the left of midline with similar finding also noted in the deep right negrete radiata. There is no new intracranial abnormality identified. There is no evidence of hemorrhage. There is no abnormal mass effect or shift of the midline structures. There is mild mural thickening within the floor of the maxillary sinuses without air-fluid level identified. IMPRESSION: Stable chronic findings in the brain without CT evidence of acute intracranial abnormality. Dictated by: Dictated on workstation # [id number]
--- NOTE | 2022-11-05 10:00 | Diagnostic Imaging Report ---
INDICATION: Right facial droop and loss of speech. TECHNIQUE/COMPARISON: A portable AP view of the chest was obtained with comparison made to the study of 03/26/2019. FINDINGS: There is borderline cardiomegaly. The pulmonary vascularity is unremarkable. No pneumothorax or consolidation is identified and there is no evidence of pulmonary edema. IMPRESSION: Borderline cardiomegaly without other evidence of acute abnormality. Dictated by: Dictated on workstation # [id number]
--- NOTE | 2022-11-05 11:09 | History & Physical-Hospitalist ---
History of Present Illness HPI/Chief Complaint Chief complaint: Unresponsive episode at breakfast table witnessed HPI: This is a 72-year-old male who has a past medical history of atrial fibrillation maintained on warfarin with INR 2.[address] Huston on a r egular basis who was at the breakfast table with his family at home and suffered an unresponsive episode of which he was staring out in space. He was unable to be aroused. EMS was called and within 10 minutes they arrived and he was staring into space at that time per EMS report. His blood sugar was normal as was his blood pressure and there was no evidence of any catastrophic stroke signs so he was transported to the ER where work-up was essentially normal. Slight elevated troponin prompted cardiology consultation but he denies any chest pain or shortness of breath. His 2 daughters are at the bedside. He denies any weakness or vision changes or inability to ambulate. Due to the con cerning signs we will monitor him on telemetry and obtain MRI tomorrow. Source: patient, family Exam Limitations: no limitations Date Seen 11/05/22 Time Seen by a Provider: 12:00 Attending Physician PCP Admitting Physician: Attending Physician: Referring Physician Date of Admission Home Medications & Allergies Home Medications Reviewed patient Home Medication Reconciliation performed by pharmacy medication reconciliations communications engineering technician and/or nursing. Patients Allergies have been reviewed. Allergies Allergies Coded Allergies No Known Drug Allergies (Unverified11/19/19) Past Demmlha-Ucacrd-Xmdcta Hx Patient Social History Marrital Status: single Employed/Student: retired Tobacco Use?: No Smoking Status: Never a Smoker Substance use?: No Alcohol Use?: No Pt feels they are or have been: No Immunizations Up To Date First/Initial COVID19 Vaccinat: 2020 Second COVID19 Vaccination Chuy: 2020 Tetanus Booster (TDap): Unknown Hepatitis A: No Hepatitis B: No PED Vaccines UTD: No Seasonal Allergies Seasonal Allergies: Yes Current Status Advance Directives: No Communicates: Verbally Primary Language: [place] Citizen Preferred Spoken Language: [place] Citizen Is interpretation needed?: No Implanted or Applied Medical D: Stents Past Medical History Surgeries: Coronary Stent, Orthopedic Currently Using CPAP: No Currently Using BIPAP: No Atrial Fibrillation, Coronary Artery Disease, Hypertension Diabetes, Insulin dep Blood Disorders: Yes (On warfarin therapy) Adverse Reaction/Blood Tranf: No Family Medical History Cardiovascular disease 19 FATHER 19 MOTHER G8 BROTHER Diabetes mellitus 19 FATHER 19 MOTHER G8 BROTHER G8 BROTHER No Pertinent Family Hx Review of Systems Constitutional: see HPI, malaise, weakness EENTM: no symptoms reported Respiratory: no symptoms reported Cardiovascular: no symptoms reported Gastrointestinal: no symptoms reported Genitourinary: no symptoms reported Musculoskeletal: no symptoms reported Skin: no symptoms reported Psychiatric/Neurological: Weakness All Other Systems Reviewed Negative Unless Noted: Yes Physical Exam Physical Exam Vital Signs Vital Signs - First Documented 11/05/22 11/05/22 09:22 10:05 Pulse 92 Resp 18 B/P (MAP) 156/100 (118) Pulse Ox 92 O2 Delivery Room Air FiO2 96 Capillary Refill : Less Than 3 Seconds Height, Weight, BMI Height: 6'0" Weight: 250lbs. 0.0oz. 113.449078is; 34.00 BMI Method:Stated General Appearance: No Apparent Distress Eyes: Right Eye Normal Inspection, Right Eye PERRL HEENT: PERRL/EOMI, TMs Normal, Normal ENT Inspection, Pharynx Normal, Moist Mucous Membranes Neck: Full Range of Motion, Normal Inspection, Non Tender Respiratory: Chest Non Tender, Lungs Clear, Normal Breath Sounds, No Accessory Muscle Use, No Respiratory Distress Cardiovascular: No Edema, No Gallop, No JVD, No Murmur, Normal Peripheral Pulses, Irregularly Irregular, Tachycardia Gastrointestinal: Normal Bowel Sounds, No Organomegaly, No Pulsatile Mass, Non Tender, Soft Back: Normal Inspection, No CVA Tenderness, No Vertebral Tenderness Extremity: Normal Capillary Refill, Normal Inspection, Normal Range of Motion, Non Tender, No Calf Tenderness, No Pedal Edema Neurologic/Psychiatric: Alert, Oriented x3, No Motor/Sensory Deficits, Normal Mood/Affect Skin: Normal Color, Warm/Dry Lymphatic: No Adenopathy Results Results/Procedures Labs Laboratory Tests 11/05/22 09:30 Patient resulted labs reviewed. Assessment/Plan Admission Diagnosis Assessment: Unresponsive episode witnessed at breakfast table without any signs of CVA presumed TIA Elevated troponin of uncertain significance History of atrial fibrillation Therapeutic level of warfarin CAD previous stents Diabetes insulin-dependent Chronic kidney disease stage III BRENDON on CPAP Plan: Supportive care Gentle IV fluid Cardiology consult appreciated Maintain on Coumadin Add aspirin Check lipid profile Carotid ultrasound tomorrow MRI of the brain tomorrow Admission Status: Observation HELENE TEE DO Nov 05, 2022 11:09
[2022-11-05] MEDS ORDERED: diphenhydrAMINE 50 MG/ML INJ (BENADRYL) IVP PRN (12:00)
[2022-11-05] MEDS ORDERED: LACTULOSE SYRUP 10GM/15ML (ENULOSE) 30ML UDC PO PRN (12:00)
[2022-11-05] MEDS ORDERED: NITROGLYCERIN 0.4 MG SL TABS BTL 25'S SL PRN (12:00)
[2022-11-05] MEDS ORDERED: CALCIUM CARBONATE 500 MG (TUMS) TAB.CHEW PO PRN (12:00)
[2022-11-05] MEDS ORDERED: diphenhydrAMINE 25 MG TAB (BENADRYL) PO PRN (12:00)
[2022-11-05] MEDS ORDERED: ANTACID SUSP 30 ML UDC (MYLANTA) PO PRN (12:00)
[2022-11-05] MEDS ORDERED: MILK OF MAGNESIA 400 MG/5 ML 30 ML UDC PO PRN (12:00)
[2022-11-05] MEDS ORDERED: PATIENT MAY USE OWN MEDS, ALL PO SCH (12:00)
[2022-11-05] MEDS ORDERED: HYDROmorphone 2 MG/ML VIAL (DILAUDID) IV PRN (12:00)
[2022-11-05] MEDS ORDERED: ONDANSETRON 4 MG/2 ML (SDV) Z0FRAN IV PRN (12:00)
[2022-11-05] MEDS ORDERED: ACETAMINOPHEN 325 MG TABLET PO PRN (12:00)
[2022-11-05] MEDS ORDERED: ONDANSETRON 4 MG (ZOFRAN) ORAL DISSOLVE TAB PO PRN (12:00)
[2022-11-05] MEDS ORDERED: polyethylene glycoL POWDER 17 GM (MIRALAX) PACK PO PRN (12:00)
[2022-11-05] MEDS ORDERED: MELATONIN 3 MG TABLET PO PRN (12:00)
[2022-11-05] MEDS ORDERED: BISACODYL 10 MG SUPP (DULCOLAX) PR PRN (12:00)
[2022-11-05 12:11] LABS: TRIGLYCERIDES 156 MG/DL (<150); VLDL CHOLESTEROL 31 MG/DL (5-40)
[2022-11-05] MEDS ORDERED: meTOprolol TARTRATE 25 MG (LOPRESSOR) TABLET PO ONE (12:15)
[2022-11-05 12:16] LABS: CHOLESTEROL 128 MG/DL (< 200); HDL CHOLESTEROL 31 MG/DL (40-60)
--- NOTE | 2022-11-05 12:17 | Consultation-Cardiology ---
HPI-Cardiology Cardiology Consultation: Date of Consultation 11/05/22 Date of Admission Attending Physician Jason Garcia DO Admitting Physician Admitting Physician: Mary Rangel DO Attending Physician: Mary Rangel DO Consulting Physician Patricio DORSEY MD HPI: Time Seen by a Provider: 12:17 Chief Complaint: Altered mental status This is a 72-year-old gentleman who has seen both Dr. Cisneros and Dr. Medina in the past. He has history of sick sinus node, paroxysmal atrial flutter in 2019, hypertension, hyperlipidemia, diabetes, chronic kidney disease, chronic oral anticoagulation, coronary artery disease, s/p PCI to left circumflex artery in the past. He presents with complaints of being nonverbal on the breakfast table and unable to move any of his extremities. According to the he was just staring and not responding. EMS was called and patient's heart rate was 82 beats a minute. Recent Drew's palsy. When I saw the patient he was in normal mental state. He did complain of mild headache but denies any other cardiac complaints. He denied chest pain, shortness of breath, palpitations. Review of Systems-Cardiology Review of Systems Constitutional: no symptoms reported Eyes: no symptoms reported Ears/Nose/Throat: no symptoms reported Respiratory: no symptoms reported; No shortness of breath Cardiovascular: No chest pain, No irregular heart rate Gastrointestinal: no symptoms reported Genitourinary: no symptoms reported Musculoskeletal: no symptoms reported Skin: no symptoms reported Psychiatric/Neurological: other (Altered mental status, possible stroke, possible syncope) Hematologic: no symptoms reported QMF-Axnjgu-Cxkabv Hx Patient Social History Alcohol Use?: No Pt feels they are or have been: No Immunizations Up To Date Tetanus Booster (TDap): Unknown Past Medical History PMH As described under Assessment. Family Medical History Family History: Cardiovascular disease 19 FATHER 19 MOTHER G8 BROTHER Diabetes mellitus 19 FATHER 19 MOTHER G8 BROTHER G8 BROTHER Allergies and Home Medications Allergies Coded Allergies: No Known Drug Allergies (Unverified , 11/19/19) Patient Home Medication List Home Medication List Reviewed: Yes Aspirin (Aspirin EC) 81 Mg Tablet.dr, 81 MG PO DAILY, (Reported) Entered as Reported by: YOLY MCLAUGHLIN on 03/27/19 1221 Atorvastatin Calcium (Atorvastatin Calcium) 40 Mg Tablet, 40 MG PO DAILY, (Reported) Entered as Reported by: ADIS SAVAGE on 09/11/17 0738 Carvedilol (Carvedilol) 12.5 Mg Tablet, 12.5 MG PO BID, (Reported) Entered as Reported by: ADIS SAVAGE on 09/11/17 0738 Gabapentin (Neurontin) 300 Mg Capsule, 300 MG PO TID PRN for PAIN-BREAKTHROUGH Prescribed by: DEVI THAKUR on 12/13/19 2143 Glipizide (Glipizide) 10 Mg Tablet, 10 MG PO DAILY, (Reported) Entered as Reported by: REVA GUILLEN on 11/19/19 135 Prednisone (Prednisone) 50 Mg Tab, 50 MG PO DAILY Prescribed by: BHANU JARQUIN on 03/19/22 1206 Tamsulosin HCl (Flomax) 0.4 Mg Cap, 0.4 MG PO DAILY, (Reported) Entered as Reported by: ADIS SAVAGE on 09/11/17 0738 Valacyclovir HCl (Valacyclovir) 1,000 Mg Tablet, 1,000 MG PO Q8H Prescribed by: BHANU JARQUIN on 03/19/22 1206 Warfarin Sodium (Warfarin Sodium) 5 Mg Tablet, 5 MG PO DAILY, (Reported) Entered as Reported by: REVA GUILLEN on 11/19/19 1352 Exam Vital Signs Vital Signs Date Time Temp Pulse Resp B/P (MAP) Pulse Ox O2 Delivery O2 Flow Rate FiO2 11/05/22 12:13 88 162/123 (136) 98 Room Air 11/05/22 10:05 96 11/05/22 09:22 18 Physical Exam Constitutional: Patient is not in any distress. CVS: Irregular rhythm. S1, S2, no murmur. Chest: Good air entry bilaterally. CUT OFF [place]: Alert, oriented, nonfocal exam. Labs Laboratory Tests Test 11/05/22 09:30 Range/Units White Blood Count 9.6 4.3-11.0 10^3/uL Red Blood Count 5.85 H 4.30-5.52 10^6/uL Hemoglobin 17.1 13.3-17.7 g/dL Hematocrit 52 40-54 % Mean Corpuscular Volume 89 80-99 fL Mean Corpuscular Hemoglobin 29 25-34 pg Mean Corpuscular Hemoglobin Concent 33 32-36 g/dL Red Cell Distribution Width 13.8 10.0-14.5 % Platelet Count 118 L 130-400 10^3/uL Mean Platelet Volume 13.0 H 9.0-12.2 fL Immature Granulocyte % (Auto) 0 % Neutrophils (%) (Auto) 73 42-75 % Lymphocytes (%) (Auto) 16 12-44 % Monocytes (%) (Auto) 8 0-12 % Eosinophils (%) (Auto) 2 0-10 % Basophils (%) (Auto) 1 0-10 % Neutrophils # (Auto) 7.0 1.8-7.8 10^3/uL Lymphocytes # (Auto) 1.5 1.0-4.0 10^3/uL Monocytes # (Auto) 0.8 0.0-1.0 10^3/uL Eosinophils # (Auto) 0.2 0.0-0.3 10^3/uL Basophils # (Auto) 0.1 0.0-0.1 10^3/uL Immature Granulocyte # (Auto) 0.0 0.0-0.1 10^3/uL Percent Immature Platelet Fraction 14.5 H 0.0-7.6 % Prothrombin Time 27.0 H 12.2-14.7 SEC INR Comment 2.5 H 0.8-1.4 Activated Partial Thromboplast Time 59 H 24-35 SEC D-Dimer 0.35 0.00-0.49 UG/ML Sodium Level 139 135-145 MMOL/L Potassium Level 4.4 3.6-5.0 MMOL/L Chloride Level 102 98-107 MMOL/L Carbon Dioxide Level 27 21-32 MMOL/L Anion Gap 10 5-14 MMOL/L Blood Urea Nitrogen 20 H 7-18 MG/DL Creatinine 1.91 H 0.60-1.30 MG/DL Estimat Glomerular Filtration Rate 37 BUN/Creatinine Ratio 10 Glucose Level 231 H 70-105 MG/DL Calcium Level 8.8 8.5-10.1 MG/DL Corrected Calcium 9.2 8.5-10.1 MG/DL Total Bilirubin 1.1 H 0.1-1.0 MG/DL Aspartate Amino Transf (AST/SGOT) 14 5-34 U/L Alanine Aminotransferase (ALT/SGPT) 11 0-55 U/L Alkaline Phosphatase 86 40-136 U/L Troponin I 0.029 H <0.028 NG/ML Total Protein 6.3 L 6.4-8.2 GM/DL Albumin 3.5 3.2-4.5 GM/DL Triglycerides Level 156 H <150 MG/DL Cholesterol Level 128 < 200 MG/DL LDL Cholesterol Direct 70 1-129 MG/DL VLDL Cholesterol 31 5-40 MG/DL HDL Cholesterol 31 L 40-60 MG/DL ECG Impression ECG Initial ECG Rhythm: A Fib/Flutter A/P-Cardiology Assessment/Admission Diagnosis Altered mental status, possible seizure, possible syncope Coronary artery disease, previous PCI. Borderline troponin Sick sinus syndrome, history of paroxysmal atrial flutter, persistent atrial fibrillation Chronic oral anticoagulation with warfarin. INR 2.5. Hypertension, Hyperlipidemia, Diabetes, Chronic kidney disease Drew's palsy Plan Altered mental status, possible seizure, possible syncope. CT head negative for bleed. Neurology consultation is recommended. Coronary artery disease, previous PCI. Patient is on uninterrupted aspirin. Troponin is borderline 0.029. Normal below 0.028. We will check serial troponin. Borderline troponin, as above. Check echocardiogram. Sick sinus syndrome, history of paroxysmal atrial flutter -atrial fibrillation on EKG. Well-controlled. Already on oral anticoagulation with warfarin. INR is therapeutic. Chronic oral anticoagulation with warfarin. INR 2.5. Hypertension, patient is on beta-janelle as an outpatient. Okay to restart. Patient is intolerant to VIV inhibitors. Hyperlipidemia, statins as an outpatient Diabetes, hyperglycemia. Defer to the primary team. Chronic kidney disease, likely diabetic nephropathy. Drew's palsy Patricio DORSEY MD Nov 05, 2022 12:17
--- NOTE | 2022-11-05 12:29 | Tele-ICU Consult ---
Progress Note 72 y/o male with a hx of DM and [place] palsy on right face for past 2 weeks. Brount by EMS to ED. Family reports while at kitchen table he became unresponsive and non verbal Brought to ED for possible CVA IN ED no upper or LE weakness Right facial droop CThead negative for bleed or ischemic stroke EKG: a fib, ventricular rate 90 PLAN: Cardiology consulted Coumadin ASA Focused Exam Height, Weight, BMI Height: 6'0" Weight: 250lbs. 0.0oz. 113.002768li; 34.11 BMI Method:Stated Labs Laboratory Tests 11/05/22 09:30 Results Results/Procedures Labs Laboratory Tests 11/05/22 09:30 Patient resulted labs reviewed. Results Labs Labs Laboratory Tests 11/05/22 09:30: White Blood Count 9.6, Red Blood Count 5.85H, Hemoglobin 17.1, Hematocrit 52, Mean Corpuscular Volume 89, Mean Corpuscular Hemoglobin 29, Mean Corpuscular Hemoglobin Concent 33, Red Cell Distribution Width 13.8, Platelet Count 118L, Mean Platelet Volume 13.0H, Immature Granulocyte % (Auto) 0, Neutrophils (%) (Auto) 73, Lymphocytes (%) (Auto) 16, Monocytes (%) (Auto) 8, Eosinophils (%) (Auto) 2, Basophils (%) (Auto) 1, Neutrophils # (Auto) 7.0, Lymphocytes # (Auto) 1.5, Monocytes # (Auto) 0.8, Eosinophils # (Auto) 0.2, Basophils # (Auto) 0.1, Immature Granulocyte # (Auto) 0.0, Percent Immature Platelet Fraction 14.5H, Pr othrombin Time 27.0H, INR Comment 2.5H, Activated Partial Thromboplast Time 59H, D-Dimer 0.35, Sodium Level 139, Potassium Level 4.4, Chloride Level 102, Carbon Dioxide Level 27, Anion Gap 10, Blood Urea Nitrogen 20H, Creatinine 1.91H, Estimat Glomerular Filtration Rate 37, BUN/Creatinine Ratio 10, Glucose Level 231H, Calcium Level 8.8, Corrected Calcium 9.2, Total Bilirubin 1.1H, Aspartate Amino Transf (AST/SGOT) 14, Alanine Aminotransferase (ALT/SGPT) 11, Alkaline Phosphatase 86, Troponin I 0.029H, Total Protein 6.3L, Albumin 3.5, Triglycerides Level 156H, Cholesterol Level 128, LDL Cholesterol Direct 70, VLDL Cholesterol 31, HDL Cholesterol 31L Cardiology Progess Note Progress Time Seen by Provider: 12:28 Laboratory Tests 11/05/22 09:30 KENDY JACOBS MD Nov 05, 2022 12:28
[2022-11-05] MEDS: NS IV 1000 ML 1,000 ML IV SCH (12:56)
[2022-11-05 13:22] VITALS: BP 162/123
[2022-11-05] MEDS: inSUlin ASPART (NovoLOG) 1 UNIT/0.01 ML (CHARGE PER UNIT) SC SCH ×2 (16:47→19:53)
[2022-11-05] MEDS ORDERED: warFARin 5 MG (COUMADIN) TAB PO SCH (18:00)
[2022-11-05] MEDS: DOCUSATE SODIUM 100 MG (COLACE) CAP PO SCH (19:50)
[2022-11-05] MEDS: SENNOSIDES 8.6 MG (SENOKOT) TAB PO SCH (19:53)
[2022-11-05] MEDS ORDERED: amLODIPine 5 MG (NORVASC) TAB PO ONE (22:00)
[2022-11-06] MEDS: hydrALAZINE (APESOLINE) 20 MG/ML VIAL IV PRN ×3 (00:20→18:09)
[2022-11-06] MEDS: NS IV 1000 ML 1,000 ML IV SCH (04:19)
[2022-11-06 05:00] LABS: BASOPHILS # (AUTO) 0.1 10^3/uL (0.0-0.1); BASOPHILS % (AUTO) 1 % (0-10); NEUTROPHILS % (AUTO) 77 % (42-75)
[2022-11-06 05:01] LABS: EOSINOPHILS # (AUTO) 0.1 10^3/uL (0.0-0.3); EOSINOPHILS % (AUTO) 1 % (0-10); HEMATOCRIT 52 % (40-54); HEMOGLOBIN 17.3 g/dL (13.3-17.7); LYMPHOCYTES # (AUTO) 1.7 10^3/uL (1.0-4.0); LYMPHOCYTES % (AUTO) 14 % (12-44); MEAN CORPUSCULAR HEMOGLOBIN 29 pg (25-34); MEAN CORPUSCULAR HGB CONC 33 g/dL (32-36); MEAN CORPUSCULAR VOLUME 88 fL (80-99); MEAN PLATELET VOLUME 13.3 fL (9.0-12.2); MONOCYTES # (AUTO) 0.9 10^3/uL (0.0-1.0); MONOCYTES % (AUTO) 7 % (0-12); NEUTROPHILS # (AUTO) 9.7 10^3/uL (1.8-7.8); PLATELET COUNT 114 10^3/uL (130-400); WHITE BLOOD COUNT 12.6 10^3/uL (4.3-11.0)
[2022-11-06 05:13] LABS: ALBUMIN 3.3 GM/DL (3.2-4.5)
[2022-11-06 05:14] LABS: CALCIUM 8.7 MG/DL (8.5-10.1); INR 1.4 (0.8-1.4); PROTHROMBIN TIME PATIENT 17.6 SEC (12.2-14.7)
[2022-11-06 05:16] LABS: TOTAL PROTEIN 6.4 GM/DL (6.4-8.2)
[2022-11-06 05:17] LABS: BILIRUBIN,TOTAL 0.9 MG/DL (0.1-1.0)
[2022-11-06 05:19] LABS: CREATININE SERUM 1.67 MG/DL (0.60-1.30)
[2022-11-06] MEDS: inSUlin ASPART (NovoLOG) 1 UNIT/0.01 ML (CHARGE PER UNIT) SC SCH ×4 (06:17→20:31)
[2022-11-06] MEDS: ASPIRIN E.C. 81 MG (ECOTRIN) TAB PO SCH (07:53)
--- NOTE | 2022-11-06 08:20 | Diagnostic Imaging Report ---
PROCEDURE: US carotid duplex, bilateral. TECHNIQUE: Multiple real-time grayscale images were obtained over the carotid arteries in various projections, bilaterally. Additional spectral analysis and color Doppler duplex images were also obtained. INDICATION: TIA COMPARISON: None available FINDINGS: Moderate amount of plaque is noted within bilateral carotid arterial systems. Peak systolic velocity within the left external carotid artery is mildly elevated at 136 cm/s. However, this does not double the velocity within it. Otherwise, peak systolic velocities within bilateral carotid arterial systems are within normal limits. Additionally, the bilateral internal carotid artery to common carotid artery ratios are within normal limits. Antegrade flow within the bilateral vertebral arteries. IMPRESSION: Near though less than 50% stenosis within the left external carotid artery. No evidence of hemodynamically significant stenosis with moderate plaque present. Antegrade flow within bilateral vertebral arteries. Parameters based on the consensus panel [employer]-Scale and Doppler ultrasound criteria published March 2003, Radiology, Volume 229. DOPPLER (peak systolic velocity M/S Right Left CCA .90 .88 ICA Proximal 1.03 .69 ICA Mid .99 .81 ICA Distal .64 .77 RATIO 1.15 .93 ECA .82 1.36 VERT .33 .31 Dictated by: Dictated on workstation # [id number]
[2022-11-06] MEDS: SENNOSIDES 8.6 MG (SENOKOT) TAB PO SCH ×2 (08:21→21:13)
[2022-11-06] MEDS: DOCUSATE SODIUM 100 MG (COLACE) CAP PO SCH ×2 (08:21→21:13)
--- NOTE | 2022-11-06 08:56 | Diagnostic Imaging Report ---
PROCEDURE: MR imaging of the brain without contrast. TECHNIQUE: Multiplanar, multisequence MR imaging of the brain was performed without contrast. INDICATION: Syncope. COMPARISON: 11/05/2022 CT. FINDINGS: No acute infarct. No acute or chronic hemorrhage. Chronic lacunar infarct within the tello and left thalamus. Moderate focal and confluent T2/FLAIR hyperintensity within the periventricular and subcortical white matter. Mild generalized prominence of ventricles and cortical sulci. The paranasal sinuses and mastoids are clear. The expected flow voids are maintained. The globes and orbits are normal. The skull is normal. The pituitary and sella are normal. No Chiari malformation. IMPRESSION: No acute infarct, hemorrhage, or hydrocephalus. Moderate chronic small vessel ischemic disease. Mild global volume loss. Chronic lacunar infarct within the tello and left thalamus. Dictated by: Dictated on workstation # [id number]
[2022-11-06] MEDS ORDERED: amLODIPine 5 MG (NORVASC) TAB PO SCH (09:00)
[2022-11-06 09:04] VITALS: BP 182/111
[2022-11-06] MEDS ORDERED: amLODIPine 5 MG (NORVASC) TAB PO NR (09:11)
--- NOTE | 2022-11-06 09:19 | Progress Note - Hospitalist ---
Subjective HPI/CC On Admission Date Seen by Provider: Nov 06, 2022 Time Seen by Provider: 09:00 Chief complaint: Unresponsive episode at breakfast table witnessed HPI: This is a 72-year-old male who has a past medical history of atrial fibrillation maintained on warfarin with INR 2.[address] Huston on a regular basis who was at the breakfast table with his family at home and suffered an unresponsive episode of which he was staring out in space. He was unable to be aroused. EMS was called and within 10 minutes they arrived and he was staring into space at that time per EMS report. His blood sugar was normal as was his blood pressure and there was no evidence of any catastrophic stroke signs so he was transported to the ER where work-up was essentially normal. Slight elevated troponin prompted cardiology consultation but he denies any chest pain or shortness of breath. His 2 daughters are at the bedside. He denies any weakness or vision changes or inability to ambulate. Due to the concerning signs we will monitor him on telemetry and obtain MRI tomorrow. Subjective/Events-last exam Patient doing really well MRI did not show any evidence of acute stroke but did show an old stroke of which he was not aware of Moving down to fourth floor Blood pressure much improved after multiple meds added Review of Systems General: Fatigue, Malaise Objective Exam Vital Signs Vital Signs Date Time Temp Pulse Resp B/P (MAP) Pulse Ox O2 Delivery O2 Flow Rate FiO2 11/07/22 03:30 37.6 90 20 147/75 (99) 95 Room Air 0.00 0.00 11/06/22 09:04 96 Capillary Refill : Less Than 3 Seconds General Appearance: No Apparent Distress, WD/WN, Chronically ill, Obese Respiratory: Lungs Clear, Normal Breath Sounds Cardiovascular: Regular Rate, Rhythm Neurologic/Psychiatric: Alert, Oriented x3, No Motor/Sensory Deficits, Normal Mood/Affect Results/Procedures Lab Patient resulted labs reviewed. Assessment/Plan Assessment and Plan Assess & Plan/Chief Complaint Assessment: Unresponsive episode witnessed at breakfast table without any signs of acute CVA But MRI showed old stroke and likely symptoms were from hypertensive urgency Elevated troponin of uncertain significance History of atrial fibrillation Therapeutic level of warfarin CAD previous stents Diabetes insulin-dependent Chronic kidney disease stage III BRENDON on CPAP Plan: Supportive care Cardiology consult appreciated Add aspirin Moved to fourth floor HELENE TEE DO Nov 06, 2022 09:19
--- NOTE | 2022-11-06 09:25 | Physical Therapy Evaluation ---
PT Evaluation-General Medical Diagnosis Admission Date Nov 05, 2022 at 09:00 Medical Diagnosis: elevated troponin/TIA Onset Date: Nov 06, 2022 Therapy Diagnosis Therapy Diagnosis: debility Height/Weight Height (Feet): 6 Height (Inches): 0 Weight (Pounds): 250 Weight (Ounces): 0.0 Precautions Precautions/Isolations: Standard Precautions Weight Bear Status Right Lower Extremity: Right Full Weight Bearing Left Lower Extremity: Left Full Weight Bearing Referral Physician: Juan Carlos Reason for Referral: Evaluation/Treatment Medical History Pertinent Medical History: Atrial Fib, CAD, DM, HTN Additional Medical History Drew's Palsy Current History EMS secondary to patient went unresponsive at home/right facial droop Reviewed History: Yes Social History Home: Single Level Current Living Status: Alone Prior Prior Level of Function SCALE: Activities may be completed with or without assistive devices. 7-Avtiysjaau-ajvfhgi completes the activity by him/herself with no assistance from a helper. 5-Set-up or Clean-up Assistance-helper sets up or cleans up; patient completes activity. Brandon assists only prior to or following the activity. 4-Supervision or Touching Assistance-helper provides verbal cues and/or touchin g/steadying and/or contact guard assistance as patient completes activity. Assistance may be provided throughout the activity or intermittently. 3-Partial/Moderate Assistance-helper does LESS THAN HALF the effort. Brandon lifts, holds or supports trunk or limbs, but provides less than half the effort. 2-Substantial/Maximal Assistance-helper does MORE THAN HALF the effort. Brandon lifts or holds trunk or limbs and provides more than half the effort. 8-Idsrojbow-uivjbk does ALL the effort. Patient does none of the effort to complete the activity. Or, the assistance of 2 or more helpers is required for the patient to complete the activity. If activity was not attempted, code reason: 7-Patient Refused. 9-Not Applicable-not attempted and the patient did not perform the activity before the current illness, exacerbation or injury. 10-Not Attempted due to Environmental Limitations-(lack of equipment, weather restraints, etc.). 88-Not Attempted due to Medical Conditions or Safety Concerns. Bed Mobility: 6 Transfers (B,C,W/C): 6 Gait: 6 Stairs: 6 Indoor Mobility (Ambulation): Independent Stairs: Independent Prior Devices Use: None PT Evaluation-Current Subjective Patient agrees to PT. Objective Patient Orientation: Normal For Age ROM/Strength ROM Lower Extremities bilateral LE WFL Strength Lower Extremities 5/5 grossly bilateral LE all planes Integumentary/Posture Bowel Incontinence: No Bladder Incontinence: No Posture slight trunk flexed posture Neuromuscular (Tone, Coordination, Reflexes) grossly intact Sensory Vision: Functional Hearing: Functional Transfers Sit to Lying (QC): 6 Lying to Sitting/Side of Bed(Q: 6 Sit to Stand (QC): 6 Gait Mode of Locomotion: Walk Anticipated Mode of Locomotion: Walk Walk 10 feet (QC): 6 Walk 50 ft with 2 Turns(QC): 6 Walk 150 ft (QC): 6 Distance: 200' Gait Assistive Device: None Comments/Gait Description safe and functional with no deviation Balance Sitting Static: Normal Sitting Dynamic: Normal Standing Static: Normal Standing Dynamic: Normal Assessment/Needs Patient is currently at independent PLOF with all gross motor skills safely and does not require skilled PT intervention. Physician notified. Rehab Potential: Fair PT Plan Treatment/Plan Treatment Plan: Discontinue PT, goals met Treatment Duration: Nov 06, 2022 Frequency: 1 time per week Estimated Hrs Per Day: .25 hour per day Patient and/or Family Agrees t: Yes Time Time In: 740 Time Out: 750 DATE: Nov 06, 2022 Total Billed Treatment Time: 10 [facility] M[facility]ESSL[facility] PT Nov 06, 2022 09:25
[2022-11-06] MEDS: hydrALAZINE (APRESOLINE) 25 MG TAB PO SCH ×3 (09:28→20:31)
--- NOTE | 2022-11-06 09:51 | Occ Therapy Progress Note ---
Therapy Progress Note OT order received, Patient is observed and discussed PLOF and CLOF with family and PT, NO OT indicted at this time, please DC OT order DANIAL MARTINEZ OT Nov 06, 2022 09:51
[2022-11-06] MEDS ORDERED: CARV25TA PO (13:18)
[2022-11-06] MEDS ORDERED: FURO20TA4 PO (13:18)
[2022-11-06] MEDS ORDERED: INSU100I34 SQ (13:18)
[2022-11-06] MEDS ORDERED: MELA10TA2 PO (13:19)
[2022-11-06] MEDS ORDERED: POTA20PA28 PO (13:20)
[2022-11-06] MEDS ORDERED: RIVA20TA PO (13:20)
[2022-11-06] MEDS ORDERED: DAPA1TAB5 PO (13:21)
[2022-11-06] MEDS ORDERED: CHOL-34 PO (13:21)
[2022-11-06] MEDS ORDERED: LIRA0.6P3 SQ (13:23)
[2022-11-06] MEDS ORDERED: warFARin 7.5 MG (COUMADIN) TAB PO SCH (18:00)
[2022-11-06] MEDS ORDERED: MELATONIN 10 MG TABLET PO PRN (18:15)
[2022-11-06] MEDS ORDERED: ENOXAPARIN 120 MG/0.8 ML (LOVENOX) SQ SCH (21:00)
[2022-11-06 23:19] VITALS: BP 125/76
[2022-11-07 03:30] VITALS: BP 147/75
[2022-11-07] MEDS: inSUlin ASPART (NovoLOG) 1 UNIT/0.01 ML (CHARGE PER UNIT) SC SCH ×2 (05:27→11:53)
[2022-11-07 05:46] LABS: BASOPHILS # (AUTO) 0.1 10^3/uL (0.0-0.1); BASOPHILS % (AUTO) 1 % (0-10); HEMATOCRIT 47 % (40-54); MEAN CORPUSCULAR VOLUME 89 fL (80-99); MONOCYTES % (AUTO) 9 % (0-12)
[2022-11-07 05:48] LABS: EOSINOPHILS # (AUTO) 0.2 10^3/uL (0.0-0.3); EOSINOPHILS % (AUTO) 2 % (0-10); HEMOGLOBIN 15.4 g/dL (13.3-17.7); LYMPHOCYTES # (AUTO) 1.9 10^3/uL (1.0-4.0); LYMPHOCYTES % (AUTO) 19 % (12-44); MEAN CORPUSCULAR HEMOGLOBIN 29 pg (25-34); MEAN CORPUSCULAR HGB CONC 33 g/dL (32-36); MEAN PLATELET VOLUME 12.1 fL (9.0-12.2); MONOCYTES # (AUTO) 0.8 10^3/uL (0.0-1.0); NEUTROPHILS # (AUTO) 6.9 10^3/uL (1.8-7.8); NEUTROPHILS % (AUTO) 70 % (42-75); PLATELET COUNT 115 10^3/uL (130-400); WHITE BLOOD COUNT 9.9 10^3/uL (4.3-11.0)
[2022-11-07 06:03] LABS: BILIRUBIN,TOTAL 0.9 MG/DL (0.1-1.0); CALCIUM 8.2 MG/DL (8.5-10.1); CREATININE SERUM 1.81 MG/DL (0.60-1.30); POTASSIUM 3.7 MMOL/L (3.6-5.0); TOTAL PROTEIN 5.6 GM/DL (6.4-8.2)
[2022-11-07] MEDS ORDERED: glipiZIDE 5 MG (GLUCOTROL) TAB PO SCH (06:30)
[2022-11-07] MEDS ORDERED: KCL 20 MEQ TAB (K-DUR) PO SCH (07:00)
[2022-11-07 07:08] VITALS: BP 175/89
[2022-11-07] MEDS: hydrALAZINE (APRESOLINE) 25 MG TAB PO SCH ×2 (08:31→12:49)
[2022-11-07] MEDS: ASPIRIN E.C. 81 MG (ECOTRIN) TAB PO SCH (08:33)
[2022-11-07] MEDS: DOCUSATE SODIUM 100 MG (COLACE) CAP PO SCH (08:33)
[2022-11-07] MEDS: SENNOSIDES 8.6 MG (SENOKOT) TAB PO SCH (08:33)
[2022-11-07] MEDS ORDERED: FUROSEMIDE 20 MG (LASIX) TAB PO SCH (09:00)
[2022-11-07] MEDS ORDERED: DAPAGLIFLOZIN PO SCH (09:00)
[2022-11-07] MEDS ORDERED: amLODIPine 5 MG (NORVASC) TAB PO SCH (09:00)
[2022-11-07] MEDS ORDERED: NON-FORMULARY MEDICATION 1 EA EA (Liraglutide (Victoza 3-Pak) 1.8 MG) SQ SCH (09:00)
[2022-11-07] MEDS ORDERED: [UNRECOGNIZED DRUG - OTHER] PO SCH (09:00)
[2022-11-07] MEDS ORDERED: VITAMIN D3 25 MCG (1,000 UNITS) TABLET PO SCH (09:00)
[2022-11-07] MEDS ORDERED: METFORMIN HCL PO SCH (09:00)
[2022-11-07] MEDS ORDERED: RIVAROXABAN 20 MG TABLET (XARELTO) PO SCH (09:00)
[2022-11-07] MEDS ORDERED: AMLO-250 PO (10:10)
[2022-11-07] MEDS ORDERED: HYDR-3923 PO (10:10)
[2022-11-07] MEDS ORDERED: ASPI-1238 PO (10:10)
[2022-11-07] MEDS ORDERED: CARV12.53 PO (10:10)
--- NOTE | 2022-11-07 10:11 | Discharge Summary ---
Discharge Summary Hospital Course Was the Problem List Reviewed?: Yes Problems/Dx: (1) Hypertensive urgency (2) Transient alteration of awareness Status: Acute (3) Elevated troponin Status: Acute (4) High blood pressure Status: Acute (5) Drew's palsy Status: Acute (6) Diabetes Status: Chronic (7) HTN (hypertension) Status: Chronic (8) CAD (coronary artery disease) Status: Chronic (9) Old cerebral infarct without residual deficit (10) Cognitive deficits Hospital Course Date of Admission: Nov 06, 2022 at 09:00 Admission Diagnosis : Family Physician/Provider: Jason Garcia DO Date of Discharge: 11/07/22 Discharge Diagnosis: [ ] Hospital Course: Patient had an uneventful hospital course after he was admitted for suspected CVA with hypertensive urgency requiring ICU monitoring and restart of home medication. Cardiology evaluated him to have a type II IA from hypertension and he was placed on aspirin. MRI showed old infarct of which he never had any knowledge of but no acute or subacute infarct. My suspicion was hypertensive urgency caused the neurological deficit and considering what I suspect is vascular dementia with cognitive deficits it was consistent with neurological deficits combined with vascular events. Blood pressure was much improved at t darius of discharge and he was discharged in improved condition. Labs and Pending Lab Test: Laboratory Tests 11/06/22 10:52: Glucometer 263H 11/06/22 20:08: Glucometer 223H 11/07/22 05:25: Glucometer 121H 11/07/22 05:30: White Blood Count 9.9, Red Blood Count 5.28, Hemoglobin 15.4, Hematocrit 47, Mean Corpuscular Volume 89, Mean Corpuscular Hemoglobin 29, Mean Corpuscular Hemoglobin Concent 33, Red Cell Distribution Width 14.5, Platelet Count 115L, Mean Platelet Volume 12.1, Immature Granulocyte % (Auto) 0, Neutrophils (%) (Auto) 70, Lymphocytes (%) (Auto) 19, Monocytes (%) (Auto) 9, Eosinophils (%) (Auto) 2, Basophils (%) (Auto) 1, Neutrophils # (Auto) 6.9, Lymphocytes # (Auto) 1.9, Monocytes # (Auto) 0.8, Eosinophils # (Auto) 0.2, Basophils # (Auto) 0.1, Immature Granulocyte # (Auto) 0.0, Percent Immature Platelet Fraction 12.9H, Sodium Level 139, Potassium Level 3.7, Chloride Level 108H, Carbon Dioxide Level 23, Anion Gap 8, Blood Urea Nitrogen 27H, Creatinine 1.81H, Estimat Glomerular Filtration Rate 39, BUN/Creatinine Ratio 15, Glucose Level 129H, Calcium Level 8.2L, Corrected Calcium 9.0, Total Bilirubin 0.9, Aspartate Amino Transf (AST/SGOT) 13, Alanine Aminotransferase (ALT/SGPT) 10, Alkaline Phosphatase 72, Total Protein 5.6L, Albumin 3.0L Home Meds Active Aspirin EC (Aspirin) 81 Mg Tablet.dr 81 Mg PO DAILY Amlodipine Besylate 5 Mg Tablet 10 Mg PO DAILY Carvedilol 12.5 Mg Tablet 25 Mg PO BID Hydralazine HCl 25 Mg Tablet 50 Mg PO TID Reported Victoza 3-Seamus (Liraglutide) 0.6 Mg/0.1 Ml (18 Mg/3 Ml) Pen.injctr 1.8 Mg SQ DAILY Vitamin D3 (Cholecalciferol (Vitamin D3)) 25 Mcg (1000 Unit) Tablet 25 Mcg PO DAILY Xigduo Xr 10 mg-1,000 mg Tab (Dapagliflozin/Metformin HCl) 10 Mg-1,000 Mg Tab.bp.24h 1 Each PO DAILY Xarelto (Rivaroxaban) 20 Mg Tablet 20 Mg PO DAILY Potassium Chloride 20 Meq Packet 20 Meq PO DAILY Melatonin 10 Mg Tablet 20 Mg PO HS PRN TAKES 2 (10MG) TABS Carvedilol 25 Mg Tablet 25 Mg PO DAILY Basaglar Kwikpen U-100 (Insulin Glargine,Hum.rec.anlog) 100 Unit/Ml (3 Ml) Insuln.pen 22 Units SQ BID Furosemide 20 Mg Tablet 20 Mg PO DAILY Glipizide 10 Mg Tablet 10 Mg PO DAILY Atorvastatin Calcium 40 Mg Tablet 40 Mg PO DAILY Assessment/Pt Instructions PCP in 1 week for blood pressure check Discharge Planning: <30 minutes discharge planning Discharge Instructions Discharge Diet: No Restrictions Discharge Physical Examination Vital Signs Vital Signs Date Time Temp Pulse Resp B/P (MAP) Pulse Ox O2 Delivery O2 Flow Rate FiO2 11/07/22 07:08 36.6 89 18 175/89 (117) 92 Room Air 11/07/22 03:30 0.00 0.00 11/06/22 09:04 96 General Appearance: No Apparent Distress, WD/WN, Chronically ill Respiratory: Lungs Clear, Normal Breath Sounds Cardiovascular: Regular Rate, Rhythm Neurologic/Psychiatric: Alert, Oriented x3, No Motor/Sensory Deficits, Normal Mood/Affect Allergies: Coded Allergies: No Known Drug Allergies (Unverified , 11/19/19) Discharge Summary Date of Admission Nov 06, 2022 at 09:00 Date of Discharge Discharge Date: Nov 07, 2022 Admission Diagnosis Assessment: Unresponsive episode witnessed at breakfast table without any signs of CVA presumed TIA Elevated troponin of uncertain significance History of atrial fibrillation Therapeutic level of warfarin CAD previous stents Diabetes insulin-dependent Chronic kidney disease stage III BRENDON on CPAP Plan: Supportive care Gentle IV fluid Cardiology consult appreciated Maintain on Coumadin Add aspirin Check lipid profile Carotid ultrasound tomorrow MRI of the brain tomorrow Discharge Diagnosis Assessment: Unresponsive episode witnessed at breakfast table without any signs of acute CVA But MRI showed old stroke and likely symptoms were from hypertensive urgency Elevated troponin of uncertain significance History of atrial fibrillation Therapeutic level of warfarin CAD previous stents Diabetes insulin-dependent Chronic kidney disease stage III BRENDON on CPAP Plan: Supportive care Cardiology consult appreciated Add aspirin Moved to fourth floor HELENE TEE DO Nov 07, 2022 10:10
[2022-11-07 11:45] VITALS: BP 151/92
[2022-11-07 13:51] VITALS: BP 151/92
== END 2022-11-07 13:54 | disposition home or self-care (01) | DRG 281 ==
LOC: EDUNIT# 09:22 → ER 09:27 → ICU 11:36 → OBSVTOIN 11-06 09:00 → 4TH 11-06 18:45
PROVIDERS: ADMIT Internal Medicine; ATTEND Internal Medicine
DX: I16.0 Hypertensive urgency (principal); I21.A1 Myocardial infarction type 2; I48.19 Other persistent atrial fibrillation; I10 Essential (primary) hypertension; G51.0 Bell's palsy; Z79.01 Long term (current) use of anticoagulants; F01.50 Vascular dementia, unspecified severity, without behavioral disturbance, psychotic disturbance, mood disturbance, and anxiety; I25.10 Atherosclerotic heart disease of native coronary artery without angina pectoris; I12.9 Hypertensive chronic kidney disease with stage 1 through stage 4 chronic kidney disease, or unspecified chronic kidney disease; E11.22 Type 2 diabetes mellitus with diabetic chronic kidney disease; N18.30 Chronic kidney disease, stage 3 unspecified; G47.33 Obstructive sleep apnea (adult) (pediatric); I49.5 Sick sinus syndrome; E78.5 Hyperlipidemia, unspecified; Z89.422 Acquired absence of other left toe(s); Z95.5 Presence of coronary angioplasty implant and graft; Z79.82 Long term (current) use of aspirin; Z79.899 Other long term (current) drug therapy; Z79.84 Long term (current) use of oral hypoglycemic drugs; Z79.52 Long term (current) use of systemic steroids
CPT/HCPCS: 36415; 70450; 70551; 71045; 80053; 80061; 82947; 84484; 85025; 85379; 85610; 85730; 93005; 93306; 93880; 94664